=== PATIENT | male | born 1960 ===

== ENCOUNTER 2021-07-24 13:35 | Emergency (ER) | payer MEDICAID, SELFPAY ==
[2021-07-24 16:12] VITALS: BP 150/93; PULSE 82; RESP 19; TEMP 36.6; O2SAT 100; BMI 21.5
--- NOTE | 2021-07-24 16:36 | ED_ITS ---
HPI - Back Pain/Injury General Chief Complaint: Back Pain/Injury Stated Complaint: l leg pain Time Seen by Provider: 07/24/21 16:11 History of Present Illness HPI Narrative: Patient complains of left low back pain radiating to upper left leg since lifting a box this morning and feeling sharp pain He has had milder back pain before He denies any numbness or weakness or incontinence no fever no IV drugs Related Data Previous Rx's Medication Instructions Recorded cyclobenzaprine 5 mg tablet 5 mg PO TID PRN #14 tab 07/24/21 ibuprofen 600 mg tablet 600 mg PO Q6H PRN #20 tab 07/24/21 oxycodone 5 mg tablet 5 mg PO Q6H PRN #14 tab 07/24/21 prednisone 20 mg tablet 60 mg PO DAILY 5 Days #15 tab 07/24/21 Allergies Allergy/AdvReac Type Severity Reaction Status Date / Time No Known Allergies Allergy Unverified 04/22/20 19:11 [No Known Allergies*] Review of Systems Review of Systems: Positive for back pain radiating to left leg Negatives are no fever no chills no dizziness no weakness no headache no neck pain no chest pain no abdominal pain no nausea vomiting no dysuria no incontin ence no changes to bowel or bladder no muscle weakness no loss of sensation Yes all other systems are reviewed and are negative PMFSH Past Medical History Source: nursing notes reviewed Social History Social History Advance Directives: No Advance Directives Information Provided: No Physical Exam Vital Signs: Vital Signs: Last Vital Signs Temp 98 F 07/24/21 16:12 Pulse 82 07/24/21 16:12 Resp 19 07/24/21 16:12 BP 150/93 H 07/24/21 16:12 Pulse Ox 100 07/24/21 16:12 BMI result Body Mass Index 21.5 General appearance is no acute distress The head is normocephalic atraumatic Neck is supple Respiratory no distress Abdomen soft nontender The back had left lower lumbar and upper gluteal tenderness, skin was normal, no CVA tenderness no focal bony tenderness, pain easily reproduced with movement Extremities full range of motion x4 Motor is 5/5 x4 and sensation is intact and symmetrical Course Course Course Narrative: Patient with left-sided sciatica is treated with prednisone anti-inflammatory as well as analgesics and muscle relaxer Discharge Plan Discharge Clinical Impression: Lumbar radiculopathy Patient Disposition: Home, Self-Care Additional Instructions: Pain on the left lower back radiating to left upper leg is likely a pinched nerve Prednisone as an anti-inflammatory that may reduce inflammation around the nerve You can use the muscle relaxer as well and Motrin for mild pain and if needed you could use oxycodone for worse pain Return any time any worse condition or concerns Follow with primary doctor Prescriptions: New prednisone 20 mg tablet 60 mg PO DAILY 5 Days Qty: 15 RF: 0 ibuprofen 600 mg tablet 600 mg PO Q6H PRN (Reason: pain) Qty: 20 RF: 0 oxycodone 5 mg tablet 5 mg PO Q6H PRN (Reason: pain) Qty: 14 RF: 0 cyclobenzaprine 5 mg tablet 5 mg PO TID PRN (Reason: muscle spasm) Qty: 14 RF: 0 Interventions: ED Discharge Assessment Last Done: 07/24/21 16:51 Discharge Date/Time: 07/24/21 17:10
[2021-07-24] MEDS: Ketorolac Tromethamine 30 MG/ML VIAL IM (16:47)
== END 2021-07-24 17:10 | disposition home or self-care (01) ==
PROVIDERS: Emergency Provider Emergency Medicine
DX: M54.16 Radiculopathy, lumbar region (principal)
CPT/HCPCS: 99283; 99284; J1885

== ENCOUNTER 2021-08-07 12:00 | Emergency (ER) | payer MEDICAID, SELFPAY ==
--- NOTE | ~2021-08-07 | CT_ITS ---
EXAMINATION: CT ABDOMEN AND PELVIS WITHOUT CONTRAST CLINICAL INFORMATION: Left-sided low back pain. Rule out mass. Rule out aortic enlargement. COMPARISON: None TECHNIQUE: Multidetector volumetric imaging was performed from the superior aspect of the liver through the pubic symphysis. Sagittal and coronal reformatted images were obtained on the technologist's workstation. This CT examination was performed using dose optimization techniques as appropriate, variously including the following: *Automated exposure control *Adjustment of mA and/or kV according to patient size (this includes techniques or standardized protocols for targeted exams where dose is matched to indication/reason for exam; i.e. extremities or head) *Use of iterative reconstruction technique DLP: 371 mGy-cm FINDINGS: LUNG BASES: Linear pleural-parenchymal scarring is present at the right middle lobe, lingula, and left lower lobe. Lung bases are otherwise clear. LIVER, GALLBLADDER, AND BILIARY TREE: The liver is normal in size, shape, and attenuation. No focal hepatic lesion or biliary ductal dilatation is present. The gallbladder is unremarkable with no evidence of radiopaque gallstones, gallbladder wall thickening, or obvious pericholecystic inflammatory changes. PANCREAS: Unremarkable. SPLEEN: Unremarkable. ADRENAL GLANDS: Unremarkable. KIDNEYS AND URETERS: The kidneys are normal in size, shape, and attenuation. No hydronephrosis, hydroureter, or calculi seen. No perinephric stranding. There is a 1.2 cm fluid density (2 Hounsfield unit) cysts in the right kidney at the medial cortex, most likely a simple cyst. No recommend imaging follow-up. BLADDER: Unremarkable. GASTROINTESTINAL TRACT: Stomach, small bowel, and colon are normal in caliber. No bowel wall thickening or surrounding inflammatory changes. There is a prominent appendicolith at the appendix without significant surrounding inflammatory changes. There is normal intraluminal gas within the appendix.. No intraperitoneal free fluid or free air. ABDOMINAL WALL: No significant hernia is appreciated. LYMPH NODES: Normal. VASCULAR: Abdominal aorta is normal in caliber. No significant atherosclerotic disease in the abdominal aorta. A small calcific atherosclerotic plaque is present in the right common iliac artery. PELVIC VISCERA: Mild prostatomegaly. OSSEOUS STRUCTURES: There is mild multilevel degenerative disc disease in the lumbar spine. No acute fracture or malalignment. 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 There is encroachment of the left L4-L5 neural foramen by a foraminal component of the disc bulge. More mild degrees of neural foraminal encroachment are present at other levels. CT/CT abdomen pelvis wo con IMPRESSION: 1. No acute intra-abdominal or intrapelvic abnormalities. Normal caliber abdominal aorta. 2. 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 A mild disc bulge at L4-L5 appears asymmetric to the left with a foraminal component that likely produces left L4-L5 neural foraminal encroachment and impinges on the left L4 nerve root. Consider correlation with MRI on a nonemergent basis.
[2021-08-07 13:41] VITALS: BP 120/73; PULSE 85; RESP 20; TEMP 36.2; O2SAT 99; BMI 20.9
--- NOTE | 2021-08-07 18:54 | ED.EXTPRO ---
HPI - Extremity Problem General Chief complaint: Extremity Problem Stated complaint: leg pain Time Seen by Provider: 08/07/21 15:38 History of Present Illness HPI Narrative: Patient complains of severe pain going down the left leg from his low back gluteal area on the left side for many weeks not relieved with a prior visit where he was given prednisone and pain killers, there is no incontinence no changes to bowel or bladder no motor weakness no loss of sensation Related Data Previous Rx's Medication Instructions Recorded cyclobenzaprine 5 mg tablet 5 mg PO TID PRN #14 tab 07/24/21 ibuprofen 600 mg tablet 600 mg PO Q6H PRN #20 tab 07/24/21 oxycodone 5 mg tablet 5 mg PO Q6H PRN #14 tab 07/24/21 prednisone 20 mg tablet 60 mg PO DAILY 5 Days #15 tab 07/24/21 ibuprofen 600 mg tablet 600 mg PO Q6H PRN #20 tab 08/07/21 oxycodone 5 mg tablet 10 mg PO Q6H PRN #20 tab 08/07/21 Allergies Allergy/AdvReac Type Severity Reaction Status Date / Time No Known Allergies Allergy Unverified 08/07/21 13:40 [No Known Allergies*] Review of Systems Review of Systems: Positive for left-sided gluteal and low back pain rated radiating to left foot Negatives are no fever no chills no chest pain no abdominal pain no shortness of breath no nausea or vomiting no dysuria no incontinence no frequency no loss of motor strength no loss of sensation Yes all other systems are reviewed and are negative [facility] Past Medical History Source: nursing notes reviewed Medical History (Updated 08/07/21 @ 17:22 by FABIOLA Barron) No known health problems Social History Social History Advance Directives: No Advance Directives Information Provided: Yes Physical Exam Vital Signs: Vital Signs: Last Vital Signs Temp 97.2 F 08/07/21 13:41 Pulse 85 08/07/21 13:41 Resp 20 08/07/21 13:41 BP 120/73 08/07/21 13:41 Pulse Ox 99 08/07/21 13:41 BMI result Body Mass Index 20.9 General appearance is no acute distress The head is normocephalic atraumatic neck is supple Respiratory no distress Abdomen soft nontender The back had gluteal and lower back tenderness, skin was normal, certain positions cause worse pain, the skin was normal in appearance there are no wounds no redness no focal bony tenderness and no CVA tenderness Extremities was full range of motion x4 Neuro was no focal motor sensory deficits Course Course Course Narrative: CT showed likely L4-L5 herniated disc impinging L4 nerve root Patient is neurovascular intact now with no changes to bowel or bladder and he is prescribed analgesics and as he has no primary doctor I gave him some phone numbers including [facility], pain management here in the hospital and neurosurgeon Dr. Stovall but without a referral it may be hard to get him seen Discharge Plan Discharge Clinical Impression: Pinched nerve, Sciatica Patient Disposition: Home, Self-Care Additional Instructions: Your CT scan shows you likely have a herniated disc that is pressured on a nerve You will need to follow with a back specialist and I can give you some phone numbers but you may need a referral from a primary care doctor You can try [facility] [phone] Return any time for weakness, fever, severe uncontrolled pain, incontinence any worse condition or any concerns Prescriptions: New oxycodone 5 mg tablet 10 mg PO Q6H PRN (Reason: pain) Qty: 20 RF: 0 ibuprofen 600 mg tablet 600 mg PO Q6H PRN (Reason: pain) Qty: 20 RF: 0 No Action prednisone 20 mg tablet 60 mg PO DAILY 5 Days Qty: 15 RF: 0 ibuprofen 600 mg tablet 600 mg PO Q6H PRN (Reason: pain) Qty: 20 RF: 0 oxycodone 5 mg tablet 5 mg PO Q6H PRN (Reason: pain) Qty: 14 RF: 0 cyclobenzaprine 5 mg tablet 5 mg PO TID PRN (Reason: muscle spasm) Qty: 14 RF: 0 Referrals: Justin Buck MD [Physician] - 2 days (Patient seen in ER multiple times for excruciating sciatica, not a drug seeker, no primary doctor hoping he can get into your office for possible injection and further evaluation, CT scan did demonstrate a likely large disc herniation impinging on L4)
[2021-08-07] MEDS: Ketorolac Tromethamine 30 MG/ML VIAL IM (19:20)
== END 2021-08-07 19:24 | disposition home or self-care (01) ==
PROVIDERS: Emergency Provider Internal Medicine
DX: M54.32 Sciatica, left side (principal); G58.9 Mononeuropathy, unspecified
CPT/HCPCS: 74176; 96372; 99284; J1885

== ENCOUNTER 2021-08-09 08:11 | Emergency (ER) | payer MEDICAID, SELFPAY ==
--- NOTE | ~2021-08-09 | MR_ITS ---
MR LUMBAR SPINE WITHOUT CONTRAST CLINICAL INFORMATION: Low back pain radiating to the left lower extremity. Urinary/bowel retention. COMPARISON: None available. TECHNIQUE: MRI of the lumbar spine was obtained using routine sequences without contrast. FINDINGS: Straightening of the lumbar lordosis. Grade 1 retrolisthesis of L3 on L4. Disc desiccation at the L3-L4, L4-L5, and to lesser extent the L5-S1 levels. Modic type I endplate signal changes at L3-L4. Small intraosseous hemangioma within the L4 vertebral body. No additional bone marrow edema. No acute fractures. Conus terminates at the L1-L2 level. There is a right renal cyst. L1-L2: Disc contour is normal. No central canal stenosis and no foraminal stenosis. L2-L3: Small annular disc bulge and mild to moderate bilateral facet arthropathy. Shallow left paracentral disc protrusion results in mass effect on the traversing left L3 nerve root within the left subarticular zone. There is mild foraminal encroachment bilaterally. L3-L4: Diffuse annular disc bulge and mild to moderate bilateral hypertrophic facet arthropathy. Findings in concert result in bilateral subarticular zone stenosis with mass effect on the traversing L4 nerve roots bilaterally, mild central canal stenosis, moderate to severe bilateral foraminal stenosis with mass effect on the exiting L3 nerve roots bilaterally. There is a left lateral annular fissure at this level. L4-L5: Diffuse annular disc bulge and moderate bilateral facet arthropathy and ligamentum flavum thickening. Findings in concert result in mild central canal stenosis. There is a superiorly migrating left foraminal disc extrusion that results in severe left foraminal stenosis and compression of the exiting left L4 nerve root. Right lateral disc osteophyte and facet arthropathy result in moderate right foraminal stenosis with mild mass effect on the exiting right L4 nerve root as well. L5-S1: There is a shallow right paracentral disc protrusion that results in posterior deflection of the traversing right S1 nerve root within the right subarticular zone. Disc osteophyte and facet arthropathy result in moderate right and mild to moderate left foraminal stenosis with mass effect on the exiting right L5 nerve root. MR/MR lumbar spine wo con IMPRESSION: - At L4-L5, there is a superiorly migrating left foraminal disc extrusion that results in severe left foraminal stenosis and compression of the exiting left L4 nerve root. Also at L4-L5, spondylitic changes result in mild central canal stenosis and moderate right-sided foraminal stenosis with mass effect on the exiting right L4 nerve root as well. - At L5-S1, there is a shallow right paracentral disc protrusion that results in posterior deflection of the traversing right S1 nerve root within the right subarticular zone. Spondylitic changes at L5-S1 also result in moderate right foraminal stenosis with mass effect on the exiting right L5 nerve root. - At L3-L4, multifactorial degenerative changes result in bilateral subarticular zone stenosis with mass effect on the traversing L4 nerve roots bilaterally, mild central canal stenosis, moderate to severe bilateral foraminal stenosis with mass effect on the exiting L3 nerve roots bilaterally. There is a left lateral annular fissure at this level. - At L2-L3, a shallow left paracentral disc protrusion results in mass effect on the traversing left L3 nerve root within the left subarticular zone.
[2021-08-09 09:00] VITALS: BP 94/66; PULSE 92; RESP 18; TEMP 36.8; O2SAT 98; BMI 21.5
--- NOTE | 2021-08-09 09:22 | ED_ITS ---
HPI - Back Pain/Injury General Chief Complaint: Back Pain/Injury Stated Complaint: back pain Time Seen by Provider: 08/09/21 09:17 Source: patient Mode of arrival: ambulatory Limitations: language barrier ([place] Speaking) History of Present Illness HPI Narrative: 61-year-old male with no significant past medical history presenting to the ED with complaints of lower back/left lower back back pain for the past 6 weeks that is progressively worsening radiating to his left leg with associated paresthesias, urinary and bowel retention, difficulty walking having to use his walker in the past week along with 10-12 lb weight loss as well. Although reports his appetite has not been good therefore he has not been eating as much and he is unsure if the urinary and bowel retention is due to this. He has been taking [id number] medication and the prescribed medications given here on his last visit although no symptomatic relief. He does not have a primary care provider at this time. He denies any falls, recent trauma, history of kidney stones, back surgery, arthritis, history of cancer, urinary or bowel incontinence or any IV drug use or any fevers. He denies any other symptoms complaints or concerns at this time. MD elicited complaint: back pain Onset (ago): week(s) (6) Timing: constant and progressively worsening Severity: severe Pain scale (0-10): 10 Similar Symptoms Previously: Yes Quality: sharp Location: lumbar spine and left lower back Radiation: left leg below the knee Exacerbating factors: movement, walking and lifting Relieving factors: none Context: unknown Associated symptoms: numbness, difficulty walking, parasthesias and other (increased urinary and bowel retention ) Treatments prior to arrival: other (OTC meds and no symptomatic relief) Work related injury: No Related Data Previous Rx's Medication Instructions Recorded cyclobenzaprine 5 mg tablet 5 mg PO TID PRN #14 tab 07/24/21 ibuprofen 600 mg tablet 600 mg PO Q6H PRN #20 tab 07/24/21 oxycodone 5 mg tablet 5 mg PO Q6H PRN #14 tab 07/24/21 prednisone 20 mg tablet 60 mg PO DAILY 5 Days #15 tab 07/24/21 ibuprofen 600 mg tablet 600 mg PO Q6H PRN #20 tab 08/07/21 oxycodone 5 mg tablet 10 mg PO Q6H PRN #20 tab 08/07/21 nitrofurantoin 100 mg PO BID 7 Days #14 cap 08/09/21 monohydrate/macrocrystals 100 mg capsule (Macrobid) oxycodone 5 mg tablet 5 mg PO Q6H PRN #14 tab 08/09/21 prednisone 20 mg tablet 40 mg PO DAILY 5 Days #10 tab 08/09/21 Allergies Allergy/AdvReac Type Severity Reaction Status Date / Time No Known Allergies Allergy Verified 08/09/21 09:00 [No Known Allergies*] Review of Systems Review of Systems: Constitutional : No trauma, + Weight loss, No Fever, No Chills, ENT/Mouth : No Hearing loss, No Ear Pain, No Nasal Congestion, No Sinus Pain, No Hoarseness, No sore throat, No Rhinorrhea, No Swallowing Difficulty Cardiovascular : No Chest Pain, No SOB Respiratory : No Cough, No Dyspnea Gastrointestinal : No Nausea, No Vomiting, No Diarrhea, No abdominal Pain, No Hematochezia, No Melena Genitourinary : No Dysuria, No Urinary Frequency, No Hematuria, No Urinary or Bowel Incontinence/retention Musculoskeletal : + Back pain, No neck pain, No joint stiffness, No joint swelling Skin : No Skin Lesions, No rash or signs of infection Neuro : No Weakness, + radiation, + Numbness, + Paresthesias, No headache, no loss of bowel or bladder incontinence, no saddle anesthesia, Focal weakness, + radiation Denies history of IV drug usage. Yes all other systems are reviewed and are negative [facility] Past Medical History Attestation statement: The following information was validated with the patient. Medical History No known health problems Social History Social History Advance Directives: No Advance Directives Information Provided: No Physical Exam Vital Signs: Vital Signs: Last Vital Signs Temp 98.3 F 08/09/21 09:00 Pulse 92 08/09/21 09:00 Resp 18 08/09/21 09:00 BP 94/66 08/09/21 09:00 Pulse Ox 98 08/09/21 09:00 BMI result Body Mass Index 21.5 vital signs have been reviewed as normal and appeared to be correct. Blood pressure normal. Heart rate normal. Respiration rate normal. Temperature normal. Oxygen saturation normal. Appearance: Alert. Oriented X3. No acute distress. Head: Normal external exam. Normocephalic. Atraumatic. Eyes: PERRLA. EOMI. Conjunctiva and sclera normal. Eyelids normal. ENT: Pharynx normal. Uvula midline. Moist mucous membranes. Neck: Normal inspection. Neck supple. FROM. No adenopathy. Thyroid Normal. No meningeal signs. No neck mass noted. CVS: Normal heart rate and rhythm. Heart sound normal. No murmurs noted. Pulses normal throughout. Respiratory: No respiratory distress. Painless inspiration. Breath sounds normal. No wheezes/rales/rhonchi noted. Chest nontender. No accessory muscle usage noted or decreased air movement noted. Abdomen: Soft and nontender. Bowel sounds normal in all 4 quadrants. No distention noted. No organomegaly noted. No visible injury noted. Back: No CVA tenderness. Full range of motion noted. No obvious deformities, or edema. Mild para-spinal muscular tenderness from lumbar region to coccyx. Full ROM in back and lower extremities. 5/5 strength hip extension/flexion, abduction, adduction. Mild Lumbar pain with hip flexion against resistance. Straight leg raise test negative on right; Straight leg raise test negative on left; Reflexes normal ankle and knee bilaterally; EHL motor strength normal bilaterally. No rashes/lesion/induration/fluctuance or signs infection noted. Rectal Exam: Normal rectal exam. Normal sphincter tone. Skin: Skin warm and dry. Normal skin color. Normal skin turgor. No rashes/lesions/lacerations noted. Extremities: No lower extremity edema. No calf tenderness is noted. Extremities exhibit normal range of motion. Extremities nontender. Neuro: Oriented X 3. No motor deficit. No sensory deficit. Reflexes normal. Patient has a normal steady gait. Course Course Course Narrative: 9:30am - Pt c likely muscular pain, but could be herniated disc. Neuro exam shows no deficits. Not c/w AAA/epidural abscess/dissection. Patient is reporting urinary and bowel retention with associated weight loss therefore MRI ordered at this time to evaluate for any other acute processes along with labs and UA. No history of fever/immune suppressant/surgery/lumbar puncture/coagulation therapy/significant trauma/post a tiny mass/cancer/history of TB or IV drug use. Not c/w Pyelo/UTI/kidney stone/spinal fx. Not cauda equina syndrome. Will reassess after labs and imaging. Reevaluation(s) Reevaluation #1: [place] [address]. MILD ANEMIA WITH AN H&H OF 13.1/38.9. BUN 17. OTHERWISE ALL OTHER LABS ARE WITHIN NORMAL LIMITS. PATIENT WITH 15-29 WHITE BLOOD CELLS IN URINE POSSIBLE UTI THEREFORE WAS STARTED ON ANTIBIOTICS FOR UTI. MRI revealed chronic changes therefore printed out the results and handed to the patient explained to him that he will need to follow-up with a primary care provider and a camp recreation specialist I gave him a few numbers for that he will need to call on his own to make an appointment. He understands this. Along with instructions return if any new or worsening symptoms. Time: 13:23 MDM - Back Pain/Injury Medical Records Attestation: I reviewed the patient's medical records. Lab Data Attestation: I reviewed the patient's lab results. Result diagrams: 08/09/21 09:37 08/09/21 09:37 Labs: Lab Results 08/09/21 08/09/21 08/09/21 Range/Units 09:34 09:37 09:37 WBC 14.2 H (4.8-10.8) X10*3/uL RBC 4.23 L (4.60-5.80) X10*6/uL Hgb 13.1 L (14.0-18.0) g/dl Hct 38.9 L (42.0-52.0) % MCV 92.0 (80.0-98.0) fL MCH 31.0 (27.0-33.0) pg MCHC 33.7 (31.0-36.0) g/dl RDW 12.4 (11.0-16.0) % Plt Count 215 (160-400) X10*3/uL MPV 9.9 (9.4-12.4) fL Immature Gran % (Auto) 0.4 (0.0-0.4) % Neut % (Auto) 73.0 (45-73) % Lymph % (Auto) 18.1 L (20-40) % Cache % (Auto) 7.5 (2-11) % Eos % (Auto) 0.7 (0-4) % Baso % (Auto) 0.3 (0-2) % Lymph # (Auto) 2.6 (1.2-4.9) X10*3/uL Cache # (Auto) 1.1 (0.1-1.2) X10*3/uL Eos # (Auto) 0.1 (0.0-0.4) X10*3/uL Baso # (Auto) 0.0 (0.0-0.2) X10*3/uL Abs Immat Gran (auto) 0.06 H (0.00-0.03) X10*3/uL Absolute Neuts (auto) 10.4 H (2.0-8.3) x10*3/uL Absolute Nucleated RBC 0.000 (0.0-0.012) X10*3/uL Nucleated RBC % (auto) 0.0 (0.0-0.2) /100WBC PT 11.1 (9.9-13.0) SEC INR 1.0 (0.9-1.1) Sodium (135-145) mmol/L Potassium (3.3-5.1) mmol/L Chloride (96-108) mmol/L Carbon Dioxide (22-29) mmol/L Anion Gap (12-20) BUN (9-16) mg/dL Creatinine (0.5-1.4) mg/dL Estim Creat Clear Calc Estimated GFR Random Glucose (60-115) mg/dL Calcium (8.4-10.2) mg/dL Magnesium (1.6-2.6) mg/dL Total Bilirubin (0.0-1.0) mg/dL AST (5-37) U/L ALT (0-40) U/L Alkaline Phosphatase (39-117) U/L Total Protein (6.5-8.0) g/dL Albumin (3.5-5.0) g/dL Urine Color YELLOW Urine Appearance HAZY Urine pH 5.5 (5.0-8.0) Ur Specific [place] >= 1.030 H (1.005-1.025) Urine Protein TRACE (NEG-TRACE) MG/DL Urine Glucose (UA) NEG (NEG) MG/DL Urine Ketones NEG (NEG) MG/DL Urine Blood NEG (NEG) Urine Nitrite NEG (NEG) Ur Leukocyte Esterase 1+ H (NEG) Urine RBC 1-4 (0) /HPF Urine WBC 15-29 H (0-4) /HPF Ur Squamous Epith Cells TRACE /LPF Urine Bacteria TRACE /LPF 08/09/21 Range/Units 09:37 WBC (4.8-10.8) X10*3/uL RBC (4.60-5.80) X10*6/uL Hgb (14.0-18.0) g/dl Hct (42.0-52.0) % MCV (80.0-98.0) fL MCH (27.0-33.0) pg MCHC (31.0-36.0) g/dl RDW (11.0-16.0) % Plt Count (160-400) X10*3/uL MPV (9.4-12.4) fL Immature Gran % (Auto) (0.0-0.4) % Neut % (Auto) (45-73) % Lymph % (Auto) (20-40) % Cache % (Auto) (2-11) % Eos % (Auto) (0-4) % Baso % (Auto) (0-2) % Lymph # (Auto) (1.2-4.9) X10*3/uL Cache # (Auto) (0.1-1.2) X10*3/uL Eos # (Auto) (0.0-0.4) X10*3/uL Baso # (Auto) (0.0-0.2) X10*3/uL Abs Immat Gran (auto) (0.00-0.03) X10*3/uL Absolute Neuts (auto) (2.0-8.3) x10*3/uL Absolute Nucleated RBC (0.0-0.012) X10*3/uL Nucleated RBC % (auto) (0.0-0.2) /100WBC PT (9.9-13.0) SEC INR (0.9-1.1) Sodium 139 (135-145) mmol/L Potassium 4.1 (3.3-5.1) mmol/L Chloride 105 (96-108) mmol/L Carbon Dioxide 27 (22-29) mmol/L Anion Gap 11 L (12-20) BUN 17 H (9-16) mg/dL Creatinine 0.83 (0.5-1.4) mg/dL Estim Creat Clear Calc 92.2 Estimated GFR > 60 Random Glucose 91 (60-115) mg/dL Calcium 9.3 (8.4-10.2) mg/dL Magnesium 2.1 (1.6-2.6) mg/dL Total Bilirubin < 0.2 (0.0-1.0) mg/dL AST 15 (5-37) U/L ALT 26 (0-40) U/L Alkaline Phosphatase 46 (39-117) U/L Total Protein 6.7 (6.5-8.0) g/dL Albumin 3.9 (3.5-5.0) g/dL Urine Color Urine Appearance Urine pH (5.0-8.0) Ur Specific [place] (1.005-1.025) Urine Protein (NEG-TRACE) MG/DL Urine Glucose (UA) (NEG) MG/DL Urine Ketones (NEG) MG/DL Urine Blood (NEG) Urine Nitrite (NEG) Ur Leukocyte Esterase (NEG) Urine RBC (0) /HPF Urine WBC (0-4) /HPF Ur Squamous Epith Cells /LPF Urine Bacteria /LPF Imaging Data MRI of lumbar spine without contrast: Attestation: I personally reviewed and interpreted this imaging study as follows: Radiologist's impression: FINDINGS: Straightening of the lumbar lordosis. Grade 1 retrolisthesis of L3 on L4. Disc desiccation at the L3-L4, L4-L5, and to lesser extent the L5-S1 levels. Modic type I endplate signal changes at L3-L4. Small intraosseous hemangioma within the L4 vertebral body. No additional bone marrow edema. No acute fractures. Conus terminates at the L1-L2 level. There is a right renal cyst. L1-L2: Disc contour is normal. No central canal stenosis and no foraminal stenosis. L2-L3: Small annular disc bulge and mild to moderate bilateral facet arthropathy. Shallow left paracentral disc protrusion results in mass effect on the traversing left L3 nerve root within the left subarticular zone. There is mild foraminal encroachment bilaterally. L3-L4: Diffuse annular disc bulge and mild to moderate bilateral hypertrophic facet arthropathy. Findings in concert result in bilateral subarticular zone stenosis with mass effect on the traversing L4 nerve roots bilaterally, mild central canal stenosis, moderate to severe bilateral foraminal stenosis with mass effect on the exiting L3 nerve roots bilaterally. There is a left lateral annular fissure at this level. L4-L5: Diffuse annular disc bulge and moderate bilateral facet arthropathy and ligamentum flavum thickening. Findings in concert result in mild central canal stenosis. There is a superiorly migrating left foraminal disc extrusion that results in severe left foraminal stenosis and compression of the exiting left L4 nerve root. Right lateral disc osteophyte and facet arthropathy result in moderate right foraminal stenosis with mild mass effect on the exiting right L4 nerve root as well. L5-S1: There is a shallow right paracentral disc protrusion that results in posterior deflection of the traversing right S1 nerve root within the right subarticular zone. Disc osteophyte and facet arthropathy result in moderate right and mild to moderate left foraminal stenosis with mass effect on the exiting right L5 nerve root. MR/MR lumbar spine wo con IMPRESSION: - At L4-L5, there is a superiorly migrating left foraminal disc extrusion that results in severe left foraminal stenosis and compression of the exiting left L4 nerve root. Also at L4-L5, spondylitic changes result in mild central canal stenosis and moderate right-sided foraminal stenosis with mass effect on the exiting right L4 nerve root as well. ? - At L5-S1, there is a shallow right paracentral disc protrusion that results in posterior deflection of the traversing right S1 nerve root within the right subarticular zone. Spondylitic changes at L5-S1 also result in moderate right foraminal stenosis with mass effect on the exiting right L5 nerve root. ? - At L3-L4, multifactorial degenerative changes result in bilateral subarticular zone stenosis with mass effect on the traversing L4 nerve roots bilaterally, mild central canal stenosis, moderate to severe bilateral foraminal stenosis with mass effect on the exiting L3 nerve roots bilaterally. There is a left lateral annular fissure at this level. ? - At L2-L3, a shallow left paracentral disc protrusion results in mass effect on the traversing left L3 nerve root within the left subarticular zone. Critical Care Time Critical Care Time Critical Care Time: Yes Total Critical Care Time: 60 Attestation: I personally attest to this time spent taking care of the patient Discharge Plan Discharge Clinical Impression: UTI (urinary tract infection), Lumbar radiculopathy, Lumbar nerve root im pingement, Lumbar disc herniation Patient Disposition: Home, Self-Care Instructions: Urinary Tract Infection in Men (ED), Lumbar Radiculopathy (ED), Back Pain (ED), Lower Back Exercises (ED) Additional Instructions: Le di sathya lista de proveedores de atenci?n primaria a los que puede llamar y tambi?n le expliqu? a [place] que debe hacer un seguimiento con 1 de los neurocirujanos de [facility], puede llamarlos al [phone] I gave you a list of primary care providers that you can call and I also explained to Saranya that he should follow-up with 1 of the neurosurgeons at [facility] you can call them at [phone] Prescriptions: New nitrofurantoin monohyd/m-cryst [Macrobid] 100 mg capsule 100 mg PO BID 7 Days Qty: 14 RF: 0 oxycodone 5 mg tablet 5 mg PO Q6H PRN (Reason: pain) Qty: 14 RF: 0 prednisone 20 mg tablet 40 mg PO DAILY 5 Days Qty: 10 RF: 0 No Action prednisone 20 mg tablet 60 mg PO DAILY 5 Days Qty: 15 RF: 0 ibuprofen 600 mg tablet 600 mg PO Q6H PRN (Reason: pain) Qty: 20 RF: 0 oxycodone 5 mg tablet 5 mg PO Q6H PRN (Reason: pain) Qty: 14 RF: 0 cyclobenzaprine 5 mg tablet 5 mg PO TID PRN (Reason: muscle spasm) Qty: 14 RF: 0 oxycodone 5 mg tablet 10 mg PO Q6H PRN (Reason: pain) Qty: 20 RF: 0 ibuprofen 600 mg tablet 600 mg PO Q6H PRN (Reason: pain) Qty: 20 RF: 0 Print Language: [place]
[2021-08-09 09:44] LABS: MANUAL DIFF FLAG NO
[2021-08-09 09:45] LABS: Basophils Percent Auto 0.3 % (0-2); Eosinophils Absolute Auto 0.1 X10*3/uL (0.0-0.4); Eosinophils Percent Auto 0.7 % (0-4); Hematocrit 38.9 % (42.0-52.0); Hemoglobin 13.1 g/dl (14.0-18.0); Imm Gran Abs Auto 0.06 X10*3/uL (0.00-0.03); Imm Gran Pct Auto 0.4 % (0.0-0.4); Lymphocytes Absolute Auto 2.6 X10*3/uL (1.2-4.9); Lymphocytes Percent Auto 18.1 % (20-40); Mean Corpuscular HGB Conc 33.7 g/dl (31.0-36.0); Mean Platelet Volume 9.9 fL (9.4-12.4); Monocytes Absolute Auto 1.1 X10*3/uL (0.1-1.2); Monocytes Percent Auto 7.5 % (2-11); Neutrophils Absolute Auto 10.4 x10*3/uL (2.0-8.3); Platelet Count 215 X10*3/uL (160-400); Red Blood Count 4.23 X10*6/uL (4.60-5.80); Red Cell Distribution Width 12.4 % (11.0-16.0); White Blood Count 14.2 X10*3/uL (4.8-10.8)
[2021-08-09 09:46] LABS: Color Urine YELLOW; Glucose Urine UA NEG (NEG); Leukocyte Esterase Urine 1+ (NEG); Nitrite Urine NEG (NEG); PH 5.5 (5.0-8.0); Specific Gravity - Urine >= 1.030 (1.005-1.025); UACC Culture Trigger YES; Urine Blood NEG (NEG); Urine Ketones NEG (NEG); Urine Protein TRACE MG/DL (NEG-TRACE)
[2021-08-09 09:48] LABS: Appearance Urine HAZY
[2021-08-09] MEDS: Cyclobenzaprine HCl 10 MG TABLET PO (09:55)
[2021-08-09 09:56] LABS: Prothrombin Time 11.1 SEC (9.9-13.0)
[2021-08-09] MEDS: Ibuprofen 800 MG TABLET PO (09:57)
[2021-08-09] MEDS: oxyCODONE HCl Immed Release 5 MG TABLET PO (09:57)
[2021-08-09 10:05] LABS: Bacteria Urine TRACE /LPF; Squamous Epithelial Cell Urine TRACE /LPF
[2021-08-09 10:07] LABS: Alanine Aminotransferase 26 U/L (0-40); Albumin Level 3.9 g/dL (3.5-5.0); Alkaline Phosphatase 46 U/L (39-117); Anion Gap 11 (12-20); Aspartate Amino Transferase 15 U/L (5-37); Bilirubin Total < 0.2 mg/dL (0.0-1.0); Blood Urea Nitrogen 17 mg/dL (9-16); Calcium 9.3 mg/dL (8.4-10.2); Carbon Dioxide 27 mmol/L (22-29); Chloride 105 mmol/L (96-108); Creatinine Clr Calc Pharmacy 92.2; Estimated Glomerular Filt Rate > 60; Glucose Random 91 mg/dL (60-115); Magnesium 2.1 mg/dL (1.6-2.6); Potassium 4.1 mmol/L (3.3-5.1); Sodium 139 mmol/L (135-145); Total Protein 6.7 g/dL (6.5-8.0)
[2021-08-09 13:38] VITALS: BP 123/78; PULSE 93; RESP 19; TEMP 36.9; O2SAT 96
== END 2021-08-09 13:39 | disposition home or self-care (01) ==
PROVIDERS: Physician Assistant Medical; Emergency Provider Emergency Medicine
DX: N39.0 Urinary tract infection, site not specified (principal); M51.16 Intervertebral disc disorders with radiculopathy, lumbar region; M48.061 Spinal stenosis, lumbar region without neurogenic claudication; N31.9 Neuromuscular dysfunction of bladder, unspecified; K59.9 Functional intestinal disorder, unspecified; R20.9 Unspecified disturbances of skin sensation; R20.2 Paresthesia of skin
CPT/HCPCS: 36415; 72148; 80053; 81001; 83735; 85025; 85610; 87086; 87088; 87186; 99284; 99291

== ENCOUNTER 2021-08-31 09:35 | Outpatient (REF) | payer MEDICAID, SELFPAY ==
--- NOTE | ~2021-08-31 | XR_ITS ---
EXAMINATION: XR CHEST CLINICAL INFORMATION: Abnormal weight loss COMPARISON: None TECHNIQUE: 2 views of the chest were obtained. FINDINGS: Slight elevation the right hemidiaphragm, nonspecific. No pneumothorax. Trachea is midline. Cardiomediastinal silhouette is not enlarged. No large pleural effusion. Degenerative changes of the thoracolumbar spine. Chronic appearing fracture of the right fourth posterolateral rib. Soft tissues are unremarkable. XR/XR chest 2V IMPRESSION: No acute cardiopulmonary process.
== END 2021-08-31 09:36 | disposition home or self-care (01) ==
LOC: HO.XRAY 09:35
PROVIDERS: Absent Provider Internal Medicine; PCP Internal Medicine; Visit Provider Emergency Medicine
DX: R63.4 Abnormal weight loss (principal)
CPT/HCPCS: 71046

== ENCOUNTER 2022-01-09 09:32 | Inpatient (IN) | payer MEDICAID, SELFPAY ==
[2022-01-09] VITALS (7 sets, daily range): BP systolic 132–172; BP diastolic 71–99; PULSE 50–84; RESP 14–18; TEMP 37; O2SAT 99–100; BMI 22.6
--- NOTE | ~2022-01-09 | CT_ITS ---
EXAMINATION: CT ABDOMEN AND PELVIS WITHOUT CONTRAST CLINICAL INFORMATION: Abdominal distention. Status post appendectomy. COMPARISON: 01/09/2022 CT scan of the abdomen and pelvis. TECHNIQUE: Multidetector volumetric imaging was performed from the superior aspect of the liver through the pubic symphysis. Sagittal and coronal reformatted images were obtained on the technologist's workstation. Lack of intravenous and oral contrast limits visceral evaluation. This CT examination was performed using dose optimization techniques as appropriate, variously including the following: *Automated exposure control *Adjustment of mA and/or kV according to patient size (this includes techniques or standardized protocols for targeted exams where dose is matched to indication/reason for exam; i.e. extremities or head) *Use of iterative reconstruction technique DLP: 436 mGy-cm FINDINGS: LUNG BASES: Mild bibasilar linear atelectasis or scarring. No pleural or pericardial effusion. LIVER, GALLBLADDER, AND BILIARY TREE: Unremarkable. PANCREAS: Unremarkable. SPLEEN: Unremarkable. ADRENAL GLANDS: Unremarkable. KIDNEYS AND URETERS: Right kidney small interpolar cyst medially measures 1.5 cm (image 53, series 5). No nephrolithiasis or hydroureteronephrosis. BLADDER: Unremarkable. GASTROINTESTINAL TRACT: The stomach is unremarkable. Mildly dilated gas-filled loops of small bowel are seen. A construction representative bowel lobe in the left lower quadrant measures 3.0 cm (image 26, series 5). Scattered air-fluid levels are seen. The appendix remains dilated with similar appearance measuring up to 1.4 cm in transverse dimension (image 57, series 3). Mild adjacent infiltrative changes are seen without evidence for perforation or abscess formation. There is been interval increase in gaseous distention of the colon more pronounced proximally. Mild scattered stool. The rectum is unremarkable. ABDOMINAL WALL: No significant hernia is appreciated. LYMPH NODES: No lymphadenopathy. VASCULAR: Unremarkable. PELVIC VISCERA: Unremarkable. OSSEOUS STRUCTURES: Unremarkable. CT/CT abdomen pelvis wo con IMPRESSION: 1. Abnormal appendix with findings most consistent with mild acute appendicitis without significant interval change. No evidence for perforation or abscess formation. 2. Mild interval increase in gaseous distention of the small and large bowel suggesting mild ileus. Short-term monitoring with supine and upright abdominal radiographs is recommended as clinically indicated. Fleischner guidelines were followed.
--- NOTE | ~2022-01-09 | XR_ITS ---
EXAMINATION: XR ABDOMEN KUB CLINICAL INDICATION: Abdominal pain COMPARISON: CT dated 01/12/2022 TECHNIQUE: 2 views of the abdomen. FINDINGS: There is gas present throughout the small and large bowel without hollow visceral dilatation. Stool present within the right colon. No pneumatosis. No supine radiographic evidence of intraperitoneal free air. Mild degenerative changes throughout the lumbar spine. XR/XR KUB IMPRESSION: No evidence of obstruction. Finding suggestive of ileus.
--- NOTE | ~2022-01-09 | XR_ITS ---
EXAMINATION: XR ABDOMEN KUB CLINICAL INDICATION: Constipation COMPARISON: CT abdomen pelvis 01/09/2022 TECHNIQUE: AP view of the abdomen. FINDINGS: There is distended colon with gas extending into the posterior distal small bowel loops. There is minimal stool in the right colon. There is no organomegaly. No free air suspected. No gross bony abnormality. XR/XR KUB IMPRESSION: Moderate gas seen throughout the colon. Small amount of gas seen in the distal ileal loops. Nonspecific findings not suggestive of obstruction.
--- NOTE | ~2022-01-09 | CT_ITS ---
EXAMINATION: CT ABDOMEN AND PELVIS WITHOUT CONTRAST CLINICAL INFORMATION: Abdominal pain with nausea and vomiting. COMPARISON: CT abdomen pelvis 08/07/2021 TECHNIQUE: Multidetector volumetric imaging was performed from the superior aspect of the liver through the pubic symphysis. Sagittal and coronal reformatted images were obtained on the technologist's workstation. This CT examination was performed using dose optimization techniques as appropriate, variously including the following: *Automated exposure control *Adjustment of mA and/or kV according to patient size (this includes techniques or standardized protocols for targeted exams where dose is matched to indication/reason for exam; i.e. extremities or head) *Use of iterative reconstruction technique DLP: 505 mGy-cm FINDINGS: Visualized lung bases demonstrate mild dependent atelectasis. Visualized portions of the liver are normal in appearance. The gallbladder is unremarkable. The pancreas, spleen and adrenal glands are unremarkable. Symmetrically sized kidneys. No renal calculi or hydronephrosis of either kidney. Stable small right renal cyst. Normal caliber loops of small and large bowel. The appendix is dilated measuring up to 1.2 cm in maximum diameter (previously 6 mm). There is minimal adjacent soft tissue stranding which appears new. There is no well localized fluid collection. No lymphadenopathy in this region. Normal caliber abdominal aorta. No gross retroperitoneal lymphadenopathy. The bladder is normal in appearance. The prostate gland is enlarged. There is no gross free pelvic fluid. No inguinal lymphadenopathy. Prominent right-sided hydrocele, incompletely visualized. Mild diffuse degenerative changes of the spine. CT/CT abdomen pelvis wo con IMPRESSION: The appendix is dilated measuring up to 1.2 cm in maximum diameter (previously 6 mm). There is minimal adjacent soft tissue stranding which appears new. There is no well localized fluid collection. No lymphadenopathy in this region. Findings are likely to represent early/mild acute appendicitis. Clinical correlation recommended. Surgical consultation likely warranted. Fleischner guidelines were followed.
[2022-01-09] MEDS: Ondansetron ODT 4 MG TAB.RAPDIS TRANSLINGU (09:51)
--- NOTE | 2022-01-09 10:06 | ED.GENADULT ---
HPI - General Adult General Chief complaint: Abdominal Pain Stated complaint: VOMITTING, NASEAU Time Seen by Provider: 01/09/22 10:06 Source: patient Mode of arrival: ambulatory Limitations: no limitations History of Present Illness HPI narrative: Patient is a 61 year old male presenting to the emergency department today with abdominal pain. Patient states that for the last coupe days he has had right sided abdominal pain, nausea, and vomiting. Patient denies any dizziness, lightheadedness, fever, chills, blurry vision, double vision, loss of vision, chest pain, difficulty breathing, shortness of breath, back pain, night sweats, pain with urination, increased urinary frequency, increased urinary urgency, blood in his urine or stool, syncope or a near syncopal episode, recent trauma or falls, bowel incontinence, bladder incontinence, bowel retention, bladder retention, or any other complaints at this time. Onset (ago): day(s) Location: abdomen Radiation: non-radiation Severity: mild Severity scale (1-10): 4 Quality: dull Pain Consistency: constant Relieving factors: none Exacerbating factors: none Associated symptoms: nausea/vomiting Treatments prior to arrival: none Related Data Home Medications Medication Instructions Recorded Confirmed No Known Home Meds 01/09/22 01/09/22 Allergies Allergy/AdvReac Type Severity Reaction Status Date / Time No Known Allergies Allergy Verified 08/09/21 09:00 [No Known Allergies*] Review of Systems Constitutional: Constitutional: Reports no additional constitutional complaints, Denies chills, Denies fever(s) and Denies night sweats Eyes: Eyes: Reports no additional eye complaints, Denies blurry vision, Denies change in vision, Denies diplopia, Denies eye discharge, Denies loss of vision and Denies eye pain ENT: Denies dizziness Cardiovascular: Cardiovascular: Reports no additional cardiovascular complaints, Denies chest pain, Denies lightheadedness, Denies Loss of Consciousness and Denies dyspnea Respiratory: Respiratory: Reports no additional respiratory complaints and Denies dyspnea Gastrointestinal: Gastrointestinal: Reports no additional gastrointestinal complaints, Reports abdominal pain, Denies melena, Denies hematochezia, Denies change in bowel habits, Denies change in stool character, Reports nausea and Reports vomiting Genitourinary: Genitourinary: Reports no additional male genitourinary complaints, Denies hematuria, Denies oliguria, Denies difficulty urinating, Denies dysuria, Denies urinary frequency, Denies urinary hesitancy, Denies urinary incontinence and Denies urinary urgency Musculoskeletal: Musculoskeletal: Reports no additional musculoskeletal complaints, Denies numbness and Denies tingling Neurologic: Denies dizziness, Denies loss of vision, Denies numbness and Denies tingling Psychiatric: Psychiatric: Reports no additional psychiatric complaints Endocrine: Endocrine: Reports no additional endocrine complaints Hematologic/Lymphatic: Hematologic/Lymphatic: Reports no additional hematologic/lymphatic complaints Allergic/Immunologic: Allergic/Immunologic: Reports no additional allergic/immunologic complaints [facility] Past Medical History Attestation statement: The following information was validated with the patient. Source: old records reviewed Medical History No known health problems Social History Social History Advance Directives: No Advance Directives Information Provided: No Physical Exam ED Vital Signs: Vital Signs - 24 hr 01/09/22 09:48 Temperature 98.6 F Pulse Rate 65 Respiratory Rate 18 Blood Pressure 132/71 Pulse Oximetry 100 BMI result Body Mass Index 22.6 Const General: cooperative, no acute distress, alert and awake Nutritional Appearance: well nourished Orientation/consciousness: patient oriented x3 Limitations: no limitations HENMT Head: Yes normal to inspection and Yes atraumatic Ears: hearing grossly normal bilaterally and external ears normal General nose exam: Normal external nose present, no nasal discharge noted and no epistaxis Face and sinus: Yes normal facial exam, No abrasion and No laceration Mouth: Normal oral and palatal mucosa present, no drooling and no muffled voice Eyes General: appearance normal, both eyes and all related structures Periorbital: periorbital findings normal Eyelids: Yes eyelids normal Conjunctivae: conjunctivae normal Pupils: Equal, round and reactive pupils present EOM: EOMs intact bilaterally Neck Neck: Yes normal visual inspection, Yes full ROM and Yes no lymphadenopathy Chest Chest palpation & inspection: normal inspection of the chest Resp Effort & Inspection: normal respiratory effort and able to speak in complete sentences Auscultation: clear to auscultation bilaterally Cardio Rate: regular rate Rhythm: regular rhythm GI Inspection: Yes normal to inspection Palpation (GI): Soft to palpation, not firm, Tenderness to palpation present (GI) in the RLQ, no guarding and not rigid Neuro General: patient oriented x3 and moves all extremities Cranial nerves: Yes Equal, round and reactive pupils present Cognition (Neuro): normal cognition Motor exam (neuro): 5/5 motor strength present throughout Sensory Exam: Normal double simultaneous stimulation for sensation Coordination: [id number] test normal Extrem General: Yes normal to inspection, Yes full ROM and Yes capillary refill normal Psych Appearance: grossly normal Mental Status: mental status grossly normal Affect: normal affect Attitude: cooperative Thought process: Normal thought process present Thought content: Normal thought content present Insight: Good insight present (Psych) Medical Decision Making MDM Narrative Medical decision making narrative: Patient is a 61 year old male presenting to the emergency department today with abdominal pain. Patient's physical exam showed tenderness to the RLQ of the abdomen but was otherwise unremarkable. Patient's blood work was unremarkable. Patient's abdominal CT showed a possible appendicitis. I spoke to Dr Persaud, the general surgeon call. He examined the patient and stated he would admit for observation but he was not convinced that it was an acute appendicitis. I explained my physical exam findings as well as all test results to the patient. I answered all questions asked by the patient. Patient verbalized agreement and understanding with this treatment plan and admission. Differential Diagnosis Differential Diagnosis: appendicitis, abdominal pain, gastritis Medical Records Medical records reviewed: Yes I reviewed the patient's medical records. Lab Data Lab results reviewed: Yes I reviewed the patient's lab results. Result diagrams: 01/09/22 10:33 01/09/22 10:33 Labs: Lab Results 01/09/22 01/09/22 Range/Units 10:33 10:33 WBC 7.6 (4.8-10.8) X10*3/uL RBC 4.75 (4.60-5.80) X10*6/uL Hgb 14.4 (14.0-18.0) g/dl Hct 42.6 (42.0-52.0) % MCV 89.7 (80.0-98.0) fL MCH 30.3 (27.0-33.0) pg MCHC 33.8 (31.0-36.0) g/dl RDW 12.6 (11.0-16.0) % Plt Count 238 (160-400) X10*3/uL MPV 9.7 (9.4-12.4) fL Immature Gran % (Auto) 0.3 (0.0-0.4) % Neut % (Auto) 67.5 (45-73) % Lymph % (Auto) 22.0 (20-40) % Millard % (Auto) 10.1 (2-11) % Eos % (Auto) 0.1 (0-4) % Baso % (Auto) 0.0 (0-2) % Lymph # (Auto) 1.7 (1.2-4.9) X10*3/uL Millard # (Auto) 0.8 (0.1-1.2) X10*3/uL Eos # (Auto) 0.0 (0.0-0.4) X10*3/uL Baso # (Auto) 0.0 (0.0-0.2) X10*3/uL Abs Immat Gran (auto) 0.02 (0.00-0.03) X10*3/uL Absolute Neuts (auto) 5.1 (2.0-8.3) x10*3/uL Absolute Nucleated RBC 0.000 (0.0-0.012) X10*3/uL Nucleated RBC % (auto) 0.0 (0.0-0.2) /100WBC Sodium 139 (135-145) mmol/L Potassium 4.0 (3.3-5.1) mmol/L Chloride 102 (96-108) mmol/L Carbon Dioxide 28 (22-29) mmol/L Anion Gap 13 (12-20) BUN 16 (9-16) mg/dL Creatinine 0.81 (0.5-1.4) mg/dL Estim Creat Clear Calc 99.5 Estimated GFR > 60 Random Glucose 125 H D (60-115) mg/dL Calcium 9.5 (8.4-10.2) mg/dL Total Bilirubin 0.6 (0.0-1.0) mg/dL AST 14 (5-37) U/L ALT 17 (0-40) U/L Alkaline Phosphatase 33 L D (39-117) U/L Total Protein 6.9 (6.5-8.0) g/dL Albumin 4.2 (3.5-5.0) g/dL Lipase 9 (8-78) U/L Imaging Data CT scan - abdomen: Attestation: I personally reviewed and interpreted this imaging study as follows: My impression: Possible appendicitis. Radiologist's impression: EXAMINATION: CT ABDOMEN AND PELVIS WITHOUT CONTRAST? CLINICAL INFORMATION: Abdominal pain with nausea and vomiting.? COMPARISON: CT abdomen pelvis 08/07/2021? TECHNIQUE: Multidetector volumetric imaging was performed from the superior aspect of the liver through the pubic symphysis. Sagittal and coronal reformatted images were obtained on the technologist's workstation.? This CT examination was performed using dose optimization techniques as appropriate, variously including the following: *Automated exposure control *Adjustment of mA and/or kV according to patient size (this includes techniques or standardized protocols for targeted exams where dose is matched to indication/reason for exam; i.e. extremities or head) *Use of iterative reconstruction technique DLP: 505 mGy-cm FINDINGS: Visualized lung bases demonstrate mild dependent atelectasis. Visualized portions of the liver are normal in appearance. The gallbladder is unremarkable. The pancreas, spleen and adrenal glands are unremarkable. Symmetrically sized kidneys. No renal calculi or hydronephrosis of either kidney. Stable small right renal cyst. Normal caliber loops of small and large bowel. The appendix is dilated measuring up to 1.2 cm in maximum diameter (previously 6 mm). There is minimal adjacent soft tissue stranding which appears new. There is no well localized fluid collection. No lymphadenopathy in this region. Normal caliber abdominal aorta. No gross retroperitoneal lymphadenopathy. The bladder is normal in appearance. The prostate gland is enlarged. There is no gross free pelvic fluid. No inguinal lymphadenopathy. Prominent right-sided hydrocele, incompletely visualized. Mild diffuse degenerative changes of the spine. CT/CT abdomen pelvis wo con IMPRESSION: The appendix is dilated measuring up to 1.2 cm in maximum diameter (previously 6 mm). There is minimal adjacent soft tissue stranding which appears new. There is no well localized fluid collection. No lymphadenopathy in this region. Findings are likely to represent early/mild acute appendicitis. Clinical correlation recommended. Surgical consultation likely warranted. ? Fleischner guidelines were followed. Dictated By: Barrett Guo MD Signed By: Electronically signed by Barrett Guo MD 01/09/22 1228 Discharge Plan Discharge Clinical Impression: Acute appendicitis, Gastroenteritis Patient Disposition: Admitted as Observation
[2022-01-09] MEDS: 0.9 % Sodium Chloride 1,000 ML 999 ML IVCONT (10:34)
[2022-01-09 10:39] LABS: MANUAL DIFF FLAG NO
[2022-01-09 10:42] LABS: Eosinophils Percent Auto 0.1 % (0-4); Hematocrit 42.6 % (42.0-52.0); Hemoglobin 14.4 g/dl (14.0-18.0); Imm Gran Abs Auto 0.02 X10*3/uL (0.00-0.03); Imm Gran Pct Auto 0.3 % (0.0-0.4); Lymphocytes Absolute Auto 1.7 X10*3/uL (1.2-4.9); Mean Corpuscular HGB Conc 33.8 g/dl (31.0-36.0); Mean Corpuscular Hemoglobin 30.3 pg (27.0-33.0); Mean Corpuscular Volume 89.7 fL (80.0-98.0); Mean Platelet Volume 9.7 fL (9.4-12.4); Monocytes Absolute Auto 0.8 X10*3/uL (0.1-1.2); Monocytes Percent Auto 10.1 % (2-11); Neutrophils Absolute Auto 5.1 x10*3/uL (2.0-8.3); Neutrophils Percent Auto 67.5 % (45-73); Platelet Count 238 X10*3/uL (160-400); Red Blood Count 4.75 X10*6/uL (4.60-5.80); Red Cell Distribution Width 12.6 % (11.0-16.0); White Blood Count 7.6 X10*3/uL (4.8-10.8)
[2022-01-09 11:01] LABS: Alanine Aminotransferase 17 U/L (0-40); Albumin Level 4.2 g/dL (3.5-5.0); Alkaline Phosphatase 33 U/L (39-117); Anion Gap 13 (12-20); Aspartate Amino Transferase 14 U/L (5-37); Bilirubin Total 0.6 mg/dL (0.0-1.0); Blood Urea Nitrogen 16 mg/dL (9-16); Calcium 9.5 mg/dL (8.4-10.2); Carbon Dioxide 28 mmol/L (22-29); Chloride 102 mmol/L (96-108); Creatinine Clr Calc Pharmacy 99.5; Estimated Glomerular Filt Rate > 60; Glucose Random 125 mg/dL (60-115); Lipase 9 U/L (8-78); Sodium 139 mmol/L (135-145); Total Protein 6.9 g/dL (6.5-8.0)
[2022-01-09] MEDS: Morphine Sulfate 4 MG/ML CARTRIDGE IVPUSH (13:39)
[2022-01-09] MEDS: ondansetron HCL 4 MG/2 ML VIAL IVPUSH ×2 (13:39→21:20)
[2022-01-09] MEDS: Pantoprazole Sodium 40 MG/10 ML VIAL IVPUSH (13:39)
--- NOTE | 2022-01-09 13:39 | PHA.MEDREC ---
Pharmacy Consult ? Medication Reconciliation Pharmacy has completed the medication reconciliation. Patient reports no prescription medications. Reports using something for his stomache but does not know what. Leti Lenoard, PharmD
[2022-01-09] MEDS: 0.9 % Sodium Chloride 1,000 ML 100 ML IVCONT ×2 (13:44→23:39)
--- NOTE | 2022-01-09 15:32 | PM.HPGS ---
History of Present Illness History of Present Illness Date of Service: 01/09/22 <FABIOLA Martini - Last Filed: 01/09/22 15:46> 01/09/22 <Scott Persaud MD - Last Filed: 01/09/22 17:25> Chief complaint: abominal pain <FABIOLA Martini - Last Filed: 01/09/22 15:46> Narrative: Geoffrey Wells is a 61 year old male who presented to the ED today complaining of abdominal pain. He reports pain began 2 days ago and was associated with N/V. Pt points to central abdomen when asked to specify location of the pain. Pt has not eaten since 3 days ago due to N/V and has not had a BM since then. Currently, his nausea is controlled with meds. Denies fevers, chest pain, SOB. Urinating without difficulty. Pt denies any previous medical or surgical history. He does not take any home medications. Denies allergies to medications. He does not use tobacco. He reports drinking 1-2 beers/day. He smokes marijuana occasionally (not every day). <FABIOLA Martini - Last Filed: 01/09/22 15:46> Review of Systems Review of Systems: Yes all other systems are reviewed and are negative <FABIOLA Martini - Last Filed: 01/09/22 15:46> [facility] Past Medical History Medical History: Medical History No known health problems <FABIOLA Martini - Last Filed: 01/09/22 15:46> Social History Social History: Social History Advance Directives: No Advance Directives Information Provided: No <FABIOLA Martini Last Filed: 01/09/22 15:46> Meds Allergies/Adverse reactions: Allergies Allergy/AdvReac Type Severity Reaction Status Date / Time No Known Allergies Allergy Verified 08/09/21 09:00 [No Known Allergies*] <FABIOLA Martini - Last Filed: 01/09/22 15:46> Active Medications: Current Medications Heparin Sodium (Porcine) (Heparin Sodium,Porcine 5,000 Unit/Ml Vial) 5,000 unit SUBCUT Q12H [facility] Sodium Chloride (Ns) 1,000 mls @ 100 mls/hr IVCONT .Q10H [facility] Last Admin: 01/09/22 13:44 Dose: 100 mls/hr Documented by: Morphine Sulfate (Morphine Sulfate 2 Mg/Ml Cartridge) 2 mg IVPUSH Q3H PRN; Protocol PRN Reason: Pain, Severe (Pain Scale 7-10) Ondansetron HCl (Ondansetron Hcl 4 Mg/2 Ml Vial) 4 mg IVPUSH Q8H PRN PRN Reason: nausea Sodium Chloride (0.9 % Sodium Chloride Flush 3 Ml Syringe) 3 ml IVFLUSH QSHIFT [facility] Last Admin: 01/09/22 14:57 Dose: Not Given Documented by: <FABIOLA Martini - Last Filed: 01/09/22 15:46> Home medications: Home Medications Medication Instructions Recorded Confirmed Last Taken Type No Known Home Meds 01/09/22 01/09/22 Unknown History <FABIOLA Martini Last Filed: 01/09/22 15:46> Physical Exam Vital Signs: Vital Signs: Last Vital Signs Temp 98.6 F 01/09/22 09:48 Pulse 84 01/09/22 13:31 Resp 16 01/09/22 13:31 BP 157/89 H 01/09/22 13:31 Pulse Ox 99 01/09/22 13:31 BMI result Body Mass Index 22.6 <FABIOLA Martini Last Filed: 01/09/22 15:46> Const: General: cooperative and no acute distress <FABIOLA Martini Last Filed: 01/09/22 15:46> Resp: Effort & Inspection: normal respiratory effort <FABIOLA Martini Last Filed: 01/09/22 15:46> Auscultation: clear to auscultation bilaterally <FABIOLA Martini Last Filed: 01/09/22 15:46> Cardio: Rate: regular rate <FABIOLA Martini Last Filed: 01/09/22 15:46> Rhythm: regular rhythm <FABIOLA Martini Last Filed: 01/09/22 15:46> GI: Other: abdomen is soft, nondistended. Unable to elicit tenderness in RLQ with deep palpation. Mild tenderness to palpation in epigastric area. No rebound tenderness or signs of peritonitis. <FABIOLA Martini - Last Filed: 01/09/22 15:46> Extrem: Other: no calf tenderness, no edema of lower extremities <FABIOLA Martini - Last Filed: 01/09/22 15:46> Results Results Labs: Short CBC 01/09/22 Range/Units 10:33 WBC 7.6 (4.8-10.8) X10*3/uL Hgb 14.4 (14.0-18.0) g/dl Hct 42.6 (42.0-52.0) % Plt Count 238 (160-400) X10*3/uL BMP 01/09/22 10:33 Sodium 139 Potassium 4.0 Chloride 102 Carbon Dioxide 28 BUN 16 Creatinine 0.81 Calcium 9.5 Liver Function 01/09/22 Range/Units 10:33 Total Bilirubin 0.6 (0.0-1.0) mg/dL AST 14 (5-37) U/L ALT 17 (0-40) U/L Alkaline Phosphatase 33 L D (39-117) U/L Albumin 4.2 (3.5-5.0) g/dL <FABIOLA Martini - Last Filed: 01/09/22 15:46> Abdomen CT scan report/results: report reviewed <FABIOLA Martini - Last Filed: 01/09/22 15:46> Additional studies: Date of Service: 01/09/22 Procedure(s): CT abdomen pelvis wo [facility] Accession Number(s): [id number] cc: Ivet Negrete~ EXAMINATION: CT ABDOMEN AND PELVIS WITHOUT CONTRAST? CLINICAL INFORMATION: Abdominal pain with nausea and vomiting.? COMPARISON: CT abdomen pelvis 08/07/2021? TECHNIQUE: Multidetector volumetric imaging was performed from the superior aspect of the liver through the pubic symphysis. Sagittal and coronal reformatted images were obtained on the technologist's workstation.? This CT examination was performed using dose optimization techniques as appropriate, variously including the following: *Automated exposure control *Adjustment of mA and/or kV according to patient size (this includes techniques or standardized protocols for targeted exams where dose is matched to indication/reason for exam; i.e. extremities or head) *Use of iterative reconstruction technique DLP: 505 mGy-cm FINDINGS: Visualized lung bases demonstrate mild dependent atelectasis. Visualized portions of the liver are normal in appearance. The gallbladder is unremarkable. The pancreas, spleen and adrenal glands are unremarkable. Symmetrically sized kidneys. No renal calculi or hydronephrosis of either kidney. Stable small right renal cyst. Normal caliber loops of small and large bowel. The appendix is dilated measuring up to 1.2 cm in maximum diameter (previously 6 mm). There is minimal adjacent soft tissue stranding which appears new. There is no well localized fluid collection. No lymphadenopathy in this region. Normal caliber abdominal aorta. No gross retroperitoneal lymphadenopathy. The bladder is normal in appearance. The prostate gland is enlarged. There is no gross free pelvic fluid. No inguinal lymphadenopathy. Prominent right-sided hydrocele, incompletely visualized. Mild diffuse degenerative changes of the spine. CT/CT abdomen pelvis wo con IMPRESSION: The appendix is dilated measuring up to 1.2 cm in maximum diameter (previously 6 mm). There is minimal adjacent soft tissue stranding which appears new. There is no well localized fluid collection. No lymphadenopathy in this region. Findings are likely to represent early/mild acute appendicitis. Clinical correlation recommended. Surgical consultation likely warranted. ? Fleischner guidelines were followed. <FABIOLA Martini - Last Filed: 01/09/22 15:46> Assessment and Plan (1) Abdominal pain: Status: Acute <FABIOLA Martini - Last Filed: 01/09/22 15:46> He actually describes epigastric pain physical exam does not reveal significant right lower quadrant pain or tenderness He has no leukocytosis overall clinical picture is not consistent with acute appendicitis in view of his scan findings however, he will be admitted for serial abdominal exam. I will repeat his CBC in the morning his exam is very benign no antibiotics will be started I explained to him the plan he understands and is comfortable with this seen and examined independently - agree with FABIOLA Loaiza <Scott Persaud MD - Last Filed: 01/09/22 17:25> Plan 61 year old male without significant past medical or surgical history, presenting with abdominal pain x 2 days. Pt is nontoxic appearing without signs of peritonitis. WBC WNL. CT A/P with questionable early appendicitis. However, on exam, unable to elicit significant RLQ tenderness. PLAN: Admit to surgical service for observation IVF hydration Pain control Nausea control SQH for DVT ppx Trend WBC Serial abdominal exams Allow clear liquids for now; NPO after MN in case pt's clinical picture more closely resembles appendicitis with subsequent abdominal exams. Otherwise, no immediate plan for OR at this time. Discussed with Dr. Persaud. <FABIOLA Martini - Last Filed: 01/09/22 15:46> Quality Stroke Does the patient have a stroke diagnosis?: No <FABIOLA Martini - Last Filed: 01/09/22 15:46> VTE Prior VTE?: No <FABIOLA Martini - Last Filed: 01/09/22 15:46> VTE Risk Level:: Medical - moderate - high <FABIOLA Martini - Last Filed: 01/09/22 15:46> VTE Device Contraindication: N/A - Device Ordered <FABIOLA Martini - Last Filed: 01/09/22 15:46> VTE Drug Contraindication: N/A - Med Ordered <FABIOLA Martini - Last Filed: 01/09/22 15:46> Procedures Date of Service Date of Service: 01/09/22 <FABIOLA Martini - Last Filed: 01/09/22 15:46>
--- NOTE | 2022-01-09 17:44 | PM.EVENT ---
Event Note Date of Service: 01/09/22 Event Note: seen and examined on evening rounds says his pain is epigastric in location ? gastritis as well abdominal exam remains very benign - no right lower quadrant tenderness will re-evaluate in the morning repeat CBC IV fluids pain management
[2022-01-09 18:02] LABS: COVID-19 Test Positive (Negative)
[2022-01-09] MEDS: Morphine Sulfate 2 MG/ML CARTRIDGE IVPUSH (21:20)
[2022-01-09 23:17] LABS: Appearance Urine CLEAR; Color Urine YELLOW; Glucose Urine UA NEG (NEG); Leukocyte Esterase Urine NEG (NEG); Nitrite Urine NEG (NEG); Urine Blood NEG (NEG); Urine Ketones 5 MG/DL (NEG); Urine Protein NEG (NEG-TRACE)
[2022-01-10 04:26] LABS: Hematocrit 40.8 % (42.0-52.0); Hemoglobin 13.9 g/dl (14.0-18.0); Mean Corpuscular HGB Conc 34.1 g/dl (31.0-36.0); Mean Corpuscular Hemoglobin 30.5 pg (27.0-33.0); Mean Corpuscular Volume 89.5 fL (80.0-98.0); Mean Platelet Volume 9.6 fL (9.4-12.4); Platelet Count 222 X10*3/uL (160-400); Red Blood Count 4.56 X10*6/uL (4.60-5.80); Red Cell Distribution Width 12.7 % (11.0-16.0); White Blood Count 10.1 X10*3/uL (4.8-10.8)
[2022-01-10 05:59] VITALS: BP 160/95; PULSE 57; RESP 16; O2SAT 100
--- NOTE | 2022-01-10 07:02 | PC.NURSE ---
report from ed rn pt admitted for ?appendicitis, covid+ pt. appears to be sleeping at this time, rr even/unlabored. wctm for dc needs.
[2022-01-10] MEDS: 0.9 % Sodium Chloride 1,000 ML 100 ML IVCONT ×2 (07:25→17:48)
--- NOTE | 2022-01-10 08:09 | MHC.CM.PN ---
Attempted to meet with patient in regards to discharge planning. Patient currently sleeping. No family present. Will attempt to meet again. Continue to monitor for d/c needs.
[2022-01-10 09:04] VITALS: BP 167/98; PULSE 63; RESP 12; TEMP 36.8; O2SAT 99
--- NOTE | 2022-01-10 09:09 | P.PNGS_ITS ---
Subjective Subjective Date of Service: 01/10/22 <FABIOLA Martini - Last Filed: 01/10/22 09:17> 01/10/22 <Scott Persaud MD - Last Filed: 01/10/22 11:37> Interval history: Pt reports feeling better today. Still complains of some bloating but thinks pain is better and has not required any pain meds overnight. Denies N/V, feels hungry. Has passed gas, no BM. Denies SOB/chest pain. <FABIOLA Martini - Last Filed: 01/10/22 09:17> Physical Exam Vital Signs: Vital Signs: Last Vital Signs Temp 98.3 F 01/10/22 09:04 Pulse 63 01/10/22 09:04 Resp 12 01/10/22 09:04 BP 167/98 H 01/10/22 09:04 Pulse Ox 99 01/10/22 09:04 BMI result Body Mass Index 22.6 <FABIOLA Martini - Last Filed: 01/10/22 09:17> Const: General: cooperative, comfortable and no acute distress <FABIOLA Martini - Last Filed: 01/10/22 09:17> Resp: Effort & Inspection: normal respiratory effort and able to speak in complete sentences <FABIOLA Martini Last Filed: 01/10/22 09:17> GI: Other: abdomen soft, mildly distended, minimal tenderness of central abdomen around umbilicus, unable to elicit RLQ tenderness even with deep palpation, no rebound tenderness <FABIOLA Martini - Last Filed: 01/10/22 09:17> Extrem: Other: no calf tenderness, no edema <FABIOLA Martini Last Filed: 01/10/22 09:17> Objective Data Active Medications Heparin Sodium (Porcine) (Heparin Sodium,Porcine 5,000 Unit/Ml Vial) 5,000 unit SUBCUT Q12H [facility]ISA Sodium Chloride (Ns) 1,000 mls @ 100 mls/hr IVCONT .Q10H [facility]ISA Last Admin: 01/10/22 07:25 Dose: 100 mls/hr Documented by: KENYA Morphine Sulfate (Morphine Sulfate 2 Mg/Ml Cartridge) 2 mg IVPUSH Q3H PRN; Protocol PRN Reason: Pain, Severe (Pain Scale 7-10) Last Admin: 01/09/22 21:20 Dose: 2 mg Documented by: KATRINA Ondansetron HCl (Ondansetron Hcl 4 Mg/2 Ml Vial) 4 mg IVPUSH Q8H PRN PRN Reason: nausea Last Admin: 01/09/22 21:20 Dose: 4 mg Documented by: KATRINA Sodium Chloride (0.9 % Sodium Chloride Flush 3 Ml Syringe) 3 ml IVFLUSH QSHIFT LISA Last Admin: 01/10/22 07:01 Dose: Not Given Documented by: KENYA Non-Admin Reason: Med Not Available <FABIOLA Martini - Last Filed: 01/10/22 09:17> Labs CBC & Chem 7: : 01/10/22 04:22 01/09/22 10:33 <FABIOLA Martini - Last Filed: 01/10/22 09:17> Labs: Laboratory Results - last 24 hr 01/09/22 01/09/22 01/09/22 10:33 10:33 17:45 MCV 89.7 MCH 30.3 MCHC 33.8 RDW 12.6 Plt Count 238 MPV 9.7 Immature Gran % (Auto) 0.3 Neut % (Auto) 67.5 Lymph % (Auto) 22.0 [place] % (Auto) 10.1 Eos % (Auto) 0.1 Baso % (Auto) 0.0 Lymph # (Auto) 1.7 [place] # (Auto) 0.8 Eos # (Auto) 0.0 Baso # (Auto) 0.0 Abs Immat Gran (auto) 0.02 Absolute Neuts (auto) 5.1 Absolute Nucleated RBC 0.000 Nucleated RBC % (auto) 0.0 Anion Gap 13 Estim Creat Clear Calc 99.5 Estimated GFR > 60 Random Glucose 125 H D Calcium 9.5 Total Bilirubin 0.6 AST 14 ALT 17 Alkaline Phosphatase 33 L D Total Protein 6.9 Albumin 4.2 Lipase 9 Urine Color Urine Appearance Urine pH Ur Specific [place] Urine Protein Urine Glucose (UA) Urine Ketones Urine Blood Urine Nitrite Ur Leukocyte Esterase COVID-19 (MARCELINO) Positive A COVID-19 Clin Com See Note 01/09/22 01/10/22 23:08 04:22 MCV 89.5 MCH 30.5 MCHC 34.1 RDW 12.7 Plt Count 222 MPV 9.6 Immature Gran % (Auto) Neut % (Auto) Lymph % (Auto) [place] % (Auto) Eos % (Auto) Baso % (Auto) Lymph # (Auto) [place] # (Auto) Eos # (Auto) Baso # (Auto) Abs Immat Gran (auto) Absolute Neuts (auto) Absolute Nucleated RBC 0.000 Nucleated RBC % (auto) 0.0 Anion Gap Estim Creat Clear Calc Estimated GFR Random Glucose Calcium Total Bilirubin AST ALT Alkaline Phosphatase Total Protein Albumin Lipase Urine Color YELLOW Urine Appearance CLEAR Urine pH 8.0 Ur Specific [place] 1.020 Urine Protein NEG Urine Glucose (UA) NEG Urine Ketones 5 Urine Blood NEG Urine Nitrite NEG Ur Leukocyte Esterase NEG COVID-19 (MARCELINO) COVID-19 Clin Com <FABIOLA Martini - Last Filed: 01/10/22 09:17> Procedures Date of Service Date of Service: 01/10/22 <FABIOLA Martini - Last Filed: 01/10/22 09:17> Progress Note: A&P Assessment and plan (1) Abdominal pain: Status: Acute <FABIOLA Martini - Last Filed: 01/10/22 09:17> Assessment and Plan: 61 year old male without significant past medical or surgical history, presenting with abdominal pain x [address] A/P with questionable early appendicitis. Pt is nontoxic appearing and WBC remains WNL. Abdominal exam remains benign with no significant RLQ tenderness. PLAN: Allow clear liquid diet IVF hydration Pain control Nausea control SQH for DVT ppx Continue to trend WBC Continue serial abdominal exams Possible trial of solid diet later today if clears tolerated and exam remains benign Discussed with Dr. Persaud. <FABIOLA Martini - Last Filed: 01/10/22 09:17> Plan c/o more of bloating pain on epigastric area, but has not asked for morphine since 9 pm no RLQ tenderness even with deep palpation no further vomitting WBC normal clear liquids, possible advance later follow WBC exam remains benign - overall clinical picture not c/w acute appenditis at this point but will montor closely serial abdl exam seen and examined independently - agree with FABIOLA Loaiza <Scott Persaud MD - Last Filed: 01/10/22 11:37> Time Spent With Patient Time: Total time spent is greater than 50% in coordination of care (as documented) at patient's floor/unit and/or counseling patient: <FABIOLA Martini - Last Filed: 01/10/22 09:17> Quality Stroke Does the patient have a stroke diagnosis?: No <FABIOLA Martini - Last Filed: 01/10/22 09:17> VTE Prior VTE?: No <FABIOLA Martini - Last Filed: 01/10/22 09:17> VTE Risk Level:: Medical - moderate - high <FABIOLA Martini - Last Filed: 01/10/22 09:17> VTE Device Contraindication: N/A - Device Ordered <FABIOLA Martini - Last Filed: 01/10/22 09:17> VTE Drug Contraindication: N/A - Med Ordered <FABIOLA Martini - Last Filed: 01/10/22 09:17>
[2022-01-10] MEDS: Heparin Sodium,Porcine 5,000 UNIT/ML VIAL 5000 UNIT SUBCUT ×2 (12:09→22:41)
--- NOTE | 2022-01-10 15:27 | PM.EVENT ---
Event Note Date of Service: 01/10/22 Event Note: Seen on afternoon rounds transferred to COVID unit - he tested positive denies respiratory complaints feels better overall abdomen remained soft no right lower quadrant tenderness tolerating liquids wants to eat will start regular diet tonight exam remains benign
[2022-01-10 16:00] VITALS: BP 164/64; PULSE 63; RESP 17; TEMP 36.5; O2SAT 99
[2022-01-11] VITALS: BP 171/92; PULSE 65; RESP 15; TEMP 36.4; O2SAT 99
[2022-01-11 03:33] VITALS: BP 174/100; PULSE 69; RESP 15; TEMP 36.7; O2SAT 100
[2022-01-11] MEDS: 0.9 % Sodium Chloride 1,000 ML 100 ML IVCONT ×2 (06:32→16:18)
[2022-01-11 06:33] LABS: MANUAL DIFF FLAG NO
[2022-01-11 06:50] LABS: Basophils Percent Auto 0.1 % (0-2); Eosinophils Percent Auto 0.3 % (0-4); Hematocrit 42.4 % (42.0-52.0); Hemoglobin 14.5 g/dl (14.0-18.0); Imm Gran Abs Auto 0.03 X10*3/uL (0.00-0.03); Imm Gran Pct Auto 0.3 % (0.0-0.4); Lymphocytes Absolute Auto 1.3 X10*3/uL (1.2-4.9); Lymphocytes Percent Auto 14.9 % (20-40); Mean Corpuscular HGB Conc 34.2 g/dl (31.0-36.0); Mean Corpuscular Volume 87.8 fL (80.0-98.0); Mean Platelet Volume 9.6 fL (9.4-12.4); Monocytes Percent Auto 11.1 % (2-11); Neutrophils Absolute Auto 6.6 x10*3/uL (2.0-8.3); Neutrophils Percent Auto 73.3 % (45-73); Platelet Count 247 X10*3/uL (160-400); Red Blood Count 4.83 X10*6/uL (4.60-5.80); Red Cell Distribution Width 12.4 % (11.0-16.0)
[2022-01-11 08:00] VITALS: BP 156/88; PULSE 72; RESP 18; TEMP 36.8; O2SAT 100
--- NOTE | 2022-01-11 08:17 | P.PNGS_ITS ---
Subjective Subjective Date of Service: 01/11/22 Interval history: describes burning pain in the epigastric area says this feels like heartburn did not get regular food last night denies pain in the right lower quadrant Physical Exam Vital Signs: Vital Signs: Last Vital Signs Temp 98.2 F 01/11/22 08:00 Pulse 72 01/11/22 08:00 Resp 18 01/11/22 08:00 BP 156/88 H 01/11/22 08:00 Pulse Ox 100 01/11/22 08:00 O2 Del Method 01/11/22 08:00 BMI result Body Mass Index 22.6 Const: General: no acute distress Resp: Effort & Inspection: normal respiratory effort Cardio: Rate: regular rate Rhythm: regular rhythm GI: Other: mild point tenderness in the mid epigastric area, no right lower quadrant tenderness, Inspection: No distended Palpation (GI): Soft to palpation, not firm and no guarding Objective Data Active Medications Famotidine (Famotidine 20 Mg Tablet) 20 mg PO BID [facility] Heparin Sodium (Porcine) (Heparin Sodium,Porcine 5,000 Unit/Ml Vial) 5,000 unit SUBCUT Q12H [facility] Last Admin: 01/10/22 22:41 Dose: 5,000 unit Documented By: GEORGE Sodium Chloride (Ns) 1,000 mls @ 100 mls/hr IVCONT .Q10H [facility] Last Admin: 01/11/22 06:32 Dose: 100 mls/hr Documented By: MANFRED Morphine Sulfate (Morphine Sulfate 2 Mg/Ml Cartridge) 2 mg IVPUSH Q3H PRN; Protocol PRN Reason: Pain, Severe (Pain Scale 7-10) Last Admin: 01/09/22 21:20 Dose: 2 mg Documented By: KATRINA Ondansetron HCl (Ondansetron Hcl 4 Mg/2 Ml Vial) 4 mg IVPUSH Q8H PRN PRN Reason: nausea Last Admin: 01/09/22 21:20 Dose: 4 mg Documented By: KATRINA Sodium Chloride (0.9 % Sodium Chloride Flush 3 Ml Syringe) 3 ml IVFLUSH QSHIFT [facility] Last Admin: 01/10/22 20:20 Dose: Not Given Documented By: GEORGE Non-Admin Reason: IV Running Labs CBC & Chem 7: 01/11/22 06:13 01/09/22 10:33 Labs: Laboratory Results - last 24 hr 01/11/22 06:13 MCV 87.8 MCH 30.0 MCHC 34.2 RDW 12.4 Plt Count 247 MPV 9.6 Immature Gran % (Auto) 0.3 Neut % (Auto) 73.3 H Lymph % (Auto) 14.9 L [place] % (Auto) 11.1 H Eos % (Auto) 0.3 Baso % (Auto) 0.1 Lymph # (Auto) 1.3 [place] # (Auto) 1.0 Eos # (Auto) 0.0 Baso # (Auto) 0.0 Abs Immat Gran (auto) 0.03 Absolute Neuts (auto) 6.6 Absolute Nucleated RBC 0.000 Nucleated RBC % (auto) 0.0 Procedures Date of Service Date of Service: 01/11/22 Progress Note: A&P Assessment and plan (1) Abdominal pain: Status: Acute Assessment and Plan: pain remains in the epigastric area described as burning, heartburn will start on Pepcid exam remains very benign white count still normal no fever or chills start regular food COVID positive without any respiratory symptoms Time Spent With Patient Time: Total time spent is greater than 50% in coordination of care (as documented) at patient's floor/unit and/or counseling patient: Quality Stroke Does the patient have a stroke diagnosis?: No VTE Prior VTE?: No VTE Risk Level:: Medical - moderate - high VTE Device Contraindication: N/A - Device Ordered VTE Drug Contraindication: N/A - Med Ordered
[2022-01-11] MEDS: Famotidine 20 MG TABLET PO ×2 (08:38→20:12)
--- NOTE | 2022-01-11 10:02 | MHC.CM.PN ---
pt has covid called with interpertaor assistance and spoke with brother who explined that pt lives alone and has no servcies he is vax x3 his car is in parking lot he will be driving himself home when dcd dc plan kimberly no servceis pt did not answer cell when called
--- NOTE | 2022-01-11 10:13 | MHC.CM.PN ---
pt dcd home no skilled services ordered by
[2022-01-11] MEDS: Heparin Sodium,Porcine 5,000 UNIT/ML VIAL 5000 UNIT SUBCUT ×2 (12:36→23:35)
[2022-01-11 16:00] VITALS: BP 124/82; PULSE 68; RESP 18; TEMP 36.9; O2SAT 99
--- NOTE | 2022-01-11 16:49 | PM.EVENT ---
Event Note Date of Service: 01/11/22 Event Note: feels better he thinks that the Pepcid tablet helped a lot tolerating diet well minimal epigastric pain exam benign he is not comfortable with going home today especially because of his COVID infection possible DC home tomorrow.
[2022-01-11 19:52] VITALS: BP 134/92; PULSE 70; RESP 18; TEMP 36.6; O2SAT 100
[2022-01-11] MEDS: Morphine Sulfate 2 MG/ML CARTRIDGE IVPUSH (20:10)
[2022-01-11] MEDS: 0.9 % Sodium Chloride Flush 3 ML SYRINGE IVFLUSH (20:14)
[2022-01-11 23:33] VITALS: BP 138/64; PULSE 73; RESP 18; TEMP 36.3; O2SAT 97
[2022-01-12] MEDS: 0.9 % Sodium Chloride 1,000 ML 100 ML IVCONT ×2 (01:32→11:01)
[2022-01-12 04:12] VITALS: BP 165/110; PULSE 70; RESP 20; TEMP 37.1; O2SAT 98
[2022-01-12 07:44] VITALS: BP 132/82; PULSE 74; RESP 20; TEMP 36.7; O2SAT 100
[2022-01-12 08:00] VITALS: BP 132/82; PULSE 73; RESP 20; TEMP 36.7; O2SAT 100
[2022-01-12] MEDS: Famotidine 20 MG TABLET PO ×2 (08:51→20:04)
--- NOTE | 2022-01-12 09:01 | P.PNGS_ITS ---
Subjective Subjective Date of Service: 01/12/22 Interval history: no says he is constipated states no bowel movements since Sunday when he was admitted nausea or vomiting Physical Exam Vital Signs: Vital Signs: Last Vital Signs Temp 98.0 F 01/12/22 08:00 Pulse 73 01/12/22 08:00 Resp 20 01/12/22 08:00 BP 132/82 01/12/22 08:00 Pulse Ox 100 01/12/22 08:00 O2 Del Method 01/12/22 08:00 BMI result Body Mass Index 22.6 Const: General: no acute distress Resp: Effort & Inspection: normal respiratory effort Auscultation: clear to auscultation bilaterally Cardio: Rate: regular rate GI: Other: soft, distended, no guarding rebound, no right lower quadrant Objective Data Active Medications Famotidine (Famotidine 20 Mg Tablet) 20 mg PO BID [facility] Last Admin: 01/12/22 08:51 Dose: 20 mg Documented By: ISSA Heparin Sodium (Porcine) (Heparin Sodium,Porcine 5,000 Unit/Ml Vial) 5,000 unit SUBCUT Q12H [facility] Last Admin: 01/11/22 23:35 Dose: 5,000 unit Documented By: MIGUE Sodium Chloride (Ns) 1,000 mls @ 100 mls/hr IVCONT .Q10H [facility] Last Admin: 01/12/22 01:32 Dose: 100 mls/hr Documented By: MIGUE Morphine Sulfate (Morphine Sulfate 2 Mg/Ml Cartridge) 2 mg IVPUSH Q3H PRN; Protocol PRN Reason: Pain, Severe (Pain Scale 7-10) Last Admin: 01/11/22 20:10 Dose: 2 mg Documented By: MIGUE Ondansetron HCl (Ondansetron Hcl 4 Mg/2 Ml Vial) 4 mg IVPUSH Q8H PRN PRN Reason: nausea Last Admin: 01/09/22 21:20 Dose: 4 mg Documented By: KATRINA Sodium Chloride (0.9 % Sodium Chloride Flush 3 Ml Syringe) 3 ml IVFLUSH QSHIFT [facility] Last Admin: 01/12/22 08:52 Dose: Not Given Documented By: ISSA Non-Admin Reason: IV Running Labs CBC & Chem 7: 01/11/22 06:13 01/09/22 10:33 Procedures Date of Service Date of Service: 01/12/22 Progress Note: A&P Assessment and plan (1) Abdominal pain: Status: Acute Assessment and Plan: now with constipation check KUB abdomen remained soft and benign no nausea or vomiting stable vital sign location of his pain on admission, response yesterday to Pepcid suggestive of gastritis, ulcer disease Time Spent With Patient Time: Total time spent is greater than 50% in coordination of care (as documented) at patient's floor/unit and/or counseling patient: Quality Stroke Does the patient have a stroke diagnosis?: No VTE Prior VTE?: No VTE Risk Level:: Medical - moderate - high VTE Device Contraindication: N/A - Device Ordered VTE Drug Contraindication: N/A - Med Ordered
[2022-01-12] MEDS: Heparin Sodium,Porcine 5,000 UNIT/ML VIAL 5000 UNIT SUBCUT ×2 (11:01→23:46)
--- NOTE | 2022-01-12 15:53 | PC.NURSE ---
Patient c/o general discomfort and constipation. (+) bowel sounds. VSS, afebrile, no acute resp. distress noted. Dr. Persaud. F updated and assessed patient. New order for xr KUB and CT abdomen/pelvis, NPO, colace BID. Will continue to monitor and treat per plan of care.
[2022-01-12 16:00] VITALS: BP 140/92; PULSE 70; RESP 18; TEMP 36.7; O2SAT 98
--- NOTE | 2022-01-12 17:16 | PM.EVENT ---
Event Note Date of Service: 01/12/22 Event Note: seen on afternoon rounds abd remains soft although mildly distended no guarding or rebound no RLQ pain he however complains of epig pain again vital signs stable KUB - diffuse SB dilatation ffup CT ordered NPO temporarily explained to pt
[2022-01-12] MEDS: Docusate Sodium 100 MG CAPSULE PO (20:04)
[2022-01-12 20:05] VITALS: BP 150/100; PULSE 68; RESP 18; TEMP 36.7; O2SAT 99
[2022-01-12] MEDS: 0.9 % Sodium Chloride Flush 3 ML SYRINGE IVFLUSH (20:05)
[2022-01-12 23:19] VITALS: BP 166/99; PULSE 72; RESP 20; TEMP 36.6; O2SAT 97
[2022-01-13 07:15] LABS: Hematocrit 43.2 % (42.0-52.0); Hemoglobin 15.1 g/dl (14.0-18.0); Mean Corpuscular Hemoglobin 30.4 pg (27.0-33.0); Mean Corpuscular Volume 87.1 fL (80.0-98.0); Mean Platelet Volume 9.8 fL (9.4-12.4); Platelet Count 257 X10*3/uL (160-400); Red Blood Count 4.96 X10*6/uL (4.60-5.80); Red Cell Distribution Width 12.3 % (11.0-16.0); White Blood Count 11.3 X10*3/uL (4.8-10.8)
[2022-01-13 07:29] LABS: Alanine Aminotransferase 31 U/L (0-40); Albumin Level 4.2 g/dL (3.5-5.0); Alkaline Phosphatase 46 U/L (39-117); Anion Gap 13 (12-20); Aspartate Amino Transferase 21 U/L (5-37); Bilirubin Direct 0.4 mg/dL (0.0-0.5); Bilirubin Total 0.8 mg/dL (0.0-1.0); Blood Urea Nitrogen 12 mg/dL (9-16); Calcium 9.4 mg/dL (8.4-10.2); Carbon Dioxide 27 mmol/L (22-29); Chloride 91 mmol/L (96-108); Creatinine Clr Calc Pharmacy 103.3; Estimated Glomerular Filt Rate > 60; Glucose Random 115 mg/dL (60-115); Lipase 16 U/L (8-78); Potassium 4.3 mmol/L (3.3-5.1); Sodium 127 mmol/L (135-145); Total Protein 6.9 g/dL (6.5-8.0)
[2022-01-13 07:35] VITALS: BP 162/98; PULSE 79; RESP 16; TEMP 36.3; O2SAT 99
[2022-01-13] MEDS: 0.9 % Sodium Chloride Flush 3 ML SYRINGE IVFLUSH ×3 (08:46→20:07)
[2022-01-13] MEDS: Famotidine 20 MG TABLET PO ×2 (08:46→20:07)
[2022-01-13] MEDS: Docusate Sodium 100 MG CAPSULE PO ×2 (08:46→20:07)
--- NOTE | 2022-01-13 09:12 | PM.PNGS ---
Subjective Subjective Date of Service: 01/16/22 Interval history: feels much better today hungry wants to eat passing good amount of flatus she says Physical Exam Vital Signs: Vital Signs: Last Vital Signs Temp 97.4 F 01/13/22 07:35 Pulse 79 01/13/22 07:35 Resp 16 01/13/22 07:35 BP 162/98 H 01/13/22 07:35 Pulse Ox 99 01/13/22 07:35 O2 Del Method 01/13/22 07:35 BMI result Body Mass Index 22.6 Const: Other: looks well General: comfortable and no acute distress Chest: Chest palpation & inspection: normal inspection of the chest Resp: Effort & Inspection: normal respiratory effort Cardio: Rate: regular rate GI: Palpation (GI): Soft to palpation, not firm, nontender and no guarding Objective Data Active Medications Docusate Sodium (Docusate Sodium 100 Mg Capsule) 100 mg PO BID [facility] Last Admin: 01/13/22 08:46 Dose: 100 mg Documented By: HAYDEN Famotidine (Famotidine 20 Mg Tablet) 20 mg PO BID [facility] Last Admin: 01/13/22 08:46 Dose: 20 mg Documented By: HAYDEN Heparin Sodium (Porcine) (Heparin Sodium,Porcine 5,000 Unit/Ml Vial) 5,000 unit SUBCUT Q12H [facility] Last Admin: 01/12/22 23:46 Dose: 5,000 unit Documented By: MIGUE Promethazine HCl 6.25 mg/ (Sodium Chloride) 50.25 mls @ 201 mls/hr IV Q6H PRN PRN Reason: Nausea Morphine Sulfate (Morphine Sulfate 2 Mg/Ml Cartridge) 2 mg IVPUSH Q3H PRN; Protocol PRN Reason: Pain, Severe (Pain Scale 7-10) Last Admin: 01/11/22 20:10 Dose: 2 mg Documented By: MIGUE Ondansetron HCl (Ondansetron Hcl 4 Mg/2 Ml Vial) 4 mg IVPUSH Q8H PRN PRN Reason: nausea Last Admin: 01/09/22 21:20 Dose: 4 mg Documented By: KATRINA Sodium Chloride (0.9 % Sodium Chloride Flush 3 Ml Syringe) 3 ml IVFLUSH QSHIFT [facility] Last Admin: 01/13/22 08:46 Dose: 3 ml Documented By: HAYDEN Labs CBC & Chem 7: 01/15/22 06:01 01/13/22 06:27 Labs: Laboratory Results - last 24 hr 01/13/22 01/13/22 06:27 06:27 MCV 87.1 MCH 30.4 MCHC 35.0 RDW 12.3 Plt Count 257 MPV 9.8 Absolute Nucleated RBC 0.000 Nucleated RBC % (auto) 0.0 Anion Gap 13 Estim Creat Clear Calc 103.3 Estimated GFR > 60 Random Glucose 115 Calcium 9.4 Total Bilirubin 0.8 Direct Bilirubin 0.4 AST 21 D ALT 31 Alkaline Phosphatase 46 D Total Protein 6.9 Albumin 4.2 Lipase 16 Procedures Date of Service Date of Service: 01/16/22 Progress Note: A&P Assessment and plan (1) Abdominal pain: Status: Acute Plan feels much better again CT scan report pending he is hungry and wants to eat exam remains benign clinically not consistent with acute appendicitis Time Spent With Patient Time: Total time spent is greater than 50% in coordination of care (as documented) at patient's floor/unit and/or counseling patient: Quality Stroke Does the patient have a stroke diagnosis?: No VTE Prior VTE?: No VTE Risk Level:: Medical - moderate - high VTE Device Contraindication: N/A - Device Ordered VTE Drug Contraindication: N/A - Med Ordered
[2022-01-13] MEDS: Heparin Sodium,Porcine 5,000 UNIT/ML VIAL 5000 UNIT SUBCUT (10:36)
[2022-01-13 11:22] VITALS: BP 172/110; PULSE 90; RESP 16; TEMP 36.9; O2SAT 99
[2022-01-13 15:50] VITALS: BP 154/88; PULSE 84; RESP 14; TEMP 36.1; O2SAT 98
--- NOTE | 2022-01-13 15:58 | MHC.CM.PN ---
Male 61 DX Abdominal pain No discharge today per MD rounds DP home no services. Patients care is in lot.
--- NOTE | 2022-01-13 17:55 | PM.EVENT ---
Event Note Date of Service: 01/13/22 Event Note: seen on late afternoon rounds more comfortable but says he does not want to eat says he feels eating causes him to have pain in the epigastric area no fever labs ok abd soft, no significant tenderness, even with deep palpation of RLQ not c/w appendicitis he says his main complaint is epigastric pain especially with food he has been on Prilosec and Pepcid LFTs, lipase normal will consult GI - possible EGD
[2022-01-13 23:36] VITALS: BP 142/93; PULSE 100; RESP 18; TEMP 37.1; O2SAT 98
[2022-01-14 08:00] VITALS: BP 134/92; PULSE 99; RESP 18; TEMP 36.8; O2SAT 98
[2022-01-14] MEDS: 0.9 % Sodium Chloride Flush 3 ML SYRINGE IVFLUSH ×3 (09:18→19:32)
[2022-01-14] MEDS: Docusate Sodium 100 MG CAPSULE PO ×2 (09:19→19:32)
[2022-01-14] MEDS: Famotidine 20 MG TABLET PO ×2 (09:19→19:32)
--- NOTE | 2022-01-14 10:55 | PM.PNGS ---
Subjective Subjective Date of Service: 01/14/22 Patient reports: no new complaints and tolerating liquids well Physical Exam Vital Signs: Vital Signs: Last Vital Signs Temp 98.3 F 01/14/22 08:00 Pulse 99 01/14/22 08:00 Resp 18 01/14/22 08:00 BP 134/92 H 01/14/22 08:00 Pulse Ox 98 01/14/22 08:00 O2 Del Method 01/14/22 08:00 BMI result Body Mass Index 22.6 Const: Other: looks well General: comfortable and no acute distress Chest: Chest palpation & inspection: normal inspection of the chest Resp: Effort & Inspection: normal respiratory effort Cardio: Rate: regular rate GI: Palpation (GI): Soft to palpation, not firm, nontender and no guarding Objective Data Active Medications Docusate Sodium (Docusate Sodium 100 Mg Capsule) 100 mg PO BID [facility] Last Admin: 01/14/22 09:19 Dose: 100 mg Documented By: HAYDEN Famotidine (Famotidine 20 Mg Tablet) 20 mg PO BID [facility] Last Admin: 01/14/22 09:19 Dose: 20 mg Documented By: HAYDEN Heparin Sodium (Porcine) (Heparin Sodium,Porcine 5,000 Unit/Ml Vial) 5,000 unit SUBCUT Q12H [facility] Last Admin: 01/14/22 09:20 Dose: Not Given Documented By: HAYDEN Non-Admin Reason: Patient Refused Promethazine HCl 6.25 mg/ (Sodium Chloride) 50.25 mls @ 201 mls/hr IV Q6H PRN PRN Reason: Nausea Morphine Sulfate (Morphine Sulfate 2 Mg/Ml Cartridge) 2 mg IVPUSH Q3H PRN; Protocol PRN Reason: Pain, Severe (Pain Scale 7-10) Last Admin: 01/11/22 20:10 Dose: 2 mg Documented By: MIGUE Ondansetron HCl (Ondansetron Hcl 4 Mg/2 Ml Vial) 4 mg IVPUSH Q8H PRN PRN Reason: nausea Last Admin: 01/09/22 21:20 Dose: 4 mg Documented By: KATRINA Sodium Chloride (0.9 % Sodium Chloride Flush 3 Ml Syringe) 3 ml IVFLUSH QSHIFT [facility] Last Admin: 01/14/22 09:18 Dose: 3 ml Documented By: HAYDEN Labs CBC & Chem 7: 01/13/22 06:27 01/13/22 06:[address] scan - abdomen: Attestation: I personally reviewed and interpreted this imaging study as follows: My impression: Dilated appendix, unchanged. Procedures Date of Service Date of Service: 01/14/22 Progress Note: A&P Assessment and plan (1) Abdominal pain: Status: Acute (2) Acute appendicitis: Status: Acute (3) Gastroenteritis: Status: Acute Plan CT a centrally unchanged. Appears to have ileus with dilated small and large bowel. No abscess or free air appreciated Will increase to full liquid diet. Check CBC in a.m. Time Spent With Patient Time: Total time spent is greater than 50% in coordination of care (as documented) at patient's floor/unit and/or counseling patient: Quality Stroke Does the patient have a stroke diagnosis?: No VTE Prior VTE?: No VTE Risk Level:: Medical - moderate - high VTE Device Contraindication: N/A - Device Ordered VTE Drug Contraindication: N/A - Med Ordered
[2022-01-14] MEDS: polyethylene glycoL 3350 17 GM POWD.PACK PO (12:32)
[2022-01-14 15:22] VITALS: BP 137/91; PULSE 96; RESP 14; TEMP 37.1; O2SAT 99
--- NOTE | 2022-01-14 15:24 | PM.GICN ---
History of Present Illness Data of Consult Service Date: 01/14/22 Requesting physician: Scott Persaud Primary Care Provider: Aashish Long MD HPI Reason for consult: abdominal pain 61 year old male who I am seeing for assessment for abdominal pain. Patient had epigastric pain 10 2 d ago, which he attributes to eating bad pork and rice. HE had diarrhea which subsided, no blood or melena. Now pain is much better and his main complaint is constipation and tenesmus. he is passing gas, but feels like there is a ball inside his abdomen that he has to pass. He denies vomiting, bu thas nausea, no fevers or chills. His mother had covid and he also tested pos on admission for the same. he denies respiratory sx. NO sob, no chest pain, no cough or sputum He reports drinking 1-2 beers/day. He smokes marijuana occasionally CT scan 01/12/22 with mild appendicitis and mild ileus Review of Systems Review of Systems: Constitutional : No Weight loss, No Fever, No Chills ENT/Mouth : No sore throat, No Rhinorrhea Eyes: No Swelling, No Redness Cardiovascular : No Chest Pain, No SOB, No Edema Respiratory : No Cough, No Sputum, No Wheezing Gastrointestinal : see HPI Genitourinary : NO Dysuria, No Urinary Frequency, No Hematuria, No Urgency Musculoskeletal : No joint pain, No Myalgias, No Joint Swelling Skin : No Skin Lesions, No rash Neuro : No Weakness, No Numbness, No Dizziness, No Headache Psych : No Anxiety/Panic, No Depression Heme/Lymph: No Bruising, No Lymphadenopathy Endocrine : No Polyuria, No Polydipsia All other systems reviewed and are negative. [facility] Past Medical History Medical History No known health problems Family History Pertinent family history: no FH of colon cancer, bowel problems Social History Social History Patient Tobacco Use Status: Never used Tobacco service: No Meds Allergies Allergy/AdvReac Type Severity Reaction Status Date / Time No Known Allergies Allergy Verified 08/09/21 09:00 [No Known Allergies*] Active Medications: Current Medications Docusate Sodium (Docusate Sodium 100 Mg Capsule) 100 mg PO BID LISA Last Admin: 01/14/22 09:19 Dose: 100 mg Famotidine (Famotidine 20 Mg Tablet) 20 mg PO BID COUNTS INCLUDE 234 BEDS AT THE [facility] Last Admin: 01/14/22 09:19 Dose: 20 mg Heparin Sodium (Porcine) (Heparin Sodium,Porcine 5,000 Unit/Ml Vial) 5,000 unit SUBCUT Q12H COUNTS INCLUDE 234 BEDS AT THE [facility] Last Admin: 01/14/22 09:20 Dose: Not Given Promethazine HCl 6.25 mg/ (Sodium Chloride) 50.25 mls @ 201 mls/hr IV Q6H PRN PRN Reason: Nausea Morphine Sulfate (Morphine Sulfate 2 Mg/Ml Cartridge) 2 mg IVPUSH Q3H PRN; Protocol PRN Reason: Pain, Severe (Pain Scale 7-10) Last Admin: 01/11/22 20:10 Dose: 2 mg Ondansetron HCl (Ondansetron Hcl 4 Mg/2 Ml Vial) 4 mg IVPUSH Q8H PRN PRN Reason: nausea Last Admin: 01/09/22 21:20 Dose: 4 mg Polyethylene Glycol (Polyethylene Glycol 3350 17 Gm Powd.Pack) 17 gm PO DAILY PRN PRN Reason: Constipation Last Admin: 01/14/22 12:32 Dose: 17 gm Sodium Chloride (0.9 % Sodium Chloride Flush 3 Ml Syringe) 3 ml IVFLUSH QSHIFT COUNTS INCLUDE 234 BEDS AT THE [facility] Last Admin: 01/14/22 09:18 Dose: 3 ml Home Medications Medication Instructions Recorded Confirmed Last Taken Type No Known Home Meds 01/09/22 01/09/22 Unknown History Physical Exam Vital Signs: Vital Signs: Last Vital Signs Temp 98.7 F 01/14/22 15:22 Pulse 96 01/14/22 15:22 Resp 14 01/14/22 15:22 BP 137/91 H 01/14/22 15:22 Pulse Ox 99 01/14/22 15:22 O2 Del Method 01/14/22 15:22 BMI result Body Mass Index 22.6 EXAM: GENERAL: The patient is well developed and nontoxic. VITAL SIGNS:see workflow HEENT: Nonicteric sclerae, PERRLA, EOMI. Oropharynx clear. Moist mucous membranes. Conjunctivae appear well perfused. No thyroid mass. CHEST: Chest wall is nontender. HEART: Regular rate and rhythm without murmurs. LUNGS: Clear to auscultation bilaterally. ABDOMEN: Soft, positive bowel sounds, tender epigastrium, no organomegaly.no flank tenderness SKIN: No rash, no excessive bruising, petechiae, or purpura. NEUROLOGIC: Cranial nerves II-XII intact without motor/sensory deficit. Psych-nml affect Results Labs CBC & Chem 7: 01/13/22 06:27 01/13/22 06:27 Assessment and Plan (1) Gastroenteritis: Status: Acute (2) Abdominal pain: Status: Acute Plan 1/ Epigastric tenderness and constipation with possible appendicitis and ileus on imaging, on background of pos COvID 19 test. Not really presenting with typical signs and sx of appendicitis. Covid can present with extrapulmonary manifestations mostly GI in about 1/3rd of cases varying from gastroenteritis, to transaminitis, mesenteric ischemia, acalculous cholecystitis, so this maybe the cause of his current presentation. PLAN: 1/ Cont with fluids, already receiving laxatives 2/ PO intake as tolerated 3/ can change pepcid to PPI to see if helps 4/ if sx worsen then consider repeat CT with PO and IV contrast. 5/ would hold on EGD at this time given pos covid testing. 6/ optimize lytes, check Mag, Po4, ionized ca and replenish as needed Procedures Date of Service Date of Service: 01/14/22
[2022-01-14 18:56] VITALS: BP 119/82; PULSE 112; RESP 18; TEMP 36.4; O2SAT 98
[2022-01-14 23:01] VITALS: BP 144/88; PULSE 90; RESP 18; TEMP 36.6; O2SAT 99
[2022-01-15 06:17] LABS: MANUAL DIFF FLAG NO
[2022-01-15 06:20] LABS: Basophils Percent Auto 0.2 % (0-2); Eosinophils Percent Auto 0.3 % (0-4); Hematocrit 43.6 % (42.0-52.0); Hemoglobin 15.2 g/dl (14.0-18.0); Imm Gran Abs Auto 0.04 X10*3/uL (0.00-0.03); Imm Gran Pct Auto 0.4 % (0.0-0.4); Lymphocytes Absolute Auto 1.3 X10*3/uL (1.2-4.9); Lymphocytes Percent Auto 11.8 % (20-40); Mean Corpuscular HGB Conc 34.9 g/dl (31.0-36.0); Mean Corpuscular Hemoglobin 30.3 pg (27.0-33.0); Mean Platelet Volume 9.6 fL (9.4-12.4); Monocytes Absolute Auto 1.2 X10*3/uL (0.1-1.2); Monocytes Percent Auto 10.9 % (2-11); Neutrophils Absolute Auto 8.6 x10*3/uL (2.0-8.3); Neutrophils Percent Auto 76.4 % (45-73); Platelet Count 299 X10*3/uL (160-400); Red Blood Count 5.01 X10*6/uL (4.60-5.80); Red Cell Distribution Width 12.5 % (11.0-16.0); White Blood Count 11.3 X10*3/uL (4.8-10.8)
[2022-01-15 07:31] VITALS: BP 151/100; PULSE 100; RESP 19; TEMP 36.4; O2SAT 99
[2022-01-15] MEDS: 0.9 % Sodium Chloride Flush 3 ML SYRINGE IVFLUSH ×3 (09:58→21:55)
[2022-01-15] MEDS: Docusate Sodium 100 MG CAPSULE PO ×2 (09:58→21:50)
[2022-01-15] MEDS: Heparin Sodium,Porcine 5,000 UNIT/ML VIAL 5000 UNIT SUBCUT ×2 (09:59→21:50)
[2022-01-15] MEDS: Famotidine 20 MG TABLET PO ×2 (09:59→21:50)
--- NOTE | 2022-01-15 11:09 | PM.PNGS ---
Subjective Subjective Date of Service: 01/15/22 Interval history: Patient denies abdominal pain but does complain of abdominal bloating, is passing BM. Does not feel he can tolerate regular food. Physical Exam Vital Signs: Vital Signs: Last Vital Signs Temp 97.6 F 01/15/22 07:31 Pulse 100 01/15/22 07:31 Resp 19 01/15/22 07:31 BP 151/100 H 01/15/22 07:31 Pulse Ox 99 01/15/22 07:31 O2 Del Method 01/15/22 07:31 BMI result Body Mass Index 22.6 Const: General: no acute distress Nutritional Appearance: thin Orientation/consciousness: patient oriented x3 Eyes: Sclerae: sclerae normal Resp: Effort & Inspection: normal respiratory effort GI: Inspection: Yes normal to inspection Palpation (GI): Soft to palpation, nontender, no guarding and not rigid Percussion: Yes normal to percussion Auscultation: normal bowel sounds Skin: General skin exam: no rashes or lesions noted Neuro: General: patient oriented x3 Objective Data Active Medications Docusate Sodium (Docusate Sodium 100 Mg Capsule) 100 mg PO BID [facility] Last Admin: 01/15/22 09:58 Dose: 100 mg Documented By: HAYDEN Famotidine (Famotidine 20 Mg Tablet) 20 mg PO BID [facility] Last Admin: 01/15/22 09:59 Dose: 20 mg Documented By: HAYDEN Heparin Sodium (Porcine) (Heparin Sodium,Porcine 5,000 Unit/Ml Vial) 5,000 unit SUBCUT Q12H [facility] Last Admin: 01/15/22 09:59 Dose: 5,000 unit Documented By: HAYDEN Promethazine HCl 6.25 mg/ (Sodium Chloride) 50.25 mls @ 201 mls/hr IV Q6H PRN PRN Reason: Nausea Morphine Sulfate (Morphine Sulfate 2 Mg/Ml Cartridge) 2 mg IVPUSH Q3H PRN; Protocol PRN Reason: Pain, Severe (Pain Scale 7-10) Last Admin: 01/11/22 20:10 Dose: 2 mg Documented By: MIGUE Ondansetron HCl (Ondansetron Hcl 4 Mg/2 Ml Vial) 4 mg IVPUSH Q8H PRN PRN Reason: nausea Last Admin: 01/09/22 21:20 Dose: 4 mg Documented By: KATRINA Polyethylene Glycol (Polyethylene Glycol 3350 17 Gm Powd.Pack) 17 gm PO DAILY PRN PRN Reason: Constipation Last Admin: 01/14/22 12:32 Dose: 17 gm Documented By: HAYDEN Sodium Chloride (0.9 % Sodium Chloride Flush 3 Ml Syringe) 3 ml IVFLUSH QSHIFT [facility] Last Admin: 01/15/22 09:58 Dose: 3 ml Documented By: HAYDEN Labs CBC & Chem 7: 01/15/22 06:01 01/13/22 06:27 Labs: Laboratory Results - last 24 hr 01/15/22 06:01 MCV 87.0 MCH 30.3 MCHC 34.9 RDW 12.5 Plt Count 299 MPV 9.6 Immature Gran % (Auto) 0.4 Neut % (Auto) 76.4 H Lymph % (Auto) 11.8 L [place] % (Auto) 10.9 Eos % (Auto) 0.3 Baso % (Auto) 0.2 Lymph # (Auto) 1.3 [place] # (Auto) 1.2 Eos # (Auto) 0.0 Baso # (Auto) 0.0 Abs Immat Gran (auto) 0.04 H Absolute Neuts (auto) 8.6 H Absolute Nucleated RBC 0.000 Nucleated RBC % (auto) 0.0 Procedures Date of Service Date of Service: 01/15/22 Progress Note: A&P Assessment and plan (1) Abdominal pain: Status: Acute (2) Acute appendicitis: Status: Acute Plan Patient denies any abdominal pain but does report some abdominal distension. He is moving his bowels and tolerating full liquid diet. Abdomen is soft and nondistended, nontender with no tympany. No rebound, guarding or rigidity. Continue on current diet and antibiotics. Time Spent With Patient Time: Total time spent is greater than 50% in coordination of care (as documented) at patient's floor/unit and/or counseling patient: Quality Stroke Does the patient have a stroke diagnosis?: No VTE Prior VTE?: No VTE Risk Level:: Medical - moderate - high VTE Device Contraindication: N/A - Device Ordered VTE Drug Contraindication: N/A - Med Ordered
[2022-01-15 15:39] VITALS: BP 112/69; PULSE 86; RESP 14; TEMP 36.2; O2SAT 99
[2022-01-16] VITALS (7 sets, daily range): BP systolic 132–159; BP diastolic 86–97; PULSE 67–99; RESP 16–20; TEMP 36.3–36.9; O2SAT 98–100
--- NOTE | 2022-01-16 08:26 | P.PNGS_ITS ---
Subjective Subjective Date of Service: 01/17/22 Interval history: says he continues to have heartburn also frustrated that he is constipated wants to eat regular food denies right lower quadrant pain Physical Exam Vital Signs: Vital Signs: Last Vital Signs Temp 98.5 F 01/16/22 07:56 Pulse 90 01/16/22 07:56 Resp 16 01/16/22 07:56 BP 136/91 H 01/16/22 07:56 Pulse Ox 99 01/16/22 07:56 O2 Del Method 01/16/22 07:56 BMI result Body Mass Index 22.6 Const: General: no acute distress Resp: Effort & Inspection: normal respiratory effort Cardio: Rate: regular rate GI: Other: soft, mildly distended, no guarding rebound, no right lower quadrant pain, mild epigastric tenderness Objective Data Active Medications Docusate Sodium (Docusate Sodium 100 Mg Capsule) 100 mg PO BID [facility] Last Admin: 01/15/22 21:50 Dose: 100 mg Documented By: POP Famotidine (Famotidine 20 Mg Tablet) 20 mg PO BID [facility] Last Admin: 01/15/22 21:50 Dose: 20 mg Documented By: POP Heparin Sodium (Porcine) (Heparin Sodium,Porcine 5,000 Unit/Ml Vial) 5,000 unit SUBCUT Q12H [facility] Last Admin: 01/15/22 21:50 Dose: 5,000 unit Documented By: POP Promethazine HCl 6.25 mg/ (Sodium Chloride) 50.25 mls @ 201 mls/hr IV Q6H PRN PRN Reason: Nausea Morphine Sulfate (Morphine Sulfate 2 Mg/Ml Cartridge) 2 mg IVPUSH Q3H PRN; Protocol PRN Reason: Pain, Severe (Pain Scale 7-10) Last Admin: 01/11/22 20:10 Dose: 2 mg Documented By: MIGUE Ondansetron HCl (Ondansetron Hcl 4 Mg/2 Ml Vial) 4 mg IVPUSH Q8H PRN PRN Reason: nausea Last Admin: 01/09/22 21:20 Dose: 4 mg Documented By: KATRINA Polyethylene Glycol (Polyethylene Glycol 3350 17 Gm Powd.Pack) 17 gm PO DAILY PRN PRN Reason: Constipation Last Admin: 01/14/22 12:32 Dose: 17 gm Documented By: HAYDEN Polyethylene Glycol (Polyethylene Glycol 3350 17 Gm Powd.Pack) 17 gm PO DAILY PRN PRN Reason: constipation Sodium Chloride (0.9 % Sodium Chloride Flush 3 Ml Syringe) 3 ml IVFLUSH QSHIFT [facility] Last Admin: 01/15/22 21:55 Dose: 3 ml Documented By: POP Labs CBC & Chem 7: 01/15/22 06:01 01/13/22 06:27 Procedures Date of Service Date of Service: 01/16/22 Progress Note: A&P Assessment and plan (1) Abdominal pain: Status: Acute Assessment and Plan: continues to complain of heartburn seen by GI start MiraLax advance diet - he says he is hungry and wants to eat clinically not consistent with acute appendicitis exam remains benign, no fever Time Spent With Patient Time: Total time spent is greater than 50% in coordination of care (as documented) at patient's floor/unit and/or counseling patient: Quality Stroke Does the patient have a stroke diagnosis?: No VTE Prior VTE?: No VTE Risk Level:: Medical - moderate - high VTE Device Contraindication: N/A - Device Ordered VTE Drug Contraindication: N/A - Med Ordered
[2022-01-16] MEDS: Famotidine 20 MG TABLET PO (08:52)
[2022-01-16] MEDS: 0.9 % Sodium Chloride Flush 3 ML SYRINGE IVFLUSH ×2 (08:52→20:17)
[2022-01-16] MEDS: Docusate Sodium 100 MG CAPSULE PO (08:52)
[2022-01-16] MEDS: Heparin Sodium,Porcine 5,000 UNIT/ML VIAL 5000 UNIT SUBCUT (10:28)
--- NOTE | 2022-01-16 12:08 | MHC.CM.PN ---
MALE 61 DX AB PAIN NO DISCHARGE TODAY. HIS DIET HAS BEEN ADVANCED. PO INTAKE IS POOR. DP HOME NO SERVICES FAMILY TRANSPORT.
[2022-01-16] MEDS: polyethylene glycoL 3350 17 GM POWD.PACK PO (20:16)
--- NOTE | 2022-01-17 06:02 | PM.EVENT ---
Event Note Date of Service: 01/17/22 Event Note: pt with abdominal pain, abdominal distension, constipation. KUB obtained shows Ileus. Pt made NPO and surgery notified
[2022-01-17 08:00] VITALS: BP 158/93; PULSE 88; RESP 20; TEMP 36.4; O2SAT 100
--- NOTE | 2022-01-17 09:10 | PM.PNGS ---
Subjective Subjective Date of Service: 01/17/22 Interval history: felt bloated again early this morning passing faltus but no BMs denies RLQ pain c/o heartburn on and off Physical Exam Vital Signs: Vital Signs: Last Vital Signs Temp 97.5 F 01/17/22 08:00 Pulse 88 01/17/22 08:00 Resp 20 01/17/22 08:00 BP 158/93 H 01/17/22 08:00 Pulse Ox 100 01/17/22 08:00 O2 Del Method 01/17/22 08:00 BMI result Body Mass Index 22.6 Const: Other: anxious General: no acute distress Resp: Effort & Inspection: normal respiratory effort Cardio: Rate: regular rate GI: Other: soft, mildly distended, no guarding or rebound, no tenderness at this time Objective Data Active Medications Docusate Sodium (Docusate Sodium 100 Mg Capsule) 100 mg PO BID [facility] Last Admin: 01/16/22 20:19 Dose: Not Given Documented By: JOVANY Non-Admin Reason: Patient Refused Famotidine (Famotidine 20 Mg Tablet) 20 mg PO BID [facility] Last Admin: 01/16/22 20:19 Dose: Not Given Documented By: JOVANY Non-Admin Reason: Patient Refused Heparin Sodium (Porcine) (Heparin Sodium,Porcine 5,000 Unit/Ml Vial) 5,000 unit SUBCUT Q12H [facility] Last Admin: 01/17/22 00:20 Dose: Not Given Documented By: JOVANY Non-Admin Reason: Patient Refused Promethazine HCl 6.25 mg/ (Sodium Chloride) 50.25 mls @ 201 mls/hr IV Q6H PRN PRN Reason: Nausea Morphine Sulfate (Morphine Sulfate 2 Mg/Ml Cartridge) 2 mg IVPUSH Q3H PRN; Protocol PRN Reason: Pain, Severe (Pain Scale 7-10) Last Admin: 01/11/22 20:10 Dose: 2 mg Documented By: MIGUE Ondansetron HCl (Ondansetron Hcl 4 Mg/2 Ml Vial) 4 mg IVPUSH Q8H PRN PRN Reason: nausea Last Admin: 01/09/22 21:20 Dose: 4 mg Documented By: KATRINA Polyethylene Glycol (Polyethylene Glycol 3350 17 Gm Powd.Pack) 17 gm PO DAILY PRN PRN Reason: Constipation Last Admin: 01/16/22 20:16 Dose: 17 gm Documented By: JOVANY Polyethylene Glycol (Polyethylene Glycol 3350 17 Gm Powd.Pack) 17 gm PO DAILY PRN PRN Reason: constipation Sodium Chloride (0.9 % Sodium Chloride Flush 3 Ml Syringe) 3 ml IVFLUSH QSHIFT [facility] Last Admin: 01/16/22 20:17 Dose: 3 ml Documented By: JOVANY Labs CBC & Chem 7: 01/15/22 06:01 01/13/22 06:27 Procedures Date of Service Date of Service: 01/17/22 Progress Note: A&P Assessment and plan (1) Abdominal pain: Status: Acute Assessment and Plan: c/o of heatburn pain - always epig area KUB done this AM again shows ileus type pattern abd remains soft, very benign nontender at this time, no guarding or rebound he continues to have periodic bloating he is frustrated and says he is signing out AMA -also stating his mother is a patient here in COVID unit might be discharged soon to his house I explained to him that we had ordered UGIS with SB follow through for this morning in view of his recurrent bloating he however says he does not want this and wants to leave I explained to him possible consequences of worsening, with vomitting need to rule out obstruction as well dw GI - no endoscopy planned, symptoms may be related to COVID diangosis explained to patient he had tested positive for COVID on admission, although with no respiratory symptoms Time Spent With Patient Time: Total time spent is greater than 50% in coordination of care (as documented) at patient's floor/unit and/or counseling patient: Quality Stroke Does the patient have a stroke diagnosis?: No VTE Prior VTE?: No VTE Risk Level:: Medical - moderate - high VTE Device Contraindication: N/A - Device Ordered VTE Drug Contraindication: N/A - Med Ordered
--- NOTE | 2022-01-17 10:26 | PC.NURSE ---
Patient discharged against medical advise. Dr. Persaud spoke with patient and is aware. IV dc'd. Patient encouraged to return to hospital with any questions or concerns or change of status.
--- NOTE | 2022-01-23 08:12 | P.DS_ITS ---
DS: Providers Provider Date of Service: 01/09/22 Date of admission: 01/16/22 16:00 Date of discharge: 01/17/22 Primary care physician: Aashish Long MD Consults: 01/13/22 18:23 Consult to Gastroenterology Routine Consulting Provider: Sharmila Almeida Reason for consultation: persistent epig pain DS: Diagnosis Discharge Diagnosis (1) Abdominal pain: Status: Acute DS: Summary Hospital Course Hospital Course: 61-year-old male admitted because of epigastric pain. He had a CAT scan showing mild thickening of the appendix. He also tested positive COVID although he did not have difficult respiratory symptoms. However, he did not have any pain or tenderness at all on the right lower quadrant. Furthermore, his white count was within normal. Overall clinical picture did not suggest acute appendicitis. Since the etiology of his epigastric drain was unknown, he was admitted and was kept NPO temporarily pain. Started on proton pump inhibitor as well. He had some periodic abdominal bloating with some vomiting as well. I repeated his CT scan on his 4th day because of this. There did not appear to be any changes compared to the shell CT scan. His main complaint was ptotic bloating, constipation, as well as epigastric pain. I had added an H2 radha and he had stated that he did have some relief with this. I also gave him Colace as a stool softener because of his complaints of constipation. His diet had been slowly advanced. He was tolerating regular diet periodically but then would plane of abdominal bloating and constipation. He had remained afebrile during his hospital stay. He was getting frustrated because of his periodic bloating. He did not have any right lower quadrant pain or tenderness throughout his admission and had a very benign abdominal exam. I had scheduled him for an upper GI series with small-bowel follow-through but he refused this and insisted on getting discharge on 01/17/2022. Explained to him that he may have recurrence of his vomiting and epigastric pain if he leaves against medical advise. I told him that his workup was incomplete and that we should continue investigating etiology of his abdominal bloating and constipation. I had consulted GI as well for possible endoscopy but it was deemed that his overall symptoms may be secondary to his diagnosis of COVID. An inpatient endoscopy was not planned by GI. I emphasized to the patient that we should continue to work him up for his periodic bloating, nausea, and the gastric pain. He however signed out against medical advise. Time Spent with Patient Time attestation: Total time spent providing and/or coordinating discharge services: Discharge coordination time: Less than 30 minutes Quality: Safe Use of Opioids Does Pt have an Active Cancer Diagnosis on the Problem List?: No Quality: Stroke Does the patient have a stroke diagnosis?: No Physical Exam Vital Signs: Vital Signs: Last Vital Signs Temp 97.5 F 01/17/22 08:00 Pulse 88 01/17/22 08:00 Resp 20 01/17/22 08:00 BP 158/93 H 01/17/22 08:00 Pulse Ox 100 01/17/22 08:00 O2 Del Method 01/17/22 08:00 BMI result Body Mass Index 22.6 Const: General: comfortable and no acute distress Orientation/consciousness: patient oriented x3 Neck: Neck: Yes no lymphadenopathy Resp: Auscultation: clear to auscultation bilaterally Cardio: Rhythm: regular rhythm GI: Palpation (GI): Soft to palpation, not firm, nontender and no guarding Neuro: General: patient oriented x3 DS: Data Data Completed and Pending Completed studies during hospitalization [Text1]: Laboratory Results WBC 11.3 X10*3/uL (4.8-10.8) H 01/15/22 06:01 RBC 5.01 X10*6/uL (4.60-5.80) 01/15/22 06:01 Hgb 15.2 g/dl (14.0-18.0) 01/15/22 06:01 Hct 43.6 % (42.0-52.0) 01/15/22 06:01 MCV 87.0 fL (80.0-98.0) 01/15/22 06:01 MCH 30.3 pg (27.0-33.0) 01/15/22 06:01 MCHC 34.9 g/dl (31.0-36.0) 01/15/22 06:01 RDW 12.5 % (11.0-16.0) 01/15/22 06:01 Plt Count 299 X10*3/uL (160-400) 01/15/22 06:01 MPV 9.6 fL (9.4-12.4) 01/15/22 06:01 Immature Gran % (Auto) 0.4 % (0.0-0.4) 01/15/22 06:01 Neut % (Auto) 76.4 % (45-73) H 01/15/22 06:01 Lymph % (Auto) 11.8 % (20-40) L 01/15/22 06:01 [place] % (Auto) 10.9 % (2-11) 01/15/22 06:01 Eos % (Auto) 0.3 % (0-4) 01/15/22 06:01 Baso % (Auto) 0.2 % (0-2) 01/15/22 06:01 Lymph # (Auto) 1.3 X10*3/uL (1.2-4.9) 01/15/22 06:01 [place] # (Auto) 1.2 X10*3/uL (0.1-1.2) 01/15/22 06:01 Eos # (Auto) 0.0 X10*3/uL (0.0-0.4) 01/15/22 06:01 Baso # (Auto) 0.0 X10*3/uL (0.0-0.2) 01/15/22 06:01 Abs Immat Gran (auto) 0.04 X10*3/uL (0.00-0.03) H 01/15/22 06:01 Absolute Neuts (auto) 8.6 x10*3/uL (2.0-8.3) H 01/15/22 06:01 Absolute Nucleated RBC 0.000 X10*3/uL (0.0-0.012) 01/15/22 06:01 Nucleated RBC % (auto) 0.0 /100WBC (0.0-0.2) 01/15/22 06:01 Sodium 127 mmol/L (135-145) L 01/13/22 06:27 Potassium 4.3 mmol/L (3.3-5.1) 01/13/22 06:27 Chloride 91 mmol/L (96-108) L 01/13/22 06:27 Carbon Dioxide 27 mmol/L (22-29) 01/13/22 06:27 Anion Gap 13 (12-20) 01/13/22 06:27 BUN 12 mg/dL (9-16) 01/13/22 06:27 Creatinine 0.78 mg/dL (0.5-1.4) 01/13/22 06:27 Estim Creat Clear Calc 103.3 01/13/22 06:27 Estimated GFR > 60 01/13/22 06:27 Random Glucose 115 mg/dL (60-115) 01/13/22 06:27 Calcium 9.4 mg/dL (8.4-10.2) 01/13/22 06:27 Total Bilirubin 0.8 mg/dL (0.0-1.0) 01/13/22 06:27 Direct Bilirubin 0.4 mg/dL (0.0-0.5) 01/13/22 06:27 AST 21 U/L (5-37) D 01/13/22 06:27 ALT 31 U/L (0-40) 01/13/22 06:27 Alkaline Phosphatase 46 U/L (39-117) D 01/13/22 06:27 Total Protein 6.9 g/dL (6.5-8.0) 01/13/22 06:27 Albumin 4.2 g/dL (3.5-5.0) 01/13/22 06:27 Lipase 16 U/L (8-78) 01/13/22 06:27 Urine Color YELLOW 01/09/22 23:08 Urine Appearance CLEAR 01/09/22 23:08 Urine pH 8.0 (5.0-8.0) 01/09/22 23:08 Ur Specific [place] 1.020 (1.005-1.025) 01/09/22 23:08 Urine Protein NEG MG/DL (NEG-TRACE) 01/09/22 23:08 Urine Glucose (UA) NEG MG/DL (NEG) 01/09/22 23:08 Urine Ketones 5 MG/DL (NEG) 01/09/22 23:08 Urine Blood NEG (NEG) 01/09/22 23:08 Urine Nitrite NEG (NEG) 01/09/22 23:08 Ur Leukocyte Esterase NEG (NEG) 01/09/22 23:08 COVID-19 (MARCELINO) Positive (Negative) A 01/09/22 17:45 COVID-19 Clin Com See Note 01/09/22 17:45 Impressions Abdomen/Pelvis CT 01/12/22 17:43 IMPRESSION: 1. Abnormal appendix with findings most consistent with mild acute appendicitis without significant interval change. No evidence for perforation or abscess formation. 2. Mild interval increase in gaseous distention of the small and large bowel suggesting mild ileus. Short-term monitoring with supine and upright abdominal radiographs is recommended as clinically indicated. Fleischner guidelines were followed. KUB X-Ray 01/17/22 01:09 IMPRESSION: No evidence of obstruction. Finding suggestive of ileus. Discharge Plan Discharge Patient Disposition: Left Against Medical Advice Discharge Diagnosis: s/p work up abdominal pain Referrals: Aashish Long MD [Primary Care Provider] - 1 Week Discharge Medications: No Action No Known Home Meds Discharge Orders: Discharge Order (Routine); Ordered 01/23/22 Ordered By: Scott Persaud Diet: other Activity on Discharge: ambulatory, self care Care Plan Goals: needs GI eval Health Concerns: persistent abdominal pain Plan of Treatment: pt signed out against medical advise Assessment: needs further workup for abdl pain Discharge Date/Time: 01/17/22 10:37
== END 2022-01-17 10:37 | disposition left against medical advice (07) | DRG 247 ==
LOC: HO.ED 11:08 → HO.EDOVER 13:53 → HO.IMC 01-10 07:43 → HO.EDOVER 01-16 18:30 → HO.IMC 01-16 18:30
PROVIDERS: Physician Assistant Medical; Physician Assistant Surgical; Surgery; Admitting Provider Surgery; Emergency Provider Student in an Organized Health Care Education/Training Program; PCP Emergency Medicine; Visit Provider Surgery
DX: K56.7 Ileus, unspecified (principal); U07.1 COVID-19; K59.00 Constipation, unspecified
CPT/HCPCS: 36415; 74018; 74176; 80053; 81003; 82248; 83690; 85025; 85027; 87635; 96361; 96374; 96375; 99285; J2270; J2405

== ENCOUNTER 2022-02-22 10:35 | Emergency (ER) | payer MEDICAID, SELFPAY ==
[2022-02-22] VITALS (7 sets, daily range): BP systolic 96–134; BP diastolic 70–97; PULSE 68–101; RESP 16–18; TEMP 36.7; O2SAT 98–99; BMI 19.1
--- NOTE | ~2022-02-22 | XR_ITS ---
EXAMINATION: XR CHEST CLINICAL INFORMATION: Dizziness, low blood pressure COMPARISON: None TECHNIQUE: 2 views of the chest were obtained. FINDINGS: Lungs are clear. No focal consolidation or mass. Normal pulmonary vascularity. No pleural effusion or pneumothorax. Normal heart size. No acute osseous abnormality. XR/XR chest 2V IMPRESSION: No acute pulmonary disease.
--- NOTE | ~2022-02-22 | CT_ITS ---
EXAMINATION: CT HEAD WITHOUT CONTRAST CLINICAL INFORMATION: Dizziness. Hypotension. COMPARISON: None TECHNIQUE: Contiguous axial imaging was performed from the skull base to vertex without intravenous administration of contrast. This CT examination was performed using dose optimization techniques as appropriate, variously including the following: *Automated exposure control *Adjustment of mA and/or kV according to patient size (this includes techniques or standardized protocols for targeted exams where dose is matched to indication/reason for exam; i.e. extremities or head) *Use of iterative reconstruction technique DLP: 1124 mGy-cm FINDINGS: There is no evidence of acute intracranial hemorrhage or territorial infarction. No abnormal mass effect or midline shift is seen. Chacon to white matter differentiation is well preserved. No extra-axial fluid collections are identified. The ventricles are normal in size. There is no abnormal attenuation within the brain parenchyma. The osseous structures and soft tissues are normal. The mastoid air cells and visualized portions of the paranasal sinuses are well aerated. CT/CT head/brain wo con IMPRESSION: No acute intracranial hemorrhage or mass effect.
--- NOTE | ~2022-02-22 | CT_ITS ---
EXAMINATION: CT ABDOMEN AND PELVIS WITHOUT CONTRAST CLINICAL INFORMATION: Abdominal pain and dizziness. Patient status post appendectomy. COMPARISON: CT 01/12/2022 TECHNIQUE: Multidetector volumetric imaging was performed from the superior aspect of the liver through the pubic symphysis. Sagittal and coronal reformatted images were obtained on the technologist's workstation. This CT examination was performed using dose optimization techniques as appropriate, variously including the following: *Automated exposure control *Adjustment of mA and/or kV according to patient size (this includes techniques or standardized protocols for targeted exams where dose is matched to indication/reason for exam; i.e. extremities or head) *Use of iterative reconstruction technique DLP: 388.96 mGy-cm FINDINGS: LUNG BASES: Minimal linear opacity at the bases most likely representing atelectasis. There is no pleural effusion. Unremarkable appearance of heart. LIVER, GALLBLADDER, AND BILIARY TREE: The liver is normal in size, shape, and attenuation. No focal hepatic lesion or biliary ductal dilatation is present. The gallbladder is unremarkable with no evidence of radiopaque gallstones, gallbladder wall thickening, or obvious pericholecystic inflammatory changes. PANCREAS: Unremarkable. SPLEEN: Unremarkable. ADRENAL GLANDS: Unremarkable. KIDNEYS AND URETERS: The kidneys are normal in size, shape, and attenuation. No hydronephrosis, hydroureter, or calculi seen. No perinephric stranding. Incidental note is again made of a 1.5 cm cyst at the midpole of the right kidney which requires no additional radiographic follow-up. BLADDER: Decompressed and unremarkable. GASTROINTESTINAL TRACT: Distal esophagus and stomach are unremarkable. The small and large bowel are normal in course and caliber. There is a relatively large volume of stool throughout the colon. There is equivocal slightly thickened appearance of the sigmoid colon (image 40, series 16 and image 76, series 17) which is nonspecific and could be related to underdistention. There are surgical changes relating to recent appendectomy. ABDOMINAL WALL: No significant hernia is appreciated. LYMPH NODES: Normal. VASCULAR: Unremarkable. PELVIC VISCERA: The prostate and seminal vesicles are unremarkable. OSSEOUS STRUCTURES: Unremarkable. CT/CT abdomen pelvis wo con IMPRESSION: No specific acute findings in the abdomen or pelvis to account for patient's current presentation. There is a relatively large volume of stool throughout the colon. Would correlate for constipation. There is an equivocal slightly thickened appearance of a short segment of the sigmoid colon which lies adjacent to the cecum without significant surrounding inflammatory changes. The thickened appearance could be secondary to relative underdistention. Further evaluation could be considered with sigmoidoscopy/colonoscopy. Fleischner guidelines were followed.
--- NOTE | 2022-02-22 10:47 | ECG_ITS ---
Test Reason : dizzy/low bp Blood Pressure : / mmHG Vent. Rate : 071 BPM Atrial Rate : 071 BPM P-R Int : 148 ms QRS Dur : 092 ms QT Int : 406 ms P-R-T Axes : 043 014 056 degrees QTc Int : 441 ms Normal sinus rhythm Normal ECG No previous ECGs available Referred By: Maritza Luis Electronically Signed By:Coy Tay
[2022-02-22] MEDS: 0.9 % Sodium Chloride 1,000 ML 999 ML IVCONT (11:04)
--- NOTE | 2022-02-22 11:07 | ED_ITS ---
HPI - Dizziness General Chief Complaint: Dizziness Stated Complaint: DIZZY,LOW BP 108 SYSTOLIC PER EMS Time Seen by Provider: 02/22/22 10:44 Source: patient and RN notes reviewed Mode of arrival: EMS Limitations: no limitations History of Present Illness HPI Narrative: This is a 61-year-old male who presents today with complaints of dizziness, abdominal pain and back pain for the last month. Patient was seen at [facility] this morning and EMS was called as he was found to be hypotensive in the 80s/60s. Patient was seen at [facility] on 01/09/2022 with complaints of abdominal pain, and was admitted as observation as appendicitis versus ileus. Patient was discharged on 01/17/2022 after leaving against medical advice after patient refused to do an upper GI series with a small bowel follow-through. Patient states that after his discharge from [facility] he went to [facility] where he had an appendectomy on 01/23/2022. Patient states that he had facial paralysis after waking from surgery, reports that his mouth was cocked to the right and he was drooling from the left. He states that his symptoms have improved, but states that he has residual weakness in his left side of his body. He states that since the surgery, he has had ongoing dizziness as well abdominal pain and back pain. He states that he is unable to sleep at night because of his back pain. He denies any chest pain, shortness of breath, palpitations, nausea, vomiting, or diarrhea. He denies any dysuria or hematuria. He states that he followed up with the surgeon on February to the states that everything was ?fine?. He is a smoker. No other complaints or concerns at this time. MD elicited complaint: dizziness and lightheadedness Onset (ago): month(s) Severity: moderate Description: room spinning , lightheadedness and off-balance Context: change in body position History of similar symptoms: No Exacerbating factors: standing Relieving factors: remaining still Associated symptoms: denies other symptoms Related Data Previous Rx's Medication Instructions Recorded ciprofloxacin HCl 500 mg tablet 500 mg PO BID 10 days #20 tabs 02/22/22 (Cipro) docusate sodium 100 mg capsule 100 mg PO BID PRN Constipation #30 02/22/22 (Colace) caps polyethylene glycol 3350 17 17 g PO BID Constipation #238 grams 02/22/22 gram/dose oral powder (Miralax) Allergies Allergy/AdvReac Type Severity Reaction Status Date / Time No Known Allergies Allergy Verified 08/09/21 09:00 [No Known Allergies*] Review of Systems Review of Systems: Constitutional : No Fever, No Chills, No Night Sweats, No Fatigue, No Malaise ENT/Mouth : No Ear Pain, No Nasal Congestion, No Sinus Pain, No sore throat, No Rhinorrhea Eyes: No Eye Pain, No Swelling, No Redness, No Foreign Body, No Discharge, No Vision Changes Cardiovascular : No Chest Pain, No SOB, No Dyspnea on Exertion, No Orthopnea, No Palpitations Respiratory : No Cough, No Sputum, No Wheezing, No Dyspnea Gastrointestinal : +abdominal pain, +constipation, No Nausea, No Vomiting, No Diarrhea, No abdominal Pain, No Hematochezia, No Melena Genitourinary : No Dysuria, No Urinary Frequency, No Urinary Incontinence, No Urgency, No Flank Pain Musculoskeletal : No joint pain, No Myalgias Skin : No lacerations Neuro : +dizziness No Focal weakness, no general weakness, No Numbness, No Paresthesias, No Loss of Consciousness, No Headache Yes all other systems are reviewed and are negative COUNTS INCLUDE 234 BEDS AT THE [facility] Past Medical History Attestation statement: The following information was validated with the patient. Source: old records reviewed and nursing notes reviewed Medical History No known health problems Social History Social History Alcohol intake: former Patient Tobacco Use Status: Former Tobacco user Use of substances other than those prescribed or required for medical reasons: No Advance Directives: No Advance Directives Information Provided: Yes service: No Physical Exam Vital Signs: Vital Signs: Last Vital Signs Temp 98.1 F 02/22/22 10:50 Pulse 74 02/22/22 13:39 Resp 18 02/22/22 13:39 BP 134/97 H 02/22/22 13:39 Pulse Ox 99 02/22/22 13:39 O2 Del Method 02/22/22 13:39 BMI result Body Mass Index 19.1 Vital signs have been reviewed as normal and appeared to be correct. Blood pressure 107/85. Heart rate 82 Respiration rate normal. Temperature normal. Oxygen saturation normal. Appearance: Alert. Oriented X3. No acute distress. Head: Normal external exam. Normocephalic. Atraumatic. Able to rotate head bilaterally. Eyes: PERRLA. EOMI. No nystagmus noted. Conjunctiva and sclera normal. Eyelids normal. Corneal reflex normal. ENT: EAC normal. TM's Normal. Hearing normal. Pharynx normal. Uvula midline. tongue midline. Moist mucous membranes. No trismus noted. No drooling noted. No muffled voice noted. No nystagmus noted. Neck: Normal inspection. Neck supple. FROM. No adenopathy. Trachea midline. Thyroid Normal. No meningeal signs. No neck mass noted. CVS: Normal heart rate and rhythm. Heart sound normal. No murmurs noted. Pulses normal throughout. Respiratory: No respiratory distress. Painless inspiration. Breath sounds normal. No wheezes/rales/rhonchi noted. Chest nontender. No accessory muscle usage noted or decreased air movement noted. Abdomen: Soft, but moderate tenderness to palpation to light palpation with guarding. Surgical incision noted to the umbilicus, no surrounding erythema, edema, or fluctuance. Bowel sounds normal in all 4 quadrants. No distention noted. No organomegaly noted. No visible injury noted. Back: No CVA tenderness. Full range of motion noted. Skin: Skin warm and dry. Normal skin color. Normal skin turgor. No rashes/lesions/lacerations noted. Extremities: No lower extremity edema. Extremities exhibit normal range of motion. Extremities nontender. Able to shrug shoulders bilaterally and keep up against resistance. Neuro: Left sided facial droop noted, chronic per patient. Oriented X 3. No motor deficit. No sensory deficit. Reflexes normal. Moving all extremities. No focal motor deficits. Cranial nerves II-XI intact bilaterally. Facial strength normal. Normal cognition. Speech normal. Gait normal. Strength 5/5 throughout. No pronator drift. No tremor noted. No fasciculations noted. No ri gidity noted. Muscle tone normal throughout. No asterixis noted. [id number]-[id number] test normal. Heel to choudhury test normal. Tandem gait normal. Does not sway with eyes open. Romberg test negative. Rapid alternating movement upper extremity normal. Rapid alternating movement lower extremity normal. Hand drop from overhead Misses face. NIHSS score 0. Course Course Course Narrative: 1100 This is a 61-year-old male who presents today via EMS from [place] with complaints of dizziness which worsens with positional changes for the last month. The patient was seen at [facility] in mid January for an appendectomy after he was discharged here against medical advice for question of appendicitis versus ileus. Patient reports that after the surgery he woke up with has ?face twisted and called, patient noted to have left-sided facial droop which patient reports is chronic since the surgery. Plan: Labs, EKG, COVID, CT head and CT abdomen, being urinalysis ordered. 1 L IV fluids as well as Tylenol 875 mg given. Reevaluation(s) Reevaluation #1: - labs return patient mild anemia with an H&H of 12.5/37.0 which is most likely related to recent surgery patient denies any rectal bleeding or black stools. P otassium 5.4 therefore patient given 5 gm of Lokelma p.o. at this time. Otherwise all other labs are within normal limits. Troponin negative. UA within normal limits no evidence of UTI. Patient negative for COVID. - CT scan of brain without contrast negative for any acute processes. - CT scan abdomen pelvis without IV contrast revealed constipation otherwise no other acute processes were noted. They also noticed a thickened appearance of the sigmoid colon which lies adjacent to the cecum without surrounding inflammatory changes they reported that this could be secondary to relative on distension they recommended sigmoidoscopy/colonoscopy. - therefore I discussed this case with Dr. Almeida has son reported the patient has not had a colonoscopy that the patient can follow up with him as an outpatient for an outpatient colonoscopy possible sigmoidoscopy. Therefore at this time will DC home with instructions to follow-up with PCP this week for repeat blood work including potassium to make sure the potassium is that or normal range. Also instructed him to follow up with Dr. Almeida for outpatient sigmoidoscopy/colonoscopy. And to return if any new or worsening symptoms will also DC home with medications for constipation. Patient understands agrees with this plan. Time: 15:12 [facility] - Dizziness Medical Records Attestation: I reviewed the patient's medical records. Lab Data Attestation: I reviewed the patient's lab results. Result diagrams: 02/22/22 11:06 02/22/22 11:06 Labs: Lab Results 02/22/22 02/22/22 02/22/22 Range/Units 11:03 11:06 11:06 WBC 6.2 (4.8-10.8) X10*3/uL RBC 4.12 L (4.60-5.80) X10*6/uL Hgb 12.5 L (14.0-18.0) g/dl Hct 37.0 L (42.0-52.0) % MCV 89.8 (80.0-98.0) fL MCH 30.3 (27.0-33.0) pg MCHC 33.8 (31.0-36.0) g/dl RDW 13.4 (11.0-16.0) % Plt Count 259 (160-400) X10*3/uL MPV 8.8 L (9.4-12.4) fL Immature Gran % (Auto) 0.2 (0.0-0.4) % Neut % (Auto) 53.6 (45-73) % Lymph % (Auto) 33.7 (20-40) % [place] % (Auto) 11.7 H (2-11) % Eos % (Auto) 0.5 (0-4) % Baso % (Auto) 0.3 (0-2) % Lymph # (Auto) 2.1 (1.2-4.9) X10*3/uL [place] # (Auto) 0.7 (0.1-1.2) X10*3/uL Eos # (Auto) 0.0 (0.0-0.4) X10*3/uL Baso # (Auto) 0.0 (0.0-0.2) X10*3/uL Abs Immat Gran (auto) 0.01 (0.00-0.03) X10*3/uL Absolute Neuts (auto) 3.3 (2.0-8.3) x10*3/uL Absolute Nucleated RBC 0.000 (0.0-0.012) X10*3/uL Nucleated RBC % (auto) 0.0 (0.0-0.2) /100WBC PT 10.4 (10.0-13.1) SEC INR 0.9 (0.9-1.1) Sodium (135-145) mmol/L Potassium (3.3-5.1) mmol/L Chloride (96-108) mmol/L Carbon Dioxide (22-29) mmol/L Anion Gap (12-20) BUN (9-16) mg/dL Creatinine (0.5-1.4) mg/dL Estim Creat Clear Calc Estimated GFR Random Glucose (60-115) mg/dL Calcium (8.4-10.2) mg/dL Magnesium (1.6-2.6) mg/dL Total Bilirubin (0.0-1.0) mg/dL AST (5-37) U/L ALT (0-40) U/L Alkaline Phosphatase (39-117) U/L Troponin I High Sens (<3.5-35.0) ng/L Total Protein (6.5-8.0) g/dL Albumin (3.5-5.0) g/dL Lipase (8-78) U/L Urine Color Urine Appearance Urine pH (5.0-8.0) Ur Specific Dexter (1.005-1.025) Urine Protein (NEG-TRACE) MG/DL Urine Glucose (UA) (NEG) MG/DL Urine Ketones (NEG) MG/DL Urine Blood (NEG) Urine Nitrite (NEG) Ur Leukocyte Esterase (NEG) COVID-19 (MARCELINO) Negative (Negative) COVID-19 Clin Com See Note 02/22/22 02/22/22 02/22/22 Range/Units 11:06 11:06 12:03 WBC (4.8-10.8) X10*3/uL RBC (4.60-5.80) X10*6/uL Hgb (14.0-18.0) g/dl Hct (42.0-52.0) % MCV (80.0-98.0) fL MCH (27.0-33.0) pg MCHC (31.0-36.0) g/dl RDW (11.0-16.0) % Plt Count (160-400) X10*3/uL MPV (9.4-12.4) fL Immature Gran % (Auto) (0.0-0.4) % Neut % (Auto) (45-73) % Lymph % (Auto) (20-40) % [place] % (Auto) (2-11) % Eos % (Auto) (0-4) % Baso % (Auto) (0-2) % Lymph # (Auto) (1.2-4.9) X10*3/uL [place] # (Auto) (0.1-1.2) X10*3/uL Eos # (Auto) (0.0-0.4) X10*3/uL Baso # (Auto) (0.0-0.2) X10*3/uL Abs Immat Gran (auto) (0.00-0.03) X10*3/uL Absolute Neuts (auto) (2.0-8.3) x10*3/uL Absolute Nucleated RBC (0.0-0.012) X10*3/uL Nucleated RBC % (auto) (0.0-0.2) /100WBC PT (10.0-13.1) SEC INR (0.9-1.1) Sodium 140 (135-145) mmol/L Potassium 5.4 H D (3.3-5.1) mmol/L Chloride 104 (96-108) mmol/L Carbon Dioxide 31 H (22-29) mmol/L Anion Gap 10 L (12-20) BUN 19 H D (9-16) mg/dL Creatinine 0.88 (0.5-1.4) mg/dL Estim Creat Clear Calc 77.1 Estimated GFR > 60 Random Glucose 111 (60-115) mg/dL Calcium 9.6 (8.4-10.2) mg/dL Magnesium 2.1 (1.6-2.6) mg/dL Total Bilirubin 0.2 (0.0-1.0) mg/dL AST 15 (5-37) U/L ALT 29 (0-40) U/L Alkaline Phosphatase 48 (39-117) U/L Troponin I High Sens < 3.5 (<3.5-35.0) ng/L Total Protein 6.5 (6.5-8.0) g/dL Albumin 4.1 (3.5-5.0) g/dL Lipase 12 (8-78) U/L Urine Color YELLOW Urine Appearance CLEAR Urine pH 6.5 (5.0-8.0) Ur Specific Dexter 1.025 (1.005-1.025) Urine Protein NEG (NEG-TRACE) MG/DL Urine Glucose (UA) NEG (NEG) MG/DL Urine Ketones NEG (NEG) MG/DL Urine Blood NEG (NEG) Urine Nitrite NEG (NEG) Ur Leukocyte Esterase NEG (NEG) COVID-19 (MARCELINO) (Negative) COVID-19 Clin Com Imaging Data CT scan of brain without contrast: Attestation: I personally reviewed and interpreted this imaging study as follows: Radiologist's impression: FINDINGS: There is no evidence of acute intracranial hemorrhage or territorial infarction. No abnormal mass effect or midline shift is seen. Chacon to white matter differentiation is well preserved. No extra-axial fluid collections are identified. The ventricles are normal in size. There is no abnormal attenuation within the brain parenchyma. The osseous structures and soft tissues are normal. The mastoid air cells and visualized portions of the paranasal sinuses are well aerated. ? CT/CT head/brain wo con IMPRESSION: No acute intracranial hemorrhage or mass effect. CT scan abdomen pelvis without IV contrast: Attestation: I personally reviewed and interpreted this imaging study as follows: Radiologist's impression: FINDINGS: LUNG BASES: Minimal linear opacity at the bases most likely representing atelectasis. There is no pleural effusion. Unremarkable appearance of heart.? LIVER, GALLBLADDER, AND BILIARY TREE: The liver is normal in size, shape, and attenuation. No focal hepatic lesion or biliary ductal dilatation is present. The gallbladder is unremarkable with no evidence of radiopaque gallstones, gallbladder wall thickening, or obvious pericholecystic inflammatory changes.? PANCREAS: Unremarkable.? SPLEEN: Unremarkable.? ADRENAL GLANDS: Unremarkable.? KIDNEYS AND URETERS: The kidneys are normal in size, shape, and attenuation. No hydronephrosis, hydroureter, or calculi seen. No perinephric stranding. Incidental note is again made of a 1.5 cm cyst at the midpole of the right kidney which requires no additional radiographic follow-up. BLADDER: Decompressed and unremarkable.? GASTROINTESTINAL TRACT: Distal esophagus and stomach are unremarkable. The small and large bowel are normal in course and caliber. There is a relatively large volume of stool throughout the colon. There is equivocal slightly thickened appearance of the sigmoid colon (image 40, series 16 and image 76, series 17) which is nonspecific and could be related to underdistention. There are surgical changes relating to recent appendectomy.? ABDOMINAL WALL: No significant hernia is appreciated.? LYMPH NODES: Normal. VASCULAR: Unremarkable. PELVIC VISCERA: The prostate and seminal vesicles are unremarkable.? OSSEOUS STRUCTURES: Unremarkable.? CT/CT abdomen pelvis wo con IMPRESSION: No specific acute findings in the abdomen or pelvis to account for patient's current presentation. There is a relatively large volume of stool throughout the colon. Would correlate for constipation. ? There is an equivocal slightly thickened appearance of a short segment of the sigmoid colon which lies adjacent to the cecum without significant surrounding inflammatory changes. The thickened appearance could be secondary to relative underdistention. Further evaluation could be considered with sigmoidoscopy/colonoscopy. ? Fleischner guidelines were followed. Discharge Plan Discharge Clinical Impression: Constipation, Acute hyperkalemia Patient Disposition: Home, Self-Care Instructions: Constipation (ED), Hyperkalemia (ED) Additional Instructions: You should follow-up with your primary care provider this week for repeat blood work especially your potassium level. Your potassium level today was 5.4. We gave you a drink so you can have a bowel movement to help lower your potassium and your constipation. If you do not have a bowel movement please return imme diately or if you develop any new or worsening symptoms please return immediately. You should also schedule an outpatient colonoscopy/sigmoidoscopy with Dr. Almeida the GI doctor that I gave you the number below please call tomorrow to make a follow-up appointment within the next few weeks. Prescriptions: New polyethylene glycol 3350 [Miralax] 17 gram/dose powder 17 g PO BID Qty: 238 0RF docusate sodium [Colace] 100 mg capsule 100 mg PO BID PRN (Reason: Constipation) Qty: 30 0RF ciprofloxacin HCl [Cipro] 500 mg tablet 500 mg PO BID 10 Days Qty: 20 0RF Referrals: Sharmila Almeida MD [Physician] - 1 week (For colonoscopy/sigmoidoscopy call to make a follow-up appointment call tomorrow to make a follow-up appointment within the next few weeks) Physician,Benjamín J [Primary Care Provider] - 2 days (your pcp for repeat blood work especially potassium level) Interventions: ED Discharge Assessment Last Done: 02/22/22 15:21 Discharge Date/Time: 02/22/22 15:36
[2022-02-22 11:12] LABS: MANUAL DIFF FLAG NO
[2022-02-22 11:14] LABS: Basophils Percent Auto 0.3 % (0-2); Eosinophils Percent Auto 0.5 % (0-4); Hemoglobin 12.5 g/dl (14.0-18.0); Imm Gran Abs Auto 0.01 X10*3/uL (0.00-0.03); Imm Gran Pct Auto 0.2 % (0.0-0.4); Lymphocytes Absolute Auto 2.1 X10*3/uL (1.2-4.9); Lymphocytes Percent Auto 33.7 % (20-40); Mean Corpuscular HGB Conc 33.8 g/dl (31.0-36.0); Mean Corpuscular Hemoglobin 30.3 pg (27.0-33.0); Mean Corpuscular Volume 89.8 fL (80.0-98.0); Mean Platelet Volume 8.8 fL (9.4-12.4); Monocytes Absolute Auto 0.7 X10*3/uL (0.1-1.2); Monocytes Percent Auto 11.7 % (2-11); Neutrophils Absolute Auto 3.3 x10*3/uL (2.0-8.3); Neutrophils Percent Auto 53.6 % (45-73); Platelet Count 259 X10*3/uL (160-400); Red Blood Count 4.12 X10*6/uL (4.60-5.80); Red Cell Distribution Width 13.4 % (11.0-16.0); White Blood Count 6.2 X10*3/uL (4.8-10.8)
[2022-02-22 11:30] LABS: INTERNATIONAL NORM RATIO 0.9 (0.9-1.1); Prothrombin Time 10.4 SEC (10.0-13.1)
[2022-02-22 11:39] LABS: Alanine Aminotransferase 29 U/L (0-40); Albumin Level 4.1 g/dL (3.5-5.0); Alkaline Phosphatase 48 U/L (39-117); Anion Gap 10 (12-20); Aspartate Amino Transferase 15 U/L (5-37); Bilirubin Total 0.2 mg/dL (0.0-1.0); Blood Urea Nitrogen 19 mg/dL (9-16); Calcium 9.6 mg/dL (8.4-10.2); Carbon Dioxide 31 mmol/L (22-29); Chloride 104 mmol/L (96-108); Creatinine Clr Calc Pharmacy 77.1; Estimated Glomerular Filt Rate > 60; Glucose Random 111 mg/dL (60-115); Magnesium 2.1 mg/dL (1.6-2.6); Potassium 5.4 mmol/L (3.3-5.1); Sodium 140 mmol/L (135-145); Total Protein 6.5 g/dL (6.5-8.0)
[2022-02-22 11:39] LABS: COVID-19 Test Negative (Negative); IDNOW Serial# 16C4AD1C
[2022-02-22 11:41] LABS: Troponin-I High Sensitivity < 3.5 ng/L (<3.5-35.0)
[2022-02-22] MEDS: Acetaminophen 325 MG TABLET 975 MG PO (12:02)
[2022-02-22 12:05] LABS: Lipase 12 U/L (8-78)
[2022-02-22 12:21] LABS: Appearance Urine CLEAR; Color Urine YELLOW; Glucose Urine UA NEG (NEG); Leukocyte Esterase Urine NEG (NEG); Nitrite Urine NEG (NEG); PH 6.5 (5.0-8.0); Specific Gravity - Urine 1.025 (1.005-1.025); Urine Blood NEG (NEG); Urine Ketones NEG (NEG); Urine Protein NEG (NEG-TRACE)
[2022-02-22] MEDS: Sodium Zirconium Cyclosilicate 5 GM POWD.PACK PO (15:20)
== END 2022-02-22 15:36 | disposition home or self-care (01) ==
PROVIDERS: Physician Assistant Medical; Emergency Provider Emergency Medicine
DX: K59.00 Constipation, unspecified (principal); R42 Dizziness and giddiness; E87.5 Hyperkalemia; R51.9 Headache, unspecified; Z20.822 Contact with and (suspected) exposure to COVID-19; Z87.891 Personal history of nicotine dependence; Z79.899 Other long term (current) drug therapy
CPT/HCPCS: 36415; 70450; 71046; 74176; 80053; 81003; 83690; 83735; 84484; 85025; 85610; 87635; 93005; 96360; 99284; 99285

== ENCOUNTER 2022-02-26 07:43 | Emergency (ER) | payer MEDICAID, SELFPAY ==
--- NOTE | ~2022-02-26 | CT_ITS ---
EXAMINATION: CT ABDOMEN AND PELVIS WITH CONTRAST CLINICAL INFORMATION: Abdominal pain. COMPARISON: CT abdomen/pelvis dated 02/22/2022. TECHNIQUE: Multidetector volumetric images were obtained from the superior aspect of the liver through the pubic symphysis following administration 85 mL of Omnipaque 350 intravenous contrast. Sagittal and coronal reformatted images were obtained on the technologist's workstation. Oral contrast: No. This CT examination was performed using dose optimization techniques as appropriate, variously including the following: *Automated exposure control *Adjustment of mA and/or kV according to patient size (this includes techniques or standardized protocols for targeted exams where dose is matched to indication/reason for exam; i.e. extremities or head) *Use of iterative reconstruction technique DLP: 583 mGy-cm FINDINGS: LUNG BASES: Bibasilar dependent atelectasis. LIVER, GALLBLADDER, AND BILIARY TREE: The liver is normal in size, shape, and attenuation. No focal hepatic lesion or biliary ductal dilatation is present. The gallbladder is unremarkable with no evidence of radiopaque gallstones, gallbladder wall thickening, or obvious pericholecystic inflammatory changes. PANCREAS: Unremarkable. SPLEEN: Unremarkable. ADRENAL GLANDS: Unremarkable. KIDNEYS AND URETERS: The kidneys are normal in size, shape, and attenuation. No hydronephrosis, hydroureter, or calculi seen. No perinephric stranding. BLADDER: Unremarkable. GASTROINTESTINAL TRACT: Redemonstration of moderate stool burden. No small or large bowel obstruction. Underdistention and mild wall thickening of the sigmoid colon is unchanged. No inflammatory change to suggest acute colitis. Status post-appendectomy. PERITONEAL CAVITY: No intra-abdominal free air or free fluid. No intra-abdominal mass or organized fluid collection/abscess formation. ABDOMINAL WALL: No significant hernia is appreciated. LYMPH NODES: No significant lymphadenopathy. VASCULAR: No abdominal aortic dilatation or dissection. Unremarkable IVC. PELVIC VISCERA: Prostatomegaly is redemonstrated. Redemonstration of a septated right-sided hydrocele versus cyst, similar when compared to the prior CT. OSSEOUS STRUCTURES: Unremarkable. CT/CT abdomen pelvis w con IMPRESSION: 1. Moderate stool burden is again noted. No small or large bowel obstruction. Underdistention of the sigmoid colon is unchanged. 2. Redemonstration of a septated, right-sided hydrocele versus cyst, similar when compared to the prior CT. Stable prostatomegaly. Fleischner guidelines were followed.
[2022-02-26 08:02] VITALS: BP 108/75; PULSE 118; RESP 20; TEMP 36.6; O2SAT 97; BMI 19.1
--- NOTE | 2022-02-26 08:45 | ED.ABDPAIN ---
HPI - Abdominal Pain General Chief Complaint: Abdominal Pain Stated Complaint: HBP Time Seen by Provider: 02/26/22 08:38 Source: patient Mode of arrival: ambulatory Limitations: no limitations History of Present Illness HPI narrative: This is a 61 years old male presented complaining of abdominal pain, he is status post appendectomy 3 weeks ago a since then has been having intermittent abdominal pain denies any fever chills vomiting MD elicited complaint: abdominal pain Pertinent past history: none Onset (ago): week(s) (3) Pain Consistency: constant Location: diffuse Severity: mild Quality: cramping Related Data Previous Rx's Medication Instructions Recorded ciprofloxacin HCl 500 mg tablet 500 mg PO BID 10 days #20 tabs 02/22/22 (Cipro) docusate sodium 100 mg capsule 100 mg PO BID PRN Constipation #30 02/22/22 (Colace) caps polyethylene glycol 3350 17 17 g PO BID Constipation #238 grams 02/22/22 gram/dose oral powder (Miralax) lactulose 10 gram/15 mL (15 mL) 10 g (15 mL) PO BEDTIME #750 mL 02/26/22 oral solution Allergies Allergy/AdvReac Type Severity Reaction Status Date / Time No Known Allergies Allergy Verified 08/09/21 09:00 [No Known Allergies*] Review of Systems Constitutional: Reports no additional constitutional complaints Eyes: Reports no additional eye complaints Cardiovascular: Reports no additional cardiovascular complaints Gastrointestinal: Reports abdominal pain PMFSH Past Medical History Medical History No known health problems Social History Social History Alcohol intake: former Patient Tobacco Use Status: Former Tobacco user Advance Directives: Yes Advance Directives Information Provided: Yes Advance Directives on File: No service: No Physical Exam ED Vital Signs: Vital Signs - 24 hr 02/26/22 08:02 02/26/22 10:24 Temperature 98 F 98.4 F Pulse Rate 118 H 72 Respiratory Rate 20 16 Blood Pressure 108/75 125/86 Pulse Oximetry 97 100 Oxygen Delivery Method Room Air Room Air BMI result Body Mass Index 19.1 Const General: cooperative Nutritional Appearance: average body habitus Orientation/consciousness: patient oriented x3 Limitations: no limitations HENMT Head: Yes normal to inspection General nose exam: Normal external nose present Face and sinus: Yes normal facial exam Mouth: Normal oral and palatal mucosa present Throat: Yes posterior oropharynx normal Neck Neck: Yes normal visual inspection Chest Chest palpation & inspection: normal inspection of the chest Resp Effort & Inspection: normal respiratory effort Cardio Jugular venous distension: no JVD Rate: regular rate Rhythm: regular rhythm GI Inspection: Yes normal to inspection Palpation (GI): Soft to palpation, not firm, nontender and no guarding Skin General skin exam: no rashes or lesions noted Lesions: no lesions Rashes: no rashes Neuro General: patient oriented x3 Course Reevaluation(s) Reevaluation #1: Patient remained stable a labs within normal limit, CT scan shows moderate stool burden but otherwise no bowel pathology. The patient states that the as prominent to going to the bathroom he is using MiraLax is not working, I will prescribe lactulose MDM - Abdominal Pain Lab Data Result diagrams: 02/26/22 09:01 02/26/22 09:01 Labs: Lab Results 02/26/22 02/26/22 Range/Units 09:01 09:01 WBC 8.3 (4.8-10.8) X10*3/uL RBC 4.40 L (4.60-5.80) X10*6/uL Hgb 13.1 L (14.0-18.0) g/dl Hct 39.2 L (42.0-52.0) % MCV 89.1 (80.0-98.0) fL MCH 29.8 (27.0-33.0) pg MCHC 33.4 (31.0-36.0) g/dl RDW 13.4 (11.0-16.0) % Plt Count 290 (160-400) X10*3/uL MPV 8.8 L (9.4-12.4) fL Immature Gran % (Auto) 0.4 (0.0-0.4) % Neut % (Auto) 68.2 (45-73) % Lymph % (Auto) 21.9 (20-40) % [place] % (Auto) 8.6 (2-11) % Eos % (Auto) 0.7 (0-4) % Baso % (Auto) 0.2 (0-2) % Lymph # (Auto) 1.8 (1.2-4.9) X10*3/uL [place] # (Auto) 0.7 (0.1-1.2) X10*3/uL Eos # (Auto) 0.1 (0.0-0.4) X10*3/uL Baso # (Auto) 0.0 (0.0-0.2) X10*3/uL Abs Immat Gran (auto) 0.03 (0.00-0.03) X10*3/uL Absolute Neuts (auto) 5.7 (2.0-8.3) x10*3/uL Absolute Nucleated RBC 0.000 (0.0-0.012) X10*3/uL Nucleated RBC % (auto) 0.0 (0.0-0.2) /100WBC Sodium 136 (135-145) mmol/L Potassium 5.4 H (3.3-5.1) mmol/L Chloride 101 (96-108) mmol/L Carbon Dioxide 27 (22-29) mmol/L Anion Gap 13 (12-20) BUN 13 (9-16) mg/dL Creatinine 0.78 (0.5-1.4) mg/dL Estim Creat Clear Calc 87.0 Estimated GFR > 60 Random Glucose 120 H (60-115) mg/dL Calcium 9.6 (8.4-10.2) mg/dL Total Bilirubin 0.2 (0.0-1.0) mg/dL AST 27 D (5-37) U/L ALT 36 (0-40) U/L Alkaline Phosphatase 49 (39-117) U/L Total Protein 7.0 (6.5-8.0) g/dL Albumin 4.0 (3.5-5.0) g/dL Lipase 9 (8-78) U/L Imaging Data CT scan - abdomen: Radiologist's impression: PERITONEAL CAVITY: No intra-abdominal free air or free fluid. No intra-abdominal mass or organized fluid collection/abscess formation.? ABDOMINAL WALL: No significant hernia is appreciated.? LYMPH NODES: No significant lymphadenopathy. VASCULAR: No abdominal aortic dilatation or dissection. Unremarkable IVC. PELVIC VISCERA: Prostatomegaly is redemonstrated. Redemonstration of a septated right-sided hydrocele versus cyst, similar when compared to the prior CT.? OSSEOUS STRUCTURES: Unremarkable.? CT/CT abdomen pelvis w con IMPRESSION: 1. Moderate stool burden is again noted. No small or large bowel obstruction. Underdistention of the sigmoid colon is unchanged. ? 2. Redemonstration of a septated, right-sided hydrocele versus cyst, similar when compared to the prior CT. Stable prostatomegaly.? ? Fleischner guidelines were followed. Dictated By: Yair Camp MD Signed By: <Electronically signed by Yair Camp MD in OV> 02/26/22 1059 Discharge Plan Discharge Clinical Impression: Abdominal pain, Constipation Patient Disposition: Home, Self-Care Instructions: Constipation (ED) Prescriptions: New lactulose 10 gram/15 mL (15 mL) solution 10 g PO BEDTIME Qty: 750 0RF Rx Instructions: PRN constipation, Do not take if you have loose stools No Action polyethylene glycol 3350 [Miralax] 17 gram/dose powder 17 g PO BID Qty: 238 0RF docusate sodium [Colace] 100 mg capsule 100 mg PO BID PRN (Reason: Constipation) Qty: 30 0RF ciprofloxacin HCl [Cipro] 500 mg tablet 500 mg PO BID 10 Days Qty: 20 0RF Interventions: ED Discharge Assessment Last Done: 02/26/22 11:27 Discharge Date/Time: 02/26/22 11:28
[2022-02-26 09:07] LABS: MANUAL DIFF FLAG NO
[2022-02-26] MEDS: 0.9 % Sodium Chloride 1,000 ML 999 ML IVCONT (09:07)
[2022-02-26 09:09] LABS: Basophils Percent Auto 0.2 % (0-2); Eosinophils Absolute Auto 0.1 X10*3/uL (0.0-0.4); Eosinophils Percent Auto 0.7 % (0-4); Hematocrit 39.2 % (42.0-52.0); Hemoglobin 13.1 g/dl (14.0-18.0); Imm Gran Abs Auto 0.03 X10*3/uL (0.00-0.03); Imm Gran Pct Auto 0.4 % (0.0-0.4); Lymphocytes Absolute Auto 1.8 X10*3/uL (1.2-4.9); Lymphocytes Percent Auto 21.9 % (20-40); Mean Corpuscular HGB Conc 33.4 g/dl (31.0-36.0); Mean Corpuscular Hemoglobin 29.8 pg (27.0-33.0); Mean Corpuscular Volume 89.1 fL (80.0-98.0); Mean Platelet Volume 8.8 fL (9.4-12.4); Monocytes Absolute Auto 0.7 X10*3/uL (0.1-1.2); Monocytes Percent Auto 8.6 % (2-11); Neutrophils Absolute Auto 5.7 x10*3/uL (2.0-8.3); Neutrophils Percent Auto 68.2 % (45-73); Platelet Count 290 X10*3/uL (160-400); Red Cell Distribution Width 13.4 % (11.0-16.0); White Blood Count 8.3 X10*3/uL (4.8-10.8)
[2022-02-26] MEDS: Famotidine/PF 20 MG/2 ML VIAL IVPUSH (09:23)
[2022-02-26 09:37] LABS: Alanine Aminotransferase 36 U/L (0-40); Alkaline Phosphatase 49 U/L (39-117); Anion Gap 13 (12-20); Aspartate Amino Transferase 27 U/L (5-37); Bilirubin Total 0.2 mg/dL (0.0-1.0); Blood Urea Nitrogen 13 mg/dL (9-16); Calcium 9.6 mg/dL (8.4-10.2); Carbon Dioxide 27 mmol/L (22-29); Chloride 101 mmol/L (96-108); Estimated Glomerular Filt Rate > 60; Glucose Random 120 mg/dL (60-115); Lipase 9 U/L (8-78); Potassium 5.4 mmol/L (3.3-5.1); Sodium 136 mmol/L (135-145)
[2022-02-26] MEDS: iohexoL 350 MG/ML 100 ML INFUS..BTL IV (10:22)
[2022-02-26 10:24] VITALS: BP 125/86; PULSE 72; RESP 16; TEMP 36.9; O2SAT 100
== END 2022-02-26 11:28 | disposition home or self-care (01) ==
PROVIDERS: Emergency Provider Emergency Medicine
DX: K59.00 Constipation, unspecified (principal); R10.9 Unspecified abdominal pain; Z87.891 Personal history of nicotine dependence; Z79.899 Other long term (current) drug therapy
CPT/HCPCS: 36415; 74177; 80053; 83690; 85025; 96365; 96375; 99284; Q9967

== ENCOUNTER 2022-03-06 23:45 | Emergency (ER) | payer MEDICAID, SELFPAY ==
[2022-03-07] VITALS: BP 108/82; PULSE 99; RESP 18; TEMP 37.7; O2SAT 99; BMI 19.1
[2022-03-07 00:14] LABS: Basophils Percent Auto 0.3 % (0-2); Eosinophils Absolute Auto 0.1 X10*3/uL (0.0-0.4); Eosinophils Percent Auto 0.9 % (0-4); Hematocrit 36.2 % (42.0-52.0); Hemoglobin 12.3 g/dl (14.0-18.0); Imm Gran Abs Auto 0.02 X10*3/uL (0.00-0.03); Imm Gran Pct Auto 0.3 % (0.0-0.4); Lymphocytes Absolute Auto 3.3 X10*3/uL (1.2-4.9); Lymphocytes Percent Auto 43.9 % (20-40); MANUAL DIFF FLAG NO; Mean Corpuscular Hemoglobin 29.7 pg (27.0-33.0); Mean Corpuscular Volume 87.4 fL (80.0-98.0); Mean Platelet Volume 8.8 fL (9.4-12.4); Monocytes Absolute Auto 0.5 X10*3/uL (0.1-1.2); Monocytes Percent Auto 7.1 % (2-11); Neutrophils Absolute Auto 3.5 x10*3/uL (2.0-8.3); Neutrophils Percent Auto 47.5 % (45-73); Platelet Count 269 X10*3/uL (160-400); Red Blood Count 4.14 X10*6/uL (4.60-5.80); Red Cell Distribution Width 13.3 % (11.0-16.0); White Blood Count 7.5 X10*3/uL (4.8-10.8)
[2022-03-07 02:52] LABS: Alanine Aminotransferase 20 U/L (0-40); Albumin Level 4.1 g/dL (3.5-5.0); Alkaline Phosphatase 41 U/L (39-117); Anion Gap 14 (12-20); Aspartate Amino Transferase 16 U/L (5-37); Bilirubin Total 0.6 mg/dL (0.0-1.0); Blood Urea Nitrogen 16 mg/dL (9-16); Calcium 9.2 mg/dL (8.4-10.2); Carbon Dioxide 27 mmol/L (22-29); Chloride 100 mmol/L (96-108); Creatinine Clr Calc Pharmacy 81.7; Estimated Glomerular Filt Rate > 60; Glucose Random 112 mg/dL (60-115); Sodium 137 mmol/L (135-145); Total Protein 6.7 g/dL (6.5-8.0)
== END 2022-03-07 02:28 | disposition left against medical advice (07) ==
PROVIDERS: Emergency Provider Emergency Medicine
DX: R10.9 Unspecified abdominal pain (principal)
CPT/HCPCS: 36415; 80053; 85025; 99281; 99283

== ENCOUNTER 2022-03-07 05:55 | Day surgery (SDC) | payer MEDICAID, SELFPAY ==
--- NOTE | 2022-03-06 09:14 | HO.ANESPROP2 ---
Documented by User: Sari Waddell NP 03/06/22 09:23 HPI - Anesthesia Eval Consult details Narrative: 61yo M for Colonoscopy s/p appendectomy at [facility] 01/2022 [facility] Active Problems Active Problems: All Active Problems (Updated 02/27/22 @ 00:01 by Background Daemon) Abdominal pain (Acute) Gastroenteritis (Acute) Past Medical History Medical History (Updated 02/27/22 @ 00:01 by Background Daemon) No known health problems Surgical History Surgical History (Updated 03/07/22 @ 06:46 by Verito Mayo RN) Hx of appendectomy Social History Social History Alcohol intake: former Patient Tobacco Use Status: Former Tobacco user Are you DNR?: No Advance Directives: No Advance Directives Information Provided: Yes Recently lost weight without trying: Yes How much weight loss: 14-23 pounds Eating poorly because of decreased appetite: Yes Nutrition screen score: 5 service: No Meds Allergies Allergy/AdvReac Type Severity Reaction Status Date / Time No Known Allergies Allergy Verified 03/07/22 06:46 [No Known Allergies*] Exam Exam Date and Time: March 06, 2022 0914 Pertinent Lab Results Pertinent Lab Results: Laboratory Tests 02/26/22 02/26/22 09:01 09:01 WBC 8.3 Hgb 13.1 L Hct 39.2 L Plt Count 290 Sodium 136 Potassium 5.4 H Chloride 101 Carbon Dioxide 27 BUN 13 Creatinine 0.78 Narrative Narrative: EKG 02/2022 Vent. Rate : 071 BPM ? ? Atrial Rate : 071 BPM ?? P-R Int : 148 ms? QRS Dur : 092 ms ? ? QT Int : 406 ms ? ? ? P-R-T Axes : 043 014 056 degrees ?? QTc Int : 441 ms ? Normal sinus rhythm Normal ECG No previous ECGs available CT abdomen pelvis w con 02/2022 IMPRESSION: 1. Moderate stool burden is again noted. No small or large bowel obstruction. Underdistention of the sigmoid colon is unchanged. ? 2. Redemonstration of a septated, right-sided hydrocele versus cyst, similar when compared to the prior CT. Stable prostatomegaly.? ? Fleischner guidelines were followed. CT head/brain wo con 02/2022 IMPRESSION: No acute intracranial hemorrhage or mass effect. Assessment and Plan Assessment Anesthesia Assessment: Chart Reviewed Documented by User: Fernando Chapman MD 03/07/22 07:31 [facility] Past Medical History Medical History (Updated 02/27/22 @ 00:01 by Keegan Osman) No known health problems Family History Family history of problems with anesthesia: No Surgical History Surgical History (Updated 03/07/22 @ 06:46 by Verito Mayo RN) Hx of appendectomy History of Problems with Anesthesia: No Social History Social History Alcohol intake: former Patient Tobacco Use Status: Former Tobacco user Are you DNR?: No Advance Directives: No Advance Directives Information Provided: Yes Recently lost weight without trying: Yes How much weight loss: 14-23 pounds Eating poorly because of decreased appetite: Yes Nutrition screen score: 5 service: No Meds Allergies Allergy/AdvReac Type Severity Reaction Status Date / Time No Known Allergies Allergy Verified 03/07/22 06:46 [No Known Allergies*] Exam Airway Mallampati Class: III TM Dist: >3cm Neck ROM: Full Assessment and Plan Final Anesthetic Review Family History of Problems with Anesthesia: No History of Problems with Anesthesia: No NPO: Yes ASA Class: I Final Preanesthetic Review: No Changes in Pt Med Stat, Meds/Allgs Chart Reviewed, Consent Obtained/Reviewed and Anes Risks/Benef Reviewed Patient Risk: Low Procedure Risk: Low Anesthetic Plan Anesthetic Plan: MAC: Disposition: Standard PACU
--- NOTE | 2022-03-07 06:16 | P.HPSUR_ITS ---
Pre-Procedural Eval Section A Date of Service: 03/07/22 Section B Chief Complaint: abdominal pain and abn bowel habit Details of Present Illness: new onset constipation, significant weight loss and upper and lower abdominal pain. Had apepndectomy few months ago but symptoms pe rsist. Denies nausea or vomiting, no rectal bleeding. Relevant Family History (Specify if Yes): No Relevant Social History: None Present Medications: see Short Stay Collaborative assessment Medical History: No relevant PMH History of Previous Operations: Relevant previous surgery/procedure and date(s) (appendectomy) Allergies: Allergies Allergy/AdvReac Type Severity Reaction Status Date / Time No Known Allergies Allergy Verified 03/06/22 23:59 [No Known Allergies*] Review of Systems Sugical H&P ROS: Negative: Constitution, Cardiovascular, Respiratory, Neurological, Psychiatric, Hem-Onc, Allergic/Immunologic, Gastrointestinal, Genitourinary, Musculoskeletal, Integumentary, Endocrine and Eyes/Ears/Nose/Throat Exam Surgical H&P Exam: Normal: HEENT, Normal: Heart, Normal: Lungs, Normal: Extremities, Normal: Skin and Normal: Neurological and Significant Findings: Abdomen (tender upper abdomen) Plan Diagnosis/Plan: Unchanged I have reviewed the history and physical and performed a pertinent physical examination on my patient. No changes have occurred unless specified. EGD and colonoscopy for assessment.
[2022-03-07 06:25] VITALS: BMI 19.1
--- NOTE | 2022-03-07 06:27 | PC.NURSE ---
patient states weight loss has occurred since appendectomy this summer. f/u with surgeon first week of February and per pt. surgeon stated pt was healing well.
[2022-03-07 06:28] VITALS: BP 141/89; PULSE 89; RESP 18; TEMP 36.6; O2SAT 100
[2022-03-07] MEDS: Lactated Ringers 1,000 ML 100 ML IVCONT (06:29)
--- NOTE | 2022-03-07 06:42 | PC.NURSE ---
patient had labs drawn in ER at 0009 - all wnl. labs not re-drawn in sss due to this.
--- NOTE | 2022-03-07 07:32 | PC.NURSE ---
dr. garzon updated that pt had stroke like symptoms post appendectomy this summer and that pt was in ER at midnight. lab results at bedside for review
--- NOTE | 2022-03-07 07:44 | W.PM.OPN ---
Operative Note Operative Note Date of Service: 03/07/22 Narrative: Operative Information Procedure Description: EGD, Colonoscopy Indication: weight loss, abdominal pain, abnormal bowel habit Anesthesia: MAC FLEXIBLE TRANSORAL UPPER GASTROINTESTINAL ENDOSCOPY AND COLONOSCOPY PROCEDURE NOTE UPPER ENDOSCOPY Consent: Indications for the procedure and potential complications of bleeding, perforation, reaction to medications and missed diagnosis were discussed with the patient and informed consent was obtained. Instrument: Olympus GIF H 190 J mid size upper endoscope Monitoring: Vital signs and clinical assessment, continuous EKG monitoring, Pulse oximetry, Carbon Dioxide monitoring and blood pressure monitoring were done throughout the procedure. Procedure: The patient was placed in the left lateral decubitis position and pre-procedure medications were administered and a bite block was placed. The endoscope was inserted into the mouth and advanced under direct vision to the third part of duodenum. A careful inspection was made as the upper endoscope was withdrawn including a retroflexed examination of the proximal stomach; Findings and interventions are described below. Findings: Larynx:normal Esophagus: GE junction at 42 cm, diaphragm hiatus at 42 cm, bogginess and erythema at GEJ bx taken Stomach: Patchy erythema. Biopsies were obtained. Grade 2 flap valve on retroflexed examination of the cardia. Duodenum: Normal bulb and descending duodenum, bx taken Intervention: Biopsies as noted above COLONOSCOPY Instrument: Olympus variable stiffness pediatric scope 190L Colonoscopy Monitoring: Vital signs and clinical assessment, continuous EKG monitoring, Pulse oximetry, Carbon Dioxide monitoring and blood pressure monitoring were done throughout the procedure. Colon withdrawal time was 16 minutes. Procedure: The patient was placed in the left lateral decubitis position and pre-procedure medications were administered. After a digital rectal examination of the ano-rectum, the video colonoscope was inserted into the rectum and advanced through the colon to the cecum/TI. The colonoscope was slowly withdrawn in a retrograde panoramic fashion and the colon mucosa was carefully examined including a retroflexed view of the rectum. Findings and interventions are described below. Procedure Difficulty:moderate had to move on back Findings: Terminal Ileum-normal, bx taken random colon bx taken Cecum:normal Ascending Colon: normal Transverse Colon -normal Descending Colon:normal Sigmoid Colon: normal Rectum: Retroflexion with small internal hemorrhoids, grade I, 12-14 mm semi pedunculated polyp removed with hot snare and edges ablated with soft tip coag Anorectum - normal Colon preparation: [place] Bowel Preparation Scale Right colon; 2 Transverse colon: 2 Left colon; 1 (0 = Unprepared colon segment with mucosa not seen due to solid stool that cannot be cleared. 1 = Portion of mucosa of the colon segment seen, but other areas of the colon segment not well seen due to staining, residual stool and/or opaque liquid. 2 = Minor amount of residual staining, small fragments of stool and/or opaque liquid, but mucosa of colon segment seen well. 3 = Entire mucosa of colon segment seen well with no residual staining, small fragments of stool or opaque liquid) Impression and Post Procedure Diagnosis: Endoscopy Findings: gastritis esophagitis Colonoscopy Findings: polyp internal hemorrhoids Plan: Await Pathology results Repeat Colonoscopy in 4-5 years deu to large polyp and fair prep on left or earlier if clinically indicated High fiber diet leaflet avoid straining at stool, epsom salts and sitz bath, anusol supps or cream if bx neg and ongoing sx then expand work up, might consider capsule endoscopy, further eval of hydrocele and prostate Above findings were reviewed with the patient and relevant handouts were provided if indicated.
[2022-03-07 08:39] VITALS: BP 81/59; PULSE 88; RESP 18; TEMP 36.8; O2SAT 96
[2022-03-07 08:59] VITALS: BP 113/82; PULSE 76; RESP 18; TEMP 36.8; O2SAT 99
== END 2022-03-07 10:09 | disposition home or self-care (01) ==
PROVIDERS: Visit Provider Internal Medicine Gastroenterology
PROC: 0DJD8ZZ Inspection of Lower Intestinal Tract, Via Natural or Artificial Opening Endoscopic (ICD-10-PCS; CPT 45378; principal; 2022-03-07 07:30)
DX: R19.4 Change in bowel habit (principal); D3A.026 Benign carcinoid tumor of the rectum; K64.0 First degree hemorrhoids; K29.50 Unspecified chronic gastritis without bleeding; B96.81 Helicobacter pylori [H. pylori] as the cause of diseases classified elsewhere; K20.80 Other esophagitis without bleeding; R63.4 Abnormal weight loss; Z68.22 Body mass index [BMI] 22.0-22.9, adult; K44.9 Diaphragmatic hernia without obstruction or gangrene; N43.3 Hydrocele, unspecified; Z79.899 Other long term (current) drug therapy; Z86.16 Personal history of COVID-19; Z87.891 Personal history of nicotine dependence; F12.90 Cannabis use, unspecified, uncomplicated
CPT/HCPCS: 45385; 45380; 43239; 36415; 80053; 85025; 88305; 88341; 88342; 88360; 99281; 99283

== ENCOUNTER 2022-03-23 13:25 | Inpatient (IN) | payer MEDICAID, SELFPAY ==
--- NOTE | 2022-03-23 | ECG_ITS ---
Test Reason : hypotension Blood Pressure : / mmHG Vent. Rate : 111 BPM Atrial Rate : 111 BPM P-R Int : 138 ms QRS Dur : 084 ms QT Int : 332 ms P-R-T Axes : 080 008 048 degrees QTc Int : 451 ms Sinus tachycardia Otherwise normal ECG When compared with ECG of 22-FEB-2022 11:23, Vent. rate has increased BY 40 BPM Referred By: Generic ED Physician Electronically Signed By:LEXI PORTILLO
--- NOTE | ~2022-03-23 | CT_ITS ---
EXAMINATION: CT ANGIOGRAM ABDOMEN AND PELVIS CLINICAL INFORMATION: Abdominal pain, evaluate for small bowel ischemia COMPARISON: CT abdomen pelvis on 02/26/2022 TECHNIQUE: Multiple axial images were obtained through the abdomen and pelvis following the administration of 80 mL of Omnipaque 350 intravenous contrast. Images were reviewed on a dedicated 3-D workstation. This CT examination was performed using dose optimization techniques as appropriate, variously including the following: *Automated exposure control *Adjustment of mA and/or kV according to patient size (this includes techniques or standardized protocols for targeted exams where dose is matched to indication/reason for exam; i.e. extremities or head) *Use of iterative reconstruction technique DLP: 609 mGy-cm FINDINGS: Lower chest: Bibasilar atelectasis. Liver: Normal in size and attenuation. 2 subcentimeter foci of enhancement in the posterior right hepatic lobe likely small meningiomas. Gallbladder and bile ducts: The gallbladder is normal. No intrahepatic or extrahepatic biliary ductal dilatation. Spleen: Normal in size and attenuation. Pancreas: Unremarkable. Adrenal glands: Unremarkable. Right kidney: The right kidney is normal. There is no hydronephrosis or hydroureter. Left kidney: The left kidney is normal. There is no hydronephrosis or hydroureter. Lymph nodes: There is no lymphadenopathy in the abdomen or pelvis. Gastrointestinal tract: The stomach, small, and large bowel are normal in course and caliber. The appendix is identified and is within normal limits. Urinary bladder: The bladder is normal. Pelvic organs: The prostate is unremarkable. Vasculature: The abdominal aorta is normal in course and caliber. No significant atherosclerotic disease. Celiac artery, SMA, bilateral renal arteries, and ELSA are patent. Additional findings: There is no intraperitoneal free air or fluid. Soft tissues: Unremarkable. Osseous structures: No lytic or blastic lesions identified. CT/CT angio abdomen pelvis IMPRESSION: 1. Patent abdominal arterial system. 2. No bowel wall thickening.
--- NOTE | ~2022-03-23 | CT_ITS ---
EXAMINATION: CT HEAD WITHOUT CONTRAST CLINICAL INFORMATION: Dizziness. COMPARISON: None TECHNIQUE: Contiguous axial imaging was performed from the skull base to vertex without intravenous administration of contrast. This CT examination was performed using dose optimization techniques as appropriate, variously including the following: *Automated exposure control *Adjustment of mA and/or kV according to patient size (this includes techniques or standardized protocols for targeted exams where dose is matched to indication/reason for exam; i.e. extremities or head) *Use of iterative reconstruction technique DLP: 671 mGy-cm FINDINGS: There is no evidence of acute intracranial hemorrhage or territorial infarction. No abnormal mass-effect or midline shift is seen. [place] to white matter differentiation is well preserved. No extra axial fluid collections. The ventricles are normal in size and configuration. There is no abnormal attenuation within the brain parenchyma. The soft tissues and osseous structures are normal. The sinuses and mastoid air cells are clear. CT/CT head/brain wo con IMPRESSION: No acute intracranial pathology.
--- NOTE | ~2022-03-23 | US_ITS ---
EXAMINATION: US EXTRACRANIAL CAROTID DUPLEX, BILATERAL CLINICAL INFORMATION: Dizziness COMPARISON: None TECHNIQUE: Real-time ultrasound and Doppler techniques (integrating B-mode 2-D vascular images, Doppler spectral analysis and color-flow Doppler imaging) were utilized to interrogate the extracranial carotid arteries, the vertebral arteries and proximal subclavian arteries bilaterally. The degree of stenosis is determined by criteria similar to NASCET. FINDINGS: Right Side: 1. There is no visualized atherosclerotic plaque seen in the bifurcation/proximal ICA region. 2. The common carotid artery PSV proximally is 77 cm/s and distally 77.4 cm/s. 3. The proximal internal carotid artery velocities are 59.5 cm/s systolic and 16.7 cm/s diastolic. 4. The proximal external carotid artery PSV is 65.9 cm/s. 5. The vertebral artery shows antegrade flow. 6. The subclavian artery waveforms are normal. Left Side: 1. There is no visualized atherosclerotic plaque seen in the bifurcation/proximal ICA region. 2. The common carotid artery PSV proximally is 66.7 cm/s and distally 63.9 cm/s. 3. The proximal internal carotid artery velocities are 60 cm/s systolic and 25.1 cm/s diastolic. 4. The proximal external carotid artery PSV is 60.4 cm/s. 5. The vertebral artery shows antegrade flow. 6. The subclavian artery waveforms are normal. US/US carotid duplex BI IMPRESSION: 1. RIGHT: Normal right internal carotid artery without atherosclerotic plaque or hemodynamically significant stenosis. 2. LEFT: Normal left internal carotid artery without atherosclerotic plaque or hemodynamically significant stenosis.
[2022-03-23 13:29] VITALS: BP 80/53; PULSE 116; RESP 18; TEMP 36.8; O2SAT 99; BMI 19.3
--- NOTE | 2022-03-23 13:55 | ED.GENADULT ---
HPI - General Adult General Chief complaint: General Medical Stated complaint: dizzy Time Seen by Provider: 03/23/22 13:55 Source: patient Mode of arrival: ambulatory Limitations: no limitations History of Present Illness HPI narrative: 61-year-old male who presents emergency department for evaluation of abdominal pain, weakness, dizziness and 2 falls that occurred today at home. Patient was 1st hospitalized here on 01/09/2022 for abdominal pain, CT scan was concerning for possible appendicitis. Patient states he was in the hospital undergoing a workup for appendicitis versus ileus when he signed out against medical advice on 01/17/2022. Patient then went to [facility] and had an appendectomy on 01/23/2022. The patient states that since having his surgery he has had constant abdominal pain. He points to his epigastric area and umbilical area when asked to localize his pain. He states the pain is a constant, burning sensation which is 8/10 at its worst. The pain is worse immediately if he eats food. He states he feels like food gets stuck in his belly has pushes through with his hands. He states that he has had a 30 lb weight loss over the past month. He has only been able to eat small amounts of food that he can drink fluids. He states today he was feeling very weak and lightheaded and passed out 2 times at home therefore came to the emergency department. The patient was also seen in the emergency department on 02/22/2022 and on 02/26/2022 for similar abdominal pain. The patient had CT scans of the abdomen pelvis on both of the visits which demonstrated mild wall thickening of the sigmoid colon but no inflammatory changes and otherwise were unremarkable. His laboratory evaluation during the visits were unremarkable as well. The patient was seen by GI on 03/07/2022 for evaluation of abdominal pain and weight loss. Patient had and endoscopy and a colonoscopy with no acute findings to explain the patient's symptoms. However his biopsy revealed 2 findings: ?B. 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 F. Colon, rectal polyp: -Well-differentiated neuroendocrine tumor, grade 1, 4 mm (pT1a), involving mucosa, muscularis mucosa and submucosa, present at the cauterized polyp base, with positive margin. He denied fever, chills, rhinorrhea, shortness of breath, cough, chest pain. He has had nausea with no vomiting. He states that he has had diarrhea. He denied denied bloody stools but has occasionally had black stools. Related Data Previous Rx's Medication Instructions Recorded ciprofloxacin HCl 500 mg tablet 500 mg PO BID 10 days #20 tabs 02/22/22 (Cipro) docusate sodium 100 mg capsule 100 mg PO BID PRN Constipation #30 02/22/22 (Colace) caps polyethylene glycol 3350 17 17 g PO BID Constipation #238 grams 02/22/22 gram/dose oral powder (Miralax) lactulose 10 gram/15 mL (15 mL) 10 g (15 mL) PO BEDTIME #750 mL 02/26/22 oral solution bisacodyl 5 mg tablet,delayed 10 mg PO ONCE 1 day #2 tabs 03/01/22 release (Dulcolax (bisacodyl)) polyethylene glycol 3350 17 238 g PO ONCE 1 day #238 grams 03/01/22 gram/dose oral powder (Miralax) Allergies Allergy/AdvReac Type Severity Reaction Status Date / Time No Known Allergies Allergy Verified 03/23/22 13:29 [No Known Allergies*] Review of Systems Review of Systems: Yes all other systems are reviewed and are negative [facility] Past Medical History [facility] Narrative: Social history: The patient denies tobacco use. Denies alcohol use. He states that he used to smoke marijuana but has not smoked marijuana since his abdominal surgery in January 2022. Medical History No known health problems Surgical History Hx of appendectomy Social History Social History Alcohol intake: former Patient Tobacco Use Status: Former Tobacco user Use of substances other than those prescribed or required for medical reasons: No Advance Directives: No Advance Directives Information Provided: No service: No Physical Exam ED Vital Signs: Vital Signs - 24 hr 03/23/22 13:29 03/23/22 14:37 Temperature 98.2 F 98.0 F Pulse Rate 116 H 86 Respiratory Rate 18 20 Blood Pressure 80/53 L 110/80 Pulse Oximetry 99 98 Oxygen Delivery Method Room Air Room Air BMI result Body Mass Index 19.3 Const Other: Awake, alert, male patient, very thin, anxious, does not appear to be in distress [facility] Head: Yes normal to inspection, Yes normocephalic and Yes atraumatic Ears: external ears normal General nose exam: Normal external nose present Face and sinus: Yes normal facial exam Mouth: Normal oral and palatal mucosa present Throat: Yes posterior oropharynx normal Eyes General: appearance normal, both eyes and all related structures Pupils: Equal, round and reactive pupils present Neck Neck: Yes normal visual inspection, Yes no lymphadenopathy, Yes trachea midline and Yes supple Chest Chest palpation & inspection: normal inspection of the chest and normal palpation of entire chest wall Resp Effort & Inspection: normal respiratory effort and able to speak in complete sentences Auscultation: clear to auscultation bilaterally Cardio Rate: regular rate Rhythm: regular rhythm Heart sounds: S1 normal heart sound present, S2 normal heart sound present and no murmurs GI Inspection: Yes normal to inspection Palpation (GI): Soft to palpation, Tenderness to palpation present (GI) (Mild diffuse tenderness) in the epigastrum (Moderate) and no guarding Auscultation: normal bowel sounds General: Yes no CVA tenderness Back/Spine/Pelvis Back: no CVA tenderness Skin General skin exam: no rashes or lesions noted Neuro Cranial nerves: Yes CN's II-XII intact bilaterally and Yes Equal, round and reactive pupils present Cognition (Neuro): normal cognition Motor exam (neuro): 5/5 motor strength present throughout Extrem General: Yes normal to inspection Psych Appearance: grossly normal Speech and movement: Normal speech and movement present Affect: normal affect Attitude: cooperative Thought process: Normal thought process present Thought content: Normal thought content present Course Course Course Narrative: 61-year-old male who presents emergency department for evaluation of abdominal pain which he has had since 01/09/2022 when he was hospitalized here for appendicitis verses ileitis. Patient eventually has appendix removed at [facility] on 01/23/2022 with no improvement his pain. Patient has had 2 other ER visits for his abdominal pain with normal blood work and unremarkable CT scans except for mild mild sigmoid colon wall thickening. He had endoscopy and colonoscopy on 03/07/2022 with no clear cause for his pain however the biopsies are positive for H pylori gastritis and a well-differentiated neuroendocrine tumor, grade 1,. I did order blood work on this patient to include CBC, CMP, PT/INR, PTT, lipase and urinalysis. Patient was ordered to get Toradol 30 mg IV and Zofran 4 mg IV. I will also treat the patient with normal saline x1 L. I will discuss treatment for H pylori and the neuroendocrine tumor with the covering chef passenger vessel. 1622: Laboratory evaluation: Normocytic anemia with an H&H of 12.6 and 37.4-similar to previous values. CMP revealed elevated BUN 17, otherwise unremarkable. Troponin was below detectable limits. Alcohol was below detectable limits. Patient's abdominal pain improved from 8/10 to 5/10 after the above treatment. I did discuss the patient's presentation and biopsy findings with Dr. Dallas. She recommended that the patient be admitted for failure to thrive and pain management specially since he is having difficulty eating, he had a significant weight loss and has had 2 syncopal episodes today. Also, the patient's initial blood pressure was very low at 80 over 53. She also made the point that in order to start treatment for the patient's H pylori he will need to be able to take oral antibiotics for at least 14 days. The patient has neuroendocrine tumor needs further evaluation with colonoscopy with ultrasound. I will discuss admission with the covering hospitalist. Medical Decision Making Lab Data Result diagrams: 03/23/22 15:41 03/23/22 15:41 Labs: Lab Results 03/23/22 03/23/22 03/23/22 Range/Units 15:41 15:41 15:41 WBC 7.2 (4.8-10.8) X10*3/uL RBC 4.21 L (4.60-5.80) X10*6/uL Hgb 12.6 L (14.0-18.0) g/dl Hct 37.4 L (42.0-52.0) % MCV 88.8 (80.0-98.0) fL MCH 29.9 (27.0-33.0) pg MCHC 33.7 (31.0-36.0) g/dl RDW 13.5 (11.0-16.0) % Plt Count 246 (160-400) X10*3/uL MPV 9.0 L (9.4-12.4) fL Immature Gran % (Auto) 0.3 (0.0-0.4) % Neut % (Auto) 58.6 (45-73) % Lymph % (Auto) 30.1 (20-40) % Darke % (Auto) 9.3 (2-11) % Eos % (Auto) 1.3 (0-4) % Baso % (Auto) 0.4 (0-2) % Lymph # (Auto) 2.2 (1.2-4.9) X10*3/uL Darke # (Auto) 0.7 (0.1-1.2) X10*3/uL Eos # (Auto) 0.1 (0.0-0.4) X10*3/uL Baso # (Auto) 0.0 (0.0-0.2) X10*3/uL Abs Immat Gran (auto) 0.02 (0.00-0.03) X10*3/uL Absolute Neuts (auto) 4.2 (2.0-8.3) x10*3/uL Absolute Nucleated RBC 0.000 (0.0-0.012) X10*3/uL Nucleated RBC % (auto) 0.0 (0.0-0.2) /100WBC PT 10.0 (10.0-13.1) SEC INR 0.9 (0.9-1.1) APTT 29.6 (26.0-36.4) SEC Sodium 139 (135-145) mmol/L Potassium 5.1 D (3.3-5.1) mmol/L Chloride 101 (96-108) mmol/L Carbon Dioxide 28 (22-29) mmol/L Anion Gap 15 (12-20) BUN 17 H (9-16) mg/dL Creatinine 0.83 (0.5-1.4) mg/dL Estim Creat Clear Calc 82.9 Estimated GFR > 60 Random Glucose 102 (60-115) mg/dL Lactic Acid (0.5-2.0) mmol/L Calcium 9.5 (8.4-10.2) mg/dL Total Bilirubin 0.2 (0.0-1.0) mg/dL AST 15 (5-37) U/L ALT 20 (0-40) U/L Alkaline Phosphatase 42 (39-117) U/L Troponin I High Sens (<3.5-35.0) ng/L Total Protein 6.6 (6.5-8.0) g/dL Albumin 4.1 (3.5-5.0) g/dL Lipase 17 (8-78) U/L Ethyl Alcohol < 10 mg/dL 03/23/22 03/23/22 Range/Units 15:41 15:42 WBC (4.8-10.8) X10*3/uL RBC (4.60-5.80) X10*6/uL Hgb (14.0-18.0) g/dl Hct (42.0-52.0) % MCV (80.0-98.0) fL MCH (27.0-33.0) pg MCHC (31.0-36.0) g/dl RDW (11.0-16.0) % Plt Count (160-400) X10*3/uL MPV (9.4-12.4) fL Immature Gran % (Auto) (0.0-0.4) % Neut % (Auto) (45-73) % Lymph % (Auto) (20-40) % Darke % (Auto) (2-11) % Eos % (Auto) (0-4) % Baso % (Auto) (0-2) % Lymph # (Auto) (1.2-4.9) X10*3/uL Darke # (Auto) (0.1-1.2) X10*3/uL Eos # (Auto) (0.0-0.4) X10*3/uL Baso # (Auto) (0.0-0.2) X10*3/uL Abs Immat Gran (auto) (0.00-0.03) X10*3/uL Absolute Neuts (auto) (2.0-8.3) x10*3/uL Absolute Nucleated RBC (0.0-0.012) X10*3/uL Nucleated RBC % (auto) (0.0-0.2) /100WBC PT (10.0-13.1) SEC INR (0.9-1.1) APTT (26.0-36.4) SEC Sodium (135-145) mmol/L Potassium (3.3-5.1) mmol/L Chloride (96-108) mmol/L Carbon Dioxide (22-29) mmol/L Anion Gap (12-20) BUN (9-16) mg/dL Creatinine (0.5-1.4) mg/dL Estim Creat Clear Calc Estimated GFR Random Glucose (60-115) mg/dL Lactic Acid 0.8 (0.5-2.0) mmol/L Calcium (8.4-10.2) mg/dL Total Bilirubin (0.0-1.0) mg/dL AST (5-37) U/L ALT (0-40) U/L Alkaline Phosphatase (39-117) U/L Troponin I High Sens < 3.5 (<3.5-35.0) ng/L Total Protein (6.5-8.0) g/dL Albumin (3.5-5.0) g/dL Lipase (8-78) U/L Ethyl Alcohol mg/dL Discharge Plan Discharge Prescriptions: No Action bisacodyl [Dulcolax (bisacodyl)] 5 mg tablet,delayed release (DR/EC) 10 mg PO ONCE 1 Days Qty: 2 0RF Rx Instructions: take orally as directed prior to colonoscopy polyethylene glycol 3350 [Miralax] 17 gram/dose powder 238 g PO ONCE 1 Days Qty: 238 0RF Rx Instructions: take orally as directed prior to colonoscopy polyethylene glycol 3350 [Miralax] 17 gram/dose powder 17 g PO BID Qty: 238 0RF docusate sodium [Colace] 100 mg capsule 100 mg PO BID PRN (Reason: Constipation) Qty: 30 0RF ciprofloxacin HCl [Cipro] 500 mg tablet 500 mg PO BID 10 Days Qty: 20 0RF lactulose 10 gram/15 mL (15 mL) solution 10 g PO BEDTIME Qty: 750 0RF Rx Instructions: PRN constipation, Do not take if you have loose stools
[2022-03-23 14:37] VITALS: BP 110/80; PULSE 86; RESP 20; TEMP 36.7; O2SAT 98
[2022-03-23] MEDS: ondansetron HCL 4 MG/2 ML VIAL IVPUSH (15:50)
[2022-03-23] MEDS: Ketorolac Tromethamine 15 MG/ML VIAL 30 MG IVPUSH (15:50)
[2022-03-23] MEDS: 0.9 % Sodium Chloride 1,000 ML 999 ML IV (15:50)
[2022-03-23 15:52] LABS: MANUAL DIFF FLAG NO
[2022-03-23 15:55] LABS: Basophils Percent Auto 0.4 % (0-2); Eosinophils Absolute Auto 0.1 X10*3/uL (0.0-0.4); Eosinophils Percent Auto 1.3 % (0-4); Hematocrit 37.4 % (42.0-52.0); Hemoglobin 12.6 g/dl (14.0-18.0); Imm Gran Abs Auto 0.02 X10*3/uL (0.00-0.03); Imm Gran Pct Auto 0.3 % (0.0-0.4); Lymphocytes Absolute Auto 2.2 X10*3/uL (1.2-4.9); Lymphocytes Percent Auto 30.1 % (20-40); Mean Corpuscular HGB Conc 33.7 g/dl (31.0-36.0); Mean Corpuscular Hemoglobin 29.9 pg (27.0-33.0); Mean Corpuscular Volume 88.8 fL (80.0-98.0); Monocytes Absolute Auto 0.7 X10*3/uL (0.1-1.2); Monocytes Percent Auto 9.3 % (2-11); Neutrophils Absolute Auto 4.2 x10*3/uL (2.0-8.3); Neutrophils Percent Auto 58.6 % (45-73); Platelet Count 246 X10*3/uL (160-400); Red Blood Count 4.21 X10*6/uL (4.60-5.80); Red Cell Distribution Width 13.5 % (11.0-16.0); White Blood Count 7.2 X10*3/uL (4.8-10.8)
[2022-03-23 16:01] LABS: INTERNATIONAL NORM RATIO 0.9 (0.9-1.1)
[2022-03-23 16:03] LABS: Partial Thromboplastin Time 29.6 SEC (26.0-36.4)
[2022-03-23 16:05] LABS: Lactic Acid 0.8 mmol/L (0.5-2.0)
[2022-03-23 16:09] LABS: Alanine Aminotransferase 20 U/L (0-40); Albumin Level 4.1 g/dL (3.5-5.0); Alkaline Phosphatase 42 U/L (39-117); Anion Gap 15 (12-20); Aspartate Amino Transferase 15 U/L (5-37); Bilirubin Total 0.2 mg/dL (0.0-1.0); Blood Urea Nitrogen 17 mg/dL (9-16); Calcium 9.5 mg/dL (8.4-10.2); Carbon Dioxide 28 mmol/L (22-29); Chloride 101 mmol/L (96-108); Creatinine Clr Calc Pharmacy 82.9; Estimated Glomerular Filt Rate > 60; Ethanol < 10 mg/dL; Glucose Random 102 mg/dL (60-115); Lipase 17 U/L (8-78); Potassium 5.1 mmol/L (3.3-5.1); Sodium 139 mmol/L (135-145); Total Protein 6.6 g/dL (6.5-8.0)
[2022-03-23 16:15] LABS: Troponin-I High Sensitivity < 3.5 ng/L (<3.5-35.0)
[2022-03-23 16:45] VITALS: BP 121/83; PULSE 74; RESP 16; TEMP 37.3; O2SAT 99
--- NOTE | 2022-03-23 17:36 | PM.IMHP ---
History of Present Illness Date of Service: 03/23/22 Attending physician on admission: Vinod Forman Chief Complaint: syncope, abdominal pain this is a 61-year-old Tamaz[place]-speaking male who presents to the emergency department after syncopal event. History was obtained with the assistance of a pump technician. Patient has had 3 month history of chronic abdominal pain. Most recently he underwent endoscopy and colonoscopy earlier this month with Dr. Almeida. results of biopsy from those procedures revealed chronic H pylori as well as a well-differentiated neuroendocrine tumor. He reports chronic abdominal pain primary located in his upper abdomen which is worse after eating. He denies any associated nausea or vomiting. He has had no fever or chills. Nothing makes his abdominal pain better. He reports taking milk of magnesia and MiraLax at home and then massages his abdomen in order to have bowel movement. His Bowel movements are primarily diarrhea but he states if he does not massage his abdomen he will not have a bowel movement. He does report that he is able to eat and drink however this does worsen his pain. He has lost 30 lb in the past 3 months. Today he stood up to go to the bathroom And felt dizzy and then syncopized. he denies any associated chest pain, shortness of breath, palpitations. On arrival to the emergency department his blood pressure was noted to be in 80 systolic. He received IV fluid as well as IV Toradol and the decision was made to admit him to the hospital for further management. Review of Systems Review of Systems: Yes all other systems are reviewed and are negative Constitutional: Constitutional: Denies chills and Denies fever(s) ENT: Reports dizziness Cardiovascular: Cardiovascular: Denies chest pain, Denies palpitations and Denies dyspnea Respiratory: Respiratory: Denies cough and Denies dyspnea Gastrointestinal: Gastrointestinal: Reports abdominal pain, Reports diarrhea, Denies nausea and Denies vomiting Neurologic: Reports dizziness Endocrine: Endocrine: Denies palpitations [facility] Medical History No known health problems Pertinent family history: He denies family history of diabetes, hypertension, coronary artery disease Surgical History Hx of appendectomy Social History (Updated 03/23/22 @ 17:41 by FABIOLA Tsang) Alcohol intake: former Patient Tobacco Use Status: Former Tobacco user Use of substances other than those prescribed or required for medical reasons: Yes Substance Use Type: Marijuana Advance Directives: No Advance Directives Information Provided: No service: No Meds Allergies Allergy/AdvReac Type Severity Reaction Status Date / Time No Known Allergies Allergy Verified 03/23/22 13:29 [No Known Allergies*] Active Medications: Current Medications Acetaminophen (Acetaminophen 325 Mg Tablet) 650 mg PO Q6H PRN PRN Reason: Pain, Mild (Pain Scale 1-3) Ondansetron HCl (Ondansetron Hcl 4 Mg/2 Ml Vial) 4 mg IVPUSH Q8H PRN PRN Reason: Nausea and Vomiting Pharmacy Consult (Consult Rx Perform Med Rec) 1 each MISCELLANE ONCE PRN PRN Reason: Consult order Pharmacy Consult (Consult Rx Perform Med Rec) 1 each MISCELLANE ONCE PRN PRN Reason: Consult order Sodium Chloride (0.9 % Sodium Chloride Flush 3 Ml Syringe) 3 ml IVFLUSH QSHIFT COUNTS INCLUDE 234 BEDS AT THE [facility] Physical Exam Vital Signs and Narrative: Vital Signs: Last Vital Signs Temp 99.2 F 03/23/22 16:45 Pulse 74 03/23/22 16:45 Resp 16 03/23/22 16:45 BP 121/83 03/23/22 16:45 Pulse Ox 99 03/23/22 16:45 O2 Del Method 03/23/22 16:45 BMI result Body Mass Index 19.3 Const: General: cooperative, no acute distress, alert and awake Nutritional Appearance: thin Orientation/consciousness: patient oriented x3 Resp: Effort & Inspection: normal respiratory effort, able to speak in complete sentences and no use of accessory muscles Auscultation: clear to auscultation bilaterally Cardio: Rate: regular rate Heart sounds: S1 normal heart sound present and S2 normal heart sound present GI: Other: reports tenderness in epigastrum Inspection: No distended Palpation (GI): Soft to palpation Neuro: General: patient oriented x3 and CN's II-XI intact bilaterally Extrem: General: Yes no pedal edema Results Labs CBC and Chem 7: 03/23/22 15:41 03/23/22 15:41 Labs: Laboratory Results - last 24 hr 03/23/22 03/23/22 03/23/22 15:41 15:41 15:41 MCV 88.8 MCH 29.9 MCHC 33.7 RDW 13.5 Plt Count 246 MPV 9.0 L Immature Gran % (Auto) 0.3 Neut % (Auto) 58.6 Lymph % (Auto) 30.1 [place]ston % (Auto) 9.3 Eos % (Auto) 1.3 Baso % (Auto) 0.4 Lymph # (Auto) 2.2 [place] # (Auto) 0.7 Eos # (Auto) 0.1 Baso # (Auto) 0.0 Abs Immat Gran (auto) 0.02 Absolute Neuts (auto) 4.2 Absolute Nucleated RBC 0.000 Nucleated RBC % (auto) 0.0 PT 10.0 INR 0.9 APTT 29.6 Anion Gap 15 Estim Creat Clear Calc 82.9 Estimated GFR > 60 Random Glucose 102 Lactic Acid Calcium 9.5 Total Bilirubin 0.2 AST 15 ALT 20 Alkaline Phosphatase 42 Total Protein 6.6 Albumin 4.1 Lipase 17 Ethyl Alcohol < 10 03/23/22 15:41 MCV MCH MCHC RDW Plt Count MPV Immature Gran % (Auto) Neut % (Auto) Lymph % (Auto) [place] % (Auto) Eos % (Auto) Baso % (Auto) Lymph # (Auto) [place]ston # (Auto) Eos # (Auto) Baso # (Auto) Abs Immat Gran (auto) Absolute Neuts (auto) Absolute Nucleated RBC Nucleated RBC % (auto) PT INR APTT Anion Gap Estim Creat Clear Calc Estimated GFR Random Glucose Lactic Acid 0.8 Calcium Total Bilirubin AST ALT Alkaline Phosphatase Total Protein Albumin Lipase Ethyl Alcohol Assessment and Plan (1) Abdominal pain: Status: Acute (2) Gastritis, Helicobacter pylori: Status: Acute (3) Neuroendocrine neoplasm of colon: Status: Acute Plan this is a 61-year-old male with chronic abdominal pain who presents to the emergency department after syncopal event syncope Likely secondary to orthostatic hypotension in the setting of volume depletion/decreased PO intake EKG with no ischemic changes, trop negative BP in 80s on arrival to ED, improved with IVF -tele monitoring -IVF chronic abdominal pain recent EGD/ colonoscopy revealed chronic H pylori gastritis and neuroendocrine tumor - GI consult - will likely need triple abx therapy - oncology eval for new neuroendocrine tumor - clear liquid diet, advance as tolerated; IVF - pain control weight loss/moderate protein/calorie malnutrition 30 lb weight loss in past 3 months - nutrition consult - nutritional supplements med rec pending at the time of admission DVT prophylaxis-mechanical devices attending-Dr. Gerard Quality Stroke Does the patient have a stroke diagnosis?: No VTE Prior VTE?: No VTE Risk Level:: Medical - moderate - high VTE Device Contraindication: N/A - Device Ordered VTE Drug Contraindication: Treatment Not Indicated
[2022-03-23 17:43] LABS: COVID-19 Test Negative (Negative)
[2022-03-23] MEDS: Lactated Ringers 1,000 ML 100 ML IVCONT (17:49)
--- NOTE | 2022-03-23 19:23 | PC.NURSE ---
THIS NURSE HAS NOW ASSUMED CARE OF THIS PT
--- NOTE | 2022-03-23 19:29 | PHA.MEDREC ---
PATIENT STATES HE DOES NOT KNOW OF ANY MEDICATIONS. HE USES [facility], THEY HAVE A FEW PRN MEDICATIONS FOR CONSTIPATION Pharmacy Consult ? Medication Reconciliation Pharmacy has completed the medication reconciliation.
[2022-03-23 20:00] VITALS: BP 132/87; PULSE 86; RESP 16; TEMP 36.9; O2SAT 100
[2022-03-24 00:29] VITALS: BP 134/94; PULSE 74; RESP 17; TEMP 37.1; O2SAT 100
--- NOTE | 2022-03-24 01:56 | PC.NURSE ---
pt asleep resting quietly, resp effort unlabored reg no use of accessory muscles present, call light within reach, bed locked in lowest position. Will continue to monitor pt
[2022-03-24 04:14] VITALS: BP 136/95; PULSE 82; RESP 17; O2SAT 100
[2022-03-24 04:23] LABS: Appearance Urine Clear; Color Urine Yellow; Glucose Urine UA Negative (Negative); Leukocyte Esterase Urine Negative (Negative); Nitrite Urine Negative (Negative); Urine Blood Negative (Negative); Urine Ketones Negative (Negative); Urine Protein Negative (Neg-Trace)
--- NOTE | 2022-03-24 04:37 | P.CNGI_ITS ---
History of Present Illness Data of Consult Service Date: 03/24/22 Requesting physician: Sanjana Neff Primary Care Provider: Unknown Physician HPI Reason for consult: abdominal pain and rectal carcinoid 61 YM (Telugu-speaking) seen at [facility] on 03/23/22 after a syncopal episode.? History was obtained with the assistance of a senior payroll specialist.? Patient complained of chronic abdominal pain for the past 3 months.? He was hospitalized at [facility] and evaluated by EGD and colonoscopy earlier this month with Dr. Almeida.? results of biopsy from those procedures revealed chronic H pylori as well as a well-differentiated neuroendocrine tumor. ? Pt reports chronic abdominal pain primary located in his upper abdomen which is worse after eating.? He denies any associated nausea or vomiting, fever or chills.? Nothing makes his abdominal pain better.? He reports taking milk of magnesia and MiraLax at home and then massages his abdomen in order to have bowel movement. His ? Bowel movements are primarily diarrhea but he states if he does not massage his abdomen he will not have a bowel movement.? He does report that he is able to eat and drink however this does worsen his pain.? He has lost 30 lb in the past 3 months. ? Today he stood up to go to the bathroom ? And felt dizzy and then syncopized. he denies any associated chest pain, shortness of breath, palpitations.? On arrival to the emergency department his blood pressure was noted to be in 80 systolic.? He received IV fluid as well as IV Toradol and the decision was made to admit him to the hospital for further management. Review of Systems Review of Systems: Yes all other systems are reviewed and are negative Constitutional: Constitutional: Denies chills and Denies fever(s) ENT: Reports dizziness Cardiovascular: Cardiovascular: Denies chest pain, Denies palpitations and Denies dyspnea Respiratory: Respiratory: Denies cough and Denies dyspnea Gastrointestinal: Gastrointestinal: Reports abdominal pain, Reports diarrhea, Denies nausea and Denies vomiting Neurologic: Reports dizziness Endocrine: Endocrine: Denies palpitations PMF Past Medical History Medical History (Updated 04/18/22 @ 08:53 by Rabia Nuñez MD) No known health problems Family History Family History (Updated 04/18/22 @ 08:09 by Julissa Garcia CMA) Father Cancer Surgical History Surgical History (Updated 04/18/22 @ 08:53 by Rabia Nuñez MD) History of testicular surgery Hx of appendectomy Hx of colonoscopy Social History Social History (Updated 04/18/22 @ 08:13 by Julissa Garcia CMA) Household Members: None Household Members Other:: lives alone Housing: Apartment Are you a primary manager critical care to a significant other at home: No Do you presently have visiting nurse or other home services: No Alcohol intake: former Patient Tobacco Use Status: Never used Tobacco service: No Current occupational status: unemployed Meds Allergies Allergy/AdvReac Type Severity Reaction Status Date / Time No Known Allergies Allergy Verified 04/18/22 08:15 [No Known Allergies*] Active Medications: Current Medications Acetaminophen (Acetaminophen 325 Mg Tablet) 650 mg PO Q6H PRN PRN Reason: Pain, Mild (Pain Scale 1-3) Docusate Sodium (Docusate Sodium 100 Mg Capsule) 100 mg PO DAILY PRN PRN Reason: Constipation Famotidine (Famotidine/Pf 20 Mg/2 Ml Vial) 20 mg IVPUSH DAILY [facility] Lactated Ringer's (Lr) 1,000 mls @ 100 mls/hr IVCONT .Q10H [facility] Last Admin: 03/23/22 17:49 Dose: 100 mls/hr Morphine Sulfate (Morphine Sulfate 2 Mg/Ml Cartridge) 2 mg IVPUSH Q4H PRN; Protocol PRN Reason: Pain, Severe (Pain Scale 7-10) Ondansetron HCl (Ondansetron Hcl 4 Mg/2 Ml Vial) 4 mg IVPUSH Q8H PRN PRN Reason: Nausea and Vomiting Pharmacy Consult (Consult Rx Perform Med Rec) 1 each MISCELLANE ONCE PRN PRN Reason: Consult order Pharmacy Consult (Consult Rx Perform Med Rec) 1 each MISCELLANE ONCE PRN PRN Reason: Consult order Sodium Chloride (0.9 % Sodium Chloride Flush 3 Ml Syringe) 3 ml IVFLUSH QSHIFT [facility] Last Admin: 03/24/22 01:09 Dose: Not Given Home Medications Medication Instructions Recorded Confirmed Last Taken Type sennosides 8.6 mg tablet (senna) 8.6 mg PO BEDTIME PRN Constipation 03/23/22 04/18/22 Unknown History lactulose 10 gram/15 mL oral 15 ml PO BEDTIME PRN constipation 04/14/22 04/18/22 Unknown History solution Physical Exam Vital Signs: Vital Signs: Last Vital Signs Temp 98.8 F 03/24/22 00:29 Pulse 82 03/24/22 04:14 Resp 17 03/24/22 04:14 BP 136/95 H 03/24/22 04:14 Pulse Ox 100 03/24/22 04:14 O2 Del Method 03/24/22 04:14 BMI result Body Mass Index 19.3 Const: General: no acute distress Nutritional Appearance: underweight Orientation/consciousness: patient oriented x3 Limitations: language barrier HEENT: Head: Yes normal to inspection Ears: hearing grossly normal bilaterally Mouth: Normal oral and palatal mucosa present Eyes: Sclerae: sclerae normal Pupils: Equal, round and reactive pupils present Neck: Neck: Yes normal visual inspection Chest: Chest palpation & inspection: normal inspection of the chest Resp: Effort & Inspection: normal respiratory effort Auscultation: clear to auscultation bilaterally Cardio: Palpation: normal PMI Rate: regular rate Rhythm: regular rhythm Heart sounds: S1 normal heart sound present, S2 normal heart sound present and no murmurs GI: Palpation (GI): Soft to palpation, Tenderness to palpation present (GI) (Mild to moderate upper abdominal tenderness) and No hepatosplenomegaly present Auscultation: normal bowel sounds Rectal Exam - Male: Yes deferred Skin: General skin exam: no rashes or lesions noted Neuro: General: patient oriented x3, gait normal and moves all extremities Cranial nerves: Yes Equal, round and reactive pupils present Psych: Appearance: grossly normal Mental Status: mental status grossly normal Results Labs CBC & Chem 7: 03/27/22 06:56 03/31/22 05:48 Labs: Short CBC 03/23/22 Range/Units 15:41 WBC 7.2 (4.8-10.8) X10*3/uL Hgb 12.6 L (14.0-18.0) g/dl Hct 37.4 L (42.0-52.0) % Plt Count 246 (160-400) X10*3/uL BMP 03/23/22 15:41 Sodium 139 Potassium 5.1 D Chloride 101 Carbon Dioxide 28 BUN 17 H Creatinine 0.83 Calcium 9.5 Liver Function 03/23/22 Range/Units 15:41 Total Bilirubin 0.2 (0.0-1.0) mg/dL AST 15 (5-37) U/L ALT 20 (0-40) U/L Alkaline Phosphatase 42 (39-117) U/L Albumin 4.1 (3.5-5.0) g/dL Urine 03/24/22 Range/Units 04:17 Urine Color Yellow Urine Appearance Clear Urine pH 6.0 (5.0-8.0) Ur Specific [place] 1.010 (1.005-1.025) Urine Protein Negative (Neg-Trace) mg/dL Urine Glucose (UA) Negative (Negative) mg/dL Assessment and Plan (1) Rectal carcinoid tumor: Status: Acute (2) Abdominal pain: Status: Acute (3) Weight loss: Status: Acute Plan 61 YM (Telugu-speaking) seen at [facility] on 03/23/22 after a syncopal episode.? Patient complained of chronic abdominal pain for the past 3 months.? He was hospitalized at [facility] and evaluated by EGD and colonoscopy earlier this month with Dr. Almeida.? Results of biopsy from those procedures revealed chronic H pylori as well as a well-differentiated neuroendocrine tumor. ? Pt reports chronic abdominal pain primary located in his upper abdomen which is worse after eating.? He reports taking milk of magnesia and MiraLax at home and then massages his abdomen in order to have bowel movement. He has lost 30 lb in the past 3 months. ? RECOMMENDATIONS: 1. IV fluids and IV pain medications for pain control 2. Miralax twice daily for constipation 3. CT angiogram to rule out small bowel ischemia causing abdominal pain and wt loss 4. Pt has been referred to [facility] clinic for an EUS of the rectum as an outpatient to FU on rectal carcinoid 5. He can be treated with H Pylori with Quadruple therapy (or Pylera) once he is tolerating a regular diet. Procedures Date of Service Date of Service: 03/24/22
--- NOTE | 2022-03-24 05:00 | PC.NURSE ---
pt asleep resting comfortably, has been using urinal throughout the night, bed locked in lowest position, call light within reach, will continue to monitor pt
[2022-03-24] MEDS: Acetaminophen 325 MG TABLET 650 MG PO (06:02)
[2022-03-24 06:03] VITALS: RESP 18
[2022-03-24] MEDS: Morphine Sulfate 2 MG/ML CARTRIDGE IVPUSH ×2 (06:03→22:04)
[2022-03-24] MEDS: ondansetron HCL 4 MG/2 ML VIAL IVPUSH ×2 (06:05→22:04)
[2022-03-24 06:46] LABS: Hematocrit 35.1 % (42.0-52.0); Mean Corpuscular HGB Conc 34.2 g/dl (31.0-36.0); Mean Corpuscular Hemoglobin 30.3 pg (27.0-33.0); Mean Corpuscular Volume 88.6 fL (80.0-98.0); Mean Platelet Volume 9.2 fL (9.4-12.4); Platelet Count 235 X10*3/uL (160-400); Red Blood Count 3.96 X10*6/uL (4.60-5.80); Red Cell Distribution Width 13.4 % (11.0-16.0); White Blood Count 5.6 X10*3/uL (4.8-10.8)
[2022-03-24 07:05] LABS: Anion Gap 14 (12-20); Blood Urea Nitrogen 13 mg/dL (9-16); Calcium 9.2 mg/dL (8.4-10.2); Carbon Dioxide 26 mmol/L (22-29); Chloride 102 mmol/L (96-108); Creatinine Clr Calc Pharmacy 87.2; Estimated Glomerular Filt Rate > 60; Glucose Random 104 mg/dL (60-115); Potassium 4.9 mmol/L (3.3-5.1); Sodium 137 mmol/L (135-145)
[2022-03-24 09:06] VITALS: BP 145/96; PULSE 78; RESP 16; O2SAT 99
[2022-03-24] MEDS: Famotidine/PF 20 MG/2 ML VIAL IVPUSH (09:23)
[2022-03-24] MEDS: iohexoL 350 MG/ML 100 ML INFUS..BTL 80 ML IV (11:51)
[2022-03-24] MEDS: iohexoL 350 MG/ML 100 ML INFUS..BTL IV (12:10)
--- NOTE | 2022-03-24 13:33 | HO.PM.IMPN ---
Subjective Subjective Date of Service: 03/24/22 Interval History: seen and examined this morning history obtained with the assistance of a language interpreter Follow-up for intractable abdominal pain, syncope no further episodes of syncope or dizziness persistent abdominal pain Review of Systems Review of Systems: Yes all other systems are reviewed and are negative Constitutional Constitutional: Denies chills, Denies fever(s) and Reports weight loss ENT Ears, Nose, Mouth, and Throat: Denies dizziness Cardiovascular Cardiovascular: Denies chest pain, Denies palpitations and Denies dyspnea Respiratory Respiratory: Denies cough and Denies dyspnea Gastrointestinal Gastrointestinal: Reports abdominal pain, Denies nausea and Denies vomiting Neurologic Neurologic: Denies dizziness Endocrine Endocrine: Denies palpitations Physical Exam Vital Signs: Vital Signs: Last Vital Signs Temp 98.8 F 03/24/22 00:29 Pulse 78 03/24/22 09:06 Resp 16 03/24/22 09:06 BP 145/96 H 03/24/22 09:06 Pulse Ox 99 03/24/22 09:06 O2 Del Method 03/24/22 09:06 BMI result Body Mass Index 19.3 Const: General: cooperative, alert and awake Nutritional Appearance: thin Orientation/consciousness: patient oriented x3 Resp: Effort & Inspection: normal respiratory effort, able to speak in complete sentences and no use of accessory muscles Auscultation: clear to auscultation bilaterally Cardio: Rate: regular rate Heart sounds: S1 normal heart sound present and S2 normal heart sound present GI: Other: reports tenderness in epigastrum Inspection: No distended Palpation (GI): Soft to palpation Neuro: General: patient oriented x3 and CN's II-XI intact bilaterally Extrem: General: Yes no pedal edema Objective Data Active Medications Acetaminophen (Acetaminophen 325 Mg Tablet) 650 mg PO Q6H PRN PRN Reason: Pain, Mild (Pain Scale 1-3) Last Admin: 03/24/22 06:02 Dose: 650 mg Documented By: TOD Docusate Sodium (Docusate Sodium 100 Mg Capsule) 100 mg PO DAILY PRN PRN Reason: Constipation Famotidine (Famotidine/Pf 20 Mg/2 Ml Vial) 20 mg IVPUSH DAILY [facility] Last Admin: 03/24/22 09:23 Dose: 20 mg Documented By: JACLYN Lactated Ringer's (Lr) 1,000 mls @ 100 mls/hr IVCONT .Q10H [facility] Last Infusion: 03/24/22 08:10 Dose: 0 mls/hr Documented By: JACLYN Morphine Sulfate (Morphine Sulfate 2 Mg/Ml Cartridge) 2 mg IVPUSH Q4H PRN; Protocol PRN Reason: Pain, Severe (Pain Scale 7-10) Last Admin: 03/24/22 06:03 Dose: 2 mg Documented By: TOD Ondansetron HCl (Ondansetron Hcl 4 Mg/2 Ml Vial) 4 mg IVPUSH Q8H PRN PRN Reason: Nausea and Vomiting Last Admin: 03/24/22 06:05 Dose: 4 mg Documented By: TOD Pharmacy Consult (Consult Rx Perform Med Rec) 1 each MISCELLANE ONCE PRN PRN Reason: Consult order Pharmacy Consult (Consult Rx Perform Med Rec) 1 each MISCELLANE ONCE PRN PRN Reason: Consult order Senna (Sennosides 8.6 Mg Tablet) 8.6 mg PO BEDTIME PRN PRN Reason: Constipation Sodium Chloride (0.9 % Sodium Chloride Flush 3 Ml Syringe) 3 ml IVFLUSH QSHIFT [facility] Last Admin: 03/24/22 08:09 Dose: Not Given Documented By: JACLYN Non-Admin Reason: IV Running Labs CBC & Chem 7: 03/24/22 06:15 03/24/22 06:15 Labs: Laboratory Results - last 24 hr 03/23/22 03/23/22 03/23/22 15:41 15:41 15:41 MCV 88.8 MCH 29.9 MCHC 33.7 RDW 13.5 Plt Count 246 MPV 9.0 L Immature Gran % (Auto) 0.3 Neut % (Auto) 58.6 Lymph % (Auto) 30.1 [place] % (Auto) 9.3 Eos % (Auto) 1.3 Baso % (Auto) 0.4 Lymph # (Auto) 2.2 [place] # (Auto) 0.7 Eos # (Auto) 0.1 Baso # (Auto) 0.0 Abs Immat Gran (auto) 0.02 Absolute Neuts (auto) 4.2 Absolute Nucleated RBC 0.000 Nucleated RBC % (auto) 0.0 PT 10.0 INR 0.9 APTT 29.6 Anion Gap 15 Estim Creat Clear Calc 82.9 Estimated GFR > 60 Random Glucose 102 Lactic Acid Calcium 9.5 Total Bilirubin 0.2 AST 15 ALT 20 Alkaline Phosphatase 42 Total Protein 6.6 Albumin 4.1 Lipase 17 Urine Color Urine Appearance Urine pH Ur Specific [place] Urine Protein Urine Glucose (UA) Urine Ketones Urine Blood Urine Nitrite Ur Leukocyte Esterase Ethyl Alcohol < 10 COVID-19 ([facility]) COVID-19 Clin Com 03/23/22 03/23/22 03/24/22 15:41 17:05 04:17 MCV MCH MCHC RDW Plt Count MPV Immature Gran % (Auto) Neut % (Auto) Lymph % (Auto) [place] % (Auto) Eos % (Auto) Baso % (Auto) Lymph # (Auto) [place] # (Auto) Eos # (Auto) Baso # (Auto) Abs Immat Gran (auto) Absolute Neuts (auto) Absolute Nucleated RBC Nucleated RBC % (auto) PT INR APTT Anion Gap Estim Creat Clear Calc Estimated GFR Random Glucose Lactic Acid 0.8 Calcium Total Bilirubin AST ALT Alkaline Phosphatase Total Protein Albumin Lipase Urine Color Yellow Urine Appearance Clear Urine pH 6.0 Ur Specific [place] 1.010 Urine Protein Negative Urine Glucose (UA) Negative Urine Ketones Negative Urine Blood Negative Urine Nitrite Negative Ur Leukocyte Esterase Negative Ethyl Alcohol COVID-19 ([facility]) Negative COVID-19 Clin Com See Note 03/24/22 03/24/22 06:15 06:15 MCV 88.6 MCH 30.3 MCHC 34.2 RDW 13.4 Plt Count 235 MPV 9.2 L Immature Gran % (Auto) Neut % (Auto) Lymph % (Auto) [place] % (Auto) Eos % (Auto) Baso % (Auto) Lymph # (Auto) [place] # (Auto) Eos # (Auto) Baso # (Auto) Abs Immat Gran (auto) Absolute Neuts (auto) Absolute Nucleated RBC 0.000 Nucleated RBC % (auto) 0.0 PT INR APTT Anion Gap 14 Estim Creat Clear Calc 87.2 Estimated GFR > 60 Random Glucose 104 Lactic Acid Calcium 9.2 Total Bilirubin AST ALT Alkaline Phosphatase Total Protein Albumin Lipase Urine Color Urine Appearance Urine pH Ur Specific [place] Urine Protein Urine Glucose (UA) Urine Ketones Urine Blood Urine Nitrite Ur Leukocyte Esterase Ethyl Alcohol COVID-19 ([facility]) COVID-19 Clin Com Assessment and Plan (1) Neuroendocrine neoplasm of colon: Status: Acute (2) Gastritis, Helicobacter pylori: Status: Acute (3) Intractable abdominal pain: Status: Acute Plan this is a 61-year-old male with chronic abdominal pain who presents to the emergency department after syncopal event syncope Likely secondary to orthostatic hypotension in the setting of volume depletion/decreased PO intake EKG with no ischemic changes, trop negative BP in 80s on arrival to ED, improved with IVF no further episodes of dizziness or syncope -tele monitoring -IVF chronic abdominal pain recent EGD/ colonoscopy revealed chronic H pylori gastritis and neuroendocrine tumor - GI consult - recommend CTA of abdomen to rule out small-bowel ischemia. Formal consult note pending at this time - oncology eval for new neuroendocrine tumor of colon - recommend surgical consult - clear liquid diet, advance as tolerated; IVF - pain control weight loss/ mild-moderate protein/calorie malnutrition 30 lb weight loss in past 3 months - nutrition consult - nutritional supplements DVT prophylaxis-mechanical devices attending-Dr. sandhu patient requires ongoing inpatient hospitalization for workup of intractable abdominal pain Quality Stroke Does the patient have a stroke diagnosis?: No VTE Prior VTE?: No VTE Risk Level:: Medical - moderate - high VTE Device Contraindication: N/A - Device Ordered VTE Drug Contraindication: Treatment Not Indicated
--- NOTE | 2022-03-24 13:45 | MHC.CLN ---
RE: CONSULT HT 70 WT 135# (61.2kg) IBW 166#+/-10% PT IS 81% IBW INDICATES MILDLY UNDER WT FOR HT BMI 19.3 PT APPEARS THIN AND REPORTS 30# WT LOSS X 3MONTHS WITH ABDOMINAL PAIN (X 3 MONTHS) PREVIOUS WT HX REVEALS 68KG (08/09/21) PT IS MODERATELY MALNOURISHED (NON-SEVERE MALNUTRITION IN THE CONTEXT OF CHRONIC ILLNESS) PT WITH MILDLY DEPLETED SUBCUTANEOUS FAT AND MUSCLE MASS, BMI 19 AND 10% SIGNIFICANT WT LOSS X 6 MONTHS ESTIMATED NUTRITION NEEDS (ENN):1830KCALS, 73G PROTEIN, 1830ML H20 DIET RX: C/L-APPROPRIATE PT RECEIVING ENSURE CLEAR TID TO INCREASE KCALS SUPP PROVIDES 720KCALS, 24G PROTEIN RECOMMEND WHEN DIET ADVANCES SWITCH TO ENSURE ENLIVE TID TO PROVIDE 1050KCALS, 60G PROTEIN MONITOR PO INTAKE CLOSELY
--- NOTE | 2022-03-24 14:02 | MHC.CM.PN ---
CM MET WITH PT WITH THE ASSISTANCE OF A SPINE SPECIALIST PT REPORTS HE LIVES ALONE AND IS INDEPENDENT WITH CARE PT DENIES USE OF DME OR HOME SERVICES PT REPORTS HE IS COVID VACCINATED AND BOOSTED PT REPORTS HIS PCP IS AT [facility], HE DOES NOT KNOW THE NAME PT DOES NOT HAVE A HCP, HE STATES HE WILL DISCUSS IT WITH HIS BROTHER WHO WILL BE COMING IN SHORTLY, AND IF HE IS AGREEABLE TO BEING THE AGENT, THE PT WILL COMPLETE ONE CURRENT DC PLAN IS HOME WITH NO SERVICES SON TO TRANSPORT
[2022-03-24] MEDS: Lactated Ringers 1,000 ML 100 ML IVCONT ×2 (15:02→23:13)
[2022-03-24 20:02] VITALS: BP 123/90; PULSE 91; RESP 18; TEMP 37.1; O2SAT 100
[2022-03-24] MEDS: polyethylene glycoL 3350 17 GM POWD.PACK PO (22:05)
[2022-03-25] VITALS (9 sets, daily range): BP systolic 121–148; BP diastolic 82–98; PULSE 84–97; RESP 16–21; TEMP 36.4–37.2; O2SAT 96–100
[2022-03-25] MEDS: Morphine Sulfate 2 MG/ML CARTRIDGE IVPUSH (03:49)
[2022-03-25] MEDS: Famotidine/PF 20 MG/2 ML VIAL IVPUSH (10:22)
[2022-03-25] MEDS: polyethylene glycoL 3350 17 GM POWD.PACK PO ×4 (10:22→13:51)
[2022-03-25] MEDS: 0.9 % Sodium Chloride Flush 3 ML SYRINGE IVFLUSH ×2 (10:22→17:44)
--- NOTE | 2022-03-25 10:25 | PC.NURSE ---
brendon a/sekou cid . heart rate regular 82 beats . skin warm dry and appropriate for ethnicity . abdomen soft . patient reports rebound tenderness r/t recurrent constipation problems . positive bowel sounds in all four quadrants noted . patient voiding clear yellow urine with use of urinal at bedside . patient aware of plan of care .
--- NOTE | 2022-03-25 12:53 | HO.PM.IMPN ---
Subjective Subjective Date of Service: 03/25/22 Review of Systems follow-up epigastric pain, diarrhea Still with epigastric pain, reports constipation Physical Exam Vital Signs: Vital Signs: Last Vital Signs Temp 98.8 F 03/25/22 10:23 Pulse 88 03/25/22 10:23 Resp 18 03/25/22 10:23 BP 134/87 03/25/22 10:23 Pulse Ox 96 03/25/22 10:23 O2 Del Method 03/25/22 10:23 BMI result Body Mass Index 19.3 Appearing in no acute distress lung sounds are clear to auscultation heart regular rate rhythm, clear S1, S2 positive bowel sounds, abdomen is soft, tender epigastric area neuro patient is alert x3, no focal deficits Objective Data Active Medications Acetaminophen (Acetaminophen 325 Mg Tablet) 650 mg PO Q6H PRN PRN Reason: Pain, Mild (Pain Scale 1-3) Last Admin: 03/24/22 06:02 Dose: 650 mg Documented By: TOD Docusate Sodium (Docusate Sodium 100 Mg Capsule) 100 mg PO DAILY PRN PRN Reason: Constipation Famotidine (Famotidine/Pf 20 Mg/2 Ml Vial) 20 mg IVPUSH DAILY [facility] Last Admin: 03/25/22 10:22 Dose: 20 mg Documented By: SHRADDHA Lactated Ringer's (Lr) 1,000 mls @ 100 mls/hr IVCONT .Q10H [facility] Last Admin: 03/24/22 23:13 Dose: 100 mls/hr Documented By: ARCHIE Morphine Sulfate (Morphine Sulfate 2 Mg/Ml Cartridge) 2 mg IVPUSH Q4H PRN; Protocol PRN Reason: Pain, Severe (Pain Scale 7-10) Last Admin: 03/25/22 03:49 Dose: 2 mg Documented By: ARCHIE Ondansetron HCl (Ondansetron Hcl 4 Mg/2 Ml Vial) 4 mg IVPUSH Q8H PRN PRN Reason: Nausea and Vomiting Last Admin: 03/24/22 22:04 Dose: 4 mg Documented By: ARCHIE Pharmacy Consult (Consult Rx Perform Med Rec) 1 each MISCELLANE ONCE PRN PRN Reason: Consult order Pharmacy Consult (Consult Rx Perform Med Rec) 1 each MISCELLANE ONCE PRN PRN Reason: Consult order Polyethylene Glycol (Polyethylene Glycol 3350 17 Gm Powd.Pack) 17 gm PO BID [facility] Last Admin: 03/25/22 10:22 Dose: 17 gm Documented By: SHRADDHA Senna (Sennosides 8.6 Mg Tablet) 8.6 mg PO BEDTIME PRN PRN Reason: Constipation Sodium Chloride (0.9 % Sodium Chloride Flush 3 Ml Syringe) 3 ml IVFLUSH QSHIFT [facility] Last Admin: 03/25/22 10:22 Dose: 3 ml Documented By: SHRADDHA Labs CBC & Chem 7: 03/24/22 06:15 03/24/22 06:15 Assessment and Plan (1) Neuroendocrine neoplasm of colon: Status: Acute (2) Gastritis, Helicobacter pylori: Status: Acute (3) Intractable abdominal pain: Status: Acute Plan 61-year-old male with chronic abdominal pain who presents to the emergency department after syncopal event syncope Likely secondary to orthostatic hypotension in the setting of volume depletion, decreased oral intake Systolic blood pressure in the 80s upon arrival, improved with IV fluids, no further episodes noted EKG with no ischemic changes, trop negative chronic abdominal pain recent EGD/ colonoscopy /gastric biopsy revealed chronic H pylori gastritis negative for intestinal metaplasia or dysplasia and neuroendocrine tumor Unremarkable abdominal CTA, no bowel ischemia noted IV PPI b.i.d for severe gastritis GI consult recommend CTA of abdomen to rule out small-bowel ischemia> negative/ unremarkable plan for rectal endoscopic ultrasound for neuroendocrine tumor clear liquid diet for now Constipation Will add MiraLax moderate protein calorie malnutrition 30 lb weight loss in past 3 months nutrition consult nutritional supplements/Ensure Clear DVT prophylaxis-mechanical devices Attending Dr. Rodriguez Full code patient requires ongoing inpatient hospitalization for workup of intractable abdominal pain necessitating multiple specialist consultations and IV pain medication Quality Stroke Does the patient have a stroke diagnosis?: No VTE Prior VTE?: No VTE Risk Level:: Medical - moderate - high VTE Device Contraindication: N/A - Device Ordered VTE Drug Contraindication: Treatment Not Indicated
[2022-03-25] MEDS: Lactated Ringers 1,000 ML 100 ML IVCONT (13:50)
--- NOTE | 2022-03-25 15:34 | PC.NURSE ---
pt's daughter heavenly smith ([phone]) [place] [facility] [place] status.
--- NOTE | 2022-03-25 17:35 | PC.NURSE ---
no bm as yet per pt for today.
[2022-03-25] MEDS: levoFLOXacin 500 MG TABLET PO (17:42)
[2022-03-25] MEDS: Omeprazole 40 MG CAPSULE.DR PO (17:43)
--- NOTE | 2022-03-25 23:01 | PC.NURSE ---
sleeping. skin pwd. no distress. awaits room on floor.
[2022-03-26] MEDS: Morphine Sulfate 2 MG/ML CARTRIDGE IVPUSH (00:38)
[2022-03-26 03:39] VITALS: BP 122/90; PULSE 87; RESP 15; O2SAT 97
[2022-03-26 06:29] VITALS: BP 120/85; PULSE 81; RESP 25; O2SAT 98
--- NOTE | 2022-03-26 08:50 | PC.NURSE ---
Pt resting with some abdominal discomfort this am. Pt states abdominal pain has been ongoing and has not fully resolved. Abdominal tenderness upon palpation. KNOWLEDGE ENGINEER who admitted pt is aware and at the bedside.
--- NOTE | 2022-03-26 09:59 | P.PNIM_ITS ---
Subjective Subjective Date of Service: 03/26/22 Review of Systems follow-up epigastric pain, diarrhea Still with epigastric pain but better, reports constipation Taking some fluids Physical Exam Vital Signs: Vital Signs: Last Vital Signs Temp 98.7 F 03/25/22 23:50 Pulse 81 03/26/22 06:29 Resp 25 H 03/26/22 06:29 BP 120/85 03/26/22 06:29 Pulse Ox 98 03/26/22 06:29 O2 Del Method 03/26/22 06:29 BMI result Body Mass Index 19.3 Appearing in no acute distress lung sounds are clear to auscultation heart regular rate rhythm, clear S1, S2 positive bowel sounds, abdomen is soft, nontender neuro patient is alert x3, no focal deficits Objective Data Active Medications Acetaminophen (Acetaminophen 325 Mg Tablet) 650 mg PO Q6H PRN PRN Reason: Pain, Mild (Pain Scale 1-3) Last Admin: 03/24/22 06:02 Dose: 650 mg Documented By: TOD Amoxicillin (Amoxicillin 250 Mg Capsule) 750 mg PO Q8H [facility] Stop: 04/08/22 16:29 Last Admin: 03/26/22 08:15 Dose: 750 mg Documented By: TRAYSIGennaro Docusate Sodium (Docusate Sodium 100 Mg Capsule) 100 mg PO DAILY PRN PRN Reason: Constipation Levofloxacin (Levofloxacin 500 Mg Tablet) 500 mg PO Q24H [facility] Stop: 04/08/22 16:29 Last Admin: 03/25/22 17:42 Dose: 500 mg Documented By: JUSTIN Morphine Sulfate (Morphine Sulfate 2 Mg/Ml Cartridge) 2 mg IVPUSH Q4H PRN; Protocol PRN Reason: Pain, Severe (Pain Scale 7-10) Last Admin: 03/26/22 00:38 Dose: 2 mg Documented By: HUGH Omeprazole (Omeprazole 40 Mg Capsule.Dr) 40 mg PO BID@0630,1630 [facility] Last Admin: 03/26/22 06:54 Dose: Not Given Documented By: MARILOU Non-Admin Reason: Patient Refused Ondansetron HCl (Ondansetron Hcl 4 Mg/2 Ml Vial) 4 mg IVPUSH Q8H PRN PRN Reason: Nausea and Vomiting Last Admin: 03/24/22 22:04 Dose: 4 mg Documented By: ARCHIE Pharmacy Consult (Consult Rx Perform Med Rec) 1 each MISCELLANE ONCE PRN PRN Reason: Consult order Pharmacy Consult (Consult Rx Perform Med Rec) 1 each MISCELLANE ONCE PRN PRN Reason: Consult order Polyethylene Glycol (Polyethylene Glycol 3350 17 Gm Powd.Pack) 17 gm PO BID [facility] Last Admin: 03/25/22 13:50 Dose: 17 gm Documented By: JUSTIN Senna (Sennosides 8.6 Mg Tablet) 8.6 mg PO BEDTIME PRN PRN Reason: Constipation Sodium Chloride (0.9 % Sodium Chloride Flush 3 Ml Syringe) 3 ml IVFLUSH QSHIFT [facility] Last Admin: 03/26/22 07:13 Dose: Not Given Documented By: WILFREDO Non-Admin Reason: Med Not Available Labs CBC & Chem 7: 03/24/22 06:15 03/24/22 06:15 Assessment and Plan (1) Neuroendocrine neoplasm of colon: Status: Acute (2) Gastritis, Helicobacter pylori: Status: Acute (3) Intractable abdominal pain: Status: Acute Plan 61-year-old male with chronic abdominal pain who presents to the emergency department after syncopal event Syncope. No further episodes Likely secondary to orthostatic hypotension in the setting of volume depletion, decreased oral intake Systolic blood pressure in the 80s upon arrival, improved with IV fluids, no further episodes noted EKG with no ischemic changes, trop negative Chronic abdominal pain secondary to peptic ulcer disease due to untreated H pylori recent EGD/ colonoscopy /gastric biopsy revealed chronic H pylori gastritis negative for intestinal metaplasia or dysplasia and neuroendocrine tumor Unremarkable abdominal CTA, no bowel ischemia noted IV PPI b.i.d for severe gastritis initially recommend CTA of abdomen to rule out small-bowel ischemia> negative/ unremarkable advance diet as tolerated treatment initiated for H pylori with levofloxacin 500 mg daily, amoxicillin 750 mg every 8 hours, omeprazole 40 mg twice daily. Total treatment 14 days Neuroendocrine tumor Plan for rectal endoscopic ultrasound for at [facility] Constipation continue MiraLax BID add senna moderate protein calorie malnutrition 30 lb weight loss in past 3 months nutrition consult nutritional supplements/Ensure Clear DVT prophylaxis-mechanical devices Attending Dr. Ivey Full code patient requires ongoing inpatient hospitalization for workup of intractable abdominal pain necessitating multiple specialist consultations and IV pain medication Quality Stroke Does the patient have a stroke diagnosis?: No VTE Prior VTE?: No VTE Risk Level:: Medical - moderate - high VTE Device Contraindication: N/A - Device Ordered VTE Drug Contraindication: Treatment Not Indicated
--- NOTE | 2022-03-26 11:06 | PC.NURSE ---
Attempted to give report to [facility] nurse three times. Made contact with RN taking this pt at 1105, RN stated she was not ready for report and would call back when ready. ED charge nurse aware.
[2022-03-26 13:27] VITALS: BP 131/87; PULSE 99; RESP 20; TEMP 36.3; O2SAT 99
[2022-03-26 15:30] VITALS: BP 109/75; PULSE 90; RESP 16; TEMP 36.1; O2SAT 99
[2022-03-26] MEDS: Docusate Sodium 100 MG CAPSULE PO (16:39)
[2022-03-26] MEDS: levoFLOXacin 500 MG TABLET PO (16:40)
[2022-03-26] MEDS: Omeprazole 40 MG CAPSULE.DR PO (16:41)
[2022-03-26] MEDS: 0.9 % Sodium Chloride Flush 3 ML SYRINGE IVFLUSH ×2 (16:43→20:42)
[2022-03-26 20:00] VITALS: BP 103/74; PULSE 86; RESP 16; TEMP 36.9; O2SAT 100
[2022-03-26] MEDS: polyethylene glycoL 3350 17 GM POWD.PACK PO (20:41)
[2022-03-26] MEDS: Sennosides 8.6 MG TABLET PO (20:41)
[2022-03-27] VITALS (12 sets, daily range): BP systolic 55–120; BP diastolic 36–85; PULSE 79–115; RESP 16–18; TEMP 36.3–37.2; O2SAT 97–100; BMI 19.3
[2022-03-27] MEDS: Acetaminophen 325 MG TABLET 650 MG PO (03:38)
[2022-03-27 07:12] LABS: MANUAL DIFF FLAG NO
[2022-03-27 07:24] LABS: Basophils Percent Auto 0.3 % (0-2); Eosinophils Absolute Auto 0.1 X10*3/uL (0.0-0.4); Eosinophils Percent Auto 1.1 % (0-4); Imm Gran Abs Auto 0.01 X10*3/uL (0.00-0.03); Imm Gran Pct Auto 0.2 % (0.0-0.4); Lymphocytes Absolute Auto 1.9 X10*3/uL (1.2-4.9); Mean Corpuscular HGB Conc 34.2 g/dl (31.0-36.0); Mean Corpuscular Hemoglobin 30.2 pg (27.0-33.0); Mean Corpuscular Volume 88.2 fL (80.0-98.0); Monocytes Absolute Auto 0.7 X10*3/uL (0.1-1.2); Monocytes Percent Auto 10.1 % (2-11); Neutrophils Absolute Auto 3.8 x10*3/uL (2.0-8.3); Neutrophils Percent Auto 59.3 % (45-73); Platelet Count 247 X10*3/uL (160-400); Red Blood Count 4.31 X10*6/uL (4.60-5.80); Red Cell Distribution Width 13.3 % (11.0-16.0); White Blood Count 6.4 X10*3/uL (4.8-10.8)
[2022-03-27 07:40] LABS: Anion Gap 17 (12-20); Blood Urea Nitrogen 11 mg/dL (9-16); Calcium 9.6 mg/dL (8.4-10.2); Carbon Dioxide 24 mmol/L (22-29); Chloride 101 mmol/L (96-108); Creatinine Clr Calc Pharmacy 87.2; Estimated Glomerular Filt Rate > 60; Glucose Random 105 mg/dL (60-115); Potassium 4.6 mmol/L (3.3-5.1); Sodium 137 mmol/L (135-145)
[2022-03-27] MEDS: polyethylene glycoL 3350 17 GM POWD.PACK PO ×2 (07:48→20:13)
[2022-03-27] MEDS: Sennosides 8.6 MG TABLET PO ×2 (07:49→20:13)
[2022-03-27] MEDS: Omeprazole 40 MG CAPSULE.DR PO ×2 (08:02→16:43)
--- NOTE | 2022-03-27 08:29 | P.CNHO_ITS ---
Subjective - Subjective Chief complaint: Abdominal pain Patient: new to practice Consult date: 03/27/22 Primary Care Provider: Unknown Physician HPI - Consult Narrative Reason for consult: Rectal neuroendocrine tumor Narrative: Geoffrey Wells is a 61 year old male who was admitted again to the hospital on 03/23/2022 after syncopal episode and complaints of chronic abdominal pain. He has had multiple hospitalizations both at [facility] in [facility] in the last 3 months. He initially presented in January with epigastric pain. He was scheduled for upper GI series and small-bowel follow-through but he left against medical advise. He presented to [facility] ED on 01/23/2022, repeat CT scan was performed. This revealed a 1.2 cm dilated and thick-walled appendix. He underwent laparoscopic appendectomy with Dr. Corbin on 01/23/2022. Just prior to discharge he developed left facial droop, he underwent workup for acute stroke. Neurology team diagnosed Orozco's palsy, he was treated with 7 days of prednisone and valacyclovir. He was discharged on 01/25/2022. Patient was again admitted to [facility] on 02/11/2022 with comp laints of abdominal pain and syncope. He was diagnosed with vasovagal syncope with positive orthostasis/dehydration. He underwent multiple imaging studies including CT abdomen/pelvis with contrast, CT angiography of head and neck, MRI brain which were all negative. Pathology report from appendectomy revealed inflammatory changes but no acute appendicitis. Patient had EGD and colonoscopy on 03/07/2022 at [facility]. He was found to have rectal polyp, pathology revealed well-differentiated neuroendocrine tumor, grade 1 measuring 4 mm involving mucosa, muscularis mucosa and submucosa, present at cauterized polyp base with positive margin. Patient again admitted to [facility] with similar complaints of abdominal pain and syncope. Review of Systems - Neurologic Reports dizziness [facility] Medical History: Medical History (Last Reviewed 03/23/22 @ 17:41 by FABIOLA Tsang) No known health problems Surgical History: Surgical History (Last Reviewed 03/23/22 @ 17:41 by FABIOLA Tsang) Hx of appendectomy Social History: Social History (Last Updated 03/23/22 @ 17:41 by FABIOLA Tsang) Living Situation History: Household Members: None Household Members Other:: lives alone Housing: House Do you presently have visiting nurse or other home services: No Tobacco History: Patient Tobacco Use Status: Never used Tobacco Substance Use History: Substance Use Type: Marijuana Occupation Assessmet: service: No Current occupational status: unemployed Current occupational status: retired Home Medications and Allergies Current Medications: Current Medications Acetaminophen (Acetaminophen 325 Mg Tablet) 650 mg PO Q6H PRN PRN Reason: Pain, Mild (Pain Scale 1-3) Last Admin: 03/27/22 03:38 Dose: 650 mg Amoxicillin (Amoxicillin 250 Mg Capsule) 750 mg PO Q8H [facility] Stop: 04/08/22 16:29 Last Admin: 03/27/22 08:02 Dose: 750 mg Docusate Sodium (Docusate Sodium 100 Mg Capsule) 100 mg PO DAILY PRN PRN Reason: Constipation Last Admin: 03/26/22 16:39 Dose: 100 mg Levofloxacin (Levofloxacin 500 Mg Tablet) 500 mg PO Q24H [facility] Stop: 04/08/22 16:29 Last Admin: 03/26/22 16:40 Dose: 500 mg Morphine Sulfate (Morphine Sulfate 2 Mg/Ml Cartridge) 2 mg IVPUSH Q4H PRN; Protocol PRN Reason: Pain, Severe (Pain Scale 7-10) Last Admin: 03/26/22 00:38 Dose: 2 mg Omeprazole (Omeprazole 40 Mg Capsule.Dr) 40 mg PO BID@0630,1630 [facility] Last Admin: 03/27/22 08:02 Dose: 40 mg Ondansetron HCl (Ondansetron Hcl 4 Mg/2 Ml Vial) 4 mg IVPUSH Q8H PRN PRN Reason: Nausea and Vomiting Last Admin: 03/24/22 22:04 Dose: 4 mg Pharmacy Consult (Consult Rx Perform Med Rec) 1 each MISCELLANE ONCE PRN PRN Reason: Consult order Pharmacy Consult (Consult Rx Perform Med Rec) 1 each MISCELLANE ONCE PRN PRN Reason: Consult order Polyethylene Glycol (Polyethylene Glycol 3350 17 Gm Powd.Pack) 17 gm PO BID [facility] Last Admin: 03/27/22 07:48 Dose: 17 gm Senna (Sennosides 8.6 Mg Tablet) 8.6 mg PO BEDTIME PRN PRN Reason: Constipation Senna (Sennosides 8.6 Mg Tablet) 8.6 mg PO BID [facility] Last Admin: 03/27/22 07:49 Dose: 8.6 mg Sodium Chloride (0.9 % Sodium Chloride Flush 3 Ml Syringe) 3 ml IVFLUSH QSHIFT [facility] Last Admin: 03/26/22 20:42 Dose: 3 ml Home Medications Medication Instructions Recorded Confirmed Type sennosides 8.6 mg tablet (senna) 8.6 mg PO BEDTIME PRN Constipation 03/23/22 03/23/22 History Allergies Allergy/AdvReac Type Severity Reaction Status Date / Time No Known Allergies Allergy Verified 03/23/22 13:29 [No Known Allergies*] Physical Exam Vital signs: Vital Signs Temp 97.8 F 03/27/22 07:51 Pulse 94 03/27/22 07:51 Resp 17 03/27/22 07:51 BP 90/77 03/27/22 07:51 Pulse Ox 99 03/27/22 07:51 O2 Del Method 03/27/22 07:51 Intake & Output 03/26/22 03/27/22 03/27/22 18:59 06:59 18:59 Intake Total 140 / 380 240 / 380 Output Total 0 / 0 Balance 140 / 380 240 / 380 Urine Output (Average ml/kg/hr) 0.00 0.00 0.00 Intake: Intake, Oral Amount 140 / 380 240 / 380 Output: Output, Urine Amount 0 / 0 Other: Dinner % Eaten 75% Number of Unmeasured Voids 2 1 Urine Color Yellow Last Bowel Movement 03/23/22 03/20/22 Weight 61.235 kg Hem/Onc Consult Result - Labs CBC & Chem 7: 03/27/22 06:56 03/27/22 06:56 Labs: Short CBC 03/27/22 Range/Units 06:56 WBC 6.4 (4.8-10.8) X10*3/uL Hgb 13.0 L (14.0-18.0) g/dl Hct 38.0 L (42.0-52.0) % Plt Count 247 (160-400) X10*3/uL BMP 03/27/22 06:56 Sodium 137 Potassium 4.6 Chloride 101 Carbon Dioxide 24 BUN 11 Creatinine 0.79 Calcium 9.6 Assessment and Plan Patient Active problem list reviewed?: Yes (1) Rectal carcinoid tumor Status: Acute Assessment and plan: 1. This is a 61-year-old male with a somewhat complicated medical history in the last few months as detailed in HPI, now diagnosed with neuroendocrine tumor of the rectum in March 2022. Workup for persistent abdominal pain revealed incidental finding of rectal polyp with neuroendocrine features. Pathology revealed well-differentiated neuroendocrine tumor, grade 1, 4 mm involving mucosa, muscularis mucosa and submucosa, present at the cauterized polyp base with positive margins. Ki 67 labeling index less than 3% and mitotic rate 0. Lymphovascular invasion not identified. Patient has a small tumor without any high-risk features such tumor size greater than 1 cm, high mitotic rate or lymphovascular invasion. Therefore, it is very less likely to have metastasized to regional lymph nodes. However patient must undergo further evaluation with transrectal endoscopic ultrasound and further surgical management such as endoscopic mucosal resection or trans anal surgical resection depending on endoscopic findings. There is generally no role of adjuvant systemic therapy. Patient has had multiple imaging studies which has not shown any evidence of metastasis. I thank you for this consultation. - Time Spent With Patient Time Spent with Patient (in minutes): 20
--- NOTE | 2022-03-27 10:40 | HO.PM.IMPN ---
Subjective Subjective Date of Service: 03/27/22 Review of Systems follow-up epigastric pain, diarrhea Still with epigastric pain but better, reports constipation Taking some fluids, stating that he is hungry Physical Exam Vital Signs: Vital Signs: Last Vital Signs Temp 97.8 F 03/27/22 07:51 Pulse 94 03/27/22 07:51 Resp 17 03/27/22 07:51 BP 90/77 03/27/22 07:51 Pulse Ox 99 03/27/22 07:51 O2 Del Method 03/27/22 07:51 BMI result Body Mass Index 19.3 Appearing in no acute distress lung sounds are clear to auscultation heart regular rate rhythm, clear S1, S2 positive bowel sounds, abdomen is soft, nontender neuro patient is alert x3, no focal deficits Objective Data Active Medications Acetaminophen (Acetaminophen 325 Mg Tablet) 650 mg PO Q6H PRN PRN Reason: Pain, Mild (Pain Scale 1-3) Last Admin: 03/27/22 03:38 Dose: 650 mg Documented By: JENNIFER Amoxicillin (Amoxicillin 250 Mg Capsule) 750 mg PO Q8H [facility] Stop: 04/08/22 16:29 Last Admin: 03/27/22 08:02 Dose: 750 mg Documented By: JARED Docusate Sodium (Docusate Sodium 100 Mg Capsule) 100 mg PO DAILY PRN PRN Reason: Constipation Last Admin: 03/26/22 16:39 Dose: 100 mg Documented By: BISHOP Levofloxacin (Levofloxacin 500 Mg Tablet) 500 mg PO Q24H [facility] Stop: 04/08/22 16:29 Last Admin: 03/26/22 16:40 Dose: 500 mg Documented By: BISHOP Morphine Sulfate (Morphine Sulfate 2 Mg/Ml Cartridge) 2 mg IVPUSH Q4H PRN; Protocol PRN Reason: Pain, Severe (Pain Scale 7-10) Last Admin: 03/26/22 00:38 Dose: 2 mg Documented By: HUGH Omeprazole (Omeprazole 40 Mg Capsule.) 40 mg PO BID@0630,1630 [facility] Last Admin: 03/27/22 08:02 Dose: 40 mg Documented By: JARED Ondansetron HCl (Ondansetron Hcl 4 Mg/2 Ml Vial) 4 mg IVPUSH Q8H PRN PRN Reason: Nausea and Vomiting Last Admin: 03/24/22 22:04 Dose: 4 mg Documented By: ARCHIE Pharmacy Consult (Consult Rx Perform Med Rec) 1 each MISCELLANE ONCE PRN PRN Reason: Consult order Pharmacy Consult (Consult Rx Perform Med Rec) 1 each MISCELLANE ONCE PRN PRN Reason: Consult order Polyethylene Glycol (Polyethylene Glycol 3350 17 Gm Powd.Pack) 17 gm PO BID [facility] Last Admin: 03/27/22 07:48 Dose: 17 gm Documented By: JARED Senna (Sennosides 8.6 Mg Tablet) 8.6 mg PO BEDTIME PRN PRN Reason: Constipation Senna (Sennosides 8.6 Mg Tablet) 8.6 mg PO BID [facility] Last Admin: 03/27/22 07:49 Dose: 8.6 mg Documented By: JARED Sodium Chloride (0.9 % Sodium Chloride Flush 3 Ml Syringe) 3 ml IVFLUSH QSHIFT [facility] Last Admin: 03/26/22 20:42 Dose: 3 ml Documented By: ANTOIC Labs CBC & Chem 7: 03/27/22 06:56 03/27/22 06:56 Labs: Laboratory Results - last 24 hr 03/27/22 03/27/22 06:56 06:56 MCV 88.2 MCH 30.2 MCHC 34.2 RDW 13.3 Plt Count 247 MPV 9.0 L Immature Gran % (Auto) 0.2 Neut % (Auto) 59.3 Lymph % (Auto) 29.0 [place] % (Auto) 10.1 Eos % (Auto) 1.1 Baso % (Auto) 0.3 Lymph # (Auto) 1.9 [place] # (Auto) 0.7 Eos # (Auto) 0.1 Baso # (Auto) 0.0 Abs Immat Gran (auto) 0.01 Absolute Neuts (auto) 3.8 Absolute Nucleated RBC 0.000 Nucleated RBC % (auto) 0.0 Anion Gap 17 Estim Creat Clear Calc 87.2 Estimated GFR > 60 Random Glucose 105 Calcium 9.6 Assessment and Plan (1) Neuroendocrine neoplasm of colon: Status: Acute (2) Gastritis, Helicobacter pylori: Status: Acute (3) Intractable abdominal pain: Status: Acute Plan 61-year-old male with chronic abdominal pain who presents to the emergency department after syncopal event Syncope. No further episodes Likely secondary to orthostatic hypotension in the setting of volume depletion, decreased oral intake Systolic blood pressure in the 80s upon arrival, improved with IV fluids, no further episodes noted EKG with no ischemic changes, trop negative Chronic abdominal pain secondary to peptic ulcer disease due to untreated H pylori recent EGD/ colonoscopy /gastric biopsy revealed chronic H pylori gastritis negative for intestinal metaplasia or dysplasia and neuroendocrine tumor Unremarkable abdominal CTA, no bowel ischemia noted IV PPI b.i.d for severe gastritis initially recommend CTA of abdomen to rule out small-bowel ischemia> negative/ unremarkable advance diet as tolerated, change to regular bland diet today treatment initiated for H pylori with levofloxacin 500 mg daily, amoxicillin 750 mg every 8 hours, omeprazole 40 mg twice daily. Total treatment 14 days Neuroendocrine tumor Plan for rectal endoscopic ultrasound for at [facility] Constipation continue MiraLax BID add senna moderate protein calorie malnutrition 30 lb weight loss in past 3 months nutrition consult nutritional supplements/Ensure Clear DVT prophylaxis-mechanical devices Attending Dr. Lee Full code patient requires ongoing inpatient hospitalization for workup of intractable abdominal pain necessitating multiple specialist consultations and IV pain medication Quality Stroke Does the patient have a stroke diagnosis?: No VTE Prior VTE?: No VTE Risk Level:: Medical - moderate - high VTE Device Contraindication: N/A - Device Ordered VTE Drug Contraindication: Treatment Not Indicated
--- NOTE | 2022-03-27 12:19 | MHC.CM.PN ---
Per ROUNDS discussion, Patient is not yet medically cleared for dc (being changed to regular diet today); home is the goal and CM will continue to follow.
[2022-03-27] MEDS: levoFLOXacin 500 MG TABLET PO (16:43)
--- NOTE | 2022-03-27 20:35 | PC.NURSE ---
Was able to educate pt about IV access- pt allowed RN to put 20g IV R AC
[2022-03-27] MEDS: Lactated Ringers 1,000 ML 999 ML IV ×2 (21:18→22:30)
--- NOTE | 2022-03-27 21:25 | PM.EVENT ---
Event Note Date of Service: 03/27/22 Event Note: pt orthostatic vitals sig positive with symptoms. will give bolus fluid and start on fluids
--- NOTE | 2022-03-27 22:36 | PC.NURSE ---
At 2100 pt stated that he was dizzy, especially after when he got up to use bathroom. BP manual was 9260. MD notified. Orthos BP were supine 99/63 sitting 71/44 standing 55/36 MD notified of results. 1L LR ordered and admin Recheck BP supine 112/76 laying 99/70 Pt states still dizzy, especialyl when sits up feeling flushed all over MD instructed to give second bolus of LR and then run at 100m/hr Second bolus running at this time. Will report to [facility] [place]
[2022-03-28 03:38] VITALS: BP 129/83; PULSE 83; RESP 16; TEMP 36.8; O2SAT 100
[2022-03-28] MEDS: Lactated Ringers 1,000 ML 100 ML IVCONT ×3 (03:44→17:31)
[2022-03-28] MEDS: Omeprazole 40 MG CAPSULE.DR PO ×2 (05:26→17:26)
[2022-03-28 07:56] VITALS: BP 126/88; PULSE 72; RESP 18; TEMP 36; O2SAT 100
--- NOTE | 2022-03-28 10:18 | P.PNIM_ITS ---
Subjective Subjective Date of Service: 03/28/22 Review of Systems follow-up epigastric pain, diarrhea Still with epigastric pain but better, reports constipation Taking some fluids, stating that he is hungry Physical Exam Vital Signs: Vital Signs: Last Vital Signs Temp 96.8 F 03/28/22 07:56 Pulse 72 03/28/22 07:56 Resp 18 03/28/22 07:56 BP 126/88 03/28/22 07:56 Pulse Ox 100 03/28/22 07:56 O2 Del Method 03/28/22 07:56 BMI result Body Mass Index 19.3 Appearing in no acute distress lung sounds are clear to auscultation heart regular rate rhythm, clear S1, S2 positive bowel sounds, abdomen is soft, nontender neuro patient is alert x3, no focal deficits Objective Data Active Medications Acetaminophen (Acetaminophen 325 Mg Tablet) 650 mg PO Q6H PRN PRN Reason: Pain, Mild (Pain Scale 1-3) Last Admin: 03/27/22 03:38 Dose: 650 mg Documented By: JENNIFER Amoxicillin (Amoxicillin 250 Mg Capsule) 750 mg PO Q8H [facility] Stop: 04/08/22 16:29 Last Admin: 03/28/22 00:19 Dose: 750 mg Documented By: AKIL Docusate Sodium (Docusate Sodium 100 Mg Capsule) 100 mg PO DAILY PRN PRN Reason: Constipation Last Admin: 03/26/22 16:39 Dose: 100 mg Documented By: BISHOP Lactated Ringer's (Lr) 1,000 mls @ 100 mls/hr IVCONT .Q10H [facility] Last Admin: 03/28/22 03:44 Dose: 100 mls/hr Documented By: AKIL Levofloxacin (Levofloxacin 500 Mg Tablet) 500 mg PO Q24H [facility] Stop: 04/08/22 16:29 Last Admin: 03/27/22 16:43 Dose: 500 mg Documented By: JARED Morphine Sulfate (Morphine Sulfate 2 Mg/Ml Cartridge) 2 mg IVPUSH Q4H PRN; Protocol PRN Reason: Pain, Severe (Pain Scale 7-10) Last Admin: 03/26/22 00:38 Dose: 2 mg Documented By: HUGH Omeprazole (Omeprazole 40 Mg [place].) 40 mg PO BID@0630,1630 [facility] Last Admin: 03/28/22 05:26 Dose: 40 mg Documented By: AKIL Ondansetron HCl (Ondansetron Hcl 4 Mg/2 Ml Vial) 4 mg IVPUSH Q8H PRN PRN Reason: Nausea and Vomiting Last Admin: 03/24/22 22:04 Dose: 4 mg Documented By: ARCHIE Pharmacy Consult (Consult Rx Perform Med Rec) 1 each MISCELLANE ONCE PRN PRN Reason: Consult order Pharmacy Consult (Consult Rx Perform Med Rec) 1 each MISCELLANE ONCE PRN PRN Reason: Consult order Polyethylene Glycol (Polyethylene Glycol 3350 17 Gm Powd.Pack) 17 gm PO BID [facility] Last Admin: 03/27/22 20:13 Dose: 17 gm Documented By: AMELIE Senna (Sennosides 8.6 Mg Tablet) 8.6 mg PO BEDTIME PRN PRN Reason: Constipation Senna (Sennosides 8.6 Mg Tablet) 8.6 mg PO BID [facility] Last Admin: 03/27/22 20:13 Dose: 8.6 mg Documented By: AMELIE Sodium Chloride (0.9 % Sodium Chloride Flush 3 Ml Syringe) 3 ml IVFLUSH QSHIFT [facility] Last Admin: 03/28/22 00:19 Dose: Not Given Documented By: AKIL Non-Admin Reason: IV Running Labs CBC & Chem 7: 03/27/22 06:56 03/27/22 06:56 Assessment and Plan (1) Neuroendocrine neoplasm of colon: Status: Acute (2) Gastritis, Helicobacter pylori: Status: Acute (3) Intractable abdominal pain: Status: Acute Plan 61-year-old male with chronic abdominal pain who presents to the emergency department after syncopal event Dizziness Likely secondary to hypotension Blood pressure overnight was as low as 55/36, improved significantly with IV fluids This morning received 1 L IV fluid bolus 1 dose trial of meclizine, will follow-up for improvement of dizziness Syncope. No further episodes Likely secondary to orthostatic hypotension in the setting of volume depletion, decreased oral intake Systolic blood pressure in the 80s upon arrival, improved with IV fluids, no further episodes noted EKG with no ischemic changes, trop negative Chronic abdominal pain secondary to peptic ulcer disease due to untreated H pylori Pain improving slowly Unremarkable abdominal CTA, no bowel ischemia noted Diet advanced to bland, patient doing well treatment initiated for H pylori with levofloxacin 500 mg daily, amoxicillin 750 mg every 8 hours, omeprazole 40 mg twice daily. Total treatment 14 days Neuroendocrine tumor recent EGD/ colonoscopy /gastric biopsy revealed chronic H pylori gastritis negative for intestinal metaplasia or dysplasia and neuroendocrine tumor Plan for rectal endoscopic ultrasound for at [facility] [place] [place] Constipation. Resolved Had bowel movement last night continue MiraLax BID and senna moderate protein calorie malnutrition 30 lb weight loss in past 3 months nutrition consult nutritional supplements/Ensure Clear DVT prophylaxis-mechanical devices Attending Dr. Lee Full code Disposition. Seems to be doing better with eating, possible discharge home tomorrow patient requires ongoing inpatient hospitalization for workup of intractable abdominal pain necessitating multiple specialist consultations and IV pain medication Quality Stroke Does the patient have a stroke diagnosis?: No VTE Prior VTE?: No VTE Risk Level:: Medical - moderate - high VTE Device Contraindication: N/A - Device Ordered VTE Drug Contraindication: Treatment Not Indicated
[2022-03-28] MEDS: Sennosides 8.6 MG TABLET PO (10:33)
[2022-03-28] MEDS: Meclizine HCl 25 MG TABLET PO (10:34)
[2022-03-28] MEDS: polyethylene glycoL 3350 17 GM POWD.PACK PO (10:42)
[2022-03-28 11:30] VITALS: BP 123/85; PULSE 78; RESP 18; TEMP 36.4; O2SAT 100
[2022-03-28] MEDS: Lactated Ringers 500 ML 999 ML IV (12:55)
[2022-03-28 16:00] VITALS: BP 121/83; PULSE 87; RESP 18; TEMP 36.8; O2SAT 99
[2022-03-28] MEDS: levoFLOXacin 500 MG TABLET PO (17:26)
[2022-03-28] MEDS: Acetaminophen 325 MG TABLET 650 MG PO (17:26)
[2022-03-28] MEDS: oxyCODONE HCl Immed Release 5 MG TABLET PO ×2 (17:27→22:00)
[2022-03-28 18:58] LABS: OBS Int Ctl Valid YES; OBS1 NEGATIVE (NEGATIVE)
[2022-03-28 19:44] VITALS: BP 139/94; PULSE 87; RESP 17; TEMP 35.8; O2SAT 99
[2022-03-28 23:41] VITALS: BP 110/76; PULSE 86; RESP 16; TEMP 36.7; O2SAT 98
[2022-03-29] VITALS (9 sets, daily range): BP systolic 74–144; BP diastolic 56–96; PULSE 75–140; RESP 16–20; TEMP 36.3–37.1; O2SAT 97–100
[2022-03-29] MEDS: Lactated Ringers 1,000 ML 100 ML IVCONT ×2 (01:35→08:54)
[2022-03-29] MEDS: oxyCODONE HCl Immed Release 5 MG TABLET PO (06:35)
[2022-03-29] MEDS: Omeprazole 40 MG CAPSULE.DR PO ×2 (06:35→16:26)
[2022-03-29] MEDS: Sennosides 8.6 MG TABLET PO ×2 (08:52→20:26)
[2022-03-29] MEDS: 0.9 % Sodium Chloride Flush 3 ML SYRINGE IVFLUSH ×2 (08:52→16:26)
--- NOTE | 2022-03-29 12:22 | MHC.CM.PN ---
Male 61 DX Dizziness continues w ss. He received fluids for c/o feeling dizzy. DP home no services. He will arrange for transportation home.
--- NOTE | 2022-03-29 14:39 | P.PNIM_ITS ---
Subjective Subjective Date of Service: 03/29/22 Interval History: This history was taken in [place] from the patient. Still lightheaded and c/o epigastric pain. BP improved Tolerating diet Review of Systems Review of Systems: Yes all other systems are reviewed and are negative Physical Exam Vital Signs: Vital Signs: Last Vital Signs Temp 97.3 F 03/29/22 11:16 Pulse 87 03/29/22 11:16 Resp 19 03/29/22 11:16 BP 98/85 03/29/22 11:16 Pulse Ox 99 03/29/22 11:16 O2 Del Method 03/29/22 11:16 BMI result Body Mass Index 19.3 Gen: in no acute distress HEENT: sclera anicteric, moist mucus membranes Neck: supple Lungs: clear to auscultation bilaterally Heart: regular rate and rhythm, no murmurs Abd: soft, epigastric tenderness without rebound/guarding, non-distended Ext: no edema Skin: warm/well-perfused Neuro: alert and oriented x3, no focal findings Psych: appropriate affect Objective Data Active Medications Acetaminophen (Acetaminophen 325 Mg Tablet) 650 mg PO Q6H PRN PRN Reason: Pain, Mild (Pain Scale 1-3) Last Admin: 03/28/22 17:26 Dose: 650 mg Documented By: JARED Amoxicillin (Amoxicillin 250 Mg Capsule) 750 mg PO Q8H [facility] Stop: 04/08/22 16:29 Last Admin: 03/29/22 08:52 Dose: 750 mg Documented By: ANÍBAL Docusate Sodium (Docusate Sodium 100 Mg Capsule) 100 mg PO DAILY PRN PRN Reason: Constipation Last Admin: 03/26/22 16:39 Dose: 100 mg Documented By: BISHOP Lactated Ringer's (Lr) 1,000 mls @ 150 mls/hr IVCONT .Q6H40M [facility] Last Admin: 03/29/22 08:54 Dose: 100 mls/hr Documented By: ANÍBAL Levofloxacin (Levofloxacin 500 Mg Tablet) 500 mg PO Q24H [facility] Stop: 04/08/22 16:29 Last Admin: 03/28/22 17:26 Dose: 500 mg Documented By: JARED Omeprazole (Omeprazole 40 Mg [place].) 40 mg PO BID@0630,1630 [facility] Last Admin: 03/29/22 06:35 Dose: 40 mg Documented By: JOVANY Ondansetron HCl (Ondansetron Hcl 4 Mg/2 Ml Vial) 4 mg IVPUSH Q8H PRN PRN Reason: Nausea and Vomiting Last Admin: 03/24/22 22:04 Dose: 4 mg Documented By: ARCHIE Oxycodone HCl (Oxycodone Hcl Immed Release 5 Mg Tablet) 5 mg PO Q4H PRN PRN Reason: Pain, Moderate (Pain Scale 4-6 Last Admin: 03/29/22 06:35 Dose: 5 mg Documented By: JOVANY Pharmacy Consult (Consult Rx Perform Med Rec) 1 each MISCELLANE ONCE PRN PRN Reason: Consult order Pharmacy Consult (Consult Rx Perform Med Rec) 1 each MISCELLANE ONCE PRN PRN Reason: Consult order Polyethylene Glycol (Polyethylene Glycol 3350 17 Gm Powd.Pack) 17 gm PO BID [facility] Last Admin: 03/29/22 08:56 Dose: Not Given Documented By: ANÍBAL Non-Admin Reason: diarrhea Senna (Sennosides 8.6 Mg Tablet) 8.6 mg PO BEDTIME PRN PRN Reason: Constipation Senna (Sennosides 8.6 Mg Tablet) 8.6 mg PO BID [facility] Last Admin: 03/29/22 08:52 Dose: 8.6 mg Documented By: ANÍBAL Sodium Chloride (0.9 % Sodium Chloride Flush 3 Ml Syringe) 3 ml IVFLUSH QSHIFT [facility] Last Admin: 03/29/22 08:52 Dose: 3 ml Documented By: ANÍBAL Labs CBC & Chem 7: 03/27/22 06:56 03/27/22 06:56 Labs: Laboratory Results - last 24 hr 03/28/22 03/28/22 17:45 17:45 Stool Collect Date Cancelled Stool Occult Blood Cancelled NEGATIVE Stool 2 Collect Date Cancelled Stool Occult Blood #2 Cancelled Stool 3 Collect Date Cancelled Stool Occult Blood #3 Cancelled Assessment and Plan (1) Neuroendocrine neoplasm of colon: Status: Acute (2) Intractable abdominal pain: Status: Acute Plan hospital d#6 61yo M with chronic abd pain, recently diagnosed neuroendocrine/carcinoid tumor and PUD due to H pylori [diagnosed 03/07/22], admitted after syncope # syncope # orthostatic hypotension - improved with IV fluids- continue, monitor BP, recheck orthostatics # PUD # H pylori infection - d#12/17 of levofloxacin/amoxicillin/omeprazole # neuroendocrine tumor - referral to [facility] as outpt for rectal endoscopic US # constipation - continue bowel regimen # moderate protein-calorie malnutrition - 30 lb weight loss in past 3 mo - continue nutritional supplements # VTE ppx: SCDs In my clinical judgment, the patient requires continued hospitalization for the following reasons: orthostatic hypotension Quality Stroke Does the patient have a stroke diagnosis?: No VTE Prior VTE?: No VTE Risk Level:: Medical - moderate - high VTE Device Contraindication: N/A - Device Ordered VTE Drug Contraindication: Treatment Not Indicated
[2022-03-29] MEDS: levoFLOXacin 500 MG TABLET PO (16:25)
[2022-03-29] MEDS: Lactated Ringers 1,000 ML 999 ML IV (17:18)
[2022-03-29] MEDS: Lactated Ringers 1,000 ML 150 ML IVCONT (18:14)
--- NOTE | 2022-03-29 20:17 | MHC.CLN ---
F/U DIET=REGULAR, BLAND. ENSURE TID PROVIDES ADDITIONAL 1050 KCALS, 60 G PROTEIN. INTAKE USUALLY 50-75%. CONTINUE TO FOLLOW FOR INTAKE AND WEIGHTS.
[2022-03-29] MEDS: polyethylene glycoL 3350 17 GM POWD.PACK PO (20:27)
--- NOTE | 2022-03-29 23:18 | PC.NURSE ---
pt wants IV Fluids paused he noted he doesn't feel like it's helping just making him pee alot.
[2022-03-30] VITALS (9 sets, daily range): BP systolic 52–126; BP diastolic 40–88; PULSE 78–114; RESP 16–20; TEMP 36.2–37.1; O2SAT 95–100
[2022-03-30] MEDS: Omeprazole 40 MG CAPSULE.DR PO ×2 (06:13→15:47)
--- NOTE | 2022-03-30 06:14 | PC.NURSE ---
pt educated on the importance the IVF ordered, pt continues to refuse
[2022-03-30] MEDS: Sennosides 8.6 MG TABLET PO ×2 (10:20→22:09)
[2022-03-30] MEDS: 0.9 % Sodium Chloride Flush 3 ML SYRINGE IVFLUSH (10:20)
[2022-03-30] MEDS: 0.9 % Sodium Chloride 1,000 ML 100 ML IVCONT ×2 (10:51→22:09)
[2022-03-30] MEDS: Midodrine HCl 5 MG TABLET PO ×3 (10:51→22:09)
--- NOTE | 2022-03-30 11:37 | P.PNIM_ITS ---
Subjective Subjective Date of Service: 03/30/22 Interval History: Still dizzy/lightheaded and orthostatic markedly positive: 108/67, 70/48, 52/40 Epigastric discomfort Review of Systems Review of Systems: Yes all other systems are reviewed and are negative Physical Exam Vital Signs: Vital Signs: Last Vital Signs Temp 97.2 F 03/30/22 10:40 Pulse 114 H 03/30/22 11:13 Resp 18 03/30/22 10:40 BP 87/57 L 03/30/22 11:13 Pulse Ox 95 03/30/22 11:13 O2 Del Method 03/30/22 10:40 BMI result Body Mass Index 19.3 Gen: in no acute distress HEENT: sclera anicteric, moist mucus membranes Neck: supple Lungs: clear to auscultation bilaterally Heart: regular rate and rhythm, no murmurs Abd: soft, epigastric tenderness without rebound/guarding, non-distended Ext: no edema Skin: warm/well-perfused Neuro: alert and oriented x3, no focal findings Psych: appropriate affect Objective Data Active Medications Acetaminophen (Acetaminophen 325 Mg Tablet) 650 mg PO Q6H PRN PRN Reason: Pain, Mild (Pain Scale 1-3) Last Admin: 03/28/22 17:26 Dose: 650 mg Documented By: JARED Amoxicillin (Amoxicillin 250 Mg Capsule) 750 mg PO Q8H [facility] Stop: 04/08/22 16:29 Last Admin: 03/30/22 10:20 Dose: 750 mg Documented By: MICAH Docusate Sodium (Docusate Sodium 100 Mg Capsule) 100 mg PO DAILY PRN PRN Reason: Constipation Last Admin: 03/26/22 16:39 Dose: 100 mg Documented By: BISHOP Sodium Chloride (Ns) 1,000 mls @ 100 mls/hr IVCONT .Q10H [facility] Last Admin: 03/30/22 10:51 Dose: 100 mls/hr Documented By: MICAH Levofloxacin (Levofloxacin 500 Mg Tablet) 500 mg PO Q24H [facility] Stop: 04/08/22 16:29 Last Admin: 03/29/22 16:25 Dose: 500 mg Documented By: DAKOTA Midodrine (Midodrine Hcl 5 Mg Tablet) 5 mg PO TID [facility] Last Admin: 03/30/22 10:51 Dose: 5 mg Documented By: MICAH Omeprazole (Omeprazole 40 Mg Capsule.Dr) 40 mg PO BID@0630,1630 [facility] Last Admin: 03/30/22 06:13 Dose: 40 mg Documented By: AMAN Ondansetron HCl (Ondansetron Hcl 4 Mg/2 Ml Vial) 4 mg IVPUSH Q8H PRN PRN Reason: Nausea and Vomiting Last Admin: 03/24/22 22:04 Dose: 4 mg Documented By: ARCHIE Oxycodone HCl (Oxycodone Hcl Immed Release 5 Mg Tablet) 5 mg PO Q4H PRN PRN Reason: Pain, Moderate (Pain Scale 4-6 Last Admin: 03/29/22 06:35 Dose: 5 mg Documented By: JOVANY Pharmacy Consult (Consult Rx Perform Med Rec) 1 each MISCELLANE ONCE PRN PRN Reason: Consult order Pharmacy Consult (Consult Rx Perform Med Rec) 1 each MISCELLANE ONCE PRN PRN Reason: Consult order Polyethylene Glycol (Polyethylene Glycol 3350 17 Gm Powd.Pack) 17 gm PO BID [facility] Last Admin: 03/30/22 10:22 Dose: Not Given Documented By: MICAH Non-Admin Reason: Patient Refused Senna (Sennosides 8.6 Mg Tablet) 8.6 mg PO BEDTIME PRN PRN Reason: Constipation Senna (Sennosides 8.6 Mg Tablet) 8.6 mg PO BID [facility] Last Admin: 03/30/22 10:20 Dose: 8.6 mg Documented By: MICAH Sodium Chloride (0.9 % Sodium Chloride Flush 3 Ml Syringe) 3 ml IVFLUSH QSHIFT [facility] Last Admin: 03/30/22 10:20 Dose: 3 ml Documented By: MICAH Labs CBC & Chem 7: 03/27/22 06:56 03/27/22 06:56 Assessment and Plan (1) Neuroendocrine neoplasm of colon: Status: Acute (2) Intractable abdominal pain: Status: Acute Plan hospital d#7 61yo M with chronic abd pain, recently diagnosed neuroendocrine/carcinoid tumor and PUD due to H pylori [diagnosed 03/07/22], admitted after syncope # syncope # orthostatic hypotension - continue IV fluids, start midodrine, repeat orthostatics in AM # PUD # H pylori infection - d#01/17 of levofloxacin/amoxicillin/omeprazole # neuroendocrine tumor of rectum - referral to [facility] as outpt for rectal endoscopic US # constipation - continue bowel regimen # moderate protein-calorie malnutrition - 30 lb weight loss in past 3 mo - continue nutritional supplements # VTE ppx: SCDs In my clinical judgment, the patient requires continued hospitalization for the following reasons: orthostatic hypotension Quality Stroke Does the patient have a stroke diagnosis?: No VTE Prior VTE?: No VTE Risk Level:: Medical - moderate - high VTE Device Contraindication: N/A - Device Ordered VTE Drug Contraindication: Treatment Not Indicated
[2022-03-30] MEDS: levoFLOXacin 500 MG TABLET PO (15:47)
[2022-03-30] MEDS: polyethylene glycoL 3350 17 GM POWD.PACK PO (22:08)
[2022-03-31] VITALS (9 sets, daily range): BP systolic 87–158; BP diastolic 58–91; PULSE 76–115; RESP 16–20; TEMP 36–37.1; O2SAT 96–100
[2022-03-31] MEDS: Omeprazole 40 MG CAPSULE.DR PO ×2 (05:40→17:14)
[2022-03-31] MEDS: 0.9 % Sodium Chloride 1,000 ML 100 ML IVCONT ×2 (05:44→17:14)
[2022-03-31 06:33] LABS: Anion Gap 14 (12-20); Blood Urea Nitrogen 12 mg/dL (9-16); Calcium 9.1 mg/dL (8.4-10.2); Carbon Dioxide 26 mmol/L (22-29); Chloride 100 mmol/L (96-108); Creatinine Clr Calc Pharmacy 95.6; Estimated Glomerular Filt Rate > 60; Glucose Random 107 mg/dL (60-115); Potassium 4.4 mmol/L (3.3-5.1); Sodium 136 mmol/L (135-145)
[2022-03-31] MEDS: Midodrine HCl 5 MG TABLET PO (09:45)
[2022-03-31] MEDS: Sennosides 8.6 MG TABLET PO ×2 (09:45→22:12)
[2022-03-31] MEDS: polyethylene glycoL 3350 17 GM POWD.PACK PO ×2 (09:45→22:11)
--- NOTE | 2022-03-31 12:33 | P.PNIM_ITS ---
Subjective Subjective Date of Service: 03/31/22 Interval History: This history was taken in Kh[place] from the patient. Still very lightheaded with standing and BP dropped to 87/58 Ongoing abd discomfort Review of Systems Review of Systems: Yes all other systems are reviewed and are negative Physical Exam Vital Signs: Vital Signs: Last Vital Signs Temp 96.8 F 03/31/22 11:34 Pulse 93 03/31/22 11:34 Resp 18 03/31/22 11:34 BP 124/83 03/31/22 11:34 Pulse Ox 99 03/31/22 11:34 O2 Del Method 03/31/22 11:34 BMI result Body Mass Index 19.3 Gen: in no acute distress HEENT: sclera anicteric, moist mucus membranes Neck: supple Lungs: clear to auscultation bilaterally Heart: regular rate and rhythm, no murmurs Abd: soft, epigastric tenderness without rebound/guarding, non-distended Ext: no edema Skin: warm/well-perfused Neuro: alert and oriented x3, no focal findings Psych: appropriate affect Objective Data Active Medications Acetaminophen (Acetaminophen 325 Mg Tablet) 650 mg PO Q6H PRN PRN Reason: Pain, Mild (Pain Scale 1-3) Last Admin: 03/28/22 17:26 Dose: 650 mg Documented By: JARED Amoxicillin (Amoxicillin 250 Mg Capsule) 750 mg PO Q8H [facility] Stop: 04/08/22 16:29 Last Admin: 03/31/22 09:45 Dose: 750 mg Documented By: MICAH Docusate Sodium (Docusate Sodium 100 Mg Capsule) 100 mg PO DAILY PRN PRN Reason: Constipation Last Admin: 03/26/22 16:39 Dose: 100 mg Documented By: BISHOP Sodium Chloride (Ns) 1,000 mls @ 100 mls/hr IVCONT .Q10H [facility] Last Admin: 03/31/22 05:44 Dose: 100 mls/hr Documented By: ALICIA Levofloxacin (Levofloxacin 500 Mg Tablet) 500 mg PO Q24H [facility] Stop: 04/08/22 16:29 Last Admin: 03/30/22 15:47 Dose: 500 mg Documented By: MICAH Midodrine (Midodrine Hcl 2.5 Mg Tablet) 7.5 mg PO TID [facility] Omeprazole (Omeprazole 40 Mg Capsule.) 40 mg PO BID@0630,4720 [facility] Last Admin: 03/31/22 05:40 Dose: 40 mg Documented By: ALICIA Ondansetron HCl (Ondansetron Hcl 4 Mg/2 Ml Vial) 4 mg IVPUSH Q8H PRN PRN Reason: Nausea and Vomiting Last Admin: 03/24/22 22:04 Dose: 4 mg Documented By: ARCHIE Oxycodone HCl (Oxycodone Hcl Immed Release 5 Mg Tablet) 5 mg PO Q4H PRN PRN Reason: Pain, Moderate (Pain Scale 4-6 Last Admin: 03/29/22 06:35 Dose: 5 mg Documented By: JOVANY Pharmacy Consult (Consult Rx Perform Med Rec) 1 each MISCELLANE ONCE PRN PRN Reason: Consult order Pharmacy Consult (Consult Rx Perform Med Rec) 1 each MISCELLANE ONCE PRN PRN Reason: Consult order Polyethylene Glycol (Polyethylene Glycol 3350 17 Gm Powd.Pack) 17 gm PO BID [facility] Last Admin: 03/31/22 09:45 Dose: 17 gm Documented By: MICAH Senna (Sennosides 8.6 Mg Tablet) 8.6 mg PO BEDTIME PRN PRN Reason: Constipation Senna (Sennosides 8.6 Mg Tablet) 8.6 mg PO BID [facility] Last Admin: 03/31/22 09:45 Dose: 8.6 mg Documented By: MICAH Sodium Chloride (0.9 % Sodium Chloride Flush 3 Ml Syringe) 3 ml IVFLUSH QSHIFT [facility] Last Admin: 03/31/22 09:46 Dose: Not Given Documented By: MICAH Non-Admin Reason: IV Running Sucralfate (Sucralfate 1 Gm Tablet) 1 gm PO QIDACHS [facility] Labs CBC & Chem 7: 03/27/22 06:56 03/31/22 05:48 Labs: Laboratory Results - last 24 hr 03/31/22 05:48 Anion Gap 14 Estim Creat Clear Calc 95.6 Estimated GFR > 60 Random Glucose 107 Calcium 9.1 Assessment and Plan (1) Neuroendocrine neoplasm of colon: Status: Acute (2) Intractable abdominal pain: Status: Acute Plan hospital d#8 61yo M with chronic abd pain, recently diagnosed neuroendocrine/carcinoid tumor and PUD due to H pylori [diagnosed 03/07/22], admitted after syncope # syncope # orthostatic hypotension - continue IV fluids, increase midodrine, repeat orthostatics in AM # PUD # H pylori infection - d#02/16 of levofloxacin/amoxicillin/omeprazole # chronic abd pain - GI to see pt again thisa fternoon # neuroendocrine tumor of rectum - GI suggests octreotide scan- will check with [place] - referral to [facility] as outpt for rectal endoscopic US # constipation - continue bowel regimen # moderate protein-calorie malnutrition - 30 lb weight loss in past 3 mo - continue nutritional supplements # VTE ppx: SCDs In my clinical judgment, the patient requires continued hospitalization for the following reasons: orthostatic hypotension Quality Stroke Does the patient have a stroke diagnosis?: No VTE Prior VTE?: No VTE Risk Level:: Medical - moderate - high VTE Device Contraindication: N/A - Device Ordered VTE Drug Contraindication: Treatment Not Indicated
--- NOTE | 2022-03-31 13:41 | MHC.CLN ---
F/U DIET=REGULAR, BLAND. ENSURE TID PROVIDES ADDITIONAL 1050 KCALS, 60 G PROTEIN. INTAKE USUALLY 50-75%. LABS REVIEWED. CONTINUE TO FOLLOW FOR INTAKE AND WEIGHTS.
[2022-03-31] MEDS: Sucralfate 1 GM TABLET PO ×3 (14:09→22:12)
[2022-03-31] MEDS: Midodrine HCl 2.5 MG TABLET 7.5 MG PO ×2 (14:09→22:11)
[2022-03-31] MEDS: Acetaminophen 325 MG TABLET 650 MG PO (14:13)
--- NOTE | 2022-03-31 16:14 | MHC.CM.PN ---
Male 61 No discharge today. GI scheduled to see patient. Midodrine dose increased for ss Orthostatic Hypotension. DP Home with family transportation.
[2022-03-31] MEDS: levoFLOXacin 500 MG TABLET PO (17:14)
[2022-03-31] MEDS: 0.9 % Sodium Chloride Flush 3 ML SYRINGE IVFLUSH (22:14)
[2022-04-01] VITALS (11 sets, daily range): BP systolic 94–141; BP diastolic 67–93; PULSE 72–122; RESP 17–24; TEMP 36.1–37; O2SAT 100
[2022-04-01] MEDS: diphenhydrAMINE HCL 25 MG TABLET PO ×2 (00:34→22:53)
[2022-04-01] MEDS: 0.9 % Sodium Chloride 1,000 ML 100 ML IVCONT ×2 (02:58→12:53)
[2022-04-01] MEDS: Omeprazole 40 MG CAPSULE.DR PO ×2 (05:57→15:49)
[2022-04-01 07:59] LABS: Cortisol Random 6.7 ug/dL
[2022-04-01] MEDS: Sucralfate 1 GM TABLET PO ×4 (09:57→22:40)
[2022-04-01] MEDS: Sennosides 8.6 MG TABLET PO ×2 (09:57→22:40)
[2022-04-01] MEDS: Midodrine HCl 2.5 MG TABLET 7.5 MG PO ×3 (09:57→22:39)
[2022-04-01] MEDS: polyethylene glycoL 3350 17 GM POWD.PACK PO ×2 (09:57→22:45)
--- NOTE | 2022-04-01 11:46 | HO.PM.IMPN ---
Subjective Subjective Date of Service: 04/01/22 Interval History: orthostatic VS improved now, BP 103/72 with standing c/o severe epigastric burning Review of Systems Review of Systems: Yes all other systems are reviewed and are negative Physical Exam Vital Signs: Vital Signs: Last Vital Signs Temp 98.3 F 04/01/22 07:41 Pulse 116 H 04/01/22 09:55 Resp 24 H 04/01/22 07:41 BP 103/72 04/01/22 09:55 Pulse Ox 100 04/01/22 07:41 O2 Del Method 04/01/22 07:41 BMI result Body Mass Index 19.3 Gen: in no acute distress HEENT: sclera anicteric, moist mucus membranes Neck: supple Lungs: clear to auscultation bilaterally Heart: regular rate and rhythm, no murmurs Abd: soft, epigastric tenderness without rebound/guarding, non-distended Ext: no edema Skin: warm/well-perfused Neuro: alert and oriented x3, no focal findings Psych: appropriate affect Objective Data Active Medications Acetaminophen (Acetaminophen 325 Mg Tablet) 650 mg PO Q6H PRN PRN Reason: Pain, Mild (Pain Scale 1-3) Last Admin: 03/31/22 14:13 Dose: 650 mg Documented By: MICAH Amoxicillin (Amoxicillin 250 Mg Capsule) 750 mg PO Q8H [facility] Stop: 04/08/22 16:29 Last Admin: 04/01/22 09:57 Dose: 750 mg Documented By: MYESHA Cosyntropin (Cosyntropin 0.25 Mg Vial) 0.25 mg IVPUSH ONCE ONE Stop: 04/02/22 08:01 Diphenhydramine HCl (Diphenhydramine Hcl 25 Mg Tablet) 25 mg PO Q6H PRN PRN Reason: itching Last Admin: 04/01/22 00:34 Dose: 25 mg Documented By: ALBERTO Docusate Sodium (Docusate Sodium 100 Mg Capsule) 100 mg PO DAILY PRN PRN Reason: Constipation Last Admin: 03/26/22 16:39 Dose: 100 mg Documented By: BISHOP Sodium Chloride (Ns) 1,000 mls @ 100 mls/hr IVCONT .Q10H [facility] Last Admin: 04/01/22 02:58 Dose: 100 mls/hr Documented By: ALBERTO Levofloxacin (Levofloxacin 500 Mg Tablet) 500 mg PO Q24H [facility] Stop: 04/08/22 16:29 Last Admin: 03/31/22 17:14 Dose: 500 mg Documented By: MICAH Midodrine (Midodrine Hcl 2.5 Mg Tablet) 7.5 mg PO TID [facility] Last Admin: 04/01/22 09:57 Dose: 7.5 mg Documented By: MYESHA Omeprazole (Omeprazole 40 Mg Capsule.Dr) 40 mg PO BID@0630,1630 [facility] Last Admin: 04/01/22 05:57 Dose: 40 mg Documented By: ALBERTO Ondansetron HCl (Ondansetron Hcl 4 Mg/2 Ml Vial) 4 mg IVPUSH Q8H PRN PRN Reason: Nausea and Vomiting Last Admin: 03/24/22 22:04 Dose: 4 mg Documented By: ARCHIE Oxycodone HCl (Oxycodone Hcl Immed Release 5 Mg Tablet) 5 mg PO Q4H PRN PRN Reason: Pain, Moderate (Pain Scale 4-6 Last Admin: 03/29/22 06:35 Dose: 5 mg Documented By: JOVANY Pharmacy Consult (Consult Rx Perform Med Rec) 1 each MISCELLANE ONCE PRN PRN Reason: Consult order Pharmacy Consult (Consult Rx Perform Med Rec) 1 each MISCELLANE ONCE PRN PRN Reason: Consult order Polyethylene Glycol (Polyethylene Glycol 3350 17 Gm Powd.Pack) 17 gm PO BID [facility] Last Admin: 04/01/22 09:57 Dose: 17 gm Documented By: MYESHA Senna (Sennosides 8.6 Mg Tablet) 8.6 mg PO BEDTIME PRN PRN Reason: Constipation Senna (Sennosides 8.6 Mg Tablet) 8.6 mg PO BID [facility] Last Admin: 04/01/22 09:57 Dose: 8.6 mg Documented By: MYESHA Sodium Chloride (0.9 % Sodium Chloride Flush 3 Ml Syringe) 3 ml IVFLUSH QSHIFT [facility] Last Admin: 04/01/22 09:55 Dose: Not Given Documented By: MYESHA Non-Admin Reason: IV Running Sucralfate (Sucralfate 1 Gm Tablet) 1 gm PO QIDACHS [facility] Last Admin: 04/01/22 09:57 Dose: 1 gm Documented By: MYESHA Labs CBC & Chem 7: 03/27/22 06:56 03/31/22 05:48 Labs: Laboratory Results - last 24 hr 04/01/22 06:11 Random Cortisol 6.7 Assessment and Plan (1) Neuroendocrine neoplasm of colon: Status: Acute (2) Intractable abdominal pain: Status: Acute Plan hospital d#9 61yo M with chronic abd pain, recently diagnosed neuroendocrine/carcinoid tumor and PUD due to H pylori [diagnosed 03/07/22], admitted after syncope # syncope # orthostatic hypotension - improved on midodrine - still unclear cause. with chronic abd pain and hx of elevated K, the possibility of adrenal insufficiency is raised. random AM cortisol indeterminate. will do formal ACTH stimulation test in AM # PUD # H pylori infection - d#03/19 of levofloxacin/amoxicillin/omeprazole # chronic abd pain - GI consulted, suggests workup for adrenal insufficiency # neuroendocrine tumor of rectum - referral to [facility] as outpt for rectal endoscopic US + octreotide scan # constipation - continue bowel regimen # moderate protein-calorie malnutrition - 30 lb weight loss in past 3 mo - continue nutritional supplements # VTE ppx: SCDs In my clinical judgment, the patient requires continued hospitalization for the following reasons: orthostatic hypotension, intractable abd pain Quality Stroke Does the patient have a stroke diagnosis?: No VTE Prior VTE?: No VTE Risk Level:: Medical - moderate - high VTE Device Contraindication: N/A - Device Ordered VTE Drug Contraindication: Treatment Not Indicated
[2022-04-01] MEDS: Lidocaine 4 % Patch ADH..PATCH 1 PATCH TRANSDERMA (12:09)
[2022-04-01 13:47] LABS: Chromogranin A 128 ng/mL (ADULTS: <311)
[2022-04-01] MEDS: levoFLOXacin 500 MG TABLET PO (15:49)
[2022-04-01] MEDS: 0.9 % Sodium Chloride Flush 3 ML SYRINGE IVFLUSH (15:49)
[2022-04-01] MEDS: Acetaminophen 325 MG TABLET 650 MG PO (15:51)
[2022-04-02] VITALS (11 sets, daily range): BP systolic 82–122; BP diastolic 51–81; PULSE 66–125; RESP 16–20; TEMP 36.1–37.4; O2SAT 96–100
[2022-04-02] MEDS: Omeprazole 40 MG CAPSULE.DR PO ×2 (05:33→16:35)
[2022-04-02] MEDS: Cosyntropin 0.25 MG VIAL IVPUSH (08:44)
[2022-04-02] MEDS: Midodrine HCl 2.5 MG TABLET 7.5 MG PO (08:45)
[2022-04-02] MEDS: Sucralfate 1 GM TABLET PO ×4 (08:45→19:31)
[2022-04-02] MEDS: Sennosides 8.6 MG TABLET PO ×2 (08:45→19:31)
[2022-04-02] MEDS: polyethylene glycoL 3350 17 GM POWD.PACK PO (08:46)
[2022-04-02] MEDS: 0.9 % Sodium Chloride Flush 3 ML SYRINGE IVFLUSH ×4 (08:46→19:52)
--- NOTE | 2022-04-02 10:35 | HO.PM.IMPN ---
Subjective Subjective Date of Service: 04/02/22 Interval History: This history was taken in Icelandic from the patient. BP dropped to 82/52 with standing c/o ongoing LUQ/epigastric burning no diarrhea Review of Systems Review of Systems: Yes all other systems are reviewed and are negative Physical Exam Vital Signs: Vital Signs: Last Vital Signs Temp 97.0 F 04/02/22 08:00 Pulse 125 H 04/02/22 08:53 Resp 20 04/02/22 08:00 BP 82/52 L 04/02/22 08:53 Pulse Ox 99 04/02/22 08:00 O2 Del Method 04/02/22 08:00 BMI result Body Mass Index 19.3 Gen: in no acute distress HEENT: sclera anicteric, moist mucus membranes Neck: supple Lungs: clear to auscultation bilaterally Heart: regular rate and rhythm, no murmurs Abd: soft, epigastric tenderness without rebound/guarding, non-distended Ext: no edema Skin: warm/well-perfused Neuro: alert and oriented x3, no focal findings Psych: appropriate affect Objective Data Active Medications Acetaminophen (Acetaminophen 325 Mg Tablet) 650 mg PO Q6H PRN PRN Reason: Pain, Mild (Pain Scale 1-3) Last Admin: 04/01/22 15:51 Dose: 650 mg Documented By: KRYSTYNA Amoxicillin (Amoxicillin 250 Mg Capsule) 750 mg PO Q8H [facility] Last Admin: 04/02/22 05:33 Dose: 750 mg Documented By: CATHERINE Diphenhydramine HCl (Diphenhydramine Hcl 25 Mg Tablet) 25 mg PO Q6H PRN PRN Reason: itching Last Admin: 04/01/22 22:53 Dose: 25 mg Documented By: CATHERINE Docusate Sodium (Docusate Sodium 100 Mg Capsule) 100 mg PO DAILY PRN PRN Reason: Constipation Last Admin: 03/26/22 16:39 Dose: 100 mg Documented By: BISHOP Levofloxacin (Levofloxacin 500 Mg Tablet) 500 mg PO Q24H [facility] Stop: 04/08/22 16:29 Last Admin: 04/01/22 15:49 Dose: 500 mg Documented By: KRYSTYNA Lidocaine (Lidocaine 4 % Patch Adh..Patch) 1 patch TRANSDERMA DAILY [facility]; Protocol Last Admin: 04/02/22 08:51 Dose: Not Given Documented By: ALFREDITO Non-Admin Reason: Patient Refused Midodrine (Midodrine Hcl 2.5 Mg Tablet) 7.5 mg PO TID [facility] Last Admin: 04/02/22 08:45 Dose: 7.5 mg Documented By: ALFREDITO Omeprazole (Omeprazole 40 Mg Capsule.Dr) 40 mg PO BID@0630,1630 [facility] Last Admin: 04/02/22 05:33 Dose: 40 mg Documented By: CATHERINE Ondansetron HCl (Ondansetron Hcl 4 Mg/2 Ml Vial) 4 mg IVPUSH Q8H PRN PRN Reason: Nausea and Vomiting Last Admin: 03/24/22 22:04 Dose: 4 mg Documented By: ARCHIE Pharmacy Consult (Consult Rx Perform Med Rec) 1 each MISCELLANE ONCE PRN PRN Reason: Consult order Pharmacy Consult (Consult Rx Perform Med Rec) 1 each MISCELLANE ONCE PRN PRN Reason: Consult order Polyethylene Glycol (Polyethylene Glycol 3350 17 Gm Powd.Pack) 17 gm PO BID [facility] Last Admin: 04/02/22 08:46 Dose: 17 gm Documented By: ALFREDITO Senna (Sennosides 8.6 Mg Tablet) 8.6 mg PO BEDTIME PRN PRN Reason: Constipation Senna (Sennosides 8.6 Mg Tablet) 8.6 mg PO BID [facility] Last Admin: 04/02/22 08:45 Dose: 8.6 mg Documented By: ALFREDITO Sodium Chloride (0.9 % Sodium Chloride Flush 3 Ml Syringe) 3 ml IVFLUSH QSHIFT [facility] Last Admin: 04/02/22 08:46 Dose: 3 ml Documented By: ALFREDITO Sucralfate (Sucralfate 1 Gm Tablet) 1 gm PO QIDACHS [facility] Last Admin: 04/02/22 08:45 Dose: 1 gm Documented By: ALFREDITO Labs CBC & Chem 7: 03/27/22 06:56 03/31/22 05:48 Labs: Laboratory Results - last 24 hr 03/24/22 06:15 Chromogranin A 128 Assessment and Plan (1) Neuroendocrine neoplasm of colon: Status: Acute (2) Intractable abdominal pain: Status: Acute Plan hospital d#10 61yo M with chronic abd pain, recently diagnosed neuroendocrine/carcinoid tumor and PUD due to H pylori [diagnosed on EGD/C-scope 03/07/22], admitted after syncope # syncope # orthostatic hypotension - will increase midodrine further to 10 mg tid - still unclear cause. with chronic abd pain and hx of elevated K, the possibility of adrenal insufficiency is raised. random AM cortisol indeterminate. formal ACTH stimulation test done this morning, f/u results # PUD # H pylori infection - d#04/19 of levofloxacin/amoxicillin/omeprazole # chronic abd pain - GI consulted, suggests workup for adrenal insufficiency # neuroendocrine tumor of rectum - referral to [facility] as outpt for rectal endoscopic US + octreotide scan. GI doubts this is causing his current symptoms # constipation - continue bowel regimen # moderate protein-calorie malnutrition - 30 lb weight loss in past 3 mo - continue nutritional supplements # VTE ppx: SCDs In my clinical judgment, the patient requires continued hospitalization for the following reasons: orthostatic hypotension, workup for adrenal insufficiency Quality Stroke Does the patient have a stroke diagnosis?: No VTE Prior VTE?: No VTE Risk Level:: Medical - moderate - high VTE Device Contraindication: N/A - Device Ordered VTE Drug Contraindication: Treatment Not Indicated
[2022-04-02] MEDS: Midodrine HCl 10 MG TABLET PO ×2 (14:14→19:30)
[2022-04-02] MEDS: levoFLOXacin 500 MG TABLET PO (16:35)
[2022-04-02] MEDS: 0.9 % Sodium Chloride 1,000 ML 125 ML IVCONT (18:37)
[2022-04-02] MEDS: Lactated Ringers 1,000 ML 999 ML IV (19:51)
[2022-04-02 20:39] LABS: Lactic Acid 1.3 mmol/L (0.5-2.0)
[2022-04-02] MEDS: Hydrocortisone 10 MG TABLET 50 MG PO (21:47)
[2022-04-03] VITALS (11 sets, daily range): BP systolic 60–122; BP diastolic 43–81; PULSE 78–122; RESP 16–20; TEMP 36.4–37.8; O2SAT 97–99
[2022-04-03] MEDS: Omeprazole 40 MG CAPSULE.DR PO ×2 (05:46→16:33)
[2022-04-03 06:32] LABS: TSH reflex Free T4 1.35 uIU/mL (0.32-4.0)
[2022-04-03] MEDS: 0.9 % Sodium Chloride Flush 3 ML SYRINGE IVFLUSH ×3 (08:26→21:47)
[2022-04-03] MEDS: Sucralfate 1 GM TABLET PO ×4 (08:26→21:46)
[2022-04-03] MEDS: Sennosides 8.6 MG TABLET PO (08:27)
[2022-04-03] MEDS: Midodrine HCl 10 MG TABLET PO ×3 (08:27→21:46)
[2022-04-03] MEDS: Hydrocortisone 10 MG TABLET 50 MG PO (08:27)
[2022-04-03 10:26] LABS: Cortisol 30 Minute 28.9 mcg/dL; Cortisol Baseline 11.8 mcg/dL
--- NOTE | 2022-04-03 11:27 | MHC.CM.PN ---
Male 61 DX Dizziness The patient continues to be worked up for dizziness r/t orthostatic hypotension. The focus is on Adrenal insufficiency. DP home no services. Patient son will provide transportation home.
--- NOTE | 2022-04-03 12:30 | HO.PM.IMPN ---
Subjective Subjective Date of Service: 04/04/22 Interval History: Complaining of abdominal pain localized to right lower quadrant, he described it as burning sensation, like heat inside abdomen associated with sweating on abdominal wall, he denies nausea vomiting diarrhea, no pain after eating food, he feels he rubs his abdomen to move his colon from right to the left to pass the gas, patient denies fever chills. Review of Systems Review of Systems: Yes all other systems are reviewed and are negative Physical Exam Vital Signs: Vital Signs: Last Vital Signs Temp 97.8 F 04/03/22 11:16 Pulse 89 04/03/22 11:16 Resp 17 04/03/22 11:16 BP 85/58 L 04/03/22 11:16 Pulse Ox 99 04/03/22 11:16 O2 Del Method 04/03/22 11:16 BMI result Body Mass Index 19.3 Const: Other: Gen: in no acute distress HEENT: sclera anicteric, moist mucus membranes Neck: supple Lungs: clear to auscultation bilaterally Heart: regular rate and rhythm, no murmurs Abd: soft, right lower quadrant tenderness without rebound/guarding, non-distended Ext: no edema Skin: warm/well-perfused Neuro: alert and oriented x3, no focal findings Psych: appropriate affect Objective Data Active Medications Acetaminophen (Acetaminophen 325 Mg Tablet) 650 mg PO Q6H PRN PRN Reason: Pain, Mild (Pain Scale 1-3) Last Admin: 04/01/22 15:51 Dose: 650 mg Documented By: KRYSTYNA Amoxicillin (Amoxicillin 250 Mg Capsule) 750 mg PO Q8H [facility] Last Admin: 04/03/22 05:46 Dose: 750 mg Documented By: LEX Diphenhydramine HCl (Diphenhydramine Hcl 25 Mg Tablet) 25 mg PO Q6H PRN PRN Reason: itching Last Admin: 04/01/22 22:53 Dose: 25 mg Documented By: NAUMDEBRA Docusate Sodium (Docusate Sodium 100 Mg Capsule) 100 mg PO DAILY PRN PRN Reason: Constipation Last Admin: 03/26/22 16:39 Dose: 100 mg Documented By: BISHOP Hydrocortisone (Hydrocortisone 10 Mg Tablet) 50 mg PO DAILY [facility] Last Admin: 04/03/22 08:27 Dose: 50 mg Documented By: MICAH Levofloxacin (Levofloxacin 500 Mg Tablet) 500 mg PO Q24H [facility] Stop: 04/08/22 16:29 Last Admin: 04/02/22 16:35 Dose: 500 mg Documented By: ALFREDITO Lidocaine (Lidocaine 4 % Patch Adh..Patch) 1 patch TRANSDERMA DAILY [facility]; Protocol Last Admin: 04/03/22 08:54 Dose: Not Given Documented By: MICAH Non-Admin Reason: Patient Refused Midodrine (Midodrine Hcl 10 Mg Tablet) 10 mg PO TID [facility] Last Admin: 04/03/22 08:27 Dose: 10 mg Documented By: MICAH Omeprazole (Omeprazole 40 Mg Capsule.Dr) 40 mg PO BID@0630,1630 [facility] Last Admin: 04/03/22 05:46 Dose: 40 mg Documented By: LEX Ondansetron HCl (Ondansetron Hcl 4 Mg/2 Ml Vial) 4 mg IVPUSH Q8H PRN PRN Reason: Nausea and Vomiting Last Admin: 03/24/22 22:04 Dose: 4 mg Documented By: ARCHIE Pharmacy Consult (Consult Rx Perform Med Rec) 1 each MISCELLANE ONCE PRN PRN Reason: Consult order Pharmacy Consult (Consult Rx Perform Med Rec) 1 each MISCELLANE ONCE PRN PRN Reason: Consult order Polyethylene Glycol (Polyethylene Glycol 3350 17 Gm Powd.Pack) 17 gm PO BID [facility] Last Admin: 04/03/22 08:54 Dose: Not Given Documented By: MICAH Non-Admin Reason: Patient Refused Senna (Sennosides 8.6 Mg Tablet) 8.6 mg PO BEDTIME PRN PRN Reason: Constipation Senna (Sennosides 8.6 Mg Tablet) 8.6 mg PO BID [facility] Last Admin: 04/03/22 08:27 Dose: 8.6 mg Documented By: MICAH Sodium Chloride (0.9 % Sodium Chloride Flush 3 Ml Syringe) 3 ml IVFLUSH QSHIFT [facility] Last Admin: 04/03/22 08:26 Dose: 3 ml Documented By: MICAH Sucralfate (Sucralfate 1 Gm Tablet) 1 gm PO QIDACHS [facility] Last Admin: 04/03/22 08:26 Dose: 1 gm Documented By: MICAH Labs CBC & Chem 7: 03/27/22 06:56 03/31/22 05:48 Labs: Laboratory Results - last 24 hr 04/02/22 04/02/22 04/03/22 08:26 20:12 05:30 Lactic Acid 1.3 TSH 1.35 Cortisol Baseline 11.8 Cortisol 30 Minute 28.9 Cortisol 60 Minute 35.0 Cortisol Payton Time 1 0826 Cortisol Payton Time 2 0915 Cortisol Payton Time 3 0945 ACTH Comment See Below Assessment and Plan (1) Neuroendocrine neoplasm of colon: Status: Acute (2) Intractable abdominal pain: Status: Acute Plan 61yo M with chronic abd pain, recently diagnosed neuroendocrine/carcinoid tumor and PUD due to H pylori [diagnosed on EGD/C-scope 03/07/22], admitted after syncope # syncope # orthostatic hypotension - complaining of dizziness with standing and sitting will follow orthostatic blood pressures,random AM cortisol indeterminate, ACTH stimulation test in normal range continue midodrine 10 mg t.i.d. DC Solucortef consult Nephrology # PUD # H pylori infection - d#05/19 of levofloxacin/amoxicillin/omeprazole # chronic abd pain/ underwent EGD and colonoscopy that showed chronic H pylori and well-differentiated neuroendocrine tumor, patient has been referred to [facility] for EUS of the rectum as an outpatient to 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 # constipation - continue bowel regimen # moderate protein-calorie malnutrition - 30 lb weight loss in past 3 months, continue nutritional supplements # VTE ppx: SCDs In my clinical judgment, the patient requires continued hospitalization for the following reasons: Symptomatic orthostatic hypotension Quality Stroke Does the patient have a stroke diagnosis?: No VTE Prior VTE?: No VTE Risk Level:: Medical - moderate - high VTE Device Contraindication: N/A - Device Ordered VTE Drug Contraindication: Treatment Not Indicated
--- NOTE | 2022-04-03 14:45 | MHC.CLN ---
F/U PO INTAKE 25-50% DIET RX: REGULAR, BLAND-APPROPRIATE PT RECEIVING ENSURE TID PROVIDES ADDITIONAL 1050 KCALS, 60 G PROTEIN CONTINUE TO FOLLOW FOR INTAKE AND WEIGHTS
[2022-04-03] MEDS: levoFLOXacin 500 MG TABLET PO (16:33)
[2022-04-03] MEDS: polyethylene glycoL 3350 17 GM POWD.PACK PO (21:47)
[2022-04-03] MEDS: Acetaminophen 325 MG TABLET 650 MG PO (23:45)
[2022-04-04] VITALS (8 sets, daily range): BP systolic 69–127; BP diastolic 50–83; PULSE 86–122; RESP 17–20; TEMP 36.3–37; O2SAT 99–100
[2022-04-04] MEDS: Omeprazole 40 MG CAPSULE.DR PO ×2 (06:02→15:54)
[2022-04-04] MEDS: Lidocaine 4 % Patch ADH..PATCH 1 PATCH TRANSDERMA (08:24)
[2022-04-04] MEDS: polyethylene glycoL 3350 17 GM POWD.PACK PO ×2 (08:33→20:39)
[2022-04-04] MEDS: Sucralfate 1 GM TABLET PO ×4 (08:34→20:38)
[2022-04-04] MEDS: Midodrine HCl 10 MG TABLET PO ×3 (08:34→20:39)
[2022-04-04] MEDS: Hydrocortisone 10 MG TABLET 50 MG PO (08:35)
[2022-04-04] MEDS: 0.9 % Sodium Chloride 1,000 ML 125 ML IVCONT (08:42)
--- NOTE | 2022-04-04 15:16 | P.PNIM_ITS ---
Subjective Subjective Date of Service: 04/05/22 Interval History: Patient complaining of persistent abdominal discomfort lower abdomen burning /heart sensation inside abdomen,admits that pain is ongoing > 2 months, no change, denies nausea, vomiting and diarrhea, although he states he has diarrhea, but no diarrhea documented since admit, no fevers, no chills, denies dizziness today, persistent orthostatic hypotension Review of Systems Review of Systems: Yes all other systems are reviewed and are negative Physical Exam Vital Signs: Vital Signs: Last Vital Signs Temp 98.2 F 04/04/22 11:50 Pulse 86 04/04/22 11:50 Resp 20 04/04/22 11:50 BP 123/68 04/04/22 11:50 Pulse Ox 100 04/04/22 11:50 O2 Del Method 04/04/22 11:50 BMI result Body Mass Index 19.3 Const: Other: Gen: in no acute distress Neck: supple, no JVD Lungs: clear to auscultation bilaterally Heart: regular rate and rhythm, no murmurs Abd: soft, right lower quadrant tenderness without rebound/guarding, non- distended Ext: no edema Skin: warm/well-perfused Neuro: alert and oriented x3, no focal findings Psych: appropriate affect Objective Data Active Medications Acetaminophen (Acetaminophen 325 Mg Tablet) 650 mg PO Q6H PRN PRN Reason: Pain, Mild (Pain Scale 1-3) Last Admin: 04/03/22 23:45 Dose: 650 mg Documented By: AKIL Amoxicillin (Amoxicillin 250 Mg Capsule) 750 mg PO Q8H [facility] Last Admin: 04/04/22 14:26 Dose: 750 mg Documented By: CHELY Diphenhydramine HCl (Diphenhydramine Hcl 25 Mg Tablet) 25 mg PO Q6H PRN PRN Reason: itching Last Admin: 04/01/22 22:53 Dose: 25 mg Documented By: CATHERINE Docusate Sodium (Docusate Sodium 100 Mg Capsule) 100 mg PO DAILY PRN PRN Reason: Constipation Last Admin: 03/26/22 16:39 Dose: 100 mg Documented By: BISHOP Fludrocortisone Acetate (Fludrocortisone Acetate 0.1 Mg Tablet) 0.1 mg PO BID [facility] Hydrocortisone (Hydrocortisone 10 Mg Tablet) 50 mg PO DAILY [facility] Last Admin: 04/04/22 08:35 Dose: 50 mg Documented By: CHELY Sodium Chloride (Ns) 1,000 mls @ 125 mls/hr IVCONT .Q8H [facility] Stop: 04/04/22 16:29 Last Admin: 04/04/22 08:42 Dose: 125 mls/hr Documented By: CHELY Levofloxacin (Levofloxacin 500 Mg Tablet) 500 mg PO Q24H [facility] Stop: 04/08/22 16:29 Last Admin: 04/03/22 16:33 Dose: 500 mg Documented By: ЕЛЕНА Lidocaine (Lidocaine 4 % Patch Adh..Patch) 1 patch TRANSDERMA DAILY [facility]; Protocol Last Admin: 04/04/22 08:24 Dose: 1 patch Documented By: CHELY Midodrine (Midodrine Hcl 10 Mg Tablet) 10 mg PO TID [facility] Last Admin: 04/04/22 14:26 Dose: 10 mg Documented By: CHELY Omeprazole (Omeprazole 40 Mg Capsule.Dr) 40 mg PO BID@0630,1630 [facility] Last Admin: 04/04/22 06:02 Dose: 40 mg Documented By: AKIL Ondansetron HCl (Ondansetron Hcl 4 Mg/2 Ml Vial) 4 mg IVPUSH Q8H PRN PRN Reason: Nausea and Vomiting Last Admin: 03/24/22 22:04 Dose: 4 mg Documented By: ARCHIE Pharmacy Consult (Consult Rx Perform Med Rec) 1 each MISCELLANE ONCE PRN PRN Reason: Consult order Pharmacy Consult (Consult Rx Perform Med Rec) 1 each MISCELLANE ONCE PRN PRN Reason: Consult order Polyethylene Glycol (Polyethylene Glycol 3350 17 Gm Powd.Pack) 17 gm PO BID [facility] Last Admin: 04/04/22 08:33 Dose: 17 gm Documented By: CHELY Senna (Sennosides 8.6 Mg Tablet) 8.6 mg PO BEDTIME PRN PRN Reason: Constipation Senna (Sennosides 8.6 Mg Tablet) 8.6 mg PO BID [facility] Last Admin: 04/04/22 08:31 Dose: Not Given Documented By: CHELY Non-Admin Reason: Patient Refused Sodium Chloride (0.9 % Sodium Chloride Flush 3 Ml Syringe) 3 ml IVFLUSH QSHIFT [facility] Last Admin: 04/04/22 08:55 Dose: Not Given Documented By: CHELY Non-Admin Reason: IV Running Sucralfate (Sucralfate 1 Gm Tablet) 1 gm PO QIDACHS [facility] Last Admin: 04/04/22 11:26 Dose: 1 gm Documented By: CHELY Labs CBC & Chem 7: 03/27/22 06:56 03/31/22 05:48 Microbiology Microbiology Results: Microbiology 04/02/22 20:12 Blood Culture - Preliminary Blood - Venous No growth after 24 hours. 04/02/22 20:12 Blood Culture - Preliminary Blood - Venous No growth after 24 hours. Assessment and Plan (1) Neuroendocrine neoplasm of colon: Status: Acute (2) Intractable abdominal pain: Status: Acute Plan 61yo M with chronic abd pain, recently diagnosed neuroendocrine/carcinoid tumor and PUD due to H pylori [diagnosed on EGD/C-scope 03/07/22], admitted after syncope # syncope likely due to orthostatic hypotension dizziness resolved, orthostatic BP remained positive with tachycardia Normal acth stimulation test , CT head negative continue midodrine 10 mg t.i.d. case discussed with Nephrology added Florinef 0.1 mg b.i.d. obtain Cardio consultation to r/o pots Question serotonin syndrome, with abdominal pain, diarrhea, constipation, Case discussed with gastroenterology will order further testing including 24 hour 5 HIAA, obtain neurology consult for concern for paraneoplastic # PUD/ H pylori infection - d#06/19 of levofloxacin/amoxicillin/omeprazole # chronic abd pain/ underwent EGD and colonoscopy that showed chronic H pylori and well-differentiated neuroendocrine tumor, patient has been referred to [facility] for EUS of the rectum as an outpatient to 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 CT abdomen and pelvis unremarkable. # constipation - resolved continue bowel regimen # moderate protein-calorie malnutrition - 30 lb weight loss in past 3 months, continue nutritional supplements # VTE ppx: SCDs In my clinical judgment, the patient requires continued hospitalization for the following reasons: Symptomatic orthostatic hypotension need further treatment and evaluation. Quality Stroke Does the patient have a stroke diagnosis?: No VTE Prior VTE?: No VTE Risk Level:: Medical - moderate - high VTE Device Contraindication: N/A - Device Ordered VTE Drug Contraindication: Treatment Not Indicated
[2022-04-04] MEDS: 0.9 % Sodium Chloride Flush 3 ML SYRINGE IVFLUSH (15:53)
[2022-04-04] MEDS: levoFLOXacin 500 MG TABLET PO (15:54)
--- NOTE | 2022-04-04 17:16 | PM.NEUROCN ---
History of Present Illness Data of Consult Service Date: 04/04/22 Primary Care Provider: Rafael Pittman MD [facility] Reason for consult: ? Paraneoplastic syndrome. Syncope This is a 61-year-old Australian-speaking admitted after a syncopal event after getting dizzy upon standing up. He has had 3 months of chronic abdominal pain.?Recently he underwent endoscopy and colonoscopy in early March by Dr. Almeida.?Biopsy from those procedures revealed chronic H pylori as well as a well-differentiated neuroendocrine tumor. ? He reports chronic abdominal pain primary located in his upper abdomen which is worse after eating.? He denies any associated nausea or vomiting.? He has had no fever or chills.? Nothing makes his abdominal pain better.? He reports taking milk of magnesia and MiraLax at home and then massages his abdomen in order to have bowel movement. His ? Bowel movements are primarily diarrhea but he states if he does not massage his abdomen he will not have a bowel movement.? He does report that he is able to eat and drink however this does worsen his pain.? He has lost 30 lb in the past 3 months. He denies any associated chest pain, shortness of breath, palpitations.? Blood pressure in the Er was 80 systolic.? He received IV fluid. Review of Systems Review of Systems: abd pain Yes all other systems are reviewed and are negative Constitutional: Constitutional: Denies chills, Denies fever(s) and Reports weight loss ENT: Reports dizziness Cardiovascular: Cardiovascular: Denies chest pain, Denies palpitations and Denies dyspnea Respiratory: Respiratory: Denies cough and Denies dyspnea Gastrointestinal: Gastrointestinal: Reports abdominal pain, Reports diarrhea, Denies nausea and Denies vomiting Neurologic: Reports dizziness Endocrine: Endocrine: Denies palpitations PMF Past Medical History Medical History No known health problems Family History Pertinent family history: He denies family history of diabetes, hypertension, coronary artery disease Surgical History Surgical History Hx of appendectomy Social History Social History (Updated 03/23/22 @ 17:41 by FABIOLA Tsang) Household Members: None Household Members Other:: lives alone Housing: House Do you presently have visiting nurse or other home services: No Alcohol intake: former Patient Tobacco Use Status: Never used Tobacco Substance Use Type: Marijuana service: No Current occupational status: unemployed and retired Meds Allergies Allergy/AdvReac Type Severity Reaction Status Date / Time No Known Allergies Allergy Verified 03/23/22 13:29 [No Known Allergies*] Active Medications: Current Medications Acetaminophen (Acetaminophen 325 Mg Tablet) 650 mg PO Q6H PRN PRN Reason: Pain, Mild (Pain Scale 1-3) Last Admin: 04/03/22 23:45 Dose: 650 mg Amoxicillin (Amoxicillin 250 Mg Capsule) 750 mg PO Q8H [facility] Last Admin: 04/04/22 14:26 Dose: 750 mg Diphenhydramine HCl (Diphenhydramine Hcl 25 Mg Tablet) 25 mg PO Q6H PRN PRN Reason: itching Last Admin: 04/01/22 22:53 Dose: 25 mg Docusate Sodium (Docusate Sodium 100 Mg Capsule) 100 mg PO DAILY PRN PRN Reason: Constipation Last Admin: 03/26/22 16:39 Dose: 100 mg Fludrocortisone Acetate (Fludrocortisone Acetate 0.1 Mg Tablet) 0.1 mg PO BID [facility] Hydrocortisone (Hydrocortisone 10 Mg Tablet) 50 mg PO DAILY [facility] Last Admin: 04/04/22 08:35 Dose: 50 mg Lidocaine (Lidocaine 4 % Patch Adh..Patch) 1 patch TRANSDERMA DAILY [facility]; Protocol Last Admin: 04/04/22 08:24 Dose: 1 patch Midodrine (Midodrine Hcl 10 Mg Tablet) 10 mg PO TID [facility] Last Admin: 04/04/22 14:26 Dose: 10 mg Omeprazole (Omeprazole 40 Mg Capsule.Dr) 40 mg PO BID@0630,1630 [facility] Last Admin: 04/04/22 15:54 Dose: 40 mg Ondansetron HCl (Ondansetron Hcl 4 Mg/2 Ml Vial) 4 mg IVPUSH Q8H PRN PRN Reason: Nausea and Vomiting Last Admin: 03/24/22 22:04 Dose: 4 mg Pharmacy Consult (Consult Rx Perform Med Rec) 1 each MISCELLANE ONCE PRN PRN Reason: Consult order Pharmacy Consult (Consult Rx Perform Med Rec) 1 each MISCELLANE ONCE PRN PRN Reason: Consult order Polyethylene Glycol (Polyethylene Glycol 3350 17 Gm Powd.Pack) 17 gm PO BID [facility] Last Admin: 04/04/22 08:33 Dose: 17 gm Senna (Sennosides 8.6 Mg Tablet) 8.6 mg PO BEDTIME PRN PRN Reason: Constipation Senna (Sennosides 8.6 Mg Tablet) 8.6 mg PO BID [facility] Last Admin: 04/04/22 08:31 Dose: Not Given Sodium Chloride (0.9 % Sodium Chloride Flush 3 Ml Syringe) 3 ml IVFLUSH QSHIFT [facility] Last Admin: 04/04/22 15:53 Dose: 3 ml Sucralfate (Sucralfate 1 Gm Tablet) 1 gm PO QIDACHS [facility] Last Admin: 04/04/22 15:54 Dose: 1 gm Home Medications Medication Instructions Recorded Confirmed Last Taken Type sennosides 8.6 mg tablet (senna) 8.6 mg PO BEDTIME PRN Constipation 03/23/22 03/23/22 Unknown History Physical Exam Vital Signs: Vital Signs: Last Vital Signs Temp 98.5 F 04/04/22 15:26 Pulse 88 04/04/22 15:26 Resp 20 04/04/22 15:26 BP 114/74 04/04/22 15:26 Pulse Ox 99 04/04/22 15:26 O2 Del Method 04/04/22 15:26 BMI result Body Mass Index 19.3 Const: Other: Gen: in no acute distress Neck: supple, no JVD Lungs: clear to auscultation bilaterally Heart: regular rate and rhythm, no murmurs Abd: soft, right lower quadrant tenderness without rebound/guarding, non-distended Ext: no edema Skin: warm/well-perfused Neuro: alert and oriented x3, no focal findings Psych: appropriate affect General: cooperative, no acute distress, alert and awake Nutritional Appearance: thin and underweight Orientation/consciousness: patient oriented x3 Limitations: language barrier HEENT: Head: Yes normal to inspection, Yes normocephalic and Yes atraumatic Ears: hearing grossly normal bilaterally and external ears normal General nose exam: Normal external nose present Face and sinus: Yes normal facial exam Mouth: Normal oral and palatal mucosa present Throat: Yes posterior oropharynx normal Eyes: General: appearance normal, both eyes and all related structures Sclerae: sclerae normal Pupils: Equal, round and reactive pupils present Neck: Neck: Yes normal visual inspection, Yes no lymphadenopathy, Yes trachea midline and Yes supple Chest: Chest palpation & inspection: normal inspection of the chest and normal palpation of entire chest wall Resp: Effort & Inspection: normal respiratory effort, able to speak in complete sentences and no use of accessory muscles Auscultation: clear to auscultation bilaterally Cardio: Palpation: normal PMI Rate: regular rate Rhythm: regular rhythm Heart sounds: S1 normal heart sound present, S2 normal heart sound present and no murmurs GI: Other: reports tenderness in epigastrum Inspection: Yes normal to inspection and No distended Palpation (GI): Soft to palpation, Tenderness to palpation present (GI) (Mild to moderate upper abdominal tenderness) in the epigastrum (Moderate), no guarding and No hepatosplenomegaly present Auscultation: normal bowel sounds Rectal Exam - Male: Yes deferred : General: Yes no CVA tenderness Back/Spine/Pelvis: Back: no CVA tenderness Skin: General skin exam: no rashes or lesions noted Neuro: General: patient oriented x3, gait normal, moves all extremities and CN's II-XI intact bilaterally Cranial nerves: Yes CN's II-XII intact bilaterally and Yes Equal, round and reactive pupils present Cognition (Neuro): normal cognition Motor exam (neuro): 5/5 motor strength present throughout Extrem: General: Yes normal to inspection and Yes no pedal edema Psych: Appearance: grossly normal Mental Status: mental status grossly normal Speech and movement: Normal speech and movement present Affect: normal affect Attitude: cooperative Thought process: Normal thought process present Thought content: Normal thought content present Results Labs CBC & Chem 7: 03/27/22 06:56 03/31/22 05:48 Microbiology Microbiology Results: Microbiology 04/02/22 20:12 Blood - Venous Blood Culture - Preliminary No growth after 24 hours. 04/02/22 20:12 Blood - Venous Blood Culture - Preliminary No growth after 24 hours. Assessment and Plan (1) Neuroendocrine neoplasm of colon: Status: Acute (2) Intractable abdominal pain: Status: Acute (3) Syncope: Status: Acute probably related to orthostasis. Recom : Cardiac monitoring, Echocardiogram. Monitor supine and standing BP (4) Orthostatic hypotension: Status: Acute Consider adding Fludrocortisone 0.1mg a day. If no improvement, will need tilt test and autonomic dysfunction workup. (5) Rectal carcinoid tumor: Status: Acute Plan 61yo M with chronic abd pain, recently diagnosed neuroendocrine/carcinoid tumor and PUD due to H pylori [diagnosed on EGD/C-scope 03/07/22], admitted after syncope # syncope likely due to orthostatic hypotension - dizziness resolved, orthostatic BP remained positive with tachycardia Normal acth stimulation test continue midodrine 10 mg t.i.d. case discussed with Nephrology will add Florinef 0.1 mg b.i.d. obtain Cardio consultation to r/o pots Case discussed with gastroenterology question paraneoplastic syndrome obtain neurology consult # PUD # H pylori infection - d#06/19 of levofloxacin/amoxicillin/omeprazole # chronic abd pain/ underwent EGD and colonoscopy that showed chronic H pylori and well-differentiated neuroendocrine tumor, patient has been referred to [facility] for EUS of the rectum as an outpatient to 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 # constipation - resolved continue bowel regimen # moderate protein-calorie malnutrition - 30 lb weight loss in past 3 months, continue nutritional supplements # VTE ppx: SCDs In my clinical judgment, the patient requires continued hospitalization for the following reasons: Symptomatic orthostatic hypotension Procedures Date of Service Date of Service: 04/04/22
--- NOTE | 2022-04-04 18:47 | P.CONNP_ITS ---
History of Present Illness Reason for Consult Consult date: 04/04/22 Reason for consult: Orthostatic Hypotension Chief Complaint Chief complaint: dizzy History of Present Illness Narrative: 61-year-old Bulgarian-speaking male who initially presented to the emergency department after syncopal event.? Recently he has a diagnosis of neuroendocrine tumor. He denies any associated nausea or vomiting.? He has had no fever or chills.? He has lost 30 lb in the past 3 months. He denies any associated chest pain, shortness of breath, palpitations.? On arrival to the emergency department his blood pressure was noted to be in 80 systolic.? He received IV fluid as well as midodrine. He still continues to be orthostatic with tachycardia. Nephrology has been consulted to assist in his clinical care during his current hospital stay. Review of Systems Review of Systems Yes all other systems are reviewed and are negative PMFSH Past Medical History Medical History No known health problems Surgical History Surgical History Hx of appendectomy Social History Social History Household Members: None Household Members Other:: lives alone Housing: House Do you presently have visiting nurse or other home services: No Alcohol intake: former Patient Tobacco Use Status: Never used Tobacco Substance Use Type: Marijuana service: No Current occupational status: unemployed and retired Meds Allergies Allergy/AdvReac Type Severity Reaction Status Date / Time No Known Allergies Allergy Verified 03/23/22 13:29 [No Known Allergies*] Active Medications: Current Medications Acetaminophen (Acetaminophen 325 Mg Tablet) 650 mg PO Q6H PRN PRN Reason: Pain, Mild (Pain Scale 1-3) Last Admin: 04/03/22 23:45 Dose: 650 mg Amoxicillin (Amoxicillin 250 Mg Capsule) 750 mg PO Q8H [facility] Last Admin: 04/04/22 14:26 Dose: 750 mg Diphenhydramine HCl (Diphenhydramine Hcl 25 Mg Tablet) 25 mg PO Q6H PRN PRN Reason: itching Last Admin: 04/01/22 22:53 Dose: 25 mg Docusate Sodium (Docusate Sodium 100 Mg Capsule) 100 mg PO DAILY PRN PRN Reason: Constipation Last Admin: 03/26/22 16:39 Dose: 100 mg Fludrocortisone Acetate (Fludrocortisone Acetate 0.1 Mg Tablet) 0.1 mg PO BID [facility] Hydrocortisone (Hydrocortisone 10 Mg Tablet) 50 mg PO DAILY [facility] Last Admin: 04/04/22 08:35 Dose: 50 mg Lidocaine (Lidocaine 4 % Patch Adh..Patch) 1 patch TRANSDERMA DAILY [facility]; Protocol Last Admin: 04/04/22 08:24 Dose: 1 patch Midodrine (Midodrine Hcl 10 Mg Tablet) 10 mg PO TID [facility] Last Admin: 04/04/22 14:26 Dose: 10 mg Omeprazole (Omeprazole 40 Mg Capsule.Dr) 40 mg PO BID@0630,1630 [facility] Last Admin: 04/04/22 15:54 Dose: 40 mg Ondansetron HCl (Ondansetron Hcl 4 Mg/2 Ml Vial) 4 mg IVPUSH Q8H PRN PRN Reason: Nausea and Vomiting Last Admin: 03/24/22 22:04 Dose: 4 mg Pharmacy Consult (Consult Rx Perform Med Rec) 1 each MISCELLANE ONCE PRN PRN Reason: Consult order Pharmacy Consult (Consult Rx Perform Med Rec) 1 each MISCELLANE ONCE PRN PRN Reason: Consult order Polyethylene Glycol (Polyethylene Glycol 3350 17 Gm Powd.Pack) 17 gm PO BID [facility] Last Admin: 04/04/22 08:33 Dose: 17 gm Senna (Sennosides 8.6 Mg Tablet) 8.6 mg PO BEDTIME PRN PRN Reason: Constipation Senna (Sennosides 8.6 Mg Tablet) 8.6 mg PO BID [facility] Last Admin: 04/04/22 08:31 Dose: Not Given Sodium Chloride (0.9 % Sodium Chloride Flush 3 Ml Syringe) 3 ml IVFLUSH QSHIFT [facility] Last Admin: 04/04/22 15:53 Dose: 3 ml Sucralfate (Sucralfate 1 Gm Tablet) 1 gm PO QIDACHS [facility] Last Admin: 04/04/22 15:54 Dose: 1 gm Home Medications Medication Instructions Recorded Confirmed Last Taken Type sennosides 8.6 mg tablet (senna) 8.6 mg PO BEDTIME PRN Constipation 03/23/22 03/23/22 Unknown History Physical Exam Vital Signs: Last Vital Signs Temp 98.5 F 04/04/22 15:26 Pulse 88 04/04/22 15:26 Resp 20 04/04/22 15:26 BP 114/74 04/04/22 15:26 Pulse Ox 99 04/04/22 15:26 O2 Del Method 04/04/22 15:26 BMI result Body Mass Index 19.3 Const General: no acute distress Eyes EOM: EOMs intact bilaterally Neck Neck: Yes supple Resp Auscultation: diminished lung sounds Cardio Rate: regular rate GI Palpation (GI): Soft to palpation and Tenderness to palpation present (GI) Neuro General: moves all extremities Results Lab Results Result Diagrams: 03/27/22 06:56 03/31/22 05:48 Assessment and Plan (1) Orthostatic hypotension: Status: Acute Plan Needs to R/O POTSyndrome GI ordered further W/U DANK stockings; Increase Na in diet Has R/O adrenal issues Had received IV fluids Could increase Midodrine to 15 mg tid Start Florinef 0.1 mg bid Cardiology to weight in Shall follow up closely Procedures Date of Service Date of Service: 04/04/22
[2022-04-04] MEDS: Sennosides 8.6 MG TABLET PO (20:38)
[2022-04-04] MEDS: Fludrocortisone Acetate 0.1 MG TABLET PO (20:38)
[2022-04-05] VITALS (11 sets, daily range): BP systolic 80–127; BP diastolic 60–92; PULSE 80–124; RESP 17–20; TEMP 36.3–37; O2SAT 99–100
[2022-04-05] MEDS: Omeprazole 40 MG CAPSULE.DR PO (06:18)
[2022-04-05 06:35] LABS: Appearance Urine Clear; Color Urine Yellow; Glucose Urine UA Negative (Negative); Leukocyte Esterase Urine Negative (Negative); Nitrite Urine Negative (Negative); Specific Gravity - Urine 1.015 (1.005-1.025); Urine Blood Negative (Negative); Urine Ketones Negative (Negative); Urine Protein Negative (Neg-Trace)
--- NOTE | 2022-04-05 07:00 | CA_ITS ---
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 Normal LV systolic function with grade 1 diastolic dysfunction 2. Normal cardiac valvular Doppler 3. No gross pericardial effusion Findings Left Ventricle Normal left ventricular size, thickness, and systolic function. The visually estimated ejection fraction is between 65-70%. Spectral Doppler is indicative of an impaired relaxation filling pattern. E/E prime ratio is <8, consistent with normal filling pressures. Peak GLS is -12.4%, which is reduced. Right Ventricle Normal right ventricular cavity size and systolic function. Atria Both atria are normal in size. There is lipomatous hypertrophy of the interatrial septum. There is no evidence of interatrial shunt. Aortic Valve Normal aortic valve structure and function. There is no aortic valve stenosis. There is no aortic valve regurgitation. Mitral Valve Normal mitral valve structure and function. There is trace mitral valve regurgitation. There is no mitral valve stenosis. Pulmonic Valve The pulmonic valve was not well visualized. Tricuspid Valve Normal tricuspid valve structure. Tricuspid regurgitation envelope is inadequate for calculation of right ventricular systolic pressure. Normal right atrial pressure. Great Vessels All visible segments of the aorta are normal in size. The pulmonary artery was not well visualized. Venous The inferior vena cava is normal in size and collapses greater than 50% with inspiration. Pericardium/Pleural There is no evidence of pericardial effusion. Prior Study Comparison No prior study available for comparison. Measurements 2D Linear Measurements IVSd: 1.14 0.6-0.9/0.6-1.0 cm LVIDd: 4.60 3.9-5.3/4.2-5.9 cm LVIDd Index: 2.60 2.4-3.2/2.2-3.1 cm/m2 LVIDs: 2.77 2.0-3.6 cm LVPWd: 1.06 0.7-1.1 cm LA Diam: 2.90 2.7-3.8/3.0-4.0 cm LAIDs Index: 1.64 1.5-2.3 cm/m2 LV Mass: 225.78 67-162/88-224 g LV Mass Index: 127.56 43-95/49-115 g/m2 LVOT Diam: 2.50 3.0+(-)1.3 cm 2D Systolic Function EF 4C: 70.10 >55% EF 2C: 68.60 >55% EF BiP: 69.20 >55% Aortic Valve AoV Pk Miles: 1.08 AoV Mn Miles: 0.75 AoV VTI: 0.19 AoV Pk Grad: 5.00 Aov Mn Grad: 3.00 JESSICA Cont.VTI: 4.25 LVOT LVOT Pk Miles: 0.92 LVOT Mn Miles: 0.64 LVOT VTI: 0.16 LVOT Pk Grad: 3.00 LVOT Mn Grad: 2.00 LVOT Diam: 2.50 LVOT Area: 4.91 Right Ventricle TAPSE (mm): 17.80 TVS' Miles: 11.90 Tricuspid Valve RA Press: 3.00 Great Vessels Aorta Sinus of Valsalva: 3.60 2.0-3.5 cm Ao Asc: 3.50 2.1-3.4 cm Pulmonary Valve PV Pk Miles: 0.73 Peak PV Grad: 2.00 Updated in Other Vendor System with Status of Final Dangelo Rodgers MD electronically signed on 04/05/2022 4:13:08 PM with status of Final
[2022-04-05] MEDS: Fludrocortisone Acetate 0.1 MG TABLET PO (07:48)
[2022-04-05] MEDS: Hydrocortisone 10 MG TABLET 50 MG PO (07:48)
[2022-04-05] MEDS: Sucralfate 1 GM TABLET PO (07:48)
[2022-04-05] MEDS: Sennosides 8.6 MG TABLET PO (07:48)
[2022-04-05] MEDS: Lidocaine 4 % Patch ADH..PATCH 1 PATCH TRANSDERMA (07:49)
[2022-04-05] MEDS: Midodrine HCl 10 MG TABLET PO (07:49)
[2022-04-05] MEDS: polyethylene glycoL 3350 17 GM POWD.PACK PO (07:50)
[2022-04-05] MEDS: 0.9 % Sodium Chloride Flush 3 ML SYRINGE IVFLUSH ×2 (07:57→16:16)
--- NOTE | 2022-04-05 09:13 | PM.CNCAR ---
History of Present Illness History of Present Illness Date of Service: 04/05/22 Requesting physician: Maverick Chatman Consult reason: other ( orthostatic hyportension) Chief complaint: dizzy Narrative: I was requested to see Geoffrey in cardiology consultation today because of severe orthostatic hypotension. Patient has been admitted with failure to thrive as well as weight loss and syncope. Noted to have significant orthostatic hypotension. Patient has received IV fluids and currently is on midodrine 10 mg t.i.d. and it seems like fludrocortisone 0.1 mg b.i.d. was added yesterday. Patient says when he got out of bed today he was not as dizzy although recorded that he has orthostatic drop in his blood pressure as well as orthostatic tachycardia. He says he feels a lot better than other days. It seems like his orthostatic blood pressure drop has improved significantly. He has no history of neurologic disorders or diabetes. No significant family history of autonomic dysfunction. He has been diagnosed with rectal carcinoid tumor and has had significant weight loss recently. He also has gastritis related to H pylori. No other cardiac issues. No history of congestive heart failure. Review of Systems Constitutional: Constitutional: Denies chills, Reports fatigue, Denies fever(s), Reports poor appetite and Reports weight loss Eyes: Eyes: Reports no additional eye complaints Cardiovascular: Cardiovascular: Reports no additional cardiovascular complaints Respiratory: Respiratory: Reports no additional respiratory complaints Gastrointestinal: Gastrointestinal: Reports abdominal pain Genitourinary: Genitourinary: Reports no additional male genitourinary complaints Musculoskeletal: Musculoskeletal: Reports no additional musculoskeletal complaints Integumentary/Breasts: Skin/Breast: Reports system reviewed and no additional complaints, except as docu Neurologic: Reports system reviewed and no additional complaints, except as documented Psychiatric: Psychiatric: Reports no additional psychiatric complaints Endocrine: Endocrine: Reports no additional endocrine complaints and Reports fatigue PMFSH Past Medical History Medical History No known health problems Surgical History Surgical History Hx of appendectomy Social History Social History Household Members: None Household Members Other:: lives alone Housing: House Do you presently have visiting nurse or other home services: No Alcohol intake: former Patient Tobacco Use Status: Never used Tobacco Substance Use Type: Marijuana service: No Current occupational status: unemployed and retired Meds Allergies Allergy/AdvReac Type Severity Reaction Status Date / Time No Known Allergies Allergy Verified 03/23/22 13:29 [No Known Allergies*] Active Medications: Current Medications Acetaminophen (Acetaminophen 325 Mg Tablet) 650 mg PO Q6H PRN PRN Reason: Pain, Mild (Pain Scale 1-3) Last Admin: 04/03/22 23:45 Dose: 650 mg Amoxicillin (Amoxicillin 250 Mg Capsule) 750 mg PO Q8H [facility] Last Admin: 04/05/22 06:20 Dose: Not Given Amoxicillin 500 mg/ (Amoxicillin 250 mg) 750 mg PO ONCE [facility] Last Admin: 04/05/22 06:18 Dose: 750 mg Diphenhydramine HCl (Diphenhydramine Hcl 25 Mg Tablet) 25 mg PO Q6H PRN PRN Reason: itching Last Admin: 04/01/22 22:53 Dose: 25 mg Docusate Sodium (Docusate Sodium 100 Mg Capsule) 100 mg PO DAILY PRN PRN Reason: Constipation Last Admin: 03/26/22 16:39 Dose: 100 mg Fludrocortisone Acetate (Fludrocortisone Acetate 0.1 Mg Tablet) 0.1 mg PO BID [facility] Last Admin: 04/05/22 07:48 Dose: 0.1 mg Sodium Chloride (Ns) 1,000 mls @ 500 mls/hr IVCONT .Q2H [facility] Stop: 04/05/22 10:59 Lidocaine (Lidocaine 4 % Patch Adh..Patch) 1 patch TRANSDERMA DAILY [facility]; Protocol Last Admin: 04/05/22 07:49 Dose: 1 patch Midodrine (Midodrine Hcl 10 Mg Tablet) 10 mg PO TID [facility] Last Admin: 04/05/22 07:49 Dose: 10 mg Omeprazole (Omeprazole 40 Mg Capsule.Dr) 40 mg PO BID@0630,1630 [facility] Last Admin: 04/05/22 06:18 Dose: 40 mg Ondansetron HCl (Ondansetron Hcl 4 Mg/2 Ml Vial) 4 mg IVPUSH Q8H PRN PRN Reason: Nausea and Vomiting Last Admin: 03/24/22 22:04 Dose: 4 mg Pharmacy Consult (Consult Rx Perform Med Rec) 1 each MISCELLANE ONCE PRN PRN Reason: Consult order Pharmacy Consult (Consult Rx Perform Med Rec) 1 each MISCELLANE ONCE PRN PRN Reason: Consult order Polyethylene Glycol (Polyethylene Glycol 3350 17 Gm Powd.Pack) 17 gm PO BID [facility] Last Admin: 04/05/22 07:50 Dose: 17 gm Senna (Sennosides 8.6 Mg Tablet) 8.6 mg PO BEDTIME PRN PRN Reason: Constipation Senna (Sennosides 8.6 Mg Tablet) 8.6 mg PO BID [facility] Last Admin: 04/05/22 07:48 Dose: 8.6 mg Sodium Chloride (0.9 % Sodium Chloride Flush 3 Ml Syringe) 3 ml IVFLUSH QSHIFT [facility] Last Admin: 04/05/22 07:57 Dose: 3 ml Sucralfate (Sucralfate 1 Gm Tablet) 1 gm PO QIDACHS [facility] Last Admin: 04/05/22 07:48 Dose: 1 gm Home Medications Medication Instructions Recorded Confirmed Last Taken Type sennosides 8.6 mg tablet (senna) 8.6 mg PO BEDTIME PRN Constipation 03/23/22 03/23/22 Unknown History Physical Exam Vital Signs: Vital Signs: Last Vital Signs Temp 97.4 F 04/05/22 07:27 Pulse 112 H 04/05/22 07:33 Resp 18 04/05/22 07:27 BP 80/60 L 04/05/22 07:33 Pulse Ox 99 04/05/22 07:27 O2 Del Method 04/05/22 07:27 BMI result Body Mass Index 19.3 Const: General: cooperative, comfortable, no acute distress, alert and awake Nutritional Appearance: cachectic Orientation/consciousness: patient oriented x3 Limitations: no limitations HEENT: Head: Yes normocephalic and Yes atraumatic Neck: Neck: Yes trachea midline, Yes supple and Yes no JVD Chest: Chest palpation & inspection: normal inspection of the chest Resp: Effort & Inspection: normal respiratory effort Cardio: Jugular venous distension: no JVD Palpation: normal PMI Rate: regular rate Rhythm: regular rhythm Heart sounds: S1 normal heart sound present, S2 normal heart sound present, no click, no gallops, no murmurs and no rubs GI: Auscultation: normal bowel sounds Skin: General skin exam: no rashes or lesions noted Neuro: General: patient oriented x3 and no focal motor deficits Extrem: General: Yes no clubbing, cyanosis or edema Psych: Appearance: grossly normal Objective Labs and Meds Result diagrams: 03/27/22 06:56 03/31/22 05:48 Lab results: Laboratory Results - last 24 hr 04/05/22 06:02 Urine Color Yellow Urine Appearance Clear Urine pH 6.0 Ur Specific [place] 1.015 Urine Protein Negative Urine Glucose (UA) Negative Urine Ketones Negative Urine Blood Negative Urine Nitrite Negative Ur Leukocyte Esterase Negative Assessment and Plan (1) Orthostatic hypotension: Status: Acute Severe orthostatic hypotension in this middle-aged man related to autonomic dysfunction of unclear etiology at this point in time. He continues to remain orthostatic on today's vitals but this has improved compared to in the past and his symptoms have improved. He is currently on maximal does midodrine and fludrocortisone was added yesterday. All of these are appropriate interventions. However at this point time I would like to give him some volume expansion with 2 L of normal saline over the next 4 hours. Measure blood pressure after each L of normal saline to assess for orthostatic changes. I discussed with him mechanism of orthostatic hypotension and symptoms associated with it and precautions that need to be taken. He needs aggressive overall volume expansion with increased fluid as well as increased salt intake. Can start with 4 g of p.o. salt intake. He was not very happy to hear this but is understanding. May require lower extremity compression stocking as well in addition. Will continue to follow with you Procedures Date of Service Date of Service: 04/05/22
[2022-04-05] MEDS: 0.9 % Sodium Chloride 1,000 ML 500 ML IVCONT (09:33)
--- NOTE | 2022-04-05 12:14 | MHC.CLN ---
F/U PO INTAKE 50% AVG WT REMAINS UNCHANGED DIET RX: REGULAR, BLAND-APPROPRIATE PT RECEIVING ENSURE TID PROVIDES ADDITIONAL 1050 KCALS, 60 G PROTEIN CONTINUE TO FOLLOW FOR INTAKE AND WEIGHTS
--- NOTE | 2022-04-05 12:22 | P.PNNP_ITS ---
Subjective Subjective Date of Service: 04/05/22 Interval history: Events noted. All recent data reviewed Physical Exam Vital Signs: Vital Signs: Last Vital Signs Temp 97.6 F 04/05/22 11:45 Pulse 124 H 04/05/22 12:05 Resp 20 04/05/22 11:45 BP 97/79 04/05/22 12:05 Pulse Ox 100 04/05/22 11:45 O2 Del Method 04/05/22 11:45 BMI result Body Mass Index 19.3 Const: General: no acute distress Eyes: EOM: EOMs intact bilaterally Neck: Neck: Yes supple Resp: Auscultation: diminished lung sounds Cardio: Rate: regular rate GI: Palpation (GI): Soft to palpation Neuro: General: moves all extremities Objective Data Labs CBC & Chem 7: 03/27/22 06:56 03/31/22 05:48 Labs: Laboratory Results - last 24 hr 04/05/22 06:02 Urine Color Yellow Urine Appearance Clear Urine pH 6.0 Ur Specific [place] 1.015 Urine Protein Negative Urine Glucose (UA) Negative Urine Ketones Negative Urine Blood Negative Urine Nitrite Negative Ur Leukocyte Esterase Negative Microbiology Microbiology Results: Microbiology 04/02/22 20:12 Blood - Venous Blood Culture - Preliminary No growth after 48 hours. 04/02/22 20:12 Blood - Venous Blood Culture - Preliminary No growth after 48 hours. Procedures Date of Service Date of Service: 04/05/22 Assessment & Plan Assessment and plan (1) Orthostatic hypotension: Status: Acute Assessment and Plan: Needs to R/O POTSyndrome GI ordered further W/U DANK stockings; Increase Na in diet Has R/O adrenal issues Had received IV fluids Could increase Midodrine to 15 mg tid Increase Florinef 0.2 mg bid Cardiology to weight in Shall follow up closely Time Spent With Patient Time: Total time spent is greater than 50% in coordination of care (as documented) at patient's floor/unit and/or counseling patient: Progress Note: Quality Stroke Does the patient have a stroke diagnosis?: No
--- NOTE | 2022-04-05 12:36 | PC.NURSE ---
Patient adamant on showering. Okayed by Dr. Chatman. Patient educated on risks of low BP when standing and showering. Per patient he is not dizzy at this time. Advised patient to use shower chair but refused. Patient encouraged to use alarm in shower if become dizzy, lightheaded, and to sit down. Patient verbalized understanding.
--- NOTE | 2022-04-05 12:55 | P.PNIM_ITS ---
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 CVS no chest pain, no palpitation Respiratory no cough, no sputum production Review of Systems: Yes all other systems are reviewed and are negative Physical Exam Vital Signs: Vital Signs: Last Vital Signs Temp 97.6 F 04/05/22 11:45 Pulse 124 H 04/05/22 12:05 Resp 20 04/05/22 11:45 BP 97/79 04/05/22 12:05 Pulse Ox 100 04/05/22 11:45 O2 Del Method 04/05/22 11:45 BMI result Body Mass Index 19.3 Const: Other: Gen: in no acute d istress Neck: supp le, no JVD Lungs: clear to auscultat ion bilaterally He art: regular rate and rhythm, no mur murs Abd: soft, ri ght lower quadrant tenderness withou t rebound/guarding , non-distended Ex t: no edema Skin: warm/well-perfused Neuro: alert and oriented x3, no fo carlie findings Psych : appropriate affe ct Objective Data Active Medications Acetaminophen (Acetaminophen 325 Mg Tablet) 650 mg PO Q6H PRN PRN Reason: Pain, Mild (Pain Scale 1-3) Last Admin: 04/03/22 23:45 Dose: 650 mg Documented By: AKIL Amoxicillin (Amoxicillin 250 Mg Capsule) 750 mg PO Q8H [facility] Last Admin: 04/05/22 06:20 Dose: Not Given Documented By: CHRISTA Non-Admin Reason: Pharmacy had to schedule 1 time dosage Amoxicillin 500 mg/ (Amoxicillin 250 mg) 750 mg PO ONCE [facility] Last Admin: 04/05/22 06:18 Dose: 750 mg Documented By: CHRISTA Diphenhydramine HCl (Diphenhydramine Hcl 25 Mg Tablet) 25 mg PO Q6H PRN PRN Reason: itching Last Admin: 04/01/22 22:53 Dose: 25 mg Documented By: NAUMDEBRA Docusate Sodium (Docusate Sodium 100 Mg Capsule) 100 mg PO DAILY PRN PRN Reason: Constipation Last Admin: 03/26/22 16:39 Dose: 100 mg Documented By: BISHOP Fludrocortisone Acetate (Fludrocortisone Acetate 0.1 Mg Tablet) 0.1 mg PO BID [facility] Last Admin: 04/05/22 07:48 Dose: 0.1 mg Documented By: SHAHRZAD Sodium Chloride (Ns) 1,000 mls @ 500 mls/hr IV .Q2H [facility] Stop: 04/05/22 14:14 Sodium Chloride (Ns) 1,000 mls @ 500 mls/hr IVCONT .Q2H [facility] Stop: 04/05/22 16:59 Lidocaine (Lidocaine 4 % Patch Adh..Patch) 1 patch TRANSDERMA DAILY [facility]; Protocol Last Admin: 04/05/22 07:49 Dose: 1 patch Documented By: SHAHRZAD Midodrine (Midodrine Hcl 10 Mg Tablet) 10 mg PO TID [facility] Last Admin: 04/05/22 07:49 Dose: 10 mg Documented By: SHAHRZAD Omeprazole (Omeprazole 40 Mg Capsule.) 40 mg PO BID@0630,1630 [facility] Last Admin: 04/05/22 06:18 Dose: 40 mg Documented By: MORRINChirag Ondansetron HCl (Ondansetron Hcl 4 Mg/2 Ml Vial) 4 mg IVPUSH Q8H PRN PRN Reason: Nausea and Vomiting Last Admin: 03/24/22 22:04 Dose: 4 mg Documented By: ARCHIE Pharmacy Consult (Consult Rx Perform Med Rec) 1 each MISCELLANE ONCE PRN PRN Reason: Consult order Pharmacy Consult (Consult Rx Perform Med Rec) 1 each MISCELLANE ONCE PRN PRN Reason: Consult order Polyethylene Glycol (Polyethylene Glycol 3350 17 Gm Powd.Pack) 17 gm PO BID [facility] Last Admin: 04/05/22 07:50 Dose: 17 gm Documented By: SHAHRZAD Senna (Sennosides 8.6 Mg Tablet) 8.6 mg PO BEDTIME PRN PRN Reason: Constipation Senna (Sennosides 8.6 Mg Tablet) 8.6 mg PO BID [facility] Last Admin: 04/05/22 07:48 Dose: 8.6 mg Documented By: SHAHRZAD Sodium Chloride (0.9 % Sodium Chloride Flush 3 Ml Syringe) 3 ml IVFLUSH QSHIFT [facility] Last Admin: 04/05/22 07:57 Dose: 3 ml Documented By: SHAHRZAD Sucralfate (Sucralfate 1 Gm Tablet) 1 gm PO QIDACHS [facility] Last Admin: 04/05/22 12:24 Dose: Not Given Documented By: SHAHRZAD Non-Admin Reason: Patient Refused Labs CBC & Chem 7: 03/27/22 06:56 03/31/22 05:48 Labs: Laboratory Results - last 24 hr 04/05/22 06:02 Urine Color Yellow Urine Appearance Clear Urine pH 6.0 Ur Specific [place] 1.015 Urine Protein Negative Urine Glucose (UA) Negative Urine Ketones Negative Urine Blood Negative Urine Nitrite Negative Ur Leukocyte Esterase Negative Microbiology Microbiology Results: Microbiology 04/02/22 20:12 Blood Culture - Preliminary Blood - Venous No growth after 48 hours. 04/02/22 20:12 Blood Culture - Preliminary Blood - Venous No growth after 48 hours. Assessment and Plan (1) Neuroendocrine neoplasm of colon: Status: Acute (2) Intractable abdominal pain: Status: Acute Plan 61yo M with chronic abd pain, recently diagnosed neuroendocrine/carcinoid tumor and PUD due to H pylori [diagnosed on EGD/C-scope 03/07/22], admitted after syncope # syncope likely due to orthostatic hypotension dizziness resolved, orthostatic BP remained positive with tachycardia Normal acth stimulation test , CT head negative continue midodrine 10 mg t.i.d. Florinef 0.1 mg b.i.d. Seen by Cardio they recommend 2 L of normal saline and to monitor orthostatic blood pressure after each L Seen by Nephrology they recommend to up titrate midodrine and Florinef to 0.2 mg b.i.d. Seen by neurology they agree with above treatment recommend tilt-table study and further workup for autonomic dysfunction if the patient doesl not respond to above treatment 24 hour urine 5 HIIA is spending antibody yo and antibody HU pending Forrest gabriel/recommend ambulation # PUD/ H pylori infection - d#07/19 of levofloxacin/amoxicillin/omeprazole # chronic abd pain/ underwent EGD and colonoscopy that showed chronic H pylori and well-differentiated neuroendocrine tumor, patient has been referred to [facility] for EUS of the rectum as an outpatient to 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 CT abdomen and pelvis unremarkable. # constipation - resolved continue bowel regimen # moderate protein-calorie malnutrition - 30 lb weight loss in past 3 months, continue nutritional supplements, normal albumin 4.1 # VTE ppx: SCDs In my clinical judgment, the patient requires continued hospitalization for Symptomatic orthostatic hypotension need further treatment and evaluation. Quality Stroke Does the patient have a stroke diagnosis?: No VTE Prior VTE?: No VTE Risk Level:: Medical - moderate - high VTE Device Contraindication: N/A - Device Ordered VTE Drug Contraindication: Treatment Not Indicated
--- NOTE | 2022-04-05 14:52 | MHC.CM.PN ---
Per MD rounds dc planned tomorrow. [facility] will provide home care services. Patient states that he is not ready to discharge. Emotional support and encouragement provided. The MD is aware of the patients concerns. [facility] will provide home care services.
--- NOTE | 2022-04-05 15:21 | PC.NURSE ---
Per Dr. Rodgers orders patient to get 1L NS over 2 hours, obtain orthostatic vitals, and then given another 1L NS. Patient was okay with first liter, but refused the 2nd liter. Per patient, this is a quick fix for blood pressure, but then it goes back down. Too many meds that aren't doing anything . Multiple attempts made to see if patient would change his mind, but no success. Patient also refused DANK stockings, 1200 carafate, and 1500 midodrine. Per patient, feels all better now wants to see what his blood pressure will do without meds . Dr. Chatman and Dr. Rodgers made aware. No new orders at this time.
--- NOTE | 2022-04-05 22:51 | PC.NURSE ---
ambulated on the hallway tonight around the unit, steady gait, denied dizziness
[2022-04-06] VITALS (9 sets, daily range): BP systolic 54–142; BP diastolic 42–87; PULSE 74–124; RESP 17–20; TEMP 36.4–36.9; O2SAT 99–100
[2022-04-06] MEDS: 0.9 % Sodium Chloride Flush 3 ML SYRINGE IVFLUSH ×2 (01:45→09:25)
[2022-04-06] MEDS: Acetaminophen 325 MG TABLET 650 MG PO (01:50)
[2022-04-06] MEDS: Omeprazole 40 MG CAPSULE.DR PO (05:54)
[2022-04-06] MEDS: Fludrocortisone Acetate 0.1 MG TABLET PO (09:24)
[2022-04-06] MEDS: Sennosides 8.6 MG TABLET PO (09:24)
[2022-04-06] MEDS: Midodrine HCl 10 MG TABLET PO (09:24)
[2022-04-06] MEDS: Sucralfate 1 GM TABLET PO (09:24)
[2022-04-06] MEDS: Lidocaine 4 % Patch ADH..PATCH 1 PATCH TRANSDERMA (09:24)
[2022-04-06] MEDS: polyethylene glycoL 3350 17 GM POWD.PACK PO (09:25)
--- NOTE | 2022-04-06 09:45 | PC.NURSE ---
Patient denies being dizzy to this nurse when orthostatic vitals were done. bp taken with monitor not manual.
--- NOTE | 2022-04-06 10:41 | P.PNCA_ITS ---
Subjective Subjective Date of Service: 04/06/22 <ELMER Seaman - Last Filed: 04/06/22 11:01> 04/06/22 <Dangelo Rodgers MD - Last Filed: 04/06/22 11:13> Principal diagnosis: orthostatic hypotension <ELMER Seaman - Last Filed: 04/06/22 11:01> Interval history: Seen at 0920. Today his primary complaint is of abdominal discomfort, burning . He says he is no longer lightheaded when walking. Tells me he was walking around in the halls yesterday afternoon and this am without problems. He did not take his Midodrine yesterday afternoon and evening because he did not feel he needed it. Tells me he never had a BP issue until he came into the hospital. Denies CP, sob, palpitations, dizziness, falls. No wearing Tele monitor. <ELMER Seaman - Last Filed: 04/06/22 11:01> Review of Systems Review of Systems as above <ELMER Seaman - Last Filed: 04/06/22 11:01> Yes all other systems are reviewed and are negative <ELMER Seaman - Last Filed: 04/06/22 11:01> Physical Exam Vital Signs: Last Vital Signs Temp 97.8 F 04/06/22 07:44 Pulse 124 H 04/06/22 09:41 Resp 18 04/06/22 07:44 BP 54/42 L 04/06/22 09:41 Pulse Ox 100 04/06/22 07:44 O2 Del Method 04/06/22 07:44 BMI result Body Mass Index 19.3 <ELMER Seaman - Last Filed: 04/06/22 11:01> Const General: cooperative, comfortable and no acute distress <ELMER Seaman Last Filed: 04/06/22 11:01> Orientation/consciousness: patient oriented x3 <ELMER Seaman Last Filed: 04/06/22 11:01> Neck Neck: Yes normal visual inspection and Yes no JVD <ELMER Seaman Last Filed: 04/06/22 11:01> Chest Chest palpation & inspection: normal inspection of the chest <Tonya SmithBAKARIC - Last Filed: 04/06/22 11:01> Resp Effort & Inspection: normal respiratory effort <Tonya SmithBAKARIC - Last Filed: 04/06/22 11:01> Auscultation: clear to auscultation bilaterally, no crackles, no rales, no rhonchi and no wheezes <Tonya SmithKAREN-C - Last Filed: 04/06/22 11:01> Cardio Rate: regular rate <Tonya SmithKAREN-C - Last Filed: 04/06/22 11:01> Rhythm: regular rhythm <Tonya SmithKAREN-C - Last Filed: 04/06/22 11:01> Heart sounds: S1 normal heart sound present, S2 normal heart sound present, no gallops, no murmurs and no rubs <Tonya De La OKAREN nascimento-C - Last Filed: 04/06/22 11:01> GI Inspection: Yes normal to inspection <Tonya SmithKAREN-C - Last Filed: 04/06/22 11:01> Neuro General: patient oriented x3 <Tonya SmithKAREN-C - Last Filed: 04/06/22 11:01> Extrem General: Yes normal to inspection <Tonya SmithKAREN-C - Last Filed: 04/06/22 11:01> Psych Appearance: grossly normal <Tonya SmithKAREN-C - Last Filed: 04/06/22 11:01> Mental Status: mental status grossly normal <Tonya SmithKAREN-C - Last Filed: 04/06/22 11:01> Speech and movement: Normal speech and movement present <Tonya SmithKAREN-C - Last Filed: 04/06/22 11:01> Objective Labs and Meds Result diagrams: : 03/27/22 06:56 03/31/22 05:48 <Tonya Peraza KAREN Smith-C - Last Filed: 04/06/22 11:01> Lab results: Laboratory Results - last 24 hr 04/02/22 08:26 ACTH Resp to Cosyntrop 0845 <Tonya Peraza KAREN Smith-C - Last Filed: 04/06/22 11:01> Progress Note: A&P Assessment and plan (1) Orthostatic hypotension: Status: Acute <ELMER Seaman - Last Filed: 04/06/22 11:01> Assessment and Plan: Orthostatic hypotension related to autonomic dysfunction of unclear etiology at present. Echocardiogram done 04/05/22 showed EF 65-70%, grade I diastolic dysfunction, no valve abnormalities. Does have recent weight loss, abdominal discomfort and newer finding of rectal carcinoid tumor. This admit, has had symptomatic hypotension with standing. Being managed with maximal medical therapy including Midodrine and Fludrocortisone. Was given 1 liter of IV fluid yesterday with plan to give additional Liter and he refused. BP did improved post infusion and he tells me he could walk the halls without symptoms. Spent time going over the diagnosis of orthostatic hypotension, autonomic dysfunction with him. He tell me that he never had blood pressure problem until this admission. Informed him that the treatment for this problems is increasing fluid ( 64 oz daily) and salt intake ( up to 4 gm daily) med management with Midodrine and Fludrocortisone. Suggested use of compression stockings, apply in am and take off in pm. Use caution when going sitting to standing and sit down if he feels lightheaded with walking. He expresses frustration with what I am telling him, but does state understanding. Continue current management. We will sign of case. <ELMER Seaman - Last Filed: 04/06/22 11:01> Orthostatic hypotension related to autonomic dysfunction of unclear etiology at present. Echocardiogram done 04/05/22 showed EF 65-70%, grade I diastolic dysfunction, no valve abnormalities. Does have recent weight loss, abdominal discomfort and newer finding of rectal carcinoid tumor. This admit, has had symptomatic hypotension with standing. Being managed with maximal medical therapy including Midodrine and Fludrocortisone. Was given 1 liter of IV fluid yesterday with plan to give additional Liter and he refused. BP did improved post infusion and he tells me he could walk the halls without symptoms. Spent time going over the diagnosis of orthostatic hypotension, autonomic dysfunction with him. He tell me that he never had blood pressure problem until this admission. Informed him that the treatment for this problems is increasing fluid ( 64 oz daily) and salt intake ( up to 4 gm daily) med management with Midodrine and Fludrocortisone. Suggested use of compression stockings, apply in am and take off in pm. Use caution when going sitting to standing and sit down if he feels lightheaded with walking. He expresses frustration with what I am telling him, but does state understanding. Continue current management. We will sign of case. Patient seen and examined. Case discussed with Tonya. Case also discussed with Dr. Chatman. Patient is adamant that he is not better. He complains of abdominal discomfort. He said he does not want to worry about his drop in blood pressure which brought him to the emergency room. Had a long discussion including with help of certified court interpreter in the room as to his medical condition and the plan for action. Discussed with him the importance of taking his medications to avoid orthostatic hypotension and prevent syncopal episodes and hospital admissions. He still seems to be adamant that he has abdominal issues that needs to be fixed right away. Discuss that this will be done as an outpatient and needs follow-up with [facility] GI doctor for further workup. Meanwhile he needs to bump up his fluid intake as well as salt intake and continue to take his midodrine and Florinef. He has significant orthostatic hypertension of unclear etiology diet needs to be evaluated and should be done as outpatient. Orthostatic precautions were discussed. Will sign of the case <Dangelo Rodgers MD - Last Filed: 04/06/22 11:13> (2) Syncope: Status: Acute <ELMER Seaman - Last Filed: 04/06/22 11:01> (3) Weight loss: Status: Acute <ELMER Seaman Last Filed: 04/06/22 11:01> (4) Rectal carcinoid tumor: Status: Acute <ELMER Seaman Last Filed: 04/06/22 11:01> Assessment and Plan: Being followed by GI <ELMER Seaman Last Filed: 04/06/22 11:01> Time Spent With Patient Time: Total time spent is greater than 50% in coordination of care (as documented) at patient's floor/unit and/or counseling patient: 24 <ELMER Seaman - Last Filed: 04/06/22 11:01> Progress Note: Quality Stroke Does the patient have a stroke diagnosis?: No <ELMER Seaman - Last Filed: 04/06/22 11:01> Procedures Date of Service Date of Service: 04/06/22 <ELMER Seaman - Last Filed: 04/06/22 11:01>
--- NOTE | 2022-04-06 10:52 | PM.PNNEP ---
Subjective Subjective Date of Service: 04/06/22 Principal diagnosis: orthostatic hypotension Interval history: Events noted. All recent data reviewed. D/W Med Attending Physical Exam Vital Signs: Vital Signs: Last Vital Signs Temp 97.8 F 04/06/22 07:44 Pulse 124 H 04/06/22 09:41 Resp 18 04/06/22 07:44 BP 54/42 L 04/06/22 09:41 Pulse Ox 100 04/06/22 07:44 O2 Del Method 04/06/22 07:44 BMI result Body Mass Index 19.3 Const: General: no acute distress Orientation/consciousness: patient oriented x3 Eyes: EOM: EOMs intact bilaterally Neck: Neck: Yes supple Resp: Auscultation: diminished lung sounds Cardio: Rate: regular rate GI: Palpation (GI): Soft to palpation Neuro: General: patient oriented x3 Objective Data Labs CBC & Chem 7: 03/27/22 06:56 03/31/22 05:48 Labs: Laboratory Results - last 24 hr 04/02/22 08:26 ACTH Resp to Cosyntrop 0845 Microbiology Microbiology Results: Microbiology 04/02/22 20:12 Blood - Venous Blood Culture - Preliminary No growth after 48 hours. 04/02/22 20:12 Blood - Venous Blood Culture - Preliminary No growth after 48 hours. Procedures Date of Service Date of Service: 04/06/22 Assessment & Plan Assessment and plan (1) Orthostatic hypotension: Status: Acute Assessment and Plan: DANK stockings; Increased Na in diet Has ruled out adrenal issues Had received IV fluids Could increase Midodrine to 15 mg tid Increase Florinef 0.2 mg bid Shall follow up closely Time Spent With Patient Time: Total time spent is greater than 50% in coordination of care (as documented) at patient's floor/unit and/or counseling patient: Progress Note: Quality Stroke Does the patient have a stroke diagnosis?: No
--- NOTE | 2022-04-06 13:30 | PC.NURSE ---
Patient denies feeling dizzy at this time., Ambulating steady gait throughout room.
--- NOTE | 2022-04-06 13:57 | PM.DS ---
DS: Providers Provider Date of Service: 04/06/22 Date of admission: 03/24/22 01:52 Primary care physician: Rafael Pittman MD Consults: 03/23/22 16:55 Consult to Gastroenterology Routine Consulting Provider: Iker Dallas Reason for consultation: abdominal pain Has provider been notified: No 03/23/22 17:32 Consult to Hematology / Oncology Routine Consulting Provider: Krystal Amanda Reason for consultation: new neuroendocrine tumor Has provider been notified: No 04/03/22 12:29 Consult to Nephrology Routine Consulting Provider: Kenyon Cheema Reason for consultation: orthostatic hypotension Has provider been notified: No 04/04/22 11:00 Consult to Cardiology Routine Consulting Provider: Dangelo Rodgers Reason for consultation: Orthostatic hypotension Has provider been notified: No 04/04/22 12:32 Consult to Neurology Routine Consulting Provider: [facility] Reason for consultation: paraneoplastic syndrome Has provider been notified: No DS: Diagnosis Discharge Diagnosis (1) Neuroendocrine neoplasm of colon: Status: Acute (2) Intractable abdominal pain: Status: Acute DS: Summary Hospital Course Hospital Course: Date of Service: 03/23/22 Attending physician on admission: Vinod Forman Chief Complaint:? syncope, abdominal pain ?this is a 61-year-old [place]an-speaking male who presents to the emergency department after syncopal event.? History was obtained with the assistance of a animal rehabilitator.? Patient has had 3 month history of chronic abdominal pain.? Most recently he underwent endoscopy and colonoscopy earlier this month with Dr. Almeida.? results of biopsy from those procedures revealed chronic H pylori as well as a well-differentiated neuroendocrine tumor. ? He reports chronic abdominal pain primary located in his upper abdomen which is worse after eating.? He denies any associated nausea or vomiting.? He has had no fever or chills.? Nothing makes his abdominal pain better.? He reports taking milk of magnesia and MiraLax at home and then massages his abdomen in order to have bowel movement. His ? Bowel movements are primarily diarrhea but he states if he does not massage his abdomen he will not have a bowel movement.? He does report that he is able to eat and drink however this does worsen his pain.? He has lost 30 lb in the past 3 months. ? Today he stood up to go to the bathroom ? And felt dizzy and then syncopized. he denies any associated chest pain, shortness of breath, palpitations.? On arrival to the emergency department his blood pressure was noted to be in 80 systolic.? He received IV fluid as well as IV Toradol and the decision was made to admit him to the hospital for further management. Hospital course 61yo M with chronic abd pain, recently diagnosed neuroendocrine/carcinoid tumor and PUD due to H pylori [diagnosed on EGD/C-scope 03/07/22], admitted after syncope Syncope, likely due to orthostatic hypotension, patient workup including CT head unremarkable, cortisol level indeterminate therefore underwent ACTH stimulation test that was within normal range patient treated with midodrine 10 mg t.i.d. and Florinef 0.2 mg b.i.d. and also treated with IV fluid repeat orthostatic blood pressures have significantly improved, his symptoms of dizziness have resolved he has been ambulating in room and remain asymptomatic therefore he is being discharged home during the course of hospitalization patient was seen by Cardiology an echocardiogram was obtained that is unremarkable, Cardio recommended high fluid and salt intake, Patient also recommended to use Forrest stocking, patient also evaluated by Neurology they agreed with above treatment and recommend tilt-table study and further workup for autonomic dysfunction if patient develops recurrent symptoms, patient was seen by loss control engineer Dr. Almeida, 24 hour urine 5 HIIA and antibody yo and antibody HU test sent report pending, patient has been recommended outpatient follow-up with Gastroenterology to obtain results of the studies and also with primary care physician. PUD/ H pylori infection in regard to recently diagnosed H pylori infection patient treated with levofloxacin/amoxicillin/omeprazole, he is recommended to continue 2 more days of antibiotics and continue omeprazole for peptic ulcer disease. In regard to recently diagnosed well-differentiated neuroendocrine tumor, patient has been referred to [facility] for EUS of the rectum by Dr. Mejia, recommended close outpatient follow-up with primary Gastroenterology, and also with Oncology for further studies, CT abdomen and pelvis is unremarkable, constipation has been resolved. Recommend stool softeners. Moderate protein-calorie malnutrition, admits 30 lb weight loss in past 3 months, continue nutritional supplements, normal albumin 4.1. Time Spent with Patient Time attestation: Total time spent providing and/or coordinating discharge services: Discharge coordination time: Greater than 30 minutes Quality: Safe Use of Opioids Does Pt have an Active Cancer Diagnosis on the Problem List?: No Quality: Stroke Does the patient have a stroke diagnosis?: No Physical Exam Vital Signs: Vital Signs: Last Vital Signs Temp 98.4 F 04/06/22 12:00 Pulse 99 04/06/22 12:47 Resp 20 04/06/22 12:00 BP 90/60 04/06/22 12:47 Pulse Ox 99 04/06/22 12:00 O2 Del Method 04/06/22 12:00 BMI result Body Mass Index 19.3 Const: Other: Gen: Awake alert, in no acute distress HEENT: sclera anicteric, moist mucus membranes Neck: supple Lungs: clear to auscultation bilaterally Heart: regular rate and rhythm, no murmurs Abd: soft, nontender, non-distended Ext: no edema Skin: warm/well-perfused Neuro: alert and oriented x3, no focal findings Psych: appropriate affect DS: Data Data Completed and Pending Labs on day of discharge: Laboratory Results - last 24 hr 04/02/22 08:26 ACTH Resp to Cosyntrop 0845 Preliminary micro results at discharge 04/02/22 20:12 Blood Culture - Preliminary Blood - Venous No growth after 48 hours. 04/02/22 20:12 Blood Culture - Preliminary Blood - Venous No growth after 48 hours. Discharge Plan Discharge Patient Disposition: Home, Self-Care Discharge Diagnosis: H pylori infection Orthostatic hypotension Syncope Neuroendocrine tumor Referrals: Rafael Pittman MD [Primary Care Provider] - 1 Week Discharge Medications: New polyethylene glycol 3350 17 gram Powder In Packet 17 g PO BID Qty: 100 0RF sucralfate 1 gram Tablet 1 g PO QIDACHS Qty: 120 0RF fludrocortisone 0.1 mg Tablet 0.2 mg PO BID Qty: 120 0RF omeprazole 40 mg Capsule,Delayed Release(Dr/Ec) 40 mg PO BID@0630,1630 Qty: 60 0RF midodrine 10 mg Tablet 10 mg PO TID Qty: 90 0RF amoxicillin 250 mg Capsule 750 mg PO Q8H Qty: 18 0RF levofloxacin 500 mg tablet 500 mg PO DAILY Qty: 2 0RF Continued sennosides [senna] 8.6 mg Tablet 8.6 mg PO BEDTIME PRN (Reason: Constipation) Discharge Orders: Discharge Order (Routine); Ordered 04/06/22 Ordered By: Maverick Chatman Diet: Advance to usual diet Activity on Discharge: As tolerated Stand Alone Forms: Patient Portal Discharge page Care Plan Goals: H pylori infection take 2 more days of antibiotics as prescribed In regard to orthostatic hypotension continue taking midodrine 10 mg 3 times per day, Florinef 0.2 mg twice daily, take high salt diet, continue Forrest stocking Get up slowly from sitting position Neuro endocrine tumor of colon follow-up with Dr. Nuñez/Dr. Amanda from Oncology call to make appointment, follow up with Dr. Mejia from Gastroenterology call to make an appointment in next 2-3 weeks [facility] will call you for follow-up appointment. Health Concerns: As above Plan of Treatment: Call Gastroenterology [facility] to make a follow-up appointment with Dr. Mejia in 2-3 weeks Call Oncology Department at [facility] to make a follow-up appoint with Dr. Nuñez or Dr. Amanda Follow-up with PCP Assessment: As per discharge summary Discharge Date/Time: 04/06/22 14:18
--- NOTE | 2022-04-06 14:28 | MHC.CM.PN ---
Patient has been medically cleared for dc to home today, self care.
[2022-04-08 12:38] LABS: Hu Antibody Screen, IFA Serum NEGATIVE (NEGATIVE)
[2022-04-11 12:42] LABS: Hydroindolacetic Acid,5- 2.8 mg/24 h (<=6.0); Total Volume 1275 mL
[2022-04-12 20:06] LABS: Yo Antibody, Serum Screen NEGATIVE (NEGATIVE)
== END 2022-04-06 14:18 | disposition home or self-care (01) | DRG 241 ==
LOC: HO.ED 16:42 → HO.EDOVER 03-24 01:53 → HO.IMC 03-26 10:32
PROVIDERS: Family Medicine; Internal Medicine; Internal Medicine Gastroenterology; Nurse Practitioner Acute Care; Physician Assistant Medical; Admitting Provider Hospitalist; Emergency Provider Emergency Medicine Emergency Medical Services; PCP Internal Medicine; Visit Provider Hospitalist
DX: K29.60 Other gastritis without bleeding (principal); E44.0 Moderate protein-calorie malnutrition; C7A.026 Malignant carcinoid tumor of the rectum; I95.1 Orthostatic hypotension; B96.81 Helicobacter pylori [H. pylori] as the cause of diseases classified elsewhere; K25.7 Chronic gastric ulcer without hemorrhage or perforation; K59.00 Constipation, unspecified; Z68.1 Body mass index [BMI] 19.9 or less, adult; Z20.822 Contact with and (suspected) exposure to COVID-19; Z79.899 Other long term (current) drug therapy
CPT/HCPCS: 36415; 70450; 74174; 80048; 80053; 81003; 81050; 82077; 82272; 82533; 83497; 83605; 83690; 84181; 84443; 84484; 85025; 85027; 85610; 85730; 86255; 86256; 86316; 87040; 87635; 93005; 93306; 93356; 93880; 97162; 99285; J0834; J1885; J2270; J2405; Q0163; Q9967

== ENCOUNTER 2022-04-14 11:54 | Emergency (ER) | payer MEDICAID, SELFPAY ==
[2022-04-14 12:02] VITALS: BP 95/73; PULSE 98; RESP 18; TEMP 37.2; O2SAT 100; BMI 19.1
--- NOTE | 2022-04-14 12:04 | ECG_ITS ---
Test Reason : hypotension Blood Pressure : / mmHG Vent. Rate : 093 BPM Atrial Rate : 093 BPM P-R Int : 140 ms QRS Dur : 088 ms QT Int : 362 ms P-R-T Axes : 081 016 042 degrees QTc Int : 450 ms Normal sinus rhythm Normal ECG When compared with ECG of 23-MAR-2022 13:44, Heart rate has decreased Referred By: Generic ED Physician Electronically Signed By:LEXI PORTILLO
[2022-04-14 12:30] LABS: MANUAL DIFF FLAG NO
[2022-04-14 12:31] LABS: Basophils Percent Auto 0.5 % (0-2); Eosinophils Absolute Auto 0.1 X10*3/uL (0.0-0.4); Eosinophils Percent Auto 1.2 % (0-4); Hematocrit 35.4 % (42.0-52.0); Hemoglobin 11.9 g/dl (14.0-18.0); Imm Gran Abs Auto 0.03 X10*3/uL (0.00-0.03); Imm Gran Pct Auto 0.5 % (0.0-0.4); Lymphocytes Absolute Auto 2.1 X10*3/uL (1.2-4.9); Lymphocytes Percent Auto 31.3 % (20-40); Mean Corpuscular HGB Conc 33.6 g/dl (31.0-36.0); Mean Corpuscular Volume 89.2 fL (80.0-98.0); Monocytes Absolute Auto 0.7 X10*3/uL (0.1-1.2); Monocytes Percent Auto 10.5 % (2-11); Neutrophils Absolute Auto 3.7 x10*3/uL (2.0-8.3); Platelet Count 266 X10*3/uL (160-400); Red Blood Count 3.97 X10*6/uL (4.60-5.80); Red Cell Distribution Width 13.6 % (11.0-16.0); White Blood Count 6.6 X10*3/uL (4.8-10.8)
[2022-04-14 12:59] LABS: Troponin-I High Sensitivity < 3.5 ng/L (<3.5-35.0)
[2022-04-14 13:03] LABS: Alanine Aminotransferase 27 U/L (0-40); Albumin Level 4.2 g/dL (3.5-5.0); Alkaline Phosphatase 45 U/L (39-117); Anion Gap 15 (12-20); Aspartate Amino Transferase 13 U/L (5-37); Bilirubin Total 0.4 mg/dL (0.0-1.0); Blood Urea Nitrogen 11 mg/dL (9-16); Calcium 9.7 mg/dL (8.4-10.2); Carbon Dioxide 29 mmol/L (22-29); Chloride 100 mmol/L (96-108); Estimated Glomerular Filt Rate > 60; Glucose Random 104 mg/dL (60-115); Potassium 4.5 mmol/L (3.3-5.1); Sodium 139 mmol/L (135-145); Total Protein 6.7 g/dL (6.5-8.0)
--- NOTE | 2022-04-14 15:22 | PC.NURSE ---
pt walked into ED down to room 6 and patient declined to go into room, he stated in sinhala that he was not coming to stay until sunday. The patient decided to depart
== END 2022-04-14 20:50 | disposition left against medical advice (07) ==
PROVIDERS: Emergency Provider Emergency Medicine
DX: I95.9 Hypotension, unspecified (principal); R42 Dizziness and giddiness; R62.7 Adult failure to thrive; Z68.1 Body mass index [BMI] 19.9 or less, adult
CPT/HCPCS: 36415; 80053; 84484; 85025; 93005; 99212; 99283

== ENCOUNTER → 2022-07-12 10:49 | Outpatient (BNVA) | payer MEDICAID, SELFPAY | PROVIDERS: PCP Internal Medicine; Referring Provider Internal Medicine; Visit Provider Internal Medicine Cardiovascular Disease | DX: I95.1 Orthostatic hypotension (principal); Z79.899 Other long term (current) drug therapy | CPT/HCPCS: 99202 ==

== ENCOUNTER 2024-01-11 12:17 | Outpatient (AMB) | payer MEDICAID, SELFPAY ==
--- NOTE | 2024-01-11 12:18 | A.OFFVIS_ITS ---
Vital Signs 01/11/24 12:20 Height 5 ft 10 in Weight 136 lb 10.986 oz BMI 19.6 BP 99/69 Blood Pressure Location Lt brachial Position Sitting Pulse 51 Intake Visit Reasons: Neuroendocrine tumor Intake Note: Geoffrey presents in the office as a follow up regarding his neuroendocrine tumor. CC: Has pains in the stomach, regular bowel movement. States that he takes 2 pills but not sure what the exact pills are. Allergies No Known Allergies [No Known Allergies*] Allergy (Verified 01/11/24 12:20) HPI HPI Neuroendocrine tumor: Details: 63 year old male who I am seeing for f/u He was admitted with low BP and syncope 03/24/22 CTA was nml carotid dopplers and CT head nml testing neg for addisons disease He had EGD and colonoscopy-- 03/27 Endoscopy Findings: gastritis esophagitis Colonoscopy Findings: polyp internal hemorrhoids Path: H pylori pos, tubulovillous polyp with small focus of neuroendocrine tumour noted chromogranin--was normal Other data; MRI L-spine-08/2021-multiple areas of disc protrusion and degenerative changes, foraminal tightening He had EUS [facility] which was negative for residual NET Interim: C/o RUQ pain and epigastric discomfort, still has episodes of low bp, 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 VITAL SIGNS:see workflow-- HEENT: Nonicteric sclerae, PERRLA, EOMI. Oropharynx clear. Moist mucous membranes. Conjunctivae appear well perfused. No thyroid mass. CHEST: Chest wall is nontender. HEART: Regular rate and rhythm without murmurs. LUNGS: Clear to auscultation bilaterally. ABDOMEN: Soft, positive bowel sounds, tender epigastrium, no organomegaly.no flank tenderness SKIN: No rash, no excessive bruising, petechiae, or purpura. NEUROLOGIC: Cranial nerves II-XII intact without motor/sensory deficit. psych--nml affect A/P: 1/ Hx of tubulovillous polyp and NET 2/ Upper abdominal pain, chronic, maybe myofascial PLAN: 1/ labs incl vitamins 2/ US abdomen 3/ EGD and colo-- suprep 4/ if above neg then refer pain mx PFSH Medical History (Reviewed 06/16/22 @ 10:06 by Julissa Garcia [facility]) No known health problems Surgical History History of testicular surgery Hx of appendectomy Hx of colonoscopy Family History Father Cancer Social History Household Members: None Household Members Other:: lives alone Housing: Apartment Are you a primary caregiver assisted living to a significant other at home: No Do you presently have visiting nurse or other home services: No Alcohol intake: former Comment: Patient refusing bed alarm Patient Tobacco Use Status: Never used Tobacco service: No Current occupational status: unemployed Physical Exam Vital Signs: Last Vital Signs Pulse 51 01/11/24 12:20 BP 99/69 01/11/24 12:20 BMI result Body Mass Index 19.6 Assessment & Plan Assessment & Plan (1) Gastroenteritis: Code(s): K52.9 - Noninfective gastroenteritis and colitis, unspecified Category: Medical Plan: as above (2) Rectal carcinoid tumor: Code(s): D3A.026 - Benign carcinoid tumor of the rectum Category: Medical Plan: as above (3) Abdominal pain: Code(s): R10.9 - Unspecified abdominal pain Category: Medical Plan: as above Orders: Orders Comprehensive Met. Panel Today D3A.026 - Benign carcinoid tumor of the rectum, K52.9 - Noninfective gastroenteritis and colitis, unspecified, K75.81 - Nonalcoholic steatohepatitis ([place]) Vitamin A Today D3A.026 - Benign carcinoid tumor of the rectum, K52.9 - Noninfective gastroenteritis and colitis, unspecified Vitamin B1 Today D3A.026 - Benign carcinoid tumor of the rectum, K52.9 - Noninfective gastroenteritis and colitis, unspecified Vitamin B3 (Niacin) Today D3A.026 - Benign carcinoid tumor of the rectum, K52.9 - Noninfective gastroenteritis and colitis, unspecified Vitamin B5 (Pantothenic Acid) Today D3A.026 - Benign carcinoid tumor of the rectum, K52.9 - Noninfective gastroenteritis and colitis, unspecified Zinc Today D3A.026 - Benign carcinoid tumor of the rectum, K52.9 - Noninfective gastroenteritis and colitis, unspecified Chromogranin A Today D3A.026 - Benign carcinoid tumor of the rectum, K52.9 - Noninfective gastroenteritis and colitis, unspecified US abdomen complete Today D3A.026 - Benign carcinoid tumor of the rectum, R10.9 - Unspecified abdominal pain Complete Blood Count Auto Diff Today D3A.026 - Benign carcinoid tumor of the rectum, K52.9 - Noninfective gastroenteritis and colitis, unspecified TSH reflex Free T4 Today D3A.026 - Benign carcinoid tumor of the rectum, K52.9 - Noninfective gastroenteritis and colitis, unspecified Cortisol Random Today D3A.026 - Benign carcinoid tumor of the rectum, K52.9 - Noninfective gastroenteritis and colitis, unspecified Vitamin B12 and Folate Today D3A.026 - Benign carcinoid tumor of the rectum, K52.9 - Noninfective gastroenteritis and colitis, unspecified Vitamin B6 Today D3A.026 - Benign carcinoid tumor of the rectum, K52.9 - Noninfective gastroenteritis and colitis, unspecified Vitamin C Today D3A.026 - Benign carcinoid tumor of the rectum, K52.9 - Noninfective gastroenteritis and colitis, unspecified Vitamin D 25-OH Total Today D3A.026 - Benign carcinoid tumor of the rectum, K52.9 - Noninfective gastroenteritis and colitis, unspecified Vitamin E Today D3A.026 - Benign carcinoid tumor of the rectum, K52.9 - Noninfective gastroenteritis and colitis, unspecified Vitamin K1 Today D3A.026 - Benign carcinoid tumor of the rectum, K52.9 - Noninfective gastroenteritis and colitis, unspecified Ferritin Today D3A.026 - Benign carcinoid tumor of the rectum, K52.9 - Noninfective gastroenteritis and colitis, unspecified C Reactive Protein Today D3A.026 - Benign carcinoid tumor of the rectum, K52.9 - Noninfective gastroenteritis and colitis, unspecified Medications: New sodium,potassium,mag sulfates 17.5-3.13-1.6 gram (Suprep Bowel Prep Kit) DILUTE; drink 1/2 at 6-8 pm and half at 11 PM- 1AM 354 mL 0RF Coding Level of Care Code Est Pt Level 4 (72034) Diagnoses Gastroenteritis K52.9 Rectal carcinoid tumor D3A.026 Abdominal pain R10.9
[2024-01-11 12:20] VITALS: BP 99/69; PULSE 51; BMI 19.6
== END 2024-01-11 13:04 | disposition home or self-care (01) ==
PROVIDERS: PCP Internal Medicine; Visit Provider Internal Medicine Gastroenterology
DX: K52.9 Noninfective gastroenteritis and colitis, unspecified (principal); D3A.026 Benign carcinoid tumor of the rectum; R10.9 Unspecified abdominal pain
CPT/HCPCS: 99214

== ENCOUNTER → 2024-01-11 12:17 | Outpatient (BNVA) | payer MEDICAID, SELFPAY | PROVIDERS: PCP Internal Medicine; Visit Provider Internal Medicine Gastroenterology | DX: D3A.026 Benign carcinoid tumor of the rectum (principal); K52.9 Noninfective gastroenteritis and colitis, unspecified; R10.9 Unspecified abdominal pain | CPT/HCPCS: 99212 ==

== ENCOUNTER 2024-01-24 08:23 | Outpatient (REF) | payer MEDICAID, SELFPAY ==
--- NOTE | ~2024-01-24 | US_ITS ---
EXAMINATION: US ABDOMEN COMPLETE CLINICAL INFORMATION: Unspecified abdominal pain. COMPARISON: CTA abdomen and pelvis 03/24/2022. X-ray abdomen KUB 01/17/2022. TECHNIQUE: Real-time imaging of the abdominal viscera. Limited visualization due to bowel gas. FINDINGS: PANCREAS: Limited visualization of the pancreas. Imaged portion of pancreatic duct with diameter of 0.1 cm. Imaged portion of pancreas appears coarse in echotexture with nonspecific echogenic foci. ABDOMINAL AORTA: Unremarkable. INFERIOR VENA CAVA: Visualized portions are normal. LIVER: Hepatic parenchymal echogenicity is normal. The liver is normal in size. The liver contour is normal. Parenchymal echogenicity is normal. No focal hepatic lesion. There is no intrahepatic biliary duct dilatation seen. GALLBLADDER: No gallstones. No gallbladder wall thickening. COMMON BILE DUCT: Normal in caliber measuring 0.2 cm in diameter. RIGHT KIDNEY: No renal calculi. A 1.1 x 1.3 x 1.2 cm anechoic focus in the right renal mid pole parapelvic region may represent a parapelvic cyst versus mild focal pelviectasis. Limited visualization. The kidney measures 9.2 cm in maximum dimension. LEFT KIDNEY: No hydronephrosis. Limited visualization. Multiple echogenic foci within the left kidney may represent small vascular calcifications, artifacts or tiny nonobstructive renal calculi. Kidney measures 9.2 cm in maximum dimension. SPLEEN: Normal. The spleen measures 7.3 cm in maximum dimension. FREE FLUID: None. US/US abdomen complete IMPRESSION: 1. Imaged portion of pancreatic duct with diameter of 0.1 cm. Imaged portion of pancreas appears coarse in echotexture with nonspecific echogenic foci. 2. A 1.3 cm anechoic focus in the right renal mid pole parapelvic region may represent a parapelvic cyst versus mild focal pelviectasis. 3. Multiple echogenic foci within the left kidney may represent small vascular calcifications, artifacts or tiny nonobstructive renal calculi.
== END 2024-01-24 08:24 | disposition home or self-care (01) ==
LOC: HO.US 08:23
PROVIDERS: PCP Internal Medicine; Visit Provider Internal Medicine Gastroenterology
DX: R10.9 Unspecified abdominal pain (principal); D3A.026 Benign carcinoid tumor of the rectum
CPT/HCPCS: 76700